=== PATIENT | female | born 1950 | race Caucasian/White ===

== ENCOUNTER 2016-11-03 13:04 | Inpatient (IN) | payer MEDICARE ==
--- NOTE | 2016-11-03 14:26 | ED ---
General Adult HPI - General Chief complaint: Recheck/Abnormal Lab/Rx Stated complaint: leg & feet swelling/hemorrhoids Time Seen by Provider: 11/03/16 13:54 Source: patient, RN notes reviewed Mode of arrival: wheelchair Limitations: no limitations - History of Present Illness Initial comments: Patient 66-year-old female who presents emergency room today with a chief complaint of bilateral leg swelling over the last 4 months. Patient does admit that she does not have a family doctor. States she's not better doctor approximately 20 years. She does admit that she noticed some swelling to the lower extremities her last 4 months. States seems to be getting worse. She does admit that it's painful with ambulation. She states that she's noticed some swelling to her abdomen as well. She denies any pain. She does admit some hemorrhoids. She states that she feels like she eats food seems to go straight through her. She states is not loose stools. Does admit to hemorrhoids that are tender. Denies any other complaints or associated symptoms. Patient denies any recent fever, chills, shortness of breath, chest pain, back pain, abdominal pain, nausea or vomiting, numbness or tingling, dysuria or hematuria, constipation or diarrhea, headaches or visual changes, or any other complaints. - Related Data Home Medications Medication Instructions Recorded Confirmed Aspirin EC [Ecotrin Low Dose] 81 mg PO DAILY 11/03/16 11/03/16 Allergies Allergy/AdvReac Type Severity Reaction Status Date / Time No Known Allergies Allergy Verified 11/03/16 14:43 Review of Systems ROS Statement: Those systems with pertinent positive or pertinent negative responses have been documented in the HPI. ROS Other: All systems not noted in ROS Statement are negative. Past Medical History Past Medical History: No Reported History Additional Past Medical History / Comment(s): pt states that she has not been to a doctor in 20+years History of Any Multi-Drug Resistant Organisms: None Reported Past Surgical History: Section Past Psychological History: No Psychological Hx Reported Smoking Status: Current every day smoker Past Alcohol Use History: Daily Past Drug Use History: None Reported General Exam - General Exam Comments Initial Comments: General: The patient is awake and alert, in no distress, and does not appear acutely ill. Eye: Pupils are equal, round and reactive to light, extra-ocular movements are intact. No nystagmus. There is normal conjunctiva bilaterally. No signs of icterus. Ears, nose, mouth and throat: There are moist mucous membranes and no oral lesions. Neck: The neck is supple, there is no tenderness or JVD. Cardiovascular: There is a regular rate and rhythm. No murmur, rub or gallop is appreciated. Respiratory: Lungs are clear to auscultation, respirations are non-labored, breath sounds are equal. No wheezes, stridor, rales, or rhonchi. Gastrointestinal: Abdomen soft on palpation. Normal bowel sounds. Nontender palpation. Musculoskeletal: Normal ROM, no tenderness. Strength 5/5. Sensation intact. Pulses equal bilaterally 2+. Patient does have 2+ pitting edema to the lower extremities. Neurological: A&O x 3. CN II-XII intact, There are no obvious motor or sensory deficits. Coordination appears grossly intact. Speech is normal. Skin: Skin is warm and dry and no rashes or lesions are noted. Psychiatric: Cooperative, appropriate mood & affect, normal judgment. Limitations: no limitations Course Vital Signs 11/03/16 13:28 Temperature 98.1 F Pulse Rate 115 H Respiratory 20 Rate Blood Pressure 125/55 O2 Sat by Pulse 100 Oximetry Medical Decision Making - Medical Decision Making Patient's labs been reviewed does show hemoglobin 8.1. Patient denies any signs of blood per rectum. Patient denies any history of anemia. Patient's labs reviewed mild elevation of AST ALT. Patient's does admit to ascites to the abdomen and edema to the lower extremities over the last few months. Denies following up with any family doctor. X-ray reviewed a nodule on the right midlung. Case was discussed with attending physician Dr. Sims. Patient did have CT of the chest abdomen pelvis with contrast which didn't reveal a nodule to the liver and a [id number] amount of ascites. Patient's BNP negative. There is no sign of CHF. Patient will be admitted to Dr. Petty with a consult from GI. She'll wear the plan states understanding. - Lab Data Result diagrams: 11/03/16 13:52 11/03/16 13:52 Lab Results 11/03/16 11/03/16 11/03/16 Range/Units 13:52 13:52 13:52 WBC 10.3 (3.8-10.6) k/uL RBC 2.82 L (3.80-5.40) m/uL Hgb 8.1 L (11.4-16.0) gm/dL Hct 26.8 L (34.0-46.0) % MCV 95.0 (80.0-100.0) fL MCH 28.8 (25.0-35.0) pg MCHC 30.3 L (31.0-37.0) g/dL RDW 16.0 H (11.5-15.5) % Plt Count 146 L (150-450) k/uL Neutrophils % (Manual) 80.0 % Lymphocytes % (Manual) 16.0 % Monocytes % (Manual) 3.0 % Eosinophils % (Manual) 1.0 % Neutrophils # (Manual) 8.2 H (1.3-7.7) k/uL Lymphocytes # (Manual) 1.6 (1.0-4.8) k/uL Monocytes # (Manual) 0.3 (0-1.0) k/uL Eosinophils # (Manual) 0.1 (0-0.7) k/uL Nucleated RBCs 0 (0-0) /100 WBC Polychromasia Present Hypochromasia Marked Poikilocytosis Marked Poikilocytosis (manual Present Target Cells Present PT (9.0-12.0) sec INR (<1.1) APTT (22.0-30.0) sec Sodium 134 L (137-145) mmol/L Potassium 3.5 (3.5-5.1) mmol/L Chloride 97 L (98-107) mmol/L Carbon Dioxide 27 (22-30) mmol/L Anion Gap 10 mmol/L BUN 11 (7-17) mg/dL Creatinine 0.39 L (0.52-1.04) mg/dL Est GFR (MDRD) Af Amer >60 (>60 ml/min/1.73 sqM) Est GFR (MDRD) Non-Af >60 (>60 ml/min/1.73 sqM) Glucose 97 (74-99) mg/dL Calcium 8.1 L (8.4-10.2) mg/dL Total Bilirubin 3.8 H (0.2-1.3) mg/dL AST 83 H (14-36) U/L ALT 69 H (9-52) U/L Alkaline Phosphatase 110 (38-126) U/L NT-Pro-B Natriuret Pep 313 pg/mL Total Protein 5.6 L (6.3-8.2) g/dL Albumin 2.8 L (3.5-5.0) g/dL 11/03/16 Range/Units 13:52 WBC (3.8-10.6) k/uL RBC (3.80-5.40) m/uL Hgb (11.4-16.0) gm/dL Hct (34.0-46.0) % MCV (80.0-100.0) fL MCH (25.0-35.0) pg MCHC (31.0-37.0) g/dL RDW (11.5-15.5) % Plt Count (150-450) k/uL Neutrophils % (Manual) % Lymphocytes % (Manual) % Monocytes % (Manual) % Eosinophils % (Manual) % Neutrophils # (Manual) (1.3-7.7) k/uL Lymphocytes # (Manual) (1.0-4.8) k/uL Monocytes # (Manual) (0-1.0) k/uL Eosinophils # (Manual) (0-0.7) k/uL Nucleated RBCs (0-0) /100 WBC Polychromasia Hypochromasia Poikilocytosis Poikilocytosis (manual Target Cells PT 17.3 H (9.0-12.0) sec INR 1.8 (<1.1) APTT 28.7 (22.0-30.0) sec Sodium (137-145) mmol/L Potassium (3.5-5.1) mmol/L Chloride (98-107) mmol/L Carbon Dioxide (22-30) mmol/L Anion Gap mmol/L BUN (7-17) mg/dL Creatinine (0.52-1.04) mg/dL Est GFR (MDRD) Af Amer (>60 ml/min/1.73 sqM) Est GFR (MDRD) Non-Af (>60 ml/min/1.73 sqM) Glucose (74-99) mg/dL Calcium (8.4-10.2) mg/dL Total Bilirubin (0.2-1.3) mg/dL AST (14-36) U/L ALT (9-52) U/L Alkaline Phosphatase (38-126) U/L NT-Pro-B Natriuret Pep pg/mL Total Protein (6.3-8.2) g/dL Albumin (3.5-5.0) g/dL Disposition Clinical Impression: Liver cirrhosis, Ascites, Leg edema Disposition: ADMITTED IP TO THIS HOSP Condition: Stable Time of Disposition: 17:16
--- NOTE | 2016-11-03 14:28 | XR ---
EXAMINATION TYPE: XR chest 2V DATE OF EXAM: 11/03/2016 2:18 PM COMPARISON: None HISTORY: 66-year-old female with leg edema TECHNIQUE: PA and lateral views FINDINGS: The cardiomediastinal silhouette, aorta, and pulmonary vasculature are within normal limits. There is mild hyperinflation with increased retrosternal clear space. Some nodularity in the right hilum like ly summation shadow and vasculature. No consolidation or pleural effusion. IMPRESSION: 1. Suspect underlying emphysema. No acute cardiopulmonary process. 2. Some nodular right hilar density likely summation shadow and vessels. Recommend short interval fol low-up in 6-8 weeks to reassess.
[2016-11-03 14:32] LABS: INR 1.8 (<1.1); Partial Thromboplastin Time 28.7 sec (22.0-30.0); Prothrombin Time 17.3 sec (9.0-12.0)
[2016-11-03 14:36] LABS: ALT 69 U/L (9-52); AST 83 U/L (14-36); Alkaline Phosphatase 110 U/L (38-126); Anion Gap 10 mmol/L; Blood Urea Nitrogen 11 mg/dL (7-17); Calcium 8.1 mg/dL (8.4-10.2); Carbon Dioxide 27 mmol/L (22-30); Chloride 97 mmol/L (98-107); Glucose 97 mg/dL (74-99); Non-African American GFR(MDRD) >60 (>60 ml/min/1.73 sqM); Potassium 3.5 mmol/L (3.5-5.1); Sodium 134 mmol/L (137-145); Total Bilirubin 3.8 mg/dL (0.2-1.3); Total Protein 5.6 g/dL (6.3-8.2)
[2016-11-03 15:07] LABS: CHCM 30.3; HCT 26.8 % (34.0-46.0); HDW 4.68; HGB 8.1 gm/dL (11.4-16.0); Hypochromasia Marked; MCH 28.8 pg (25.0-35.0); MCHC 30.3 g/dL (31.0-37.0); Mean Platelet Volume 7.3; Poikilocytosis Marked; RBC 2.82 m/uL (3.80-5.40); WBC 10.3 k/uL (3.8-10.6); WBC (Perox) 10.63
[2016-11-03] MEDS ORDERED: RX INFO: IV CONTRAST WAS GIVEN 1 EACH MISC MISCELLANE PRN (15:14)
[2016-11-03 15:59] LABS: Add Differential Manual Differential
[2016-11-03 16:03] LABS: Nucleated Red Blood Cells 0 /100 WBC (0-0); Total Cells Counted 100
[2016-11-03 16:04] LABS: Polychromasia Present; Target Cells Present
--- NOTE | 2016-11-03 16:08 | CT ---
EXAMINATION TYPE: CT ChestAbdPelvis w con DATE OF EXAM: 11/03/2016 3:53 PM COMPARISON: NONE HISTORY: Patient having bloating of abdomen since the end of summer CT DLP: 626.5 mGycm Automated exposure control for dose reduction was used. CONTRAST: CT scan of the chest, abdomen and pelvis is performed with Oral Contrast and with IV Contrast, patien t injected with 100 mL of Omnipaque 300. FINDINGS: LUNGS: There is background of mild emphysematous change. No suspicious parenchymal nodule or mass is present bilaterally. No pleural effusion or pneumothorax is seen bilaterally. Minimal linear scarring or atelectasis in both lung bases is present. MEDIASTINUM: There are no greater than 1 cm hilar or mediastinal lymph nodes. No cardiomegaly or pe ricardial effusion is seen. Main pulmonary artery measures 3.0 cm in diameter on axial image 31. Adj acent ascending aorta measures 3.3 cm in diameter. OTHER: Heterogeneously dense fibroglandular tissue is present in both breasts. Some dystrophic calcif ications are present bilaterally. LIVER/GB: Liver is heterogeneous hypodense in appearance and somewhat small in size. There are some rounded low dense lesion is felt to reflect simple cysts. There is more suspicious Central hypodense lesion on axial image 60 measuring 4.5 x 4.2 cm in which solid lesion is felt present.. PANCREAS: No significant abnormality is seen. SPLEEN: No significant abnormality is seen. ADRENALS: No significant abnormality is seen. KIDNEYS: No significant abnormality is seen. BOWEL: The evaluation of bowel is suboptimal due to lack of enteric contrast. There is small to mode rate-sized hiatal hernia. There is 1.5 cm diverticulum near junction of second and third portion of d uodenum. There is mild wall thickening throughout central small bowel loops. No suspicious small or l arge bowel dilatation is present. The amount of fecal material is somewhat prominent in the rectum. REPRODUCTIVE ORGANS: Uterus is anteverted in shape and within normal limits in size. Suspect nabothia n cysts in the cervix. Ovaries are present bilaterally and not suspiciously enlarged. LYMPH NODES: No greater than 1 cm abdominal or pelvic lymph nodes are appreciated. OSSEOUS STRUCTURES: Osseous structures are demineralized. There is mild to moderate compression type deformity superior L3 endplate favored chronic as there is sclerosis at this level. S-shaped scoliosi s in the thoracic spine is noted. Other: There are small to moderate amount of abdominal and severe amount of pelvic ascites. A 9 mm hyperdense round lesion anterior to spleen on axial image 66 could reflect marked anterior spl enule. Other etiologies not excluded. IMPRESSION: Fairly moderate to severe diffuse abdominal and pelvic ascites. Abnormal appearance to li ana which is small in size is suggestion of at least one solid lesion but possible additional solid l esions. Consider cirrhosis and neoplasm.
[2016-11-03] MEDS ORDERED: HYDROmorphone 1 MG/ML 1 ML SYRINGE IV PRN (17:16)
[2016-11-03] MEDS ORDERED: NALOXONE 0.4 MG/ML 1 ML VIAL IV PRN (17:16)
[2016-11-03] MEDS ORDERED: ACETAMINOPHEN TAB 325 MG TAB PO PRN (17:16)
[2016-11-03] MEDS ORDERED: ONDANSETRON 4 MG/2 ML VIAL IVP PRN (17:16)
[2016-11-03] MEDS ORDERED: SODIUM CHLORIDE 0.9% 1,000 ML IV ONE (17:16)
--- NOTE | 2016-11-04 07:12 | HP ---
DATE OF ADMISSION: CHIEF COMPLAINT: Leg swelling and abdominal swelling. HISTORY OF PRESENT ILLNESS: Ms. Clinton is a 66-year-old female without significant past medical history came to the hospital with complaints of bilateral leg swelling and increased abdominal girth worsening for the past 4 months. Patient apparently has not seen a family care primary physician for the past 20 years. Initially she noted bilateral leg swelling which is worsening along with increased abdominal girth and unable to fit her clothes. She does have hemorrhoids and occasional bleeding. Otherwise, denied any active bleeding at this time. Denied any fever, chills. No recent illnesses. Denied any loss of weight. Her appetite seems to be same as per the patient. Otherwise, no chest pain or short of breath. Patient had a CT of the abdomen and pelvis done, which showed the liver is heterogenous, hypodense in appearance and somewhat small in size. They are somewhat rounded low dense lesion, is felt to reflect simple cysts. There is more suspicious central hypodense lesion on the axial image 60 measuring 4.5 x 4.2 cm in which solid lesion is felt present, consider cirrhosis and neoplasm. Patient admitted to hospital for evaluation by GI at this time. REVIEW OF SYSTEMS: CONSTITUTIONAL: No fever. No chills, ( ). Denied any generalized weakness or malaise. RESPIRATORY: No cough or sputum production. No short of breath. CARDIOVASCULAR: No chest pain or short of breath. Patient does have leg swelling. No orthopnea, no PND. ABDOMEN: No nausea, vomiting. Patient does have abdominal increased girth and no abdominal pain. No diarrhea. No constipation. GENITOURINARY: No dysuria, hematuria. ENDOCRINE: Negative. PSYCHIATRIC: Negative. SKIN: Negative. All other 14-point review of systems negative except as above. PAST MEDICAL HISTORY: None. PAST SURGICAL HISTORY: several years ago. SOCIAL HISTORY: Patient is currently an everyday smoker, smokes 2 packs per day. Patient does drink 1 beer on and off, occasional alcohol use. Denied any drugs or IVDU. FAMILY HISTORY: Denied any hypertension or diabetes or cancer in the family. ALLERGIES: No known drug allergies. Home medication include aspirin 81 mg daily. PHYSICAL EXAMINATION: A 66-year-old female lying on the bed comfortably. Awake, alert, oriented x3, appears to be in no apparent distress. VITALS: Blood pressure is 125/55, pulse 105, respirations 20, temperature afebrile, pulse ox 100% on room air. HEENT: Atraumatic, normocephalic. Neck is supple. No JVD. CVS: S1, S2 heard. No murmurs, no gallop. LUNGS: Bilateral air entry is present. Decreased breath sounds bilateral basally. Nonlabored breathing. No crackles. ABDOMEN: Soft, distended with ascites. Fluid ( ) present. No guarding or rigidity. Bowel sounds are present. SUPERVISOR CEREAL: Awake, alert, oriented x3. No focal neurologic deficits. Cranial nerves grossly intact. EXTREMITIES: No edema. Pulses palpable bilaterally. No clubbing or cyanosis. PSYCHIATRIC: Cooperative. LABORATORY DATA: WBC 10.3, hemoglobin 8.1, MCV is 95.0, platelets are 146. INR level 1.8. Sodium 134, potassium 3.5, chloride 97, bicarb is 27. BUN 11, creatinine 0.39. Calcium 8.1. Bilirubin is 3.8. AST is 83, ALT is 69, alk phos 100. NT-proBNP is 313. Albumin 2.8. Chest x-ray showed suspect underlying emphysema. No acute cardiopulmonary process; small nodular right hilar density likely summation shadow and vessels. Recommend short interval followup, 6 to 8 weeks to reassess. IMPRESSION: 1. Ascites with liver cirrhosis, etiology unknown at this time. Suspected solitary liver lesion with possible underlying neoplasm. 2. Coagulopathy likely secondary to liver disease. 3. Normocytic anemia. 4. Thrombocytopenia secondary liver etiology. 5. Hyponatremia. 6. Hyperbilirubinemia. 7. Slightly elevated liver enzymes. 8. Hypoalbuminemia with albumin level of 2.8 and moderate to severe protein calorie malnutrition. 9. ( ) changes in the lungs. 10. Nodular right hilar density. Followup in 6 to 8 weeks to reassess. 11. Active nicotine addiction. DISCUSSION AND PLAN: A 66-year-old female admitted to the hospital with liver cirrhosis and ascites and bilateral lower extremity swelling. We will check hepatitis panel as well as alpha-fetoprotein. Will get ultrasound-guided paracentesis and will send fluid for cell count differential and cytopathology. GI has been consulted for further evaluation. Further recommendations based on the clinical course. Prognosis is guarded.
[2016-11-04 08:14] LABS: Anisocytosis Slight; Basophils % (A) 0 %; CH 28.4; CHCM 29.4; Eosinophils # (A) 0.1 k/uL (0-0.7); Eosinophils % (A) 2 %; HCT 22.9 % (34.0-46.0); HDW 4.57; Hypochromasia Marked; Luc # (Auto) 0.33; Luc % (Auto) 4; Lymphocytes # (A) 0.7 k/uL (1.0-4.8); Lymphocytes % (A) 7 %; MCH 29.1 pg (25.0-35.0); MCHC 30.3 g/dL (31.0-37.0); Mean Platelet Volume 7.7; Monocytes # (A) 0.4 k/uL (0-1.0); Monocytes % (A) 5 %; Neutrophils # (A) 7.8 k/uL (1.3-7.7); Neutrophils % (A) 83 %; Poikilocytosis Moderate; RBC 2.39 m/uL (3.80-5.40); RDW 16.2 % (11.5-15.5); WBC 9.4 k/uL (3.8-10.6); WBC (Perox) 9.32
[2016-11-04 08:16] LABS: HGB 6.9 gm/dL (11.4-16.0)
[2016-11-04 08:19] LABS: Appearance,Urine Clear (Clear); Bacteria,Urine Rare /hpf; Bilirubin,Urine 1+ (Negative); Glucose,Urine (UA) Negative (Negative); Ketones,Urine Trace (Negative); Leukocyte Esterase,Urine Negative (Negative); Mucus,Urine Rare /hpf; Nitrite,Urine Negative (Negative); Particle Count 8643; Protein,Urine 1+ (Negative); RBC,Urine 2 /hpf (0-5); Squamous Epithelial Cell,Urine 3 /hpf (0-4); UA Billing (MACRO vs. MICRO) MICRO; Urobilinogen,Urine >12.0 mg/dL (<2.0); WBC,Urine 1 /hpf (0-5)
[2016-11-04 08:29] LABS: ALT 60 U/L (9-52); AST 63 U/L (14-36); Alkaline Phosphatase 85 U/L (38-126); Anion Gap 8 mmol/L; Blood Urea Nitrogen 10 mg/dL (7-17); Calcium 7.5 mg/dL (8.4-10.2); Carbon Dioxide 26 mmol/L (22-30); Chloride 99 mmol/L (98-107); Glucose 85 mg/dL (74-99); Non-African American GFR(MDRD) >60 (>60 ml/min/1.73 sqM); Potassium 3.2 mmol/L (3.5-5.1); Sodium 133 mmol/L (137-145); Total Bilirubin 3.5 mg/dL (0.2-1.3); Total Protein 4.5 g/dL (6.3-8.2)
[2016-11-04 08:31] LABS: Specific Gravity,Urine >1.050 (1.001-1.035)
[2016-11-04 08:42] LABS: Manual Review Performed; Toxic Granulation Present
[2016-11-04 08:43] LABS: Polychromasia Present
[2016-11-04 08:48] LABS: Hepatitis B Surface Ag Index 0.06
[2016-11-04 08:54] LABS: Hepatitis B Core IgM Index 0.04
[2016-11-04] MEDS ORDERED: PHYTONADIONE 10 MG in SODIUM CHLORIDE 0.9% 50 ML IVPB STA (09:00)
[2016-11-04 09:05] LABS: Hepatitis C Virus IgG Index 0.03
[2016-11-04 09:10] LABS: Hepatitis C Virus IgG Ab Negative (Negative)
[2016-11-04] MEDS: POTASSIUM CHLORIDE ER 20 MEQ TAB.ER PO SCH ×3 (09:39→12:40)
[2016-11-04] MEDS: HYDROcodone/APAP 5-325MG 1 EACH TAB PO PRN (11:32)
--- NOTE | 2016-11-04 11:40 | US ---
EXAMINATION TYPE: US abdomen limited DATE OF EXAM: 11/04/2016 11:31 AM COMPARISON: CT in pacs from yesterday CLINICAL HISTORY: Ascites check. Bloating, recent abnormal CT Small to moderate amount of abdominal and pelvic ascites is seen most pronounced in the bilateral low er quadrants which correlates with recent CT. IMPRESSION: As above
[2016-11-04 16:38] LABS: Basophils % (A) 0 %; CH 28.7; CHCM 29.6; Eosinophils # (A) 0.2 k/uL (0-0.7); Eosinophils % (A) 2 %; HCT 26.3 % (34.0-46.0); HGB 8.1 gm/dL (11.4-16.0); Hypochromasia Marked; Luc # (Auto) 0.22; Luc % (Auto) 3; Lymphocytes # (A) 1.3 k/uL (1.0-4.8); Lymphocytes % (A) 15 %; MCH 29.7 pg (25.0-35.0); MCHC 30.7 g/dL (31.0-37.0); MCV 96.6 fL (80.0-100.0); Mean Platelet Volume 7.4; Monocytes # (A) 0.5 k/uL (0-1.0); Monocytes % (A) 6 %; Neutrophils # (A) 6.1 k/uL (1.3-7.7); Neutrophils % (A) 74 %; Poikilocytosis Moderate; RBC 2.72 m/uL (3.80-5.40); RDW 15.7 % (11.5-15.5); WBC 8.3 k/uL (3.8-10.6)
[2016-11-04 17:42] LABS: ALT 53 U/L (9-52); AST 65 U/L (14-36); Alkaline Phosphatase 89 U/L (38-126); Anion Gap 9 mmol/L; Blood Urea Nitrogen 10 mg/dL (7-17); Calcium 7.5 mg/dL (8.4-10.2); Carbon Dioxide 24 mmol/L (22-30); Chloride 99 mmol/L (98-107); Glucose 134 mg/dL (74-99); Iron 22 ug/dL (37-170); Non-African American GFR(MDRD) >60 (>60 ml/min/1.73 sqM); Potassium 3.3 mmol/L (3.5-5.1); Sodium 132 mmol/L (137-145); Total Bilirubin 3.4 mg/dL (0.2-1.3); Total Protein 4.2 g/dL (6.3-8.2)
[2016-11-04 17:52] LABS: % Iron Saturation 9.1 % (20-50); Total Iron Binding Capacity 242 ug/dL (265-497)
[2016-11-04] MEDS ORDERED: POTASSIUM CHLORIDE ER 20 MEQ TAB.ER PO STA (18:43)
--- NOTE | 2016-11-04 19:20 | CONS ---
DATE OF CONSULTATION: 11/04/2016 REASON FOR CONSULTATION: Abdominal pain and abdominal distention. HISTORY OF PRESENT ILLNESS: The patient is a 66-year-old pleasant white female who was admitted to the hospital because of lower extremity swelling and abdominal distention for the last 4 months' duration. She started having some abdominal discomfort about 6 months ago but never had seen a physician in the past. She has history of moderate amount of alcohol use for the last 15 years' duration. She came into the emergency room and subsequently had a CT of the abdomen and pelvis done which showed hypodense, heterogeneous-appearing liver suspicious for cirrhosis and moderate amount of ascites. Also there was mention of a 4 x 4 cm solid lesion in the liver, suspicious for neoplasm. The patient denies any recent weight loss. She denies any nausea, vomiting, rectal bleeding or melena. Her past medical history is significant for moderate alcohol abuse. PAST SURGICAL HISTORY: . SOCIAL HISTORY: Daily smoker and alcohol use, as mentioned above. FAMILY HISTORY: Mother has hypertension. ALLERGIES: NONE. REVIEW OF SYSTEMS: CARDIOPULMONARY: No chest pain or shortness of breath. GENITOURINARY: No dysuria or hematuria. MUSCULOSKELETAL: Unremarkable. SKIN: Unremarkable. ENDOCRINE: Unremarkable. PSYCHIATRIC: Unremarkable. NEUROLOGY: Unremarkable. ENT/VISION: Unremarkable. CONSTITUTIONAL: No recent weight loss. No fever, chills, night sweats. On physical examination she appears comfortable, in no apparent distress. Vital signs are stable. Blood pressure is 106/56, pulse rate 99, temperature 98.3. HEENT EXAMINATION: Unremarkable. Conjunctivae pink. Sclerae anicteric. Oral cavity has no lesions. NECK: No JVD or lymph node enlargement. Chest was clear to auscultation. HEART: Regular rate and rhythm. ABDOMEN: Soft. It was distended. Liver and spleen are not palpable. There was some free fluid noted in the abdomen. EXTREMITIES: Two plus pedal edema. SKIN: No rashes. NEURO: Alert and oriented x3. No focal deficits. LABS DONE AT THE TIME OF ADMISSION TO THE HOSPITAL: Hemoglobin 6.9, WBC 9.4, platelets 122. INR is 1.8. AST 63, ALT 60. T-bili 3.5, alkaline phosphatase 85. Hepatitis serologies for A, B and C are negative. IMPRESSION: 1. New-onset ascites in this lady with a history of moderate drinking of several years' duration. CT scan of the abdomen did show evidence of moderate amount of ascites and small-appearing liver suspicious for liver cirrhosis. 2. Severe anemia, but clinically no evidence of active ongoing bleeding. 3. Mild coagulopathy secondary to underlying alcoholic liver disease. 4. A 4 cm lesion in the liver; rule out neoplasm. RECOMMENDATIONS: 1. Agree with large-volume paracentesis for diagnostic and therapeutic purposes. Will send the fluid for analysis, including cytology. 2. In regards to the liver lesion, I will obtain alpha-fetoprotein to see if we are dealing with any hepatocellular carcinoma. Based on the tumor markers, will decide further if she needs to have a liver biopsy. 3. Once her large-volume paracentesis is done, we can start her on diuretics with Lasix 40 mg daily and Aldactone 100 mg daily. 4. In regards to the anemia, she can be transfused with 1 unit of blood. 5. Will follow the patient closely during her hospital stay. Thank you for this consultation.
[2016-11-05 07:33] LABS: INR 1.9 (<1.1); Prothrombin Time 18.4 sec (9.0-12.0)
[2016-11-05] MEDS: HYDROcodone/APAP 5-325MG 1 EACH TAB PO PRN (07:34)
[2016-11-05 07:58] LABS: Anion Gap 6 mmol/L; Blood Urea Nitrogen 9 mg/dL (7-17); Calcium 7.7 mg/dL (8.4-10.2); Carbon Dioxide 25 mmol/L (22-30); Chloride 103 mmol/L (98-107); Glucose 99 mg/dL (74-99); Non-African American GFR(MDRD) >60 (>60 ml/min/1.73 sqM); Potassium 3.9 mmol/L (3.5-5.1); Sodium 134 mmol/L (137-145)
[2016-11-05 08:19] LABS: CH 28.7; CHCM 29.5; HCT 27.1 % (34.0-46.0); HDW 4.69; HGB 8.3 gm/dL (11.4-16.0); Hypochromasia Marked; MCH 29.5 pg (25.0-35.0); MCHC 30.4 g/dL (31.0-37.0); MCV 96.9 fL (80.0-100.0); Mean Platelet Volume 7.3; Poikilocytosis Marked; RDW 15.6 % (11.5-15.5); WBC (Perox) 7.33
[2016-11-05 10:21] LABS: Iron 30 ug/dL (37-170)
[2016-11-05 10:31] LABS: % Iron Saturation 12.4 % (20-50); Total Iron Binding Capacity 241 ug/dL (265-497)
[2016-11-05 10:52] LABS: Add Differential Manual Differential
[2016-11-05 11:00] LABS: Nucleated Red Blood Cells 0 /100 WBC (0-0); Target Cells Present; Total Cells Counted 100
[2016-11-05 11:02] LABS: Crenated RBC Present; Polychromasia Present
--- NOTE | 2016-11-05 11:02 | PN ---
DATE OF SERVICE: 11/04/2016 INTERVAL HISTORY: Ms. Clinton is a 66-year-old female with no significant past medical history admitted to the hospital with ascites and lower extremity swelling and worsening for the past 4 months. The patient admits to history of moderate drinking for several years. Alpha-fetoprotein is not elevated. The patient was also found to have significantly anemic at 6.8 today and 1 unit of PRBC was given. Otherwise, patient INR is elevated due to liver etiology and has been given vitamin K today. Planning for paracentesis once INR comes below 1.5. Otherwise, patient denied any complaints of chest pain or short of breath. No nausea or vomiting, abdominal pain. No fever. No chills. No acute overnight issues. REVIEW OF SYSTEMS: CONSTITUTIONAL: No fever. No chills. No weakness, malaise. RESPIRATORY: No cough. No sputum production. No complaints of short of breath. CARDIOVASCULAR: No chest pain or short of breath. Patient does have leg swelling. ABDOMEN: No nausea or vomiting. Increased abdominal girth. GENITOURINARY: Negative. ENDOCRINE: Negative. PSYCHIATRIC: Negative. SKIN: Negative. All other fourteen-point review of systems negative except as above. CURRENT MEDICATIONS: Reviewed. PHYSICAL EXAMINATION: A 66-year-old female lying in the bed. Awake, alert, oriented, x3, appears no apparent distress. VITALS: Blood pressure is 113/66, pulse is 90, respirations 16, temperature afebrile, pulse ox 96% on room air. HEENT: Atraumatic, normocephalic. Neck is supple. No JVD. CVS: S1, S2 heard. No murmurs, no gallop, no rub. LUNGS: Bilateral air entry is present. Decreased breath sounds bilateral basally. ABDOMEN: Soft, distended with ascites, nontender. Bowel sounds are present. CLOTHING SALES ASSISTANT: Awake, alert, oriented, x3. No focal neurologic deficits. Cranial nerves grossly intact. Bilateral lower extremity edema. Pulses palpable bilaterally. No clubbing or cyanosis. PSYCHIATRIC: Cooperative. LABORATORY DATA: WBC 9.4, hemoglobin 6.9, platelets 122, sodium 133, potassium 3.2, chloride 99, bicarb is 26. BUN 10, creatinine 0.4. Alpha-fetoprotein 4.1, albumin 2.0. Hepatitis panel is negative. IMPRESSION: 1. Ascites with liver cirrhosis. Possible alcoholic etiology. 2. ( ) liver lesion, unlikely hepatocellular carcinoma. Alpha-fetoprotein is ( ) 4.1. 3. Coagulopathy secondary to liver disease. 4. Normocytic anemia 6.9 will transfuse 1 unit of PRBC. 5. Thrombocytopenia. 6. Hyponatremia. 7. Hypokalemia. 8. Hyperbilirubinemia. 9. Slightly elevated liver enzymes. 10. Hypoalbuminemia with albumin level of 2.0. 11. Moderate to severe protein calorie malnutrition. 12. Emphysematous changes in the lungs. 13. Nodular right hilar density, follow-up in 6 to 8 weeks to reassess. 14. Active nicotine addiction. DISCUSSION AND PLAN: 66 -year-old male was admitted to hospital with new onset ascites. The patient admits to have moderate alcohol use, long-term. Hepatitis panel is negative. Alpha-fetoprotein is not elevated. The patient is scheduled for paracentesis once INR comes down. The patient underwent one unit of PRBC transfusion today. Will continue with current management and further recommendations based on clinical course. Gastroenterology is following this patient.
--- NOTE | 2016-11-05 13:37 | US ---
EXAMINATION TYPE: US paracentesis abd w/image DATE OF EXAM: 11/05/2016 1:30 PM CLINICAL HISTORY: Ascites The procedure was discussed with the patient. The risks, complications, benefits, and alternatives we re discussed and any questions were answered. Informed consent was obtained. The patient was placed s upine on the ultrasound table and prepped and draped in the usual sterile fashion. All elements of maximal barrier technique were utilized. Under ultrasound guidance, access into the right lower quadrant was obtained, via the paracentesis catheter system and direct ultrasound guidanc e. Approximately 6 liters of straw-colored fluid was removed. The patient was stable throughout the proc edure and remained stable upon discharge from Department of Radiology. IMPRESSION: Successful therapeutic paracentesis under ultrasound guidance.
--- NOTE | 2016-11-05 14:36 | PN ---
DATE OF SERVICE: 11/05/2016 Patient is a 66-year-old pleasant lady admitted to the hospital with new onset ascites, abdominal pain for the last few months duration. CAT scan of the abdomen showed large amount of ascites. She underwent large volume paracentesis today and approximately 5.9 L of fluid was aspirated. The fluid was sent for analysis and the results are still pending at the time of this dictation. The patient is feeling much better today. She reports no further episodes of abdominal pain. No nausea or vomiting. She says she is very hungry. On physical examination, she appears comfortable in no apparent distress. Vital signs are stable. Blood pressure is 105/59, pulse rate 89, temperature 97.7. HEENT examination unremarkable, conjunctivae pink, sclerae anicteric. Oral cavity, no lesions. NECK: No JVD or lymph node enlargement. Chest was clear to auscultation. HEART: Regular rate and rhythm. ABDOMEN: Soft, slightly distended. Bowel sounds are positive. EXTREMITIES: No pedal edema. SKIN: No rashes. NEURO: Alert and oriented x3. No focal deficits. Labs done from today, hemoglobin 8.3, WBC 7, platelets of 120. INR is 1.9. Ferritin is 37. Iron saturation is 12.4%. AST, ALT at 65and 53 respectively. Alk phos 89. Bili is 3.4. Alpha-fetoprotein was 4.1. Hepatitis serologies for A, B, and C were negative. IMPRESSION: 1. New onset ascites probably related to underlying liver disease, most likely alcohol related. Hepatitis serologies were negative. Further workup for chronic liver disease is still pending. 2. Cirrhosis of the liver. 3. A 4 cm mass in the liver, but alpha-fetoprotein is within normal limits. Rule out possibility of hepatocellular carcinoma. RECOMMENDATIONS: 1. Obtain MRI of the liver to evaluate the mass noted on the CAT scan. 2. Start her on Lasix 40 mg daily and Aldactone 100 mg daily. 3. Low fat diet. Will follow the patient closely during her hospital stay.
[2016-11-05] MEDS: FUROSEMIDE 40 MG TAB PO SCH (14:44)
[2016-11-05 15:51] LABS: RBC, Body Fluid 121 /uL
[2016-11-05] MEDS ORDERED: LORazepam 2 MG/ML SYRINGE IV STA (18:07)
--- NOTE | 2016-11-05 20:56 | MR ---
EXAMINATION TYPE: MR liver wo/w con DATE OF EXAM: 11/05/2016 8:21 PM COMPARISON: CT scan 11/03/2016. HISTORY: Follow up per CT Scan Pt had difficulty holding breath...pt also Sedated liver mass. CONTRAST: Standard multiplanar, multisequence MRI departmental protocol utilizing 15 mL intravenous MultiHance gadolinium contrast. FINDINGS: Exam is technically limited since many of the sequences have motion artifact. There are num erous rounded fluid signal lesions in the liver that have high signal on T2 images consistent with mu ltiple cysts. There is a conglomeration of multiple rounded densities at the nitesh hepatis that have relatively high signal on T2 and low signal on T1. This is most likely additional complex cysts. Thes e do not enhance with the contrast. The bile ducts are not dilated. The area of conglomerate cysts me asures 5 cm. Multiple other cysts measure 2 to 3 cm. There is some effacement of the inferior vena ca va as a result of the cysts. There is a large amount of ascites fluid. There is no sign of a pancreatic mass. Spleen appears geoffrey l. I see no retroperitoneal adenopathy. Gallbladder is contracted and appears normal. IMPRESSION: Multiple hepatic cysts. Massive ascites. There is a 5 cm mass at the nitesh hepatis and caudate lobe o f the liver that I think is related to a conglomeration of complex cysts. There is no enhancement wit h the contrast and these have relatively low signal on T1 and higher signal on T2. I recommend focuse d liver ultrasound exam to confirm the presence of cysts in this location.
[2016-11-06 07:38] LABS: Anion Gap 9 mmol/L; Blood Urea Nitrogen 6 mg/dL (7-17); Calcium 7.5 mg/dL (8.4-10.2); Carbon Dioxide 28 mmol/L (22-30); Chloride 99 mmol/L (98-107); Glucose 90 mg/dL (74-99); Non-African American GFR(MDRD) >60 (>60 ml/min/1.73 sqM); Sodium 136 mmol/L (137-145)
[2016-11-06 07:54] LABS: Potassium 2.7 mmol/L (3.5-5.1)
[2016-11-06 08:09] LABS: Basophils % (A) 0 %; CH 28.6; CHCM 29.7; Eosinophils # (A) 0.1 k/uL (0-0.7); Eosinophils % (A) 2 %; HCT 25.9 % (34.0-46.0); HDW 4.71; HGB 7.9 gm/dL (11.4-16.0); Hypochromasia Marked; Luc # (Auto) 0.08; Luc % (Auto) 2; Lymphocytes # (A) 1.3 k/uL (1.0-4.8); Lymphocytes % (A) 25 %; MCH 29.2 pg (25.0-35.0); MCHC 30.5 g/dL (31.0-37.0); MCV 95.9 fL (80.0-100.0); Mean Platelet Volume 8.2; Monocytes # (A) 0.3 k/uL (0-1.0); Monocytes % (A) 6 %; Neutrophils # (A) 3.4 k/uL (1.3-7.7); Neutrophils % (A) 65 %; Poikilocytosis Marked; RDW 15.9 % (11.5-15.5); WBC 5.2 k/uL (3.8-10.6); WBC (Perox) 5.39
[2016-11-06] MEDS ORDERED: Potassium Replacement Protocol 1 EACH MISC MISCELLANE PRN ×2 (08:21→17:33)
[2016-11-06] MEDS: SPIRONOLACTONE 25 MG TAB PO SCH (09:02)
[2016-11-06] MEDS: FUROSEMIDE 40 MG TAB PO SCH (09:02)
[2016-11-06] MEDS: POTASSIUM CHLORIDE ER 20 MEQ TAB.ER PO SCH ×6 (09:02→22:16)
[2016-11-06 10:46] LABS: Manual Review Performed; Target Cells Present
--- NOTE | 2016-11-06 13:16 | PN ---
DATE OF SERVICE: 11/05/2016 INTERVAL HISTORY: Ms. Clinton is a 66-year-old female with no significant past medical history who was admitted to the hospital with large ascites and lower extremity swelling and worsening for the past 4 months. The patient was found to have liver cirrhosis and multiple hepatic liver cirrhosis ( ) possible ( ) mass like lesion in the liver, suspect hepatocellular carcinoma, alpha-fetoprotein is not elevated and further workup for hepatocellular carcinoma and hepatic etiology work-up is pending at this time. Hepatic cirrhosis etiology is pending at this time. Otherwise, the patient INR went up to 2.0 today. The patient will be given FFP and paracentesis. Patient also had MRI of the liver today with ( ) protocol which showed multiple cysts. Otherwise, patient denied any complaints of chest pain or short of breath, nausea or vomiting. No acute overnight issues. REVIEW OF SYSTEMS: CONSTITUTIONAL: No fever, no chills. RESPIRATORY: No cough or sputum production. CARDIOVASCULAR: No chest pain or shortness of breath. ABDOMEN: No nausea, vomiting, abdominal pain. GENITOURINARY: Negative. ENDOCRINE: Negative. PSYCHIATRY: Negative. SKIN: Negative. All other fourteen-point review of systems negative except as above. Current medications include: 1. Spironolactone. 2. Narcan. 3. Dilaudid. 4. Lasix. 5. Carson. 6. Tylenol. PHYSICAL EXAMINATION: A 66-year-old female, lying in the bed. Awake, alert, oriented x3, appears to be in no apparent distress. VITALS: Blood pressure is 111/57, pulse is 90, respirations 16, temperature afebrile, pulse ox 98% on room air. HEENT: Atraumatic, normocephalic. Neck is supple. No JVD. CVS: S1, S2 heard. No murmurs, no gallop. LUNGS: Bilateral air entry is present. No wheezing. No crackles. ABDOMEN: Soft, distended, ascites. Nontender. Bowel sounds are present. BANKRUPTCY MANAGER: Awake, alert, oriented, x3. No focal neurologic deficits. Cranial nerves grossly intact. EXTREMITIES: No edema. Pulses palpable bilaterally. No clubbing or cyanosis. PSYCHIATRIC: Cooperative. LABORATORY DATA: WBC 7.0, hemoglobin 8.3, platelets 120, INR 1.9, sodium 134, potassium 3.9, chloride 103, bicarb is 25. BUN 9, creatinine 0.06, calcium 7.7. Liver enzymes slightly elevated. Ferritin level is 37. Percent iron saturation is 9.1%. IMPRESSION: 1. Ascites with liver cirrhosis possible alcoholic etiology. 2. Multiple hepatic cysts with 4 cm mass like lesion. MRI ( ) protocol was done. Workup for hepatocellular carcinoma was done, alpha fetoprotein is 4.1. Hepatitis panel is negative. Further work-up is pending now. 3. Coagulopathy secondary to liver disease. 4. Normocytic anemia, status post 1 unit of PRBC. 5. Thrombocytopenia. 6. Hyponatremia. 7. Hypokalemia. 8. Hyperbilirubinemia. 9. Slightly elevated liver enzymes. 10. Moderate to severe protein calorie malnutrition. 11. Emphysematous changes in the lung. 12. Active nicotine addiction. 13. Nodular right hilar density follow up in 6 to 8 weeks to reassess. DISCUSSION AND PLAN: 66 -year-old male admitted to hospital with new onset ascites and the patient is status post paracentesis for ( ) fluid removal. Otherwise, MRI of the liver was done with ( ) protocol showed multiple cystic lesions in the liver. Otherwise, patient was started on Lasix and Spironolactone today. We will await cytopathology report. Further recommendations based on clinical course. Gastroenterology is following this patient.
[2016-11-06 13:59] LABS: Body Fluid Comment Few Mesothelial
--- NOTE | 2016-11-06 17:05 | US ---
EXAMINATION TYPE: US liver DATE OF EXAM: 11/06/2016 4:45 PM COMPARISON: No prior liver u/s CLINICAL HISTORY: US- Abnormal MRI. EXAM MEASUREMENTS: Liver Length: 15.0 cm Gallbladder Wall: 0.2 cm CBD: 0.6 cm Right Kidney: 11.2 x 4.0 x 7.3 cm ANATOMY: TECHNOLOGIST IMPRESSION: Pancreas: appears wnl Liver: Small inhomogeneous liver with multiple cysts and solid lesions. Largest cyst at left lobe = 2.8 x 2.9 x 2.4 cm. Largest solid mass is in the area of the nitesh-hepatis. Size = 3.1 x 5.5 x 3. 9 cm. Gallbladder: wnl Evidence for sonographic Garland's sign: No CBD: upper limits in size Right Kidney: wnl Incidental finding: Moderate free fluid in abdomen IMPRESSION: There are a few cysts demonstrated in the liver and the largest measures 2.4 cm in the an terior right lobe. At the nitesh hepatis and caudate lobe region there is a 4 cm solid predominantly isoechoic mass. Ther e is no evidence of a cystic component in this region that is suggested by the recent MR scan. Theref ore the findings are suggestive of a solid tumor at the caudate lobe and nitesh hepatis. Follow-up is recommended. There is moderate ascites. The common bile duct measures 6 mm and there is no dilation of the intrahe patic bile ducts. Normal right kidney. No hydronephrosis. Normal Values: Liver Length: < 16cm wnl, 17-18cm upper limits, >18cm enlarged Renal Length = 9 - 12cm GB Wall: < 0.3cm CBD: < 0.6cm or < 1.0cm post cholecystectomy
[2016-11-06 17:09] LABS: ALT 60 U/L (9-52); AST 69 U/L (14-36); Alkaline Phosphatase 113 U/L (38-126); Anion Gap 10 mmol/L; Blood Urea Nitrogen 6 mg/dL (7-17); Carbon Dioxide 29 mmol/L (22-30); Chloride 97 mmol/L (98-107); Glucose 101 mg/dL (74-99); Non-African American GFR(MDRD) >60 (>60 ml/min/1.73 sqM); Sodium 136 mmol/L (137-145); Total Bilirubin 2.7 mg/dL (0.2-1.3); Total Protein 5.3 g/dL (6.3-8.2)
--- NOTE | 2016-11-06 17:51 | PN ---
The patient is a 66-year-old pleasant lady who was admitted to the hospital with new onset ascites and cirrhosis of the liver. Has history of alcohol abuse for several years. She underwent large volume paracentesis yesterday and approximately 5.9 liters of fluid was removed. Fluid cytology showed 33 WBC, rare RBCs. Fluid for total protein and albumin was requested but results are not available in the computer. The patient is feeling much better after the paracentesis. She denies any symptoms. She was started on Lasix and Aldactone yesterday and she complains of excessive micturition. On physical examination, she appears comfortable, in no apparent distress. Vital signs are stable. Blood pressure is 111/57, pulse rate 98, temperature 97.2. HEENT: Unremarkable. Conjunctivae pink. Sclerae anicteric. Oral cavity, no lesions. NECK: No JVD no JVD or lymph node enlargement. Chest was clear to auscultation. HEART: Regular rate and rhythm. ABDOMEN: Soft. Bowel sounds are positive. No free fluid noted in the abdomen. EXTREMITIES: No pedal edema. SKIN: No rashes. NEURO: Alert and oriented x3. Labs from today, WBC 5.2, hemoglobin 7.9, platelets are 130. Basic metabolic panel is still pending at the time of this dictation. Cytology is still pending. IMPRESSION: 1. New onset ascites secondary to underlying liver disease/cirrhosis of the liver, fluid analysis still pending. She is status post large volume paracentesis yesterday and 5.9 liters of fluid was removed. 2. 4 cm mass in the liver for which she underwent MRI of the liver yesterday that showed multiple hepatic cysts, massive ascites. There was a 5 cm mass in the nitesh hepatis and the caudate lobe of the liver that most likely represents conglomeration of complex cysts. The radiologist recommended dedicated ultrasound of the liver to evaluate this further. Alpha-fetoprotein was reported as normal. 3. Mild elevation of serum transaminases and mild elevation of bilirubin and mild coagulopathy all related to underlying chronic alcoholic liver disease. RECOMMENDATIONS: 1. We will obtain ultrasound of the liver as recommended by the radiologist with special attention to the nitesh hepatis to evaluate if we are dealing with liver mass versus conglomeration of liver cysts. 2. Continue with Lasix 40 mg daily and Aldactone 100 mg daily. 3. Low-salt diet. 4. Await cytology results and will follow the patient closely during her hospital stay.
[2016-11-07] MEDS: POTASSIUM CHLORIDE ER 20 MEQ TAB.ER PO SCH ×3 (02:59→05:30)
[2016-11-07] MEDS: FUROSEMIDE 40 MG TAB PO SCH (09:29)
[2016-11-07] MEDS: SPIRONOLACTONE 25 MG TAB PO SCH (09:29)
[2016-11-07] MEDS ORDERED: POTASSIUM CHLORIDE ER 20 MEQ TAB.ER PO SCH (10:00)
--- NOTE | 2016-11-07 16:22 | PN ---
DATE OF SERVICE: November 07, 2016 Patient is a 66-year-old white female admitted to the hospital with new onset ascites and alcoholic cirrhosis of the liver. She had initially a CT of the abdomen that showed a 4-cm lesion near the nitesh hepatis and subsequently an MRI of the liver showed similar lesion, but had more cystic component. Yesterday she had ultrasound of the liver done, which clearly states that the lesion is more solid in consistency. In the meantime, she also had large volume paracentesis done. She is feeling better. She is on diuretics, overall feeling better. On physical examination, appears comfortable, in no apparent distress. Vitals as are stable. Blood pressure is 95/59, pulse is 71 and afebrile. HEENT: Unremarkable. Conjunctivae pink. Sclerae anicteric. Oral cavity, no lesions. NECK: No JVD or lymph node enlargement. Chest was clear to auscultation. HEART: Regular rate and rhythm. Abdomen is soft. Bowel sounds are positive. No organomegaly. Moderate ascites noted. EXTREMITIES: No pedal edema. IMPRESSION: 1. Ascites, related to portal hypertension and liver cirrhosis. Cytology is still pending. 2. 4-cm lesion in the liver near the nitesh hepatis. Rule out hepatocellular carcinoma. Alpha-fetoprotein was normal. 3. Alcoholic cirrhosis of the liver. RECOMMENDATIONS: 1. Continue with Lasix and Aldactone at the current dose. 2. Low-salt diet. 3. Will schedule the patient for ultrasound-guided liver biopsy on Tuesday. The patient is agreeable with this plan.
[2016-11-08] MEDS: FUROSEMIDE 40 MG TAB PO SCH (07:40)
[2016-11-08] MEDS: SPIRONOLACTONE 25 MG TAB PO SCH (07:40)
[2016-11-08] MEDS: traMADol 50 MG TAB PO PRN ×2 (07:41→20:36)
[2016-11-08 08:21] LABS: Anion Gap 7 mmol/L; Blood Urea Nitrogen 8 mg/dL (7-17); Calcium 7.6 mg/dL (8.4-10.2); Carbon Dioxide 27 mmol/L (22-30); Chloride 99 mmol/L (98-107); Glucose 89 mg/dL (74-99); Non-African American GFR(MDRD) >60 (>60 ml/min/1.73 sqM); Potassium 3.5 mmol/L (3.5-5.1); Sodium 133 mmol/L (137-145)
[2016-11-08 08:40] LABS: Anisocytosis Slight; Basophils % (A) 0 %; CH 28.5; CHCM 29.6; Eosinophils # (A) 0.1 k/uL (0-0.7); Eosinophils % (A) 1 %; HCT 27.7 % (34.0-46.0); HDW 4.38; HGB 8.4 gm/dL (11.4-16.0); Hypochromasia Marked; Luc # (Auto) 0.19; Luc % (Auto) 3; Lymphocytes # (A) 1.5 k/uL (1.0-4.8); Lymphocytes % (A) 25 %; MCHC 30.2 g/dL (31.0-37.0); MCV 95.8 fL (80.0-100.0); Mean Platelet Volume 7.3; Monocytes # (A) 0.5 k/uL (0-1.0); Monocytes % (A) 8 %; Neutrophils # (A) 3.6 k/uL (1.3-7.7); Neutrophils % (A) 63 %; Poikilocytosis Moderate; RBC 2.89 m/uL (3.80-5.40); RDW 16.1 % (11.5-15.5); WBC 5.8 k/uL (3.8-10.6); WBC (Perox) 5.89
[2016-11-08] MEDS: POTASSIUM CHLORIDE ER 20 MEQ TAB.ER PO SCH ×3 (10:38→20:37)
--- NOTE | 2016-11-08 15:29 | PN ---
DATE OF SERVICE: 11/06/2016 Ms. Clinton is a 58-year-old female with no past medical history, admitted to the hospital with large ascites and lower extremity swelling and worsening for the past four months. The patient was found to have liver cirrhosis and multiple herpetic cystic lesions and possible 4 cm mass at the kari hepatic as per the MRI report. Alpha-fetoprotein is negative and patient underwent paracentesis with 6 liters fluid removed and ( ) pathology is awaiting at this time. Otherwise, patient had repeat ultrasound which confirmed the 4 cm mass at the Kari hepatic area. Otherwise, the patient was found to have ( ) hypokalemia today and is currently being continued on Lasix and spironolactone and GI is following the patient. REVIEW OF SYSTEMS: CONSTITUTIONAL: No fever. No chills. RESPIRATORY: No cough or sputum production. CARDIOVASCULAR: No chest pain or short of breath. ABDOMEN: No nausea, vomiting, abdominal pain. GENITOURINARY: Negative. ENDOCRINE: Negative. Psychiatry: Negative. SKIN: Negative. All other fourteen-point review of system negative except as above. CURRENT MEDICATIONS: Reviewed. PHYSICAL EXAMINATION: A 66-year-old female, lying in bed comfortably, awake, alert, oriented, x3 appears to be in no apparent distress. VITALS: Blood pressure is 98/47, pulse is 96, respirations 18, temperature afebrile, pulse ox 94% on room air. HEENT: Atraumatic, normocephalic. Neck is supple. No JVD. CVS: S1, S2 heard. No murmurs, no gallop. LUNGS: Bilateral air entry, diminished breath sounds basally. Nonlabored breathing. ABDOMEN: Soft, distended. No tense. No palpable organomegaly. Bowel sounds are present. CREAMERY WORKER: Awake, alert, oriented, x3. No focal neurologic deficits. Cranial nerves grossly intact. EXTREMITIES: No edema. Pulse palpable bilaterally. No clubbing or cyanosis. PSYCHIATRIC: Cooperative. Nonsuicidal. SKIN: No rash or skin lesions. LABORATORY DATA: WBC 5.2, hemoglobin 7.9, platelets 130, sodium 136, potassium 2.7, chloride 99, bicarb is 28, BUN 6, creatinine 0.4, magnesium 1.7. ( ) findings ( ) were no signs of infection. Fluid cytology is pending at this time. IMPRESSION: 1. Ascites secondary to liver cirrhosis. 2. Multiple hepatic cystic lesions on the MRI with possible conglomeration of cysts appearing as a 4 cm mass at the kari hepatic area. ( ) ultrasound was ordered. 3. Coagulopathy secondary to liver disease. 4. Normocytic anemia. 5. Thrombocytopenia. 6. Hyponatremia. 7. Hypokalemia. 8. Hypomagnesemia. 9. Hyperbilirubinemia. 10. Slight elevated liver enzymes. 11. Moderate to severe protein calorie malnutrition. 12. Emphysematous changes in the lungs. 13. Active nicotine addiction. 14. Nodular right hilar density. Follow up in 6 to 8 weeks to reassess. DISCUSSION AND PLAN: A 66 -year-old female admitted to the hospital with new onset ascites and found to have 4 cm ( ) mass in the liver ( ) alpha fetoprotein is normal and is not elevated. ( ) ultrasound was ordered to further evaluate the mass. Gastroenterology is following the patient. Will continue with Lasix and Spironolactone and further recommendations based on clinical course. Will replace potassium.
--- NOTE | 2016-11-08 15:59 | PN ---
DATE OF SERVICE: 11/07/2016 INTERVAL HISTORY: Ms. Clinton is a 66 -year-old female admitted to the hospital with new onset ascites and was found to have 4 cm mass in the ( ) Kari hepatus as per ( ) ultrasound and CT guided liver biopsy was ordered, possibly on Tuesday. Otherwise, potassium level improved today. The patient denied any complaints of worsening chest or short of breath. Patient is agreeable for the procedure. No fever. No chills. No acute overnight issues. Blood pressure is low but stable. REVIEW OF SYSTEMS: CONSTITUTIONAL: No fever. No chills. No weakness, malaise. RESPIRATORY: No cough or sputum production. CARDIOVASCULAR: No chest pain or short of breath. ABDOMEN: No nausea, vomiting or abdominal pain. GENITOURINARY: Negative. ENDOCRINE: Negative. PSYCHIATRY: Negative. SKIN: Negative. All other 14 point review of systems negative except as above. CURRENT MEDICATIONS: Reviewed. PHYSICAL EXAMINATION: A 66-year-old female, lying in bed comfortably, awake, alert, oriented, x3. Appears in no apparent distress. VITALS: Blood pressure is 91/48, pulse is 91, respirations 16, temperature afebrile, pulse ox 96% on room air. HEENT: Atraumatic, normocephalic. Neck is supple. No JVD. CVS: S1, S2 heard. No murmurs, no gallop, no rub. LUNGS: Bilateral air entry present. Decreased breath sounds bilaterally basally. ABDOMEN: Soft, distended. Bowel sounds present. CENTRAL NERVOUS SYSTEM: Awake, alert and oriented times three. No focal neurologic deficits. Cranial nerves grossly intact. EXTREMITIES: No edema. Pulses are palpable. No clubbing or cyanosis. PSYCHIATRIC: Cooperative. LABORATORY DATA: Reviewed. Potassium 3.6 today. ( ) cytology is pending. ASSESSMENT: 1. New onset ascites secondary to liver cirrhosis possible alcoholic etiology. 2. 4 cm mass in the liver as per the ( ) ultrasound. 3. CT guided biopsy was ordered, possibly on Tuesday. Alpha fetoprotein is not elevated. Hepatitis panel is negative. LIZBETH is negative. We will follow. Cytopathology is pending. 4. Status post paracentesis with 6 L of fluid removal. 5. Coagulopathy secondary to liver disease. 6. Normocytic anemia, status post one unit of PRBC. 7. Thrombocytopenia. 8. Hyponatremia. 9. Hypokalemia. 10. Hyperbilirubinemia. 11. Slightly elevated liver enzymes. 12. Moderate to severe protein calorie malnutrition. 13. Emphysematous changes in the lung. 14. Active nicotine addiction. 15. Nodular right hilar density. 16. Follow-up in six to eight weeks to reassess. Discussion and plan: A 66-year-old female admitted to the hospital with new onset ascites. We will continue the current management including Lasix and spironolactone. Continue the pain management and CT guided biopsy over the liver was ordered possibly on Tuesday. Continue current management and follow up on cytology report. Further recommendations based on clinical course. We will continue to replace potassium and magnesium.
--- NOTE | 2016-11-08 19:07 | PN ---
DATE OF SERVICE: 11/08/2016 The patient is a 66-year-old pleasant white lady admitted in the hospital with new onset ascites. She underwent large volume paracentesis and approximately 6 L removed 2 days ago. Ultrasound of the liver as well as CAT scan and MRI did show a 4 cm lesion near the nitesh hepatis for which she is scheduled for liver biopsy tomorrow. In the meantime, she is doing better. She is on Lasix 40 mg daily and Aldactone 100 mg daily and diuresing well. On physical examination, appears comfortable in no apparent distress. Vital signs stable. Blood pressure is 97/51, pulse rate 93, afebrile. HEENT: Examination unremarkable. Conjunctivae pink. Sclerae anicteric. Oral cavity, no lesions. NECK: No JVD or lymph node enlargement. Chest was clear to auscultation. HEART: Regular rate and rhythm. ABDOMEN: Soft. Bowel sounds are positive. No organomegaly, ascites noted. EXTREMITIES: Trace pedal edema. SKIN: No rashes. NEURO: Alert and oriented x3. No focal deficits. LABS: BUN 8, creatinine 0.5. Basic metabolic panel is within normal limits. WBC 5.8, hemoglobin 8.4, platelets 117. IMPRESSION: 1. Ascites secondary to alcoholic cirrhosis of the liver on Lasix 40 mg daily and Aldactone 100 mg daily doing well. 2. 4 cm lesion in the nitesh hepatis seen on ultrasound, MRI and CT of the abdomen. She is scheduled for a percutaneous liver biopsy tomorrow. 3. Cirrhosis of the liver. RECOMMENDATIONS: 1. We will schedule her for ultrasound guided liver biopsy to tomorrow. 2. Continue with Lasix and Aldactone. 3. Low salt diet. 4. We will follow her closely.
[2016-11-09] MEDS: POTASSIUM CHLORIDE ER 20 MEQ TAB.ER PO SCH ×2 (07:44→21:12)
[2016-11-09] MEDS: SPIRONOLACTONE 25 MG TAB PO SCH (07:44)
[2016-11-09] MEDS: FUROSEMIDE 40 MG TAB PO SCH (07:45)
[2016-11-09 08:44] LABS: INR 1.6 (<1.1); Prothrombin Time 15.9 sec (9.0-12.0)
[2016-11-09] MEDS ORDERED: PHYTONADIONE ORAL 5 MG/5 ML ORAL.SYRG PO STA (10:32)
--- NOTE | 2016-11-09 12:16 | P.PN ---
Subjective Principal diagnosis: Liver mass 66-year-old female admitted with new onset of ascites status post large volume paracentesis with cytology pending. Ultrasound, CAT scan, MRI reported 4 cmr lesion at the nitesh hepatis scheduled for liver biopsy tomorrow secondary to elevated INR today. Received 5 mg of vitamin K. Currently resting comfortable. Afebrile. Denies abdominal pain. Objective - Vital Signs Vital signs: Vital Signs Temp 98.4 F 11/09/16 07:00 Pulse 92 11/09/16 07:00 Resp 16 11/09/16 07:00 BP 92/53 11/09/16 07:00 Pulse Ox 94 L 11/09/16 07:00 Intake & Output 11/08/16 11/09/16 11/09/16 18:59 06:59 18:59 Intake Total 590 Balance 590 Weight 66.6 kg Intake: Oral 590 Other: Voiding Method Toilet Toilet Toilet # Voids 3 1 1 - Exam General appearance: The patient is alert, oriented, in no acute distress. Thin cachectic appearance. HET: Head is normocephalic and atraumatic. Pupils are equal and reactive. Oropharynx is clear without lesions. Neck: Supple without lymphadenopathy. Trachea midline. Heart: S1 S2. Regular rate and rhythm. Lungs: No crackles or wheezes are heard. Abdomen: Soft, mildly bloated with mild ascites nontender with bowel sounds. No peritoneal signs. No palpable organomegaly or masses. Extremities: +1 bilateral pedal edema. Normal skin color and turgor. Radial and pedal pulses are 2/4 bilaterally. Neurological: No focal deficits. Strength and sensation are grossly intact. - Labs CBC & Chem 7: 11/08/16 07:12 11/08/16 07:12 Labs: Abnormal Lab Results - Last 24 Hours (Table) 11/09/16 Range/Units 07:59 PT 15.9 H (9.0-12.0) sec Assessment and Plan Plan: Impression: 1. Liver mass nitesh hepatis 4 cm; malignancy cannot be excluded, alpha- fetoprotein level within normal limits. 2. New onset ascites secondary to alcohol cirrhosis of the liver status post large volume paracentesis 11/05/2016 cytology pending. 3. Alcohol cirrhosis of the liver. Plan: Repeat PT/INR in the a.m. Continue diuretics. Possible liver biopsy tomorrow. We'll continue to follow.
--- NOTE | 2016-11-09 13:30 | PN ---
DATE OF SERVICE: 11/08/2016 INTERVAL HISTORY: Ms. Clinton is a 66-year-old female admitted to the hospital with new onset ascites, found to have a 4 cm liver mass. The patient underwent MRI of the liver as well as dedicated ultrasound of the liver. Otherwise, the patient is being planned for liver biopsy tomorrow. Alpha fetoprotein and LIZBETH are negative. Otherwise, the patient denied any complaints of abdominal pain. No nausea or vomiting. No short of breath. No acute overnight issues. REVIEW OF SYSTEMS: CONSTITUTIONAL: No fever or chills. RESPIRATORY: No cough or sputum production. CARDIOVASCULAR: No chest pain or short of breath. ABDOMEN: No nausea, vomiting or abdominal pain. GENITOURINARY: Negative. ENDOCRINE: Negative. PSYCHIATRY: Negative. SKIN: Negative. All other 14-point review of systems negative except the above. Abdomen is distended. CURRENT MEDICATIONS: Reviewed. PHYSICAL EXAMINATION: A 66-year-old female, lying on the bed comfortably, awake, alert, oriented x3, appears to be in no apparent distress. VITALS: Blood pressure is 111/62, pulse is 90, respiratory rate 16, temperature afebrile, pulse ox 96% on room air. HEENT: Atraumatic, normocephalic. Neck is supple. No JVD. CVS: S1, S2 heard. No murmurs, no gallop, no rub. LUNGS: Bilateral air entry is present. No wheezing. No crackles. ABDOMEN: Soft, distended. Bowel sounds are present. No palpable. COOPERATIVE EDUCATION COORDINATOR: Awake, alert, oriented x3. No focal neurologic deficits. Cranial nerves grossly intact. EXTREMITIES: No edema. Pulses palpable bilaterally. No clubbing or cyanosis. PSYCHIATRIC: Cooperative. LABORATORY DATA: Sodium 133, potassium 3.5, chloride 99, bicarb is 27. BUN 8, creatinine 0.5. Calcium 7.6. IMPRESSION: 1. New onset ascites secondary to liver cirrhosis, possible alcoholic etiology. 2. A 4 cm liver mass as per dedicated ultrasound of the liver. CT guided biopsy orders for tomorrow. 3. Status post paracentesis with 6 L of fluid removal, cytopathology is pending. 4. Coagulopathy secondary to liver disease. 5. Normocytic anemia, status post 1 unit of PRBC. 6. Thrombocytopenia. 7. Hyponatremia. 8. Hypokalemia. 9. Hyperbilirubinemia. 10. Slightly elevated liver enzymes. 11. Moderate to severe protein calorie malnutrition. 12. Emphysematous changes in the lung. 13. Active nicotine addition. 14. Nodular right hilar density. Follow up in six weeks to reassess. DISCUSSION AND PLAN: A 66-year-old female admitted to the hospital with new onset ascites. Patient underwent CT of the abdomen and pelvis, ultrasound of the abdomen as well as MRI of the abdomen with liver protocol. Alpha fetoprotein is not elevated and LIZBETH is negative. Hepatitis panel is negative. The patient undergoing a liver biopsy of the 4 cm mass. Will check PT, INR tomorrow. Gastroenterology is following this patient. Further recommendations based on the clinical course. Will continue to replace potassium as scheduled. Continue with the Lasix and spironolactone.
[2016-11-10 07:46] LABS: INR 1.6 (<1.1); Prothrombin Time 15.6 sec (9.0-12.0)
[2016-11-10 07:53] VITALS: RESP 16
[2016-11-10] MEDS: POTASSIUM CHLORIDE ER 20 MEQ TAB.ER PO SCH (08:28)
[2016-11-10] MEDS: SPIRONOLACTONE 25 MG TAB PO SCH (08:28)
[2016-11-10] MEDS: FUROSEMIDE 40 MG TAB PO SCH (08:28)
--- NOTE | 2016-11-10 10:12 | P.PN ---
Subjective Principal diagnosis: Liver mass 66-year-old female admitted with new onset of ascites status post large volume paracentesis with cytology pending. Ultrasound, CAT scan, MRI reported 4 cm lesion at the nitesh hepatis scheduled for liver biopsy today. Received vitamin K yesterday. Currently resting comfortable. Afebrile. Denies abdominal pain. Objective - Vital Signs Vital signs: Vital Signs Temp 98 F 11/10/16 07:00 Pulse 88 11/10/16 07:00 Resp 16 11/10/16 07:00 BP 93/55 11/10/16 07:00 Pulse Ox 95 11/10/16 07:00 Intake & Output 11/09/16 11/10/16 11/10/16 18:59 06:59 18:59 Intake Total 100 Balance 100 Weight 66 kg Intake: Oral 100 Other: Voiding Method Toilet Toilet # Voids 3 2 - Exam General appearance: The patient is alert, oriented, in no acute distress. Thin cachectic appearance. HET: Head is normocephalic and atraumatic. Pupils are equal and reactive. Oropharynx is clear without lesions. Neck: Supple without lymphadenopathy. Trachea midline. Heart: S1 S2. Regular rate and rhythm. Lungs: No crackles or wheezes are heard. Abdomen: Soft, mildly bloated with mild ascites nontender with bowel sounds. No peritoneal signs. No palpable organomegaly or masses. Extremities: +1 bilateral pedal edema. Normal skin color and turgor. Radial and pedal pulses are 2/4 bilaterally. Neurological: No focal deficits. Strength and sensation are grossly intact. - Labs CBC & Chem 7: 11/08/16 07:12 11/08/16 07:12 Labs: Abnormal Lab Results - Last 24 Hours (Table) 11/10/16 Range/Units 07:19 PT 15.6 H (9.0-12.0) sec Assessment and Plan Plan: Impression: 1. Liver mass nitesh hepatis 4 cm; malignancy cannot be excluded, alpha- fetoprotein level within normal limits. 2. New onset ascites secondary to alcohol cirrhosis of the liver status post large volume paracentesis 11/05/2016 cytology pending. 3. Alcohol cirrhosis of the liver. Plan: Continue diuretics. Possible liver biopsy today. We'll continue to follow.
--- NOTE | 2016-11-10 10:57 | PN ---
DATE OF SERVICE: 11/09/2016 INTERVAL HISTORY: Ms. Clinton is a [id number] female who was admitted to the hospital without significant past medical history, was admitted to the hospital with new onset ascites and found to have a 4 cm liver mass. The patient underwent MRI with liver protocol as well as dedicated ultrasound of the liver mass. Currently AFP is not elevated. LIZBETH is negative. Patient is being scheduled for liver biopsy today, but it was not done due to elevated INR level to 1.5. The patient was given vitamin K today to lower the INR below 1.5 so that she can get the biopsy done tomorrow. Otherwise, the patient denied any complaints of chest pain or short of breath. No fever, no chills. No acute overnight issues. REVIEW OF SYSTEMS: CONSTITUTIONAL: No fever. No chills. RESPIRATORY: No cough or sputum production. CARDIOVASCULAR: No chest pain or shortness of breath. ABDOMEN: No nausea, vomiting, abdominal pain. GENITOURINARY: Negative. ENDOCRINE: Negative. PSYCHIATRIC: Negative. All other 14-point review of systems negative except the above. CURRENT MEDICATIONS: Reviewed. PHYSICAL EXAMINATION: A 66-year-old female lying on the bed comfortably, awake, alert, oriented x3, appears to be in no apparent distress. VITALS: Blood pressure is 99/46, pulse is 94, respirations 18, temperature afebrile, pulse ox 95% on room air. HEENT: Atraumatic, normocephalic. Neck is supple. No JVD. CVS: S1, S2 heard. No murmurs, no gallop. LUNGS: Bilateral air entry is present. No wheezing. No crackles. Nonlabored breathing. ABDOMEN: Soft, nontender. It is slightly distended. Bowel sounds are present. NEUROLOGIC: Alert and oriented x3. No focal neurologic deficit. Cranial nerves grossly intact. EXTREMITIES: No edema. Pulses palpable bilaterally. No clubbing or cyanosis. PSYCHIATRIC: Cooperative. LABORATORY DATA: Reviewed. INR is 1.6. IMPRESSION: 1. New onset ascites secondary to liver cirrhosis, possible alcoholic etiology. 2. A 4 cm liver mass as per dedicated ultrasound of the liver. CT-guided biopsy is rescheduled for tomorrow. 3. Status post paracentesis with 6 L fluid removal. Cytopathology is pending. 4. Coagulopathy secondary to liver disease. 5. Thrombocytopenia. 6. Normocytic anemia. 7. Hyponatremia. 8. Hypokalemia. 9. Hyperbilirubinemia. 10. Slightly elevated liver enzymes. 11. Moderate to severe protein calorie malnutrition. 12. Emphysematous changes in the lung. 13. Active nicotine addiction. 14. Nodular right hilar density. Follow up in 6 weeks to reassess. DISCUSSION AND PLAN: A 66-year-old female admitted to hospital with new onset ascites. The patient is scheduled for liver biopsy tomorrow. Will check INR level. Continue the current management including Lasix and spironolactone. Follow up closely. Further recommendations based on clinical course.
[2016-11-10] MEDS: traMADol 50 MG TAB PO PRN (12:12)
[2016-11-10 15:42] VITALS: BP 100/57; PULSE 86; TEMP 97.9
[2016-11-10 15:43] VITALS: BMI 22.8
--- NOTE | 2016-11-10 17:10 | DS ---
DATE OF ADMISSION: 11/03/2016 DATE OF DISCHARGE: HISTORY OF PRESENT ILLNESS: This is a 66-year-old lady that has never seen a physician in over 30 years prior to being admitted to the hospital. Comes in the hospital with increasing abdominal girth and bilateral lower extremity swelling. Patient underwent a CT scan of the abdomen and pelvis, which showed heterogeneous hypodense lesions initially with a suspicious Mass measuring about 5 cm, patient was also noted to have ascites and thereafter underwent paracentesis with 6 liters straw-colored fluid that was removed. A MRI of the liver was ordered that was recommended by the GI physician, which noted a 5 cm mass in the nitesh hepatis and the caudate lobe of the liver. A cytology was obtained on the day of discharge from the peritoneal fluid just showed inflammatory cells and no malignant cells were appreciated. Radiology has recommended repeat focal ultrasound in order to obtain a CT-guided or ultrasound-guided biopsy of the lesion in the caudate lobe/nitesh hepatis. However, the interventional radiologist was not comfortable approaching it via abdominal approach and recommended a transjugular approach done at a tertiary care center. On the day of discharge: PHYSICAL EXAM: LUNGS: Good air entry. Clear to auscultation. ABDOMEN: Slightly distended. No organomegaly appreciated. HEART: Regular rate and rhythm. No murmurs appreciated. S1, S2 heard. LOWER EXTREMITIES: 1+ edema noted. Not very significant. NEUROLOGIC: No focal motor or sensory deficits appreciated. DISCHARGE DIAGNOSES: 1. Liver cirrhosis, unknown etiology. 2. A large liver mass in the nitesh hepatis/caudate lobe. 3. Coagulopathy secondary to liver disease. 4. Thrombocytopenia secondary to above. 5. Hyponatremia. 6. Hypokalemia. 7. Hyperbilirubinemia. 8. Elevated liver enzymes. Elevated liver enzymes and elevated bilirubin all likely a consequence of patient liver cirrhosis underlying etiology needs to be obtained after a biopsy is done. Alcoholic overuse is also attributed as patient did used to have a significant amount of consumption however, biopsy is needed hence, transfer to a tertiary care center for a transjugular based liver biopsy will be done. This was discussed with admitting hospitalist at [facility] and the patient is accepted for transfer.
== END 2016-11-10 18:35 | disposition short-term general hospital (02) | DRG 432 ==
LOC: EC 13:04 → 5ONC 17:17
PROVIDERS: ADMIT Internal Medicine; ATTEND Internal Medicine
PROC: 30233N1 Transfusion of Nonautologous Red Blood Cells into Peripheral Vein, Percutaneous Approach (ICD-10-PCS; principal; 2016-11-04)
PROC: 0W9G3ZZ Drainage of Peritoneal Cavity, Percutaneous Approach (ICD-10-PCS; 2016-11-05)
DX: K74.60 Unspecified cirrhosis of liver (principal); E43 Unspecified severe protein-calorie malnutrition; D68.4 Acquired coagulation factor deficiency; K76.6 Portal hypertension; D69.59 Other secondary thrombocytopenia; E87.1 Hypo-osmolality and hyponatremia; R16.0 Hepatomegaly, not elsewhere classified; E83.42 Hypomagnesemia; D64.9 Anemia, unspecified; E87.6 Hypokalemia; F17.210 Nicotine dependence, cigarettes, uncomplicated; K64.9 Unspecified hemorrhoids; Z82.49 Family history of ischemic heart disease and other diseases of the circulatory system
CPT/HCPCS: 36415; 49083; 71020; 71260; 74177; 74183; 76705; 80048; 80053; 80074; 81001; 82042; 82105; 82728; 83540; 83550; 83735; 83880; 84132; 84157; 85025; 85610; 85730; 86038; 86850; 86900; 86901; 86920; 88108; 88305; 88341; 88342; 89050; 99285

== ENCOUNTER 2017-05-11 10:52 | Emergency (ER) | payer MEDICARE ==
[2017-05-11] MEDS ORDERED: KETOROLAC 60 MG/2 ML VIAL IM STA (11:30)
[2017-05-11] MEDS ORDERED: methylPREDNISolone SOD SUCCI 125 MG/2 ML VIAL IM STA (11:30)
[2017-05-11] MEDS ORDERED: ORPHENADRINE 30 MG/ML 2 ML VIAL IM STA (11:30)
--- NOTE | 2017-05-11 11:30 | ED ---
General Adult HPI - General Chief complaint: Neck Pain/Injury Stated complaint: back and shoulder pain Time Seen by Provider: 05/11/17 11:15 Source: patient, RN notes reviewed Mode of arrival: ambulatory Limitations: no limitations - History of Present Illness Initial comments: 66-year-old female presents emergency Department chief complaint of right-sided neck pain that radiates down the right arm it causes some achiness in her right arm. Patient states sometimes she'll get it on the left arm. Patient admits to chronic low back pain but states her last month this pain has flared up. Patient states the center of her neck hurts and then she'll get this radiating type pain. Patient denies any falls traumas or injuries prior to this starting. Patient denies any fever chills with this. Patient states that she doesn't feel weak in the arm and just feels achy and sore. Patient states she was concerned due to her symptoms and the fact that they did not seem to be improving so she thought that she should be evaluated. - Related Data Home Medications Medication Instructions Recorded Confirmed Carteolol Ophth Soln [Ocupress 1% 1 drops LEFT EYE BID 05/11/17 05/11/17 Ophth Soln] Flurbiprofen 0.03% Ophth Soln 1 drops LEFT EYE BID 05/11/17 05/11/17 [Ocufen] prednisoLONE ACETATE 1% OPHTH 1 drops LEFT EYE BID 05/11/17 05/11/17 [Pred Forte 1%] Previous Rx's Medication Instructions Recorded Orphenadrine [Norflex] 100 mg PO Q12H #10 tablet.er 05/11/17 predniSONE 50 mg PO DAILY #5 tab 05/11/17 Allergies Allergy/AdvReac Type Severity Reaction Status Date / Time No Known Allergies Allergy Verified 05/11/17 11:19 Review of Systems ROS Statement: Those systems with pertinent positive or pertinent negative responses have been documented in the HPI. ROS Other: All systems not noted in ROS Statement are negative. Past Medical History Past Medical History: No Reported History Additional Past Medical History / Comment(s): pt states that she has not been to a doctor in 37+years History of Any Multi-Drug Resistant Organisms: None Reported Past Surgical History: Section Past Anesthesia/Blood Transfusion Reactions: No Reported Reaction Past Psychological History: No Psychological Hx Reported Smoking Status: Current some day smoker Past Alcohol Use History: Daily Past Drug Use History: None Reported - Past Family History Son(s) Family Medical History: No Reported History Daughter(s) Family Medical History: No Reported History General Exam Limitations: no limitations General appearance: alert, in no apparent distress Head exam: Present: atraumatic, normocephalic, normal inspection Eye exam: Present: normal appearance, PERRL, EOMI. Absent: scleral icterus, conjunctival injection, periorbital swelling ENT exam: Present: normal exam, mucous membranes moist Neck exam: Present: normal inspection, tenderness (Minimal diffusely along the midline), full ROM. Absent: meningismus, lymphadenopathy, thyromegaly Respiratory exam: Present: normal lung sounds bilaterally. Absent: respiratory distress, wheezes, rales, rhonchi, stridor Cardiovascular Exam: Present: regular rate, normal rhythm, normal heart sounds. Absent: systolic murmur, diastolic murmur, rubs, gallop, clicks Extremities exam: Present: normal inspection, full ROM, normal capillary refill. Absent: tenderness, pedal edema, joint swelling, calf tenderness Back exam: Present: normal inspection, full ROM. Absent: tenderness Neurological exam: Present: alert, oriented X3 Psychiatric exam: Present: normal affect, normal mood Skin exam: Present: warm, dry, intact, normal color. Absent: rash Course Vital Signs 05/11/17 05/11/17 05/11/17 11:07 11:37 13:09 Temperature 97.8 F 97.4 F L 98.5 F Pulse Rate 98 91 82 Respiratory 20 18 18 Rate Blood Pressure 167/77 151/71 164/77 O2 Sat by Pulse 99 96 97 Oximetry Medical Decision Making - Medical Decision Making 66-year-old female presents with what appears to be cervical radiculopathy. We' ll put the patient on short course of steroids. We did discuss return for hours and follow-up in all questions. Patient stated that she understood and she is given plan. She will be discharged. Disposition Clinical Impression: Cervical radiculopathy, Degenerative disc disease Disposition: HOME SELF-CARE Condition: Stable Instructions: Cervical Radiculopathy (ED) Additional Instructions: Please use medication as discussed. Please follow up with family doctor if symptoms have not improved over the next two days. Please return to the emergency room if your symptoms increase or worsen or for any other concerns. Prescriptions: Orphenadrine [Norflex] 100 mg PO Q12H #10 tablet.er predniSONE 50 mg PO DAILY #5 tab Referrals: None,Stated [Primary Care Provider] - 1-2 days Time of Disposition: 13:19
[2017-05-11 11:40] VITALS: RESP 18
--- NOTE | 2017-05-11 12:02 | XR ---
EXAMINATION TYPE: XR cervical spine comp DATE OF EXAM: 05/11/2017 COMPARISON: NONE HISTORY: Pain TECHNIQUE: 5 view cervical spine FINDINGS: There is exaggeration of the upper cervical spine lordosis. There is a kyphosis at the lowe r cervical spine. Grade 1 spondylolisthesis is present C3 5 anterior and C6 and minimal C6 anterior a nd C7. Anterior vertebral body spurring is present C4-C7. Disc space narrowing at the posterior C3-4 space C4-5 space and C6-7 disc level is present. Posterior spinal lamellar line appears intact. Some facet degenerative changes present. There is severe left foraminal stenosis C3-4 and more modera te foraminal narrowing C4-5 C5-6. There is narrowing of the right C3-4 C4-5 foramen. Odontoid is limi viv with overlying incisors. On the lateral projection there appears to be some mottling of the posterior spinous process of C3. M etastatic disease should be considered. Consider additional workup. Correlate with the patient's hist ory. IMPRESSION: 1. Exaggeration of the kyphosis and lordosis through the cervical spine discussed above. 2. Multilevel degenerative disc change, greatest at C6-7. 3. Minimal grade 1 spondylolisthesis of C3-4 anteriorly on C5 and C5 anterior and C6. 4. Irregular density within the spinous process of C3 on the lateral projection. Metastatic lesion is not excluded and additional workup is recommended.
--- NOTE | 2017-05-11 13:07 | CT ---
EXAMINATION TYPE: CT cervical spine wo con DATE OF EXAM: 05/11/2017 COMPARISON: NONE HISTORY: Neck pain CT DLP: [address] of the cervical spine was performed with bone and soft tissue window settings submitted . Coronal and sagittal reconstruction is obtained. There is accentuation of the normal cervical lordosis. Moderate degenerative narrowing is identified at C3-4. Posterior spondylosis. 2 mm retrolisthesis of C3 on C4 appears chronic in nature and related to severe degenerative change of the cervical apophyseal joints. Is anterior listhesis of C5 on C6 o f 2.5 mm also related to a degenerative change of the cervical apophyseal joints. Moderate degenerati ve narrowing is noted at this level. Posterior disc bulging is noted at C5-6 and C6-7 without evidenc e for herniation or central stenosis. There is no evidence for fracture. IMPRESSION: No evidence for fracture or subluxation of the cervical spine. Generative changes as note d.
[2017-05-11 13:12] VITALS: BP 164/77; PULSE 82; TEMP 98.5
[2017-05-11] MEDS ORDERED: HYDROcodone/APAP 5-325MG 1 EACH TAB PO STA (13:21)
== END 2017-05-11 13:28 | disposition home or self-care (01) ==
LOC: EC 10:52
DX: M50.123 Cervical disc disorder at C6-C7 level with radiculopathy (principal); M47.892 Other spondylosis, cervical region; F17.200 Nicotine dependence, unspecified, uncomplicated; Z79.899 Other long term (current) drug therapy
CPT/HCPCS: 99284; 96372 ×3; 72050; 72125; J2360; J2930; J1885

== ENCOUNTER → 2017-08-01 | Outpatient (CLI) | payer MEDICARE ==
[2017-08-01 12:08] LABS: Anisocytosis Moderate; Basophils % (A) 0 %; CH 25.4; CHCM 29.9; Eosinophils # (A) 0.1 k/uL (0-0.7); Eosinophils % (A) 2 %; HCT 39.8 % (34.0-46.0); HDW 2.87; HGB 11.9 gm/dL (11.4-16.0); Hypochromasia Marked; Luc % (Auto) 2; Lymphocytes # (A) 1.2 k/uL (1.0-4.8); Lymphocytes % (A) 27 %; MCH 25.5 pg (25.0-35.0); MCHC 29.8 g/dL (31.0-37.0); MCV 85.5 fL (80.0-100.0); Mean Platelet Volume 7.7; Microcytosis Slight; Monocytes # (A) 0.6 k/uL (0-1.0); Monocytes % (A) 12 %; Neutrophils # (A) 2.6 k/uL (1.3-7.7); Neutrophils % (A) 57 %; RBC 4.66 m/uL (3.80-5.40); RDW 20.4 % (11.5-15.5); WBC 4.6 k/uL (3.8-10.6); WBC (Perox) 4.85
== END | disposition home or self-care (01) ==
LOC: LABWHC1 11:32
PROVIDERS: ATTEND Physical Medicine & Rehabilitation
DX: M47.22 Other spondylosis with radiculopathy, cervical region (principal); M50.121 Cervical disc disorder at C4-C5 level with radiculopathy
CPT/HCPCS: 36415; 85025

== ENCOUNTER 2017-08-14 16:56 | Emergency (ER) | payer MEDICARE ==
[2017-08-14 17:06] VITALS: BP 147/67; PULSE 97; RESP 18; TEMP 97
[2017-08-14] MEDS ORDERED: MORPHINE SULFATE 10 MG/ML SYRINGE IM STA (17:36)
--- NOTE | 2017-08-14 17:42 | ED ---
General Adult HPI - General Chief complaint: Neck Pain/Injury Stated complaint: Neck/Back Pain Time Seen by Provider: 08/14/17 17:09 Source: patient Mode of arrival: ambulatory Limitations: no limitations - History of Present Illness Initial comments: This is a 67-year-old female with history of cervical radiculopathy who presents to emergency room with chief complaint of increasing neck pain. Patient states that on Tuesday she saw her family doctor, Dr. Banda and she received an injection of cortisone. Patient states since that time her pain has increased. Patient states that it did help with the numbness and tingling that she was experiencing in her bilateral upper extremities. Patient states that the pain is constant and sharp and radiates into her left shoulder. The pain does not increase or decrease with movement of the neck. Denies fever , chills, chest pain, shortness of breath, abdominal pain, nausea or vomiting, constipation or diarrhea, dysuria or hematuria, numbness or tingling, headache or vision changes. - Related Data Home Medications Medication Instructions Recorded Confirmed Carteolol Ophth Soln [Ocupress 1% 1 drops LEFT EYE BID 05/11/17 05/11/17 Ophth Soln] Flurbiprofen 0.03% Ophth Soln 1 drops LEFT EYE BID 05/11/17 05/11/17 [Ocufen] prednisoLONE ACETATE 1% OPHTH 1 drops LEFT EYE BID 05/11/17 05/11/17 [Pred Forte 1%] Previous Rx's Medication Instructions Recorded Orphenadrine [Norflex] 100 mg PO Q12H #10 tablet.er 05/11/17 predniSONE 50 mg PO DAILY #5 tab 05/11/17 Allergies Allergy/AdvReac Type Severity Reaction Status Date / Time No Known Allergies Allergy Verified 08/14/17 17:06 Review of Systems ROS Statement: Those systems with pertinent positive or pertinent negative responses have been documented in the HPI. ROS Other: All systems not noted in ROS Statement are negative. 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 History of Any Multi-Drug Resistant Organisms: None Reported Past Surgical History: Section Additional Past Surgical History / Comment(s): cataract surgery Past Anesthesia/Blood Transfusion Reactions: No Reported Reaction Past Psychological History: No Psychological Hx Reported Smoking Status: Current every day smoker Past Alcohol Use History: None Reported Past Drug Use History: None Reported - Past Family History Son(s) Family Medical History: No Reported History Daughter(s) Family Medical History: No Reported History General Exam - General Exam Comments Initial Comments: General: Awake and alert, well-developed; in no apparent distress. HEENT: Head atraumatic, normocephalic. Pupils are equal, round and reactive to light. Extraocular movements intact. Multiple teeth are missing. Neck: Supple. Normal ROM. Cardiovascular: Regular rate and rhythm. No murmurs, rubs or gallops. Chest symmetrical. Respiratory: Lungs clear to auscultation bilaterally. No wheezes, rales or rhonchi. Normal respiratory effort with no use of accessory muscles. Musculoskeletal: Neck has normal range of motion. Sensation is intact. Mild tenderness with palpation along cervical vertebrate. Skin: [place], warm and dry without rashes or lesions. Neurological: Alert and oriented x3. CN II-XII grossly intact. Speech is fluent and answers are appropriate. No focal neuro deficits. Psychiatric: Normal mood and affect. No overt signs of depression or anxiety noted. Limitations: no limitations Course Vital Signs 08/14/17 17:03 Temperature 97 F L Pulse Rate 97 Respiratory 18 Rate Blood Pressure 147/67 O2 Sat by Pulse 96 Oximetry Medical Decision Making - Medical Decision Making This case was discussed with attending physician, Dr. Leigh. Patient will be discharged home after receiving an IM injection of morphine for pain. She is advised to follow-up with her family doctor, Dr. Banda whom she received the steroid injection from. Patient is in agreement with the plan. All questions were answered. Disposition Clinical Impression: Cervical radiculopathy Disposition: HOME SELF-CARE Condition: Good Instructions: Cervical Radiculopathy (ED) Additional Instructions: Please follow up with Dr. Banda within 1-2 days. Return to emergency department if symptoms should worsen or any concerns arise. Referrals: Quinn Mancuso MD [Primary Care Provider] - 1-2 days Time of Disposition: 17:42
== END 2017-08-14 17:56 | disposition home or self-care (01) ==
LOC: EC 16:56
DX: M54.12 Radiculopathy, cervical region (principal); F17.200 Nicotine dependence, unspecified, uncomplicated; Z79.899 Other long term (current) drug therapy
CPT/HCPCS: 99283 ×2; 96372 ×2; J2270

== ENCOUNTER 2018-05-13 17:07 | Emergency (ER) | payer MEDICARE ==
--- NOTE | 2018-05-13 17:56 | ED ---
Fall HPI - General Chief Complaint: Fall Stated Complaint: Fall Time Seen by Provider: 05/13/18 17:46 Source: patient, RN notes reviewed Mode of arrival: ambulatory Limitations: no limitations - History of Present Illness Initial Comments: This is a 67-year-old female presents to the emergency department with chief complaint of low back pain. Patient states that a couple of days ago she was coming inside and slipped on a wet patch of floor. She states her feet kicked out in front of her and she landed on her back. She states that she was able to get up off the ground. Denies hitting her head. Denies head or neck pain. States that since that time she has had pain with sitting, sleeping and changing positions. She states that she has been taking Ultram. Denies saddle paresthesias or loss of bladder or bowel function. Denies numbness or tingling or radiation of pain down the legs. States that pain is off to both sides of her lower spine. Denies any other injuries or trauma. Denies fevers or chills , chest pain or shortness of breath, abdominal pain, nausea or vomiting. - Related Data Home Medications Medication Instructions Recorded Confirmed Carteolol Ophth Soln [Ocupress 1% 1 drops LEFT EYE BID 05/11/17 05/13/18 Ophth Soln] Flurbiprofen 0.03% Ophth Soln 1 drops LEFT EYE BID 05/11/17 05/13/18 [Ocufen] prednisoLONE ACETATE 1% OPHTH 1 drops LEFT EYE BID 05/11/17 05/13/18 [Pred Forte 1%] Previous Rx's Medication Instructions Recorded Orphenadrine [Norflex] 100 mg PO Q12H #10 tablet.er 05/11/17 predniSONE 50 mg PO DAILY #5 tab 05/11/17 Ibuprofen 600 mg PO Q6HR #15 tablet 05/13/18 Allergies Allergy/AdvReac Type Severity Reaction Status Date / Time No Known Allergies Allergy Verified 05/13/18 17:45 Review of Systems ROS Statement: Those systems with pertinent positive or pertinent negative responses have been documented in the HPI. ROS Other: All systems not noted in ROS Statement are negative. 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 History of Any Multi-Drug Resistant Organisms: None Reported Past Surgical History: Section Additional Past Surgical History / Comment(s): cataract surgery Past Anesthesia/Blood Transfusion Reactions: No Reported Reaction Past Psychological History: No Psychological Hx Reported Smoking Status: Current every day smoker Past Alcohol Use History: None Reported Past Drug Use History: None Reported - Past Family History Son(s) Family Medical History: No Reported History Daughter(s) Family Medical History: No Reported History General Exam - General Exam Comments Initial Comments: General: Awake and alert, well-developed; in no apparent distress. HEENT: Head atraumatic, normocephalic. Pupils are equal, round and reactive to light. Extraocular movements intact. Oropharynx moist without erythema or exudate. Neck: Supple. Normal ROM. Cardiovascular: Regular rate and rhythm. No murmurs, rubs or gallops. Chest symmetrical. Pedal pulses are 2+ equal and palpable bilaterally. Respiratory: Lungs clear to auscultation bilaterally. No wheezes, rales or rhonchi. Normal respiratory effort with no use of accessory muscles. Musculoskeletal: Normal ROM, no tenderness bilateral upper and lower extremities. Ambulating normally. Skin: [place], warm and dry without rashes or lesions. Neurological: Alert and oriented x3. CN II-XII grossly intact. Speech is fluent and answers are appropriate. No focal neuro deficits. Psychiatric: Normal mood and affect. No overt signs of depression or anxiety noted. Limitations: no limitations Back exam: Present: normal inspection, full ROM, tenderness (bilateral SI joints ). Absent: vertebral tenderness (no cervical, thoracic or lumbar bony point tenderness ) Course Vital Signs 05/13/18 05/13/18 17:42 19:20 Temperature 97.9 F Pulse Rate 105 H 92 Respiratory 18 20 Rate Blood Pressure 149/84 147/78 O2 Sat by Pulse 95 95 Oximetry Medical Decision Making - Medical Decision Making This is a 67-year-old female presents to the emergency department with chief complaint of low back injury. Patient states that she slipped and fell couple of days ago and landed on her butt. She complains of pain to the bilateral sides of her low back. Patient states that she is having difficulty sitting, sleeping or changing positions. She has been taking Ultram at home and using a heating pad. Denies saddle paresthesias or loss of bladder or bowel function. Physical examination, no vertebral bony point tenderness. There is tenderness to the bilateral SI joints. X-rays of the lumbar spine and pelvis were obtained and revealed no acute abnormalities. Recommended ibuprofen for the next 2-3 days. Vital signs are stable and patient is in no acute distress. She will be discharged home at this time. All questions answered. - Radiology Data Radiology results: report reviewed Lumbar spine x-ray impression: No acute fracture or dislocation is seen in the lumbar spine. Chronic compression deformity of the L3 vertebral body seen on the prior CT 2016. Pelvis x-ray impression: There is no acute fracture or dislocation in the pelvis. Disposition Clinical Impression: Low back pain Disposition: HOME SELF-CARE Condition: Good Instructions: Low Back Strain (ED), Acute Low Back Pain (ED) Additional Instructions: Please take medications as prescribed. Please follow up with primary care provider within 1-2 days. Return to emergency department if symptoms should worsen or any concerns arise. Prescriptions: Ibuprofen 600 mg PO Q6HR #15 tablet Is patient prescribed a controlled substance at d/c from ED?: No Referrals: Quinn Mancuso MD [Primary Care Provider] - 1-2 days Time of Disposition: 19:32
--- NOTE | 2018-05-13 19:17 | XR ---
EXAMINATION TYPE: XR pelvis AP view DATE OF EXAM: 05/13/2018 CLINICAL HISTORY: Low back pain and pelvic pain after a fall TECHNIQUE: A single AP view of the pelvis is obtained. COMPARISON: None. FINDINGS: There is no acute fracture/dislocation evident in the pelvis. The hip and sacroiliac join ts appear symmetric and unremarkable. The overlying soft tissue appears unremarkable. The femurs are suboptimally evaluated bilaterally due to patient body habitus. Moderate degenerative changes of the femoral acetabular joints and sacroiliac joints as well as the lumbosacral spine are present. IMPRESSION: There is no acute fracture or dislocation in the pelvis.
--- NOTE | 2018-05-13 19:20 | XR ---
EXAMINATION TYPE: XR lumbar spine 2 or 3V DATE OF EXAM: 05/13/2018 CLINICAL HISTORY: Back pain after fall TECHNIQUE: Frontal and lateral images of the lumbar spine are obtained. COMPARISON: CT chest, abdomen, and pelvis dated 10/26/2016 FINDINGS: There is process of L2 on the left is partially obscured by atherosclerosis of the abdomin al aorta and overlying bowel gas. There are degenerative changes of the lumbosacral junction and exte nsive atherosclerosis of the common iliac arteries. There are 5 lumbar type vertebral bodies identifi ed. The lumbar spine shows satisfactory alignment without evidence of acute fracture or dislocation. There is a chronic compression deformity of the L3 vertebral body seen on the CT abdomen pelvis of 2 016. No new vertebral body height loss is seen. The overlying soft tissue appears unremarkable. IMPRESSION: No acute fracture or dislocation is seen in the lumbar spine. Chronic compression deform ity of the L3 vertebral body seen on the prior CT of 2015.
[2018-05-13 19:25] VITALS: BP 147/78; PULSE 92
[2018-05-13 19:51] VITALS: RESP 18; TEMP 98.9
== END 2018-05-13 19:51 | disposition home or self-care (01) ==
LOC: EC 17:07
DX: M54.5 Low back pain (principal); F17.200 Nicotine dependence, unspecified, uncomplicated; Z79.52 Long term (current) use of systemic steroids; Z79.899 Other long term (current) drug therapy; W01.0XXA Fall on same level from slipping, tripping and stumbling without subsequent striking against object, initial encounter; Y92.009 Unspecified place in unspecified non-institutional (private) residence as the place of occurrence of the external cause
CPT/HCPCS: 72100; 72170; 99283

== ENCOUNTER → 2018-10-25 | Outpatient (CLI) | payer MEDICARE ==
[2018-10-25 11:51] LABS: HCT 49.6 % (34.0-46.0); HGB 15.9 gm/dL (11.4-16.0); MCH 31.2 pg (25.0-35.0); MCHC 32.1 g/dL (31.0-37.0); MCV 97.5 fL (80.0-100.0); Mean Platelet Volume 7.6; Platelet Count 179 k/uL (150-450); RBC 5.08 m/uL (3.80-5.40); RDW 13.8 % (11.5-15.5); WBC 6.8 k/uL (3.8-10.6)
== END | disposition home or self-care (01) ==
LOC: LABWHC1 10:56
PROVIDERS: ATTEND Physical Medicine & Rehabilitation
DX: M50.121 Cervical disc disorder at C4-C5 level with radiculopathy (principal); M47.22 Other spondylosis with radiculopathy, cervical region; K74.60 Unspecified cirrhosis of liver; F17.200 Nicotine dependence, unspecified, uncomplicated
CPT/HCPCS: 36415; 85027

== ENCOUNTER 2019-06-23 18:43 | Inpatient (IN) | payer MEDICARE ==
[2019-06-23] MEDS ORDERED: MORPHINE SULFATE 4 MG/ML SYRINGE IVP STA (18:57)
[2019-06-23] MEDS ORDERED: ONDANSETRON 4 MG/2 ML VIAL IVP STA (19:01)
[2019-06-23 19:49] LABS: Basophils % (A) 0 %; Eosinophils % (A) 0 %; HCT 42.7 % (34.0-46.0); HGB 14.4 gm/dL (11.4-16.0); Lymphocytes # (A) 0.4 k/uL (1.0-4.8); Lymphocytes % (A) 6 %; MCH 33.4 pg (25.0-35.0); MCHC 33.8 g/dL (31.0-37.0); MCV 98.8 fL (80.0-100.0); Mean Platelet Volume 6.9; Monocytes # (A) 0.6 k/uL (0-1.0); Monocytes % (A) 8 %; Neutrophils # (A) 6.4 k/uL (1.3-7.7); Neutrophils % (A) 86 %; Platelet Count 141 k/uL (150-450); RBC 4.32 m/uL (3.80-5.40); RDW 13.5 % (11.5-15.5); WBC 7.5 k/uL (3.8-10.6)
--- NOTE | 2019-06-23 19:49 | XR ---
EXAMINATION TYPE: XR femur LT DATE OF EXAM: 06/23/2019 COMPARISON: NONE HISTORY: Pain TECHNIQUE: 5 views FINDINGS: There is comminuted fracture of the base of the femoral neck. There is coxa vera deformity. There is no dislocation. Knee joint is intact. IMPRESSION: Acute left femoral neck fracture with deformity and angulation.
--- NOTE | 2019-06-23 19:50 | XR ---
EXAMINATION TYPE: XR Hip LT and AP Pelvis DATE OF EXAM: 06/23/2019 COMPARISON: 05/13/2018 HISTORY: Pain TECHNIQUE: A single AP view of the pelvis is obtained. Two views of the left hip are obtained. FINDINGS: There is fracture of the base of the femoral neck with comminution. There is coxa vera defo rmity and 2 centimeter displacement and angulation. The pelvic ring is intact. Sacroiliac joints appear intact. There are phleboliths in the pelvis. IMPRESSION: Angulated comminuted displaced fracture of the left femoral neck.
--- NOTE | 2019-06-23 19:51 | XR ---
EXAMINATION TYPE: XR chest 1V DATE OF EXAM: 06/23/2019 COMPARISON: 11/03/2016 HISTORY: Pain TECHNIQUE: Single frontal view of the chest is obtained. FINDINGS: There is no heart failure nor confluent pneumonic infiltrate. Thoracic aorta is atheromato us. Costophrenic angles are clear. Bony thorax is intact. IMPRESSION: No active cardiopulmonary disease. No change.
[2019-06-23 19:56] LABS: ALT 25 U/L (9-52); AST 41 U/L (14-36); African American GFR (CKD) >90 (>60 ml/min/1.73 sqM); Albumin 4.3 g/dL (3.5-5.0); Alkaline Phosphatase 52 U/L (38-126); Anion Gap 14 mmol/L; Blood Urea Nitrogen 4 mg/dL (7-17); Calcium 9.2 mg/dL (8.4-10.2); Carbon Dioxide 26 mmol/L (22-30); Chloride 85 mmol/L (98-107); Glucose 132 mg/dL (74-99); Non-African American GFR(CKD) >90 (>60 ml/min/1.73 sqM); Sodium 125 mmol/L (137-145); Total Protein 6.7 g/dL (6.3-8.2)
[2019-06-23] MEDS ORDERED: SODIUM CHLORIDE 0.9% 500 ML 500 ML IV ONE (20:18)
[2019-06-23] MEDS ORDERED: POTASSIUM CHLORIDE 10 MEQ in WATER FOR INJECTION 1 100ML.BAG IVPB STA (20:18)
[2019-06-23] MEDS ORDERED: POTASSIUM CHLORIDE ER 10 MEQ TAB.ER.PRT PO STA (20:18)
[2019-06-23] MEDS ORDERED: ONDANSETRON 4 MG/2 ML VIAL IVP PRN (20:20)
[2019-06-23] MEDS ORDERED: NALOXONE 0.4 MG/ML 1 ML VIAL IV PRN (20:20)
--- NOTE | 2019-06-23 20:25 | ED ---
Fall HPI - General Chief Complaint: Fall Stated Complaint: LEFT HIP INJURY Time Seen by Provider: 06/23/19 18:51 Source: patient Mode of arrival: wheelchair - History of Present Illness Initial Comments: 68-year-old female presenting today for chief complaint of left hip pain. Pato liam states she was at her home when she lost her balance falling onto her left hip. Patient states she did not hit her head she denies any neck injury. Patient states she only has pain in the hip and nothing low back. Patient states she is unable to get up and walk secondary to the pain. Patient doesn't numbness tingling or loss sensation of the extremity. Patient denies any trauma to the abdomen or the chest. Denies cheat pain, SOB. Denies any pain with deep inspiration. Patient's carried her to the emergency department. Remaining ROS (-). Patient is in pain upon arrival however no signs of acute distress. - Related Data Home Medications Medication Instructions Recorded Confirmed Losartan/Hydrochlorothiazide 1 tab PO DAILY 06/23/19 06/23/19 [Losartan-Hctz 50-12.5 mg Tab] Allergies Allergy/AdvReac Type Severity Reaction Status Date / Time No Known Allergies Allergy Verified 06/23/19 20:23 Review of Systems ROS Statement: Those systems with pertinent positive or pertinent negative responses have been documented in the HPI. ROS Other: All systems not noted in ROS Statement are negative. 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 History of Any Multi-Drug Resistant Organisms: None Reported Past Surgical History: Section Additional Past Surgical History / Comment(s): cataract surgery Past Anesthesia/Blood Transfusion Reactions: No Reported Reaction Past Psychological History: No Psychological Hx Reported Smoking Status: Current every day smoker Past Alcohol Use History: None Reported Past Drug Use History: None Reported - Past Family History Son(s) Family Medical History: No Reported History Daughter(s) Family Medical History: No Reported History General Exam - General Exam Comments Initial Comments: General: The patient is awake and alert, in no distress, and does not appear acutely ill. Eye: +3 mm pupils are equal, round and reactive to light, extra-ocular movements are intact. No nystagmus. There is normal conjunctiva bilaterally. No signs of icterus. Ears, nose, mouth and throat: There are moist mucous membranes and no oral lesions. No raccoon or Navarro sign. No scalp hematomas abrasions or lacerations noted. No midline or paravertebral tenderness along the cervical thoracic or lumbar spine. Neck: The neck is supple, there is no tenderness or JVD. Cardiovascular: There is a regular rate and rhythm. No murmur, rub or gallop is appreciated. Respiratory: Lungs are clear to auscultation, respirations are non-labored, breath sounds are equal. No wheezes, stridor, rales, or rhonchi. Gastrointestinal: Soft, non-distended, non-tender abdomen without masses or organomegaly noted. There is no rebound or guarding present. Musculoskeletal: Normal exam of back, no bruising. On gross examination of the hips bilaterally or shortening of the left. Slight rotation. Patient is unable to range. No tenderness localized to the knee to palpation or ankle. No tenderness noted of the right lower extremity. Strength 5/5 at the knee and ankle bilaterally. Sensation intact both proximal and distal to injury site. DP pulses equal bilaterally 2+. Neurological: A&O x 3. CN II-XII intact, There are no obvious motor or sensory deficits. Coordination appears grossly intact. Speech is normal. Skin: Skin is warm and dry and no rashes or lesions are noted. Psychiatric: Cooperative, appropriate mood & affect, normal judgment. Limitations: no limitations Course Vital Signs 06/23/19 06/23/19 06/23/19 18:51 19:42 20:46 Temperature 98.4 F 97.9 F Pulse Rate 91 85 85 Respiratory 18 18 18 Rate Blood Pressure 139/65 151/85 147/80 O2 Sat by Pulse 92 L 95 89 L Oximetry 06/23/19 21:03 Temperature Pulse Rate Respiratory Rate Blood Pressure O2 Sat by Pulse 97 Oximetry Medical Decision Making - Medical Decision Making 68-year-old female presented for left hip pain after fall. Denies head injury no anticoagulation use. No signs of head trauma on examination. No tenderness to patient midline or paravertebral of the cervical thoracic or lumbar spine. Patient has shortening of the left leg. Concern for fracture. Imaging studies revealed a coxa vera deformity with non-dislocated left hip fracture. There is significant displacement. Patient is neurovascularly intact. On-call orthopedic surgeon was contacted I spoke with his physician water quality assistant Obed bernstein reviewed imaging studies and recommended, medicine consult, admission. He states that surgery most likely no be tomorrow, NPO held. Patient Given IV pain medications in the ER. Jose Antonio was noted on basic laboratory studies to have low potassium, chloride and sodium. Patient is given IV fluids and IV and PO potassium. I discussed admission with patient and she is agreeable. Patient was transferred to the floor in stable condition. Patient has no other com plaints. I discussed the case with my attending provider Dr Edwards who reviewed imaging studies and laboratory studies he is agreeable with plan. No acute EKG findings. - Lab Data Result diagrams: 06/23/19 19:15 06/23/19 19:15 Lab Results 06/23/19 06/23/19 06/23/19 Range/Units 19:15 19:15 19:15 WBC 7.5 (3.8-10.6) k/uL RBC 4.32 (3.80-5.40) m/uL Hgb 14.4 (11.4-16.0) gm/dL Hct 42.7 (34.0-46.0) % MCV 98.8 (80.0-100.0) fL MCH 33.4 (25.0-35.0) pg MCHC 33.8 (31.0-37.0) g/dL RDW 13.5 (11.5-15.5) % Plt Count 141 L (150-450) k/uL Neutrophils % 86 % Lymphocytes % 6 % Monocytes % 8 % Eosinophils % 0 % Basophils % 0 % Neutrophils # 6.4 (1.3-7.7) k/uL Lymphocytes # 0.4 L (1.0-4.8) k/uL Monocytes # 0.6 (0-1.0) k/uL Eosinophils # 0.0 (0-0.7) k/uL Basophils # 0.0 (0-0.2) k/uL PT 11.1 (9.0-12.0) sec INR 1.0 (<1.2) APTT 27.3 (22.0-30.0) sec Sodium 125 L (137-145) mmol/L Potassium 3.0 L (3.5-5.1) mmol/L Chloride 85 L (98-107) mmol/L Carbon Dioxide 26 (22-30) mmol/L Anion Gap 14 mmol/L BUN 4 L (7-17) mg/dL Creatinine 0.38 L (0.52-1.04) mg/dL Est GFR (CKD-EPI)AfAm >90 (>60 ml/min/1.73 sqM) Est GFR (CKD-EPI)NonAf >90 (>60 ml/min/1.73 sqM) Glucose 132 H (74-99) mg/dL Calcium 9.2 (8.4-10.2) mg/dL Magnesium (1.6-2.3) mg/dL Total Bilirubin 1.0 (0.2-1.3) mg/dL AST 41 H (14-36) U/L ALT 25 (9-52) U/L Alkaline Phosphatase 52 (38-126) U/L Total Protein 6.7 (6.3-8.2) g/dL Albumin 4.3 (3.5-5.0) g/dL 06/23/19 Range/Units 19:15 WBC (3.8-10.6) k/uL RBC (3.80-5.40) m/uL Hgb (11.4-16.0) gm/dL Hct (34.0-46.0) % MCV (80.0-100.0) fL MCH (25.0-35.0) pg MCHC (31.0-37.0) g/dL RDW (11.5-15.5) % Plt Count (150-450) k/uL Neutrophils % % Lymphocytes % % Monocytes % % Eosinophils % % Basophils % % Neutrophils # (1.3-7.7) k/uL Lymphocytes # (1.0-4.8) k/uL Monocytes # (0-1.0) k/uL Eosinophils # (0-0.7) k/uL Basophils # (0-0.2) k/uL PT (9.0-12.0) sec INR (<1.2) APTT (22.0-30.0) sec Sodium (137-145) mmol/L Potassium (3.5-5.1) mmol/L Chloride (98-107) mmol/L Carbon Dioxide (22-30) mmol/L Anion Gap mmol/L BUN (7-17) mg/dL Creatinine (0.52-1.04) mg/dL Est GFR (CKD-EPI)AfAm (>60 ml/min/1.73 sqM) Est GFR (CKD-EPI)NonAf (>60 ml/min/1.73 sqM) Glucose (74-99) mg/dL Calcium (8.4-10.2) mg/dL Magnesium 1.8 (1.6-2.3) mg/dL Total Bilirubin (0.2-1.3) mg/dL AST (14-36) U/L ALT (9-52) U/L Alkaline Phosphatase (38-126) U/L Total Protein (6.3-8.2) g/dL Albumin (3.5-5.0) g/dL Disposition Clinical Impression: Hyponatremia, Hypokalemia, Hypochloremia, Coxa vara (acquired), Fracture of hip, left, closed, Fall, Dehydration Disposition: ADMITTED IP TO THIS [facility] Condition: Stable Is patient prescribed a controlled substance at d/c from ED?: No Time of Disposition: 20:25 Decision to Admit Reason: Admit from EC Decision Date: 06/23/19 Decision Time: 20:25
[2019-06-23 20:42] LABS: Partial Thromboplastin Time 27.3 sec (22.0-30.0); Prothrombin Time 11.1 sec (9.0-12.0)
[2019-06-23] MEDS: SODIUM CHLORIDE 0.9% 1,000 ML IV SCH (20:43)
--- NOTE | 2019-06-23 20:47 | CT ---
EXAMINATION TYPE: CT hip LT wo con DATE OF EXAM: 06/23/2019 COMPARISON: None HISTORY: left hip fx following fall CT DLP: 402.3 mGycm Automated exposure control for dose reduction was used. FINDINGS: There is a comminuted intertrochanteric fracture of the left femur that also involves the base of the femoral neck. There is coxa vera deformity. There is impaction. The visualized acetabulum and left h emipelvis appear intact. There is 90 degrees angulation of the femoral neck. IMPRESSION: THERE IS COMMINUTED FRACTURE OF THE INTERTROCHANTERIC LEFT FEMUR AND FEMORAL NECK WITH ANGULATION. NO DISLOCATION.
[2019-06-23 22:13] VITALS: BMI 22.6
[2019-06-23] MEDS: MORPHINE SULFATE 4 MG/ML SYRINGE IV PRN (23:45)
[2019-06-23 23:50] LABS: Basophils % (A) 0 %; Eosinophils % (A) 0 %; HCT 39.5 % (34.0-46.0); HGB 13.6 gm/dL (11.4-16.0); Lymphocytes # (A) 0.4 k/uL (1.0-4.8); Lymphocytes % (A) 6 %; MCH 33.3 pg (25.0-35.0); MCHC 34.4 g/dL (31.0-37.0); MCV 96.7 fL (80.0-100.0); Mean Platelet Volume 7.7; Monocytes # (A) 0.5 k/uL (0-1.0); Monocytes % (A) 8 %; Neutrophils # (A) 5.3 k/uL (1.3-7.7); Neutrophils % (A) 85 %; Platelet Count 131 k/uL (150-450); RBC 4.09 m/uL (3.80-5.40); RDW 14.7 % (11.5-15.5); WBC 6.2 k/uL (3.8-10.6)
[2019-06-24 01:42] LABS: African American GFR (CKD) >90 (>60 ml/min/1.73 sqM); Anion Gap 6 mmol/L; Blood Urea Nitrogen 3 mg/dL (7-17); Calcium 8.6 mg/dL (8.4-10.2); Carbon Dioxide 29 mmol/L (22-30); Chloride 89 mmol/L (98-107); Glucose 117 mg/dL (74-99); Non-African American GFR(CKD) >90 (>60 ml/min/1.73 sqM); Potassium 3.2 mmol/L (3.5-5.1); Sodium 124 mmol/L (137-145)
[2019-06-24] MEDS: MORPHINE SULFATE 4 MG/ML SYRINGE IV PRN ×4 (04:42→17:16)
[2019-06-24] MEDS: LOSARTAN 50 MG TAB PO SCH (08:20)
[2019-06-24] MEDS: SODIUM CHLORIDE 0.9% 1,000 ML IV SCH ×2 (08:21→20:50)
--- NOTE | 2019-06-24 09:07 | P.HPOR ---
History of Present Illness H&P Date: 06/24/19 Chief Complaint: Left hip pain The patient's a 68-year-old female who presents after falling at home yesterday. She ambulates without assistive devices. She notes severe left hip pain and has been unable to weight-bear since. She normally ambulates without assistive devices. Review of Systems Musculoskeletal: Reports as per HPI (Severe left hip pain) 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 History of Any Multi-Drug Resistant Organisms: None Reported Past Surgical History: Section Additional Past Surgical History / Comment(s): cataract surgery Past Anesthesia/Blood Transfusion Reactions: No Reported Reaction Past Psychological History: No Psychological Hx Reported Smoking Status: Current every day smoker Past Alcohol Use History: None Reported Past Drug Use History: None Reported - Past Family History Son(s) Family Medical History: No Reported History Daughter(s) Family Medical History: No Reported History Medications and Allergies Home Medications Medication Instructions Recorded Confirmed Type Losartan/Hydrochlorothiazide 1 tab PO DAILY 06/23/19 06/23/19 History [Losartan-Hctz 50-12.5 mg Tab] Allergies Allergy/AdvReac Type Severity Reaction Status Date / Time No Known Allergies Allergy Verified 06/23/19 20:23 Physical Examination - Fracture left hip Location of fracture: Left hip Appearance: normal (Pain with log roll left hip, moderate shortening and external rotation left lower extremity) Compartments: soft Distal extremity neurovascularly intact: Yes Distal joint involvement: No (Nontender left knee, ankle and foot) Other injury: ligament injury: no, vascular injury: no, nerve injury: no Results - Labs Labs: Abnormal Lab Results - Last 24 Hours (Table) 06/23/19 06/23/19 06/23/19 Range/Units 19:15 19:15 23:20 Plt Count 141 L 131 L (150-450) k/uL Lymphocytes # 0.4 L 0.4 L (1.0-4.8) k/uL Sodium 125 L (137-145) mmol/L Potassium 3.0 L (3.5-5.1) mmol/L Chloride 85 L (98-107) mmol/L BUN 4 L (7-17) mg/dL Creatinine 0.38 L (0.52-1.04) mg/dL Glucose 132 H (74-99) mg/dL AST 41 H (14-36) U/L 06/24/19 Range/Units 00:57 Plt Count (150-450) k/uL Lymphocytes # (1.0-4.8) k/uL Sodium 124 L (137-145) mmol/L Potassium 3.2 L (3.5-5.1) mmol/L Chloride 89 L (98-107) mmol/L BUN 3 L (7-17) mg/dL Creatinine 0.36 L (0.52-1.04) mg/dL Glucose 117 H (74-99) mg/dL AST (14-36) U/L H & H 06/23/19 06/23/19 Range/Units 19:15 23:20 Hgb 14.4 13.6 (11.4-16.0) gm/dL Hct 42.7 39.5 (34.0-46.0) % Coagulation 06/23/19 Range/Units 19:15 INR 1.0 (<1.2) Result Diagrams: 06/23/19 23:20 06/24/19 00:57 - Diagnostic results Hip x-ray: image reviewed (Comminuted, displaced left intertrochanteric femur fracture) Hip CT: image reviewed Assessment and Plan Assessment: Displaced left intertrochanteric femur fracture Possible COPD with long history of heavy smoking Electrolyte disorder Plan: I talked with the patient makes regarding her condition and treatment options. We will plan to proceed with surgical intervention to include trochanteric intramedullary nailing of her comminuted left intertrochanteric femur fracture once medically stable. Time with Patient: Greater than 30
[2019-06-24] MEDS: HEPARIN SODIUM,PORCINE 5,000 UNIT/ML 1 ML VIAL SQ SCH ×2 (09:28→20:49)
[2019-06-24 10:07] LABS: ALT 28 U/L (9-52); AST 28 U/L (14-36); African American GFR (CKD) >90 (>60 ml/min/1.73 sqM); Albumin 3.4 g/dL (3.5-5.0); Alkaline Phosphatase 48 U/L (38-126); Anion Gap 7 mmol/L; Blood Urea Nitrogen 3 mg/dL (7-17); Calcium 8.8 mg/dL (8.4-10.2); Carbon Dioxide 32 mmol/L (22-30); Chloride 92 mmol/L (98-107); Glucose 96 mg/dL (74-99); Non-African American GFR(CKD) >90 (>60 ml/min/1.73 sqM); Potassium 3.7 mmol/L (3.5-5.1); Sodium 131 mmol/L (137-145); Total Protein 5.6 g/dL (6.3-8.2)
--- NOTE | 2019-06-24 10:30 | P.NPCON ---
History of Present Illness - Reason for Consult hyponatremia - History of Present Illness Reason for consultation: Hyponatremia History of present illness: Patient is a 68-year-old female seen in consultation for hyponatremia. Patient presented to the hospital after she sustained a fall and fell on her left hip. Patient states she lost her balance. She is noted to have an acute left femoral neck fracture and is scheduled to undergo surgery today. No vomiting or diarrhea. She does take hydrochlorothiazide at home as part of her blood pressure medication. She does admit to drinking 2-3 bottles of water daily along with 4 bottles of diet Pepsi. Patient states oral intake has been fair. She denies any history of malignancy. She also has history of alcohol cirrhosis of the liver. Currently she appears compensated. No edema in her lower extremities. No history of diabetes. No abdominal pain. Good urine output. No hematuria or dysuria. Vital signs are stable. General: The patient appeared well nourished and normally developed. HEENT: Head exam is unremarkable. Neck is without jugular venous distension. LUNGS: Lungs are clear to auscultation and percussion. Breath sounds decreased. HEART: Rate and Rhythm are regular. First and second heart sounds normal. No murmurs, rubs or gallops. ABDOMEN: Abdominal exam reveals normal bowel sounds. Non-tender and non- distended. No evidence of peritonitis. EXTREMITITES: No clubbing, cyanosis, or edema. 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 History of Any Multi-Drug Resistant Organisms: None Reported Past Surgical History: Section Additional Past Surgical History / Comment(s): cataract surgery Past Anesthesia/Blood Transfusion Reactions: No Reported Reaction Past Psychological History: No Psychological Hx Reported Smoking Status: Current every day smoker Past Alcohol Use History: None Reported Past Drug Use History: None Reported - Past Family History Son(s) Family Medical History: No Reported History Daughter(s) Family Medical History: No Reported History Medications and Allergies Home Medications Medication Instructions Recorded Confirmed Type Losartan/Hydrochlorothiazide 1 tab PO DAILY 06/23/19 06/23/19 History [Losartan-Hctz 50-12.5 mg Tab] Allergies Allergy/AdvReac Type Severity Reaction Status Date / Time No Known Allergies Allergy Verified 06/23/19 20:23 Physical Exam Vitals: Vital Signs Temp Pulse Pulse Resp BP BP Pulse Ox 06/24/19 07:00 97.8 F 82 16 113/71 98 06/24/19 03:28 16 06/24/19 02:31 98.0 F 85 18 119/76 98 06/24/19 00:00 16 06/23/19 21:03 97 06/23/19 20:46 85 18 147/80 89 L 06/23/19 19:42 97.9 F 85 18 151/85 95 06/23/19 18:51 98.4 F 91 18 139/65 92 L Intake and Output 06/23/19 06/24/19 06/24/19 22:59 06:59 14:59 Intake Total 450 Output Total 275 Balance -275 450 Intake: Intake, IV Titration 450 Amount Sodium Chloride 0.9% 1, 450 000 ml @ 75 mls/hr IV . [id number] [facility] Rx#:[id number] Output: Urine 275 Other: Voiding Method Indwelling Catheter Indwelling Catheter Weight 63.503 kg Results - Lab Results Most recent lab results Calcium 8.8 mg/dL (8.4-10.2) 06/24/19 09:30 Magnesium 1.8 mg/dL (1.6-2.3) 06/23/19 19:15 06/23/19 23:20 06/24/19 09:30 Assessment and Plan Plan: Assessment: 1. Hypovolemic hyponatremia improving with IV hydration. Sodium level up to 134 today. Patient was also on hydrochlorothiazide at home which will worsen the hyponatremia especially in the setting of volume depletion. 2. Acute left femoral neck fracture scheduled for surgery today. 3. Benign hypertension. Controlled. 4. History of alcohol-induced liver cirrhosis. Plan: Maintain normal saline at 75 mL an hour. Avoid thiazide diuretics in the future. Check serum and urine osmolality and urine sodium. Check TSH and uric acid level. Cleared for hip surgery from nephrology standpoint. Repeat electrolytes in the morning. Thank you for the consultation. I will continue to follow the patient with you during her hospital stay.
[2019-06-24] MEDS ORDERED: PHENYLEPHRINE-0.9% NACL SYG 1 MG/10 ML SYRINGE ONE (11:03)
[2019-06-24] MEDS ORDERED: KETAMINE 10 MG/ML 20 ML VIAL ONE (11:03)
[2019-06-24] MEDS ORDERED: fentaNYL (PF) 50 MCG/ML 2 ML AMP ONE (11:03)
[2019-06-24] MEDS ORDERED: MIDAZOLAM 2 MG/2 ML VIAL ONE (11:03)
[2019-06-24] MEDS ORDERED: LACTATED RINGERS 1,000 ML IV ONE (11:08)
[2019-06-24] MEDS ORDERED: SODIUM CHLORIDE 0.9% 50 ML with ceFAZolin 2,000 MG IV ONE ×2 (11:08)
[2019-06-24] MEDS ORDERED: ceFAZolin 1,000 MG in SODIUM CHLORIDE 0.9% 1,000 ML IRRIGATION ONE (11:46)
--- NOTE | 2019-06-24 12:24 | P.CONS ---
History of Present Illness - Reason for Consult Consult date: 06/24/19 Medical opinion regarding preop evaluation - Chief Complaint Left hip fracture - History of Present Illness This is 68 years old female who presented from home after sustaining fall and was found to have left hip fracture. Patient was seen by orthopedic surgery who recommended fixation and required preop evaluation. Patient stated that she has been living at home with her 4 years independent in most of her ADLs using cane at home and walker outside of her house and said that she's been steady on her feet up until yesterday where she tripped and fell and landed on her left side. Patient was in excruciating pain and able to move around and was brought to the hospital for that reason. Patient denied dizziness lightheadedness prior to fall denied any loss of consciousness before during or after. Patient denied any head trauma. Patient was at home with her next to her when she sustained a fall. Patient ambulates with cane at home can go down to the basement and back upstairs without interruption denied any chest pain shortness breath with exertion and said that she's been in her regular state of health taking all her medication on daily basis patient was hospit alized in the past for ascites and liver cirrhosis and said that since that time she's been healthy at home with no issues. Patient is poor historian stated that she smokes one to 2 packs per day denying alcohol or drug abuse. Patient had multiple concerns and questions about her condition and the surgery itself but would like the surgery to be done as soon as possible as she cannot stand the hospital for a long time and would like to be walking again. Review of Systems 14 systems reviewed and negative except as above 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 History of Any Multi-Drug Resistant Organisms: None Reported Past Surgical History: Section Additional Past Surgical History / Comment(s): cataract surgery Past Anesthesia/Blood Transfusion Reactions: No Reported Reaction Past Psychological History: No Psychological Hx Reported Smoking Status: Current every day smoker Past Alcohol Use History: None Reported Past Drug Use History: None Reported - Past Family History Son(s) Family Medical History: No Reported History Daughter(s) Family Medical History: No Reported History Medications and Allergies Home Medications Medication Instructions Recorded Confirmed Type Losartan/Hydrochlorothiazide 1 tab PO DAILY 06/23/19 06/23/19 History [Losartan-Hctz 50-12.5 mg Tab] Allergies Allergy/AdvReac Type Severity Reaction Status Date / Time No Known Allergies Allergy Verified 06/23/19 20:23 Physical Exam Vitals: Vital Signs Temp Pulse Pulse Resp BP BP Pulse Ox 06/24/19 07:00 97.8 F 82 16 113/71 98 06/24/19 03:28 16 06/24/19 02:31 98.0 F 85 18 119/76 98 06/24/19 00:00 16 06/23/19 21:03 97 06/23/19 20:46 85 18 147/80 89 L 06/23/19 19:42 97.9 F 85 18 151/85 95 06/23/19 18:51 98.4 F 91 18 139/65 92 L Intake and Output 06/23/19 06/24/19 06/24/19 22:59 06:59 14:59 Intake Total 450 551 Output Total 275 150 Balance -275 450 401 Intake: IV 551 Intake, IV Titration 450 Amount Sodium Chloride 0.9% 1, 450 000 ml @ 75 mls/hr IV . [id number] [facility] Rx#:[id number] Output: Urine 275 50 Estimated Blood Loss 100 Other: Voiding Method Indwelling Catheter Indwelling Catheter Weight 63.503 kg Gen.: in stated age, no acute distress Heart: Normal S1-S2 Lungs: Clear to auscultation bilaterally Abdomen: Soft, no tenderness, positive bowel sounds in all 4 quadrant no guarding or rebound Skin: No new rash Psych: Alert and oriented 3 Neuro: No focal deficit Left lower extremity externally rotated positive pulses bilaterally Results CBC & Chem 7: 06/23/19 23:20 06/24/19 09:30 Labs: Abnormal Lab Results - Last 24 Hours (Table) 06/23/19 06/23/19 06/23/19 Range/Units 19:15 19:15 23:20 Plt Count 141 L 131 L (150-450) k/uL Lymphocytes # 0.4 L 0.4 L (1.0-4.8) k/uL Sodium 125 L (137-145) mmol/L Potassium 3.0 L (3.5-5.1) mmol/L Chloride 85 L (98-107) mmol/L Carbon Dioxide (22-30) mmol/L BUN 4 L (7-17) mg/dL Creatinine 0.38 L (0.52-1.04) mg/dL Glucose 132 H (74-99) mg/dL Osmolality (280-301) mosm/kg AST 41 H (14-36) U/L Total Protein (6.3-8.2) g/dL Albumin (3.5-5.0) g/dL 06/24/19 06/24/19 06/24/19 Range/Units 00:57 09:30 09:30 Plt Count (150-450) k/uL Lymphocytes # (1.0-4.8) k/uL Sodium 124 L 131 L (137-145) mmol/L Potassium 3.2 L (3.5-5.1) mmol/L Chloride 89 L 92 L (98-107) mmol/L Carbon Dioxide 32 H (22-30) mmol/L BUN 3 L 3 L (7-17) mg/dL Creatinine 0.36 L 0.41 L (0.52-1.04) mg/dL Glucose 117 H (74-99) mg/dL Osmolality 265 L (280-301) mosm/kg AST (14-36) U/L Total Protein 5.6 L (6.3-8.2) g/dL Albumin 3.4 L (3.5-5.0) g/dL Assessment and Plan Assessment: 1. Left hip fracture status post mechanical fall. 2. Acute hyponatremia. 3. Acute hypokalemia. 4. Chronic thrombocytopenia likely related to history of liver cirrhosis of unclear etiology. 5. Hypertension. 6. COPD. I had ordered repeated lab data showed improvement with gentle hydration, discussed with nephrology current hyponatremia management which felt to be a chronic in nature complicated with taking hydrochlorothiazide at home that I held since yesterday, patient with greater than 6 METs whose at intermediate risk and going to intermediate risk surgery. Patient once the surgery to be done as soon as possible and I ordered stat 2-D echo which showed normal ejection fraction without significant valvular disease and patient is currently stable to go to the above procedure per orthopedic surgery recommendation. We'll optimize her lung function have patient's on aggressive pulmonary hygiene and encouraged encourage incentive spirometer use. We'll resume her blood pressure medication with holding parameters and discontinue hydrochlorothiazide even at the time of the discharge to avoid further hyponatremia. Will consultation regarding smoking cessation and follow-up with the recommendation during this hospital stay. DVT prophylaxis to be determined by primary surgery team
[2019-06-24] MEDS ORDERED: HYDROcodone/APAP 5-325MG 1 EACH TAB PO PRN (12:32)
[2019-06-24] MEDS ORDERED: MAGNESIUM HYDROXIDE 2,400 MG/10 ML CUP PO PRN (12:32)
--- NOTE | 2019-06-24 12:39 | P.OP ---
Date of Procedure: 06/24/19 Preoperative Diagnosis: Displaced left intertrochanteric femur fracture Postoperative Diagnosis: Same Procedure(s) Performed: Trochanteric intramedullary nailing left intertrochanteric femur fracture Implants: Astrid 11 mm short gamma nail, 105 millimeter compression screw Anesthesia: spinal Surgeon: Dino Pedraza Truck Driver #1: Mukul Dorsey Estimated Blood Loss (ml): 50 Pathology: none sent Condition: stable Disposition: PACU Indications for Procedure: The patient's 68-year-old female presents after falling at home yesterday injuring her left hip. She was noted to have a closed, displaced and comminuted left intertrochanteric femur fracture. She underwent preoperative medical and cardiac evaluation/clearance. A discussion of the risks and benefits of operative intervention was made with patient. She opted to proceed. Operative risks to include infection, neurovascular injury, development of blood clots, possible development of nonunion/malunion and need for subsequent procedures was discussed. Informed consent was obtained. Operative Findings: As below Description of Procedure: The patient was brought to the operating room, and after induction of spinal anesthesia was positioned supine on the [place] table. The fracture was reduced with longitudinal traction and internal rotation of the left leg. This is verified on the AP and lateral views with fluoroscopy. Left lower extremity was prepped and draped in normal fashion. An 8 cm incision was then made proximal to the greater trochanter. The skin and subcu tissues were divided sharply. El ectrocautery was used for hemostasis. The gluteus ratna fascia was split in line with the skin incision. The muscle fibers were bluntly dissected. Blunt dissection was made down to level the greater trochanter. A starting hole was made in the tip of the greater trochanter along the junction of the anterior one third and posterior two thirds. This was verified with fluoroscopy. A ball-tipped guidewire was then inserted. The canal was reamed to 12.5 mm to the isthmus. The proximal reamer was inserted to the level of the lesser trochanter. An 11 mm short 130 Gamma nail was then gently inserted over the guidewire. Guidewire was then removed. This was inserted the appropriate depth. A threaded guidepin was placed in the centercentral portion of the femoral head and neck to within 5 mm of the articular surface on the AP and lateral views. The triple reamer was used to a depth of 100 mm. A 105 mm compression screw was then inserted. This was verified with fluoroscopy on the AP and lateral views. The proximal locking screw was placed. The distal locking screw was placed utilizing the appropriate guide. Final fluoroscopic view showed adequate reduction of this complex fracture pattern and placement of the implant. The wounds were irrigated normal saline. The fascia was closed with running 0 Vicryl suture. The subcutaneous tissues were reapproximated interrupted 2-0 Vicryl sutures. The skin was reapproximated with paula. A sterile dressing was applied. The patient was then awoken from sedation and transferred to recovery room in fair condition. Blood loss was estimated at 50 mL. No complications were incurred. Sponge and needle counts were correct at the end of the case.
[2019-06-24] MEDS ORDERED: PHENYLEPHRINE 10 MG/ML VIAL IV ONE ×2 (12:48→13:25)
[2019-06-24] MEDS ORDERED: ePHEDrine 50 MG/ML 1 ML AMP IM ONE (13:05)
[2019-06-24] MEDS ORDERED: FLUMAZENIL 0.1 MG/ML 5 ML VIAL IVP ONE (13:22)
--- NOTE | 2019-06-24 13:34 | XR ---
FLUOROSCOPY 1 minute and 22 seconds of fluoroscopy time were utilized during IM nailing of the left hip. 4 images document the procedure.
--- NOTE | 2019-06-24 14:55 | ECHOF ---
Referral Reason:surgical clearance MEASUREMENTS -------- HEIGHT: 167.6 cm WEIGHT: 63.5 kg BP: IVSd: 1.0 cm (0.6 - 1.1) LVIDd: 3.6 cm (3.9 - 5.3) LVPWd: 1.0 cm (0.6 - 1.1) IVSs: 1.3 cm LVIDs: 2.1 cm LVPWs: 1.5 cm Ao Diam: 3.4 cm (2.0 - 3.7) LA Diam: 2.4 cm (2.7 - 3.8) AV Cusp: 1.6 cm (1.5 - 2.6) EPSS: 2.7 cm MV E Jerome: 0.84 m/s MV DecT: 199 ms MV A Jerome: 0.91 m/s MV E/A Ratio: 0.92 RAP: 5.00 mmHg RVSP: 11.24 mmHg MV EF SLOPE: 46.29 mm/s (70 - 150) MV EXCURSION: 17.01 mm (> 18.000) FINDINGS -------- Sinus rhythm. This was a technically good study. The left ventricular size is normal. Left ventricular wall thickness is normal. Overall left vent ricular systolic function is normal with, an EF between 55 - 60 %. The right ventricle is normal in size. The left atrial size is normal. The right atrial size is normal. Interatrial and interventricular septum intact. The aortic valve is trileaflet and appears structurally normal. The mitral valve is normal. There is trace mitral regurgitation. The tricuspid valve appears structurally normal. Trace tricuspid regurgitation present. Right rodney tricular systolic pressure is normal at < 35 mmHg. There is no pulmonic regurgitation present. The aortic root size is normal. IVC Not well visulized. There is no pericardial effusion. CONCLUSIONS -------- 1. Sinus rhythm. 2. This was a technically good study. 3. The left ventricular size is normal. 4. Left ventricular wall thickness is normal. 5. Overall left ventricular systolic function is normal with, an EF between 55 - 60 %. 6. The right ventricle is normal in size. 7. The left atrial size is normal. 8. The right atrial size is normal. 9. Interatrial and interventricular septum intact. 10. The aortic valve is trileaflet and appears structurally normal. 11. The mitral valve is normal. 12. There is trace mitral regurgitation. 13. The tricuspid valve appears structurally normal. 14. Trace tricuspid regurgitation present. 15. Right ventricular systolic pressure is normal at < 35 mmHg. 16. There is no pulmonic regurgitation present. 17. The aortic root size is normal. 18. IVC Not well visulized. 19. There is no pericardial effusion. WATER FITNESS INSTRUCTOR: Sol Su RDCS
[2019-06-24] MEDS: traMADol 50 MG TAB PO SCH ×3 (15:16→20:49)
[2019-06-24] MEDS: SENNOSIDES-DOCUSATE SODIUM 1 EACH TAB PO SCH (20:49)
[2019-06-25] MEDS: MORPHINE SULFATE 4 MG/ML SYRINGE IV PRN ×2 (01:19→05:52)
[2019-06-25] MEDS: traMADol 50 MG TAB PO SCH ×4 (08:22→22:06)
[2019-06-25] MEDS: LOSARTAN 50 MG TAB PO SCH (08:22)
[2019-06-25] MEDS: SODIUM CHLORIDE 0.9% 1,000 ML IV SCH ×2 (08:24→14:54)
[2019-06-25] MEDS: HEPARIN SODIUM,PORCINE 5,000 UNIT/ML 1 ML VIAL SQ SCH ×2 (08:26→22:06)
[2019-06-25 08:38] LABS: African American GFR (CKD) >90 (>60 ml/min/1.73 sqM); Anion Gap 6 mmol/L; Blood Urea Nitrogen 4 mg/dL (7-17); Calcium 8.3 mg/dL (8.4-10.2); Carbon Dioxide 31 mmol/L (22-30); Chloride 95 mmol/L (98-107); Glucose 91 mg/dL (74-99); Magnesium 1.8 mg/dL (1.6-2.3); Non-African American GFR(CKD) >90 (>60 ml/min/1.73 sqM); Potassium 3.3 mmol/L (3.5-5.1); Sodium 132 mmol/L (137-145); Uric Acid 1.2 mg/dL (3.7-7.4)
[2019-06-25 08:56] LABS: Basophils % (A) 0 %; Eosinophils # (A) 0.1 k/uL (0-0.7); Eosinophils % (A) 1 %; HCT 31.5 % (34.0-46.0); HGB 10.8 gm/dL (11.4-16.0); Lymphocytes % (A) 22 %; MCH 33.7 pg (25.0-35.0); MCHC 34.4 g/dL (31.0-37.0); Mean Platelet Volume 8.1; Monocytes # (A) 0.6 k/uL (0-1.0); Monocytes % (A) 13 %; Neutrophils # (A) 2.9 k/uL (1.3-7.7); Neutrophils % (A) 63 %; Platelet Count 115 k/uL (150-450); RBC 3.21 m/uL (3.80-5.40); RDW 14.3 % (11.5-15.5); WBC 4.6 k/uL (3.8-10.6)
[2019-06-25] MEDS ORDERED: POTASSIUM CHLORIDE ER 20 MEQ TAB.ER PO STA (10:23)
--- NOTE | 2019-06-25 10:23 | P.PN ---
Subjective Patient is seen in follow-up for hyponatremia. Sodium level is up to 132 today. Currently resting in bed. No vomiting or diarrhea. Oral intake is fair. Complains of pain at the surgical site. Vital signs are stable. General: The patient appeared well nourished and normally developed. HEENT: Head exam is unremarkable. Neck is without jugular venous distension. LUNGS: Lungs are clear to auscultation and percussion. Breath sounds decreased. HEART: Rate and Rhythm are regular. First and second heart sounds normal. No murmurs, rubs or gallops. ABDOMEN: Abdominal exam reveals normal bowel sounds. Non-tender and non- distended. No evidence of peritonitis. EXTREMITITES: No clubbing, cyanosis, or edema. Objective - Vital Signs Vital signs: Vital Signs Temp 98.0 F 06/25/19 06:46 Pulse 83 06/25/19 06:46 Resp 16 06/25/19 06:46 BP 113/71 06/25/19 06:46 Pulse Ox 93 L 06/25/19 06:46 Intake & Output 06/24/19 06/25/19 06/25/19 18:59 06:59 18:59 Intake Total 1351 750 660 Output Total 450 Balance 901 750 660 Intake: IV 1101 Intake, IV Titration 750 Amount Sodium Chloride 0.9% 1, 750 000 ml @ 75 mls/hr IV . [id number] [facility] Rx#:[id number] Oral 660 Blood Product 250 Output: Urine 350 Estimated Blood Loss 100 Other: Voiding Method Indwelling Catheter Indwelling Catheter Indwelling Catheter - Labs CBC & Chem 7: 06/25/19 07:08 06/25/19 07:08 Labs: Abnormal Lab Results - Last 24 Hours (Table) 06/24/19 06/25/19 06/25/19 Range/Units 09:30 07:08 07:08 RBC 3.21 L (3.80-5.40) m/uL Hgb 10.8 L (11.4-16.0) gm/dL Hct 31.5 L (34.0-46.0) % Plt Count 115 L (150-450) k/uL Sodium 132 L (137-145) mmol/L Potassium 3.3 L (3.5-5.1) mmol/L Chloride 95 L (98-107) mmol/L Carbon Dioxide 31 H (22-30) mmol/L BUN 4 L (7-17) mg/dL Creatinine 0.41 L (0.52-1.04) mg/dL Osmolality 265 L (280-301) mosm/kg Uric Acid 1.2 L (3.7-7.4) mg/dL Calcium 8.3 L (8.4-10.2) mg/dL Assessment and Plan Plan: Assessment: 1. Hypovolemic hyponatremia improving with IV hydration. Sodium level up to 132 today. Patient was also on hydrochlorothiazide at home which will worsen the hyponatremia especially in the setting of volume depletion. TSH normal. Uric acid is low which is sitting in SIADH which is likely pain induced at this time. Urine sodium 49 and urine osmolality for 10. 2. Acute left femoral neck fracture status post trochanteric intramedullary nailing on June 24. 3. Benign hypertension. Controlled. 4. History of alcohol-induced liver cirrhosis. 5. Hypokalemia from poor oral intake. Magnesium normal. Plan: Maintain normal saline at 75 mL an hour. Avoid thiazide diuretics in the future. Replace potassium. 40 mEq today. Repeat electrolytes in the morning.
--- NOTE | 2019-06-25 11:05 | P.CRDCN ---
History of Present Illness History of present illness: This is a pleasant 68-year-old female past medical history significant for hypertension, dyslipidemia and chronic nicotine dependence. 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 We've been asked to see her in consultation for preoperative evaluation. She states she was standing up in her bedroom folding clothes when she turned around to put them away her foot got tangled in her bed skirt and she fell to the ground. She denies loss of consciousness. She denies symptoms of chest discomfort, shortness of breath, dizziness or palpitations. She is seen and examined resting comfortably in bed in no acute distress. She underwent successful IM nailing of the left hip yesterday with Dr. Pedraza. EKG on admission reveals sinus mechanism with no acute ST or T-wave abnormalities heart rate of 82. Echocardiogram obtained reveals preserved LV systolic function with ejection fraction 55-60%. Currently daily cardiac medications include valsartan/HCTZ 50/12.5 mg daily. Laboratory data reviewed, WBC 4.6, hemoglobin 10.8, platelets 115, sodium 132, potassium 3.3, creatinine 0.41, magnesium 1.8, TSH 2.35. At the time of my exam: CONSTITUTIONAL: Denies fever. Denies chills. EYES: Denies blurred vision. Denies vision changes. Denies eye pain. EARS, NOSE, MOUTH & THROAT: Denies headache. Denies sore throat. Denies ear pain. CARDIOVASCULAR: Denies chest pain. Denies shortness of breath. Denies orthopnea. Denies PND. Denies palpitations. RESPIRATORY: Denies cough. GASTROINTESTINAL: Denies abdominal pain. Denies diarrhea. Denies constipation. Denies nausea. Denies vomiting. MUSCULOSKELETAL: Denies myalgias. INTEGUMENTARY: Denies pruitis. Denies rash. NEUROLOGIC: Denies numbness. Denies tingling. Denies weakness. PSYCHIATRIC: Denies anxiety. Denies depression. ENDOCRINE: Denies fatigue. Denies weight change. Denies polydipsia. Denies polyurina. GENITOURINARY: Denies burning, hematuria or urgency with micturation. HEMATOLOGIC: Denies history of anemia. Denies bleeding. Blood pressure 113/71 heart rate 83 afebrile maintaining oxygen saturation on nasal cannula GENERAL: This is a 68-year-old female in no apparent distress at the time of my examination. HEENT: Head is atraumatic, normocephalic. Pupils are equal, round. Sclerae anicteric. Conjunctivae are clear. Mucous membranes of the mouth are moist. Neck is supple. There is no jugular venous distention. No carotid bruit is heard. LUNGS: Clear to auscultation no wheezes, rales or rhonchi. No chest wall tenderness is noted on palpation or with deep breathing. HEART: Regular rate and rhythm without murmurs, rubs or gallops. S1 and S2 heard. ABDOMEN: Soft, nontender. Bowel sounds are heard. No organomegaly noted. EXTREMITIES: No evidence of peripheral edema and no calf tenderness noted. VASCULAR: Radial and dorsalis pedis pulses palpated, no evidence of clubbing. NEUROLOGIC: Patient is awake, alert and oriented x3. ASSESSMENT Left intertrochanteric femur fracture, postoperative day #1 IM nailing Mechanical fall, no LOC Hyponatremia Hypokalemia Thrombocytopenia Hypertension Chronic nicotine dependence PLAN Clinically stable from a cardiac perspective. No symptoms of angina or overt heart failure. Surgery was performed yesterday with no immediate complications noted. Check lipid profile and start statins appropriately. Stable from a cardiac perspective. Smoking cessation recommended. Thank you kindly for this consultation. Nurse Practitioner note has been reviewed, I agree with a documented findings and plan of care. Patient was seen and examined. 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 History of Any Multi-Drug Resistant Organisms: None Reported Past Surgical History: Section Additional Past Surgical History / Comment(s): cataract surgery Past Anesthesia/Blood Transfusion Reactions: No Reported Reaction Past Psychological History: No Psychological Hx Reported Smoking Status: Current every day smoker Past Alcohol Use History: None Reported Past Drug Use History: None Reported - Past Family History Son(s) Family Medical History: No Reported History Daughter(s) Family Medical History: No Reported History Medications and Allergies Home Medications Medication Instructions Recorded Confirmed Type Losartan/Hydrochlorothiazide 1 tab PO DAILY 06/23/19 06/23/19 History [Losartan-Hctz 50-12.5 mg Tab] Allergies Allergy/AdvReac Type Severity Reaction Status Date / Time No Known Allergies Allergy Verified 06/23/19 20:23 Physical Exam Vitals: Vital Signs Temp Pulse Resp BP Pulse Ox 06/25/19 06:46 98.0 F 83 16 113/71 93 L 06/25/19 03:15 17 06/25/19 02:00 98.2 F 86 16 107/69 91 L 06/25/19 00:00 16 06/24/19 19:31 98.3 F 94 16 104/66 91 L 06/24/19 19:07 16 06/24/19 16:30 92 120/68 06/24/19 16:15 93 124/66 06/24/19 16:00 94 120/68 06/24/19 15:45 86 144/76 06/24/19 15:30 90 132/79 06/24/19 15:15 99 131/78 06/24/19 15:00 89 129/68 06/24/19 14:46 16 06/24/19 14:45 80 120/68 06/24/19 14:30 94 111/69 06/24/19 13:59 81 16 97/56 95 06/24/19 13:44 90 16 91/52 96 06/24/19 13:38 92/52 06/24/19 13:36 93 16 87/53 94 L 06/24/19 13:28 90 102/57 06/24/19 13:22 112/59 06/24/19 13:17 94 16 69/46 96 06/24/19 13:08 92/52 06/24/19 13:04 72 60/38 06/24/19 12:59 77 14 68/43 97 06/24/19 12:50 68 14 80/51 06/24/19 12:45 64 55/38 06/24/19 12:33 98.2 F 60 16 94/54 97 Intake and Output 06/24/19 06/25/19 06/25/19 22:59 06:59 14:59 Intake Total 75 675 660 Balance 75 675 660 Intake: Intake, IV Titration 75 675 Amount Sodium Chloride 0.9% 1, 75 675 000 ml @ 75 mls/hr IV . [id number] [facility] Rx#:[id number] Oral 660 Other: Voiding Method Indwelling Catheter Indwelling Catheter Results 06/25/19 07:08 06/25/19 07:08 CBC 06/25/19 Range/Units 07:08 WBC 4.6 (3.8-10.6) k/uL RBC 3.21 L (3.80-5.40) m/uL Hgb 10.8 L (11.4-16.0) gm/dL Hct 31.5 L (34.0-46.0) % Plt Count 115 L (150-450) k/uL Comprehensive Metabolic Panel 06/25/19 Range/Units 07:08 Sodium 132 L (137-145) mmol/L Potassium 3.3 L (3.5-5.1) mmol/L Chloride 95 L (98-107) mmol/L Carbon Dioxide 31 H (22-30) mmol/L BUN 4 L (7-17) mg/dL Creatinine 0.41 L (0.52-1.04) mg/dL Glucose 91 (74-99) mg/dL Calcium 8.3 L (8.4-10.2) mg/dL Current Medications Generic Name Dose Route Start Last Admin Trade Name Freq PRN Reason Stop Dose Admin Hydrocodone Bitart/Acetaminophen 1 each 06/24/19 12:32 Hewitt 5-325 PO Q6HR PRN Pain Scale 1 to 5 Hydrocodone Bitart/Acetaminophen 2 each 06/24/19 12:35 [place] 5-325 PO Q6HR PRN Pain 6-10 Heparin Sodium (Porcine) 5,000 unit 06/24/19 09:15 06/25/19 08:26 Heparin SQ 5,000 unit Q12HR PRASHANT Administration Sodium Chloride 1,000 mls @ 75 mls/hr 06/23/19 20:30 06/25/19 08:24 Saline 0.9% IV Not Given .[id number] PRASHANT Losartan Potassium 50 mg 06/24/19 09:00 06/25/19 08:22 Cozaar PO 50 mg DAILY PRASHANT Administration Magnesium Hydroxide 2,400 mg 06/24/19 12:32 Milk Of Magnesia PO DAILY PRN Constipation Morphine Sulfate 4 mg 06/24/19 07:50 06/25/19 05:52 Morphine Sulfate (Inj) IV 4 mg Q2HR PRN Administration Severe Pain Naloxone HCl 0.2 mg 06/23/19 20:20 Narcan IV Q2M PRN Opioid Reversal Ondansetron HCl 4 mg 06/23/19 20:20 Zofran IVP Q8HR PRN Nausea And Vomiting Senna/Docusate Sodium 2 each 06/24/19 21:00 06/24/19 20:49 Senokot-S PO 2 each HS PRASHANT Administration Tramadol HCl 50 mg 06/24/19 13:00 06/25/19 08:22 Ultram PO 50 mg QID PRASHANT Administration Intake and Output 06/24/19 06/25/19 06/25/19 22:59 06:59 14:59 Intake Total 75 675 660 Balance 75 675 660 Intake: Intake, IV Titration 75 675 Amount Sodium Chloride 0.9% 1, 75 675 000 ml @ 75 mls/hr IV . [id number] [facility] Rx#:[id number] Oral 660 Other: Voiding Method Indwelling Catheter Indwelling Catheter 06/25/19 07:08 06/25/19 07:08
[2019-06-25] MEDS: HYDROcodone/APAP 5-325MG 1 EACH TAB PO PRN (11:21)
[2019-06-25 11:39] LABS: Cholesterol 88 mg/dL (<200); HDL Cholesterol 35 mg/dL (40-60); LDL Cholesterol,Calculated 41 mg/dL (0-99); Triglycerides 58 mg/dL (<150)
--- NOTE | 2019-06-25 17:53 | P.PN ---
Subjective Progress Note Date: 06/25/19 Principal diagnosis: Status post IM nail left intertrochanteric femur fracture Patient evaluated today at bedside, she is family present. She is resting comfortably. She states the pain is improving. She was able to get to the chair, there was some difficulty.m Urinary cath remains intact, she denies any chest pain or shortness of breath Objective - Vital Signs Vital signs: Vital Signs Temp 98.0 F 06/25/19 14:33 Pulse 78 06/25/19 14:33 Resp 18 06/25/19 14:33 BP 91/55 06/25/19 14:33 Pulse Ox 94 L 06/25/19 14:33 Intake & Output 06/24/19 06/25/19 06/25/19 18:59 06:59 18:59 Intake Total 1351 750 780 Output Total 450 550 Balance 901 750 230 Intake: IV 1101 Intake, IV Titration 750 Amount Sodium Chloride 0.9% 1, 750 000 ml @ 75 mls/hr IV . [id number] [facility] Rx#:[id number] Oral 780 Blood Product 250 Output: Urine 350 550 Uretheral (Bird) 550 Estimated Blood Loss 100 Other: Voiding Method Indwelling Catheter Indwelling Catheter Indwelling Catheter - Exam Left lower extremity: Incision is clean, dry, and intact. The paula are in good condition. There is minimal soft tissue swelling and ecchymosis surrounding the medial and lateral aspects of the incision. Calf is soft, no tenderness with palpation. Plantar flexion, dorsiflexion, EHL, FHL are intact. Sensory exam to light touch throughout the extremity is intact, dorsal pedis pulses 2+. - Labs CBC & Chem 7: 06/25/19 07:08 06/25/19 07:08 Labs: Abnormal Lab Results - Last 24 Hours (Table) 06/25/19 06/25/19 06/25/19 Range/Units 07:08 07:08 07:08 RBC 3.21 L (3.80-5.40) m/uL Hgb 10.8 L (11.4-16.0) gm/dL Hct 31.5 L (34.0-46.0) % Plt Count 115 L (150-450) k/uL Sodium 132 L (137-145) mmol/L Potassium 3.3 L (3.5-5.1) mmol/L Chloride 95 L (98-107) mmol/L Carbon Dioxide 31 H (22-30) mmol/L BUN 4 L (7-17) mg/dL Creatinine 0.41 L (0.52-1.04) mg/dL Uric Acid 1.2 L (3.7-7.4) mg/dL Calcium 8.3 L (8.4-10.2) mg/dL HDL Cholesterol 35 L (40-60) mg/dL Assessment and Plan Plan: Assessment: Postoperative day 1 status post IM nail left intertrochanteric femur fracture Plan: Pain control, continue current medication GI and DVT prophylaxis, continue current medication 50% weightbearing with walker Continue daily therapy Daily dressing changes/ice the hip region Medical recommendations Discharge planning: Plan for discharge to rehab the next day or 2 Time with Patient: Less than 30
[2019-06-25] MEDS: SENNOSIDES-DOCUSATE SODIUM 1 EACH TAB PO SCH (22:07)
[2019-06-26] MEDS: HYDROcodone/APAP 5-325MG 1 EACH TAB PO PRN ×2 (00:18→11:04)
[2019-06-26 07:47] LABS: African American GFR (CKD) >90 (>60 ml/min/1.73 sqM); Anion Gap 7 mmol/L; Blood Urea Nitrogen 4 mg/dL (7-17); Calcium 8.3 mg/dL (8.4-10.2); Carbon Dioxide 26 mmol/L (22-30); Chloride 96 mmol/L (98-107); Glucose 92 mg/dL (74-99); Magnesium 1.8 mg/dL (1.6-2.3); Non-African American GFR(CKD) >90 (>60 ml/min/1.73 sqM); Potassium 3.6 mmol/L (3.5-5.1); Sodium 129 mmol/L (137-145)
[2019-06-26] MEDS: FAMOTIDINE 20 MG TAB PO SCH (08:37)
[2019-06-26] MEDS: LOSARTAN 50 MG TAB PO SCH (08:37)
[2019-06-26] MEDS: traMADol 50 MG TAB PO SCH ×4 (08:37→22:44)
[2019-06-26] MEDS: HEPARIN SODIUM,PORCINE 5,000 UNIT/ML 1 ML VIAL SQ SCH ×2 (08:37→22:47)
[2019-06-26] MEDS ORDERED: POTASSIUM CHLORIDE ER 20 MEQ TAB.ER PO STA (12:26)
--- NOTE | 2019-06-26 12:26 | P.PN ---
Subjective Patient is seen in follow-up for hyponatremia. Sodium level is down to 129 today. No vomiting or diarrhea. Oral intake is fair. Complains of pain at the surgical site. Vital signs are stable. General: The patient appeared well nourished and normally developed. HEENT: Head exam is unremarkable. Neck is without jugular venous distension. LUNGS: Lungs are clear to auscultation and percussion. Breath sounds decreased. HEART: Rate and Rhythm are regular. First and second heart sounds normal. No murmurs, rubs or gallops. ABDOMEN: Abdominal exam reveals normal bowel sounds. Non-tender and non- distended. No evidence of peritonitis. EXTREMITITES: No clubbing, cyanosis, or edema. Objective - Vital Signs Vital signs: Vital Signs Temp 98.4 F 06/26/19 07:00 Pulse 84 06/26/19 07:00 Resp 16 06/26/19 07:00 BP 122/75 06/26/19 07:00 Pulse Ox 92 L 06/26/19 07:00 Intake & Output 06/25/19 06/26/19 06/26/19 18:59 06:59 18:59 Intake Total 780 Output Total 550 300 Balance 230 -300 Intake: Oral 780 Output: Urine 550 300 Uretheral (Bird) 550 Other: Voiding Method Indwelling Catheter Indwelling Catheter - Labs CBC & Chem 7: 06/25/19 07:08 06/26/19 06:49 Labs: Abnormal Lab Results - Last 24 Hours (Table) 06/26/19 Range/Units 06:49 Sodium 129 L (137-145) mmol/L Chloride 96 L (98-107) mmol/L BUN 4 L (7-17) mg/dL Creatinine 0.41 L (0.52-1.04) mg/dL Calcium 8.3 L (8.4-10.2) mg/dL Assessment and Plan Plan: Assessment: 1. Hypovolemic hyponatremia initially improved with IV hydration. Sodium level down to 129 today. Patient was also on hydrochlorothiazide at home which will worsen the hyponatremia especially in the setting of volume depletion. TSH normal. Uric acid is low which is sitting in SIADH which is likely pain induced at this time. Urine sodium 49 and urine osmolality 410. 2. Acute left femoral neck fracture status post trochanteric intramedullary nailing on June 24. 3. Benign hypertension. Controlled. 4. History of alcohol-induced liver cirrhosis. 5. Hypokalemia from poor oral intake. Magnesium normal. Status post replacement. Better. Plan: Hep-Lock IV fluids. Encouraged oral intake, particularly solute. Add ensure 3 times daily. Avoid thiazide diuretics in the future. Replace potassium. 40 mEq today. Repeat electrolytes in the morning.
[2019-06-26] MEDS: LACTULOSE 20 GM/30 ML CUP PO SCH ×2 (12:47→22:16)
--- NOTE | 2019-06-26 12:51 | P.PN ---
Subjective Progress Note Date: 06/26/19 Principal diagnosis: Status post IM nail left intertrochanteric femur fracture Patient evaluated today at bedside, she is family present. She is resting comfortably. She denies any chest pain or shortness of breath Objective - Vital Signs Vital signs: Vital Signs Temp 98.4 F 06/26/19 07:00 Pulse 84 06/26/19 07:00 Resp 16 06/26/19 07:00 BP 122/75 06/26/19 07:00 Pulse Ox 92 L 06/26/19 07:00 Intake & Output 06/25/19 06/26/19 06/26/19 18:59 06:59 18:59 Intake Total 780 Output Total 550 300 Balance 230 -300 Intake: Oral 780 Output: Urine 550 300 Uretheral (Bird) 550 Other: Voiding Method Indwelling Catheter Indwelling Catheter - Exam Left lower extremity: Incision is clean, dry, and intact. The paula are in good condition. There is minimal soft tissue swelling and ecchymosis surrounding the medial and lateral aspects of the incision. Calf is soft, no tenderness with palpation. Plantar flexion, dorsiflexion, EHL, FHL are intact. Sensory exam to light touch throughout the extremity is intact, dorsal pedis pulses 2+. - Labs CBC & Chem 7: 06/25/19 07:08 06/26/19 06:49 Labs: Abnormal Lab Results - Last 24 Hours (Table) 06/26/19 Range/Units 06:49 Sodium 129 L (137-145) mmol/L Chloride 96 L (98-107) mmol/L BUN 4 L (7-17) mg/dL Creatinine 0.41 L (0.52-1.04) mg/dL Calcium 8.3 L (8.4-10.2) mg/dL Assessment and Plan Plan: Assessment: Postoperative day #2 status post IM nail left intertrochanteric femur fracture Plan: Pain control, continue current medication GI and DVT prophylaxis, continue current medication 50% weightbearing with walker Continue daily therapy Daily dressing changes/ice the hip region Medical recommendations Discharge planning: Plan for discharge to rehab when stable Time with Patient: Less than 30
--- NOTE | 2019-06-26 14:59 | P.PN ---
Subjective Progress Note Date: 06/25/19 This is 68 years old female who presented from home after sustaining fall and was found to have left hip fracture. Patient was seen by orthopedic surgery who recommended fixation and required preop evaluation. Patient stated that she has been living at home with her 4 years independent in most of her ADLs using cane at home and walker outside of her house and said that she's been steady on her feet up until yesterday where she tripped and fell and landed on her left side. Patient was in excruciating pain and able to move around and was brought to the hospital for that reason. Patient denied dizziness lightheadedness prior to fall denied any loss of consciousness before during or after. Patient denied any head trauma. Patient was at home with her next to her when she sustained a fall. Patient ambulates with cane at home can go down to the basement and back upstairs without interruption denied any chest pain shortness breath with exertion and said that she's been in her regular state of health taking all her medication on daily basis patient was hospitalized in the past for ascites and liver cirrhosis and said that since that time she's been healthy at home with no issues. Patient is poor historian stated that she smokes one to 2 packs per day denying alcohol or drug abuse. Patient had multiple concerns and questions about her condition and the surgery itself but would like the surgery to be done as soon as possible as she cannot stand the hospital for a long time and would like to be walking again. 06/25: Patient has been afebrile, heart rate 83, blood pressure 130/71, pulse ox 93% on room air. Hemoglobin 10.8. Potassium 3.3 and will be replaced. Sodium 132, chloride 95, CO2 31, BUN 4 and creatinine 0.41. Patient remains with Bird catheter in place. Dr. Cuello has recommending continuing normal saline IV fluids at 75 mL/h. , Patient has been seen today by cardiology with no complications postoperatively. She denies any pain in her hip. She does complain of pain going down her leg into her thigh. Patient is planning to go to [facility] for subacute rehab which will most likely be tomorrow. Objective - Vital Signs Vital signs: Vital Signs Temp 98.0 F 06/25/19 06:46 Pulse 83 08/19/19 06:46 Resp 16 06/25/19 06:46 BP 113/71 06/25/19 06:46 Pulse Ox 93 L 06/25/19 06:46 Intake & Output 06/24/19 06/25/19 06/25/19 18:59 06:59 18:59 Intake Total 1351 750 660 Output Total 450 Balance 901 750 660 Intake: IV 1101 Intake, IV Titration 750 Amount Sodium Chloride 0.9% 1, 750 000 ml @ 75 mls/hr IV . [id number] [facility] Rx#:[id number] Oral 660 Blood Product 250 Output: Urine 350 Estimated Blood Loss 100 Other: Voiding Method Indwelling Catheter Indwelling Catheter Indwelling Catheter - Exam Review Of Systems: Constitutional: No fever, no chills, no night sweats. No weight change. No weakness, fatigue or lethargy. No daytime sleepiness. EENT: No headache. No blurred vision or double vision, no loss of vision. No loss of Hearing, no ringing in the ears, no dizziness. No nasal drainage or congestion. No epistaxis. No sore throat. Lungs: No shortness of breath, cough, no sputum production. No wheezing. Cardiovascular: No chest pain, no lower extremity edema. No palpitations. No paroxysmal nocturnal dyspnea. No orthopnea. No lightheadedness or dizziness. No syncopal episodes. Abdominal: No abdominal pain. No nausea, vomiting. No diarrhea. No constipation. No bloody or tarry stools.. No loss of appetite. Genitourinary: No dysuria, increased frequency, urgency. No urinary retention. Musculoskeletal: No myalgias. No muscle weakness, no gait dysfunction, no frequent falls. No back pain. No neck pain. Reports left leg pain Integumentary: No wounds, no lesions. No rash or pruritus. No unusual bruising. No change in hair or nails. Neurologic: No aphasia. No facial droop. No change in mentation. No head injury. No headache. No paralysis. No paresthesia. Psychiatric: No depression. No anxiety. No mood swings. Endocrine: No abnormal blood sugars. No weight change. No excessive sweating or thirst. No cold intolerance. Gen: This is a 68-year-old female. She is resting but appears to be comfortable and in no acute distress. HEENT: Head is atraumatic, normocephalic. Pupils equal, round. Sclerae is anicteric. NECK: Supple. No JVD. No lymphadenopathy. No thyromegaly. LUNGS: Clear to auscultation. No wheezes or rhonchi. No intercostal retractions. HEART: Regular rate and rhythm. No murmur. ABDOMEN: Soft. Bowel sounds are present. No masses. No tenderness. EXTREMITIES: No pedal edema. No calf tenderness. Small dressing in place left hip. No breakthrough bleeding or drainage. NEUROLOGICAL: Patient is awake, alert and oriented x3. Cranial nerves 2 through 12 are grossly intact. - Labs CBC & Chem 7: 06/25/19 07:08 06/26/19 06:49 Labs: Abnormal Lab Results - Last 24 Hours (Table) 06/25/19 06/25/19 Range/Units 07:08 07:08 RBC 3.21 L (3.80-5.40) m/uL Hgb 10.8 L (11.4-16.0) gm/dL Hct 31.5 L (34.0-46.0) % Plt Count 115 L (150-450) k/uL Sodium 132 L (137-145) mmol/L Potassium 3.3 L (3.5-5.1) mmol/L Chloride 95 L (98-107) mmol/L Carbon Dioxide 31 H (22-30) mmol/L BUN 4 L (7-17) mg/dL Creatinine 0.41 L (0.52-1.04) mg/dL Uric Acid 1.2 L (3.7-7.4) mg/dL Calcium 8.3 L (8.4-10.2) mg/dL Assessment and Plan Plan: 1. Acute displaced left intertrochanteric femur fracture status post IM nailing on June [address] Pedraza. The patient is currently on morphine and [place] for pain control. PT and OT per orthopedics. Patient is on heparin subcu for DVT prophylaxis. 2. Acute hypovolemic hyponatremia, improving. Consult with Dr. Cuello appr eciated. Continue IV fluids at 75 mL/h, ovoid thiazide diuretics in the future. 3. Acute hypokalemia. Replace potassium. 4. Chronic thrombocytopenia likely related to his history of liver cirrhosis of unclear etiology. 5. Hypertension. Continue losartan 50 mg daily. Hydrochlorothiazide dis continued. Patient to avoid in future 6. COPD, stable. 7. Tobacco use and dependence. 8. DVT prophylaxis. Heparin subcu. 9. GI prophylaxis. Pepcid Discharge plan: Either home with [facility] care or subacute rehab Impression and plan of care have been directed as dictated by the signing physician. Piper Aguilera nurse practitioner acting as scribe for signing physician.
--- NOTE | 2019-06-26 15:06 | P.PN ---
Subjective Progress Note Date: 06/26/19 This is 68 years old female who presented from home after sustaining fall and was found to have left hip fracture. Patient was seen by orthopedic surgery who recommended fixation and required preop evaluation. Patient stated that she has been living at home with her 4 years independent in most of her ADLs using cane at home and walker outside of her house and said that she's been steady on her feet up until yesterday where she tripped and fell and landed on her left side. Patient was in excruciating pain and able to move around and was brought to the hospital for that reason. Patient denied dizziness lightheadedness prior to fall denied any loss of consciousness before during or after. Patient denied any head trauma. Patient was at home with her next to her when she sustained a fall. Patient ambulates with cane at home can go down to the basement and back upstairs without interruption denied any chest pain shortness breath with exertion and said that she's been in her regular state of health taking all her medication on daily basis patient was hospitalized in the past for ascites and liver cirrhosis and said that since that time she's been healthy at home with no issues. Patient is poor historian stated that she smokes one to 2 packs per day denying alcohol or drug abuse. Patient had multiple concerns and questions about her condition and the surgery itself but would like the surgery to be done as soon as possible as she cannot stand the hospital for a long time and would like to be walking again. 06/25: Patient has been afebrile, heart rate 83, blood pressure 130/71, pulse ox 93% on room air. Hemoglobin 10.8. Potassium 3.3 and will be replaced. Sodium 132, chloride 95, CO2 31, BUN 4 and creatinine 0.41. Patient remains with Bird catheter in place. Dr. Cuello has recommending continuing normal saline IV fluids at 75 mL/h. , Patient has been seen today by cardiology with no complications postoperatively. She denies any pain in her hip. She does complain of pain going down her leg into her thigh. Patient is planning to go to [facility] for subacute rehab which will most likely be tomorrow. 06/26: Patient is complaining of significant pain to the left hip that is worse from yesterday. She states she is not voiding very much either today. She has not had a bowel movement and lactulose will be added scheduled twice daily. Repeat lab work today reveals a sodium 129, potassium 3.6, chloride 96, CO2 26, BUN 4 creatinine 0.41. Calcium 8.3. Dr. Cuello has discontinued IV fluids, added ensure. Repeat lab work ordered for tomorrow. Objective - Vital Signs Vital signs: Vital Signs Temp 98.4 F 06/26/19 07:00 Pulse 84 06/26/19 07:00 Resp 16 06/26/19 07:00 BP 122/75 06/26/19 07:00 Pulse Ox 92 L 06/26/19 07:00 Intake & Output 06/25/19 06/26/19 06/26/19 18:59 06:59 18:59 Intake Total 780 Output Total 550 300 Balance 230 -300 Intake: Oral 780 Output: Urine 550 300 Uretheral (Bird) 550 Other: Voiding Method Indwelling Catheter Indwelling Catheter - Exam Review Of Systems: Constitutional: No fever, no chills, no night sweats. No weight change. No weakness, fatigue or lethargy. No daytime sleepiness. EENT: No headache. No blurred vision or double vision, no loss of vision. No loss of Hearing, no ringing in the ears, no dizziness. No nasal drainage or congestion. No epistaxis. No sore throat. Lungs: No shortness of breath, cough, no sputum production. No wheezing. Cardiovascular: No chest pain, no lower extremity edema. No palpitations. No paroxysmal nocturnal dyspnea. No orthopnea. No lightheadedness or dizziness. No syncopal episodes. Abdominal: No abdominal pain. No nausea, vomiting. No diarrhea. Reports c onstipation. No bloody or tarry stools.. No loss of appetite. Genitourinary: No dysuria, increased frequency, urgency. No urinary retention. Musculoskeletal: No myalgias. No muscle weakness, no gait dysfunction, no frequent falls. No back pain. No neck pain. Reports left leg pain Integumentary: No wounds, no lesions. No rash or pruritus. No unusual bruising. No change in hair or nails. Neurologic: No aphasia. No facial droop. No change in mentation. No head injury. No headache. No paralysis. No paresthesia. Psychiatric: No depression. No anxiety. No mood swings. Endocrine: No abnormal blood sugars. No weight change. No excessive sweating or thirst. No cold intolerance. Gen: This is a 68-year-old female. She is resting but appears to be uncomfortable. She is complaining of left hip pain. HEENT: Head is atraumatic, normocephalic. Pupils equal, round. Sclerae is anicteric. NECK: Supple. No JVD. No lymphadenopathy. No thyromegaly. LUNGS: Clear to auscultation. No wheezes or rhonchi. No intercostal retractions. HEART: Regular rate and rhythm. No murmur. ABDOMEN: Soft. Bowel sounds are present. No masses. No tenderness. EXTREMITIES: No pedal edema. No calf tenderness. Small dressing in place left hip. No breakthrough bleeding or drainage. NEUROLOGICAL: Patient is awake, alert and oriented x3. Cranial nerves 2 through 12 are grossly intact. - Labs CBC & Chem 7: 06/25/19 07:08 06/26/19 06:49 Labs: Abnormal Lab Results - Last 24 Hours (Table) 06/25/19 06/26/19 Range/Units 07:08 06:49 Sodium 129 L (137-145) mmol/L Chloride 96 L (98-107) mmol/L BUN 4 L (7-17) mg/dL Creatinine 0.41 L (0.52-1.04) mg/dL Calcium 8.3 L (8.4-10.2) mg/dL HDL Cholesterol 35 L (40-60) mg/dL Assessment and Plan Plan: 1. Acute displaced left intertrochanteric femur fracture status post IM nailing on June [address] Pedraza. The patient is currently on morphine and [place] for pain control. PT and OT per orthopedics. Patient is on heparin subcu for DVT prophylaxis. 2. Acute hypovolemic hyponatremia, improving. Consult with Dr. Cuello appreciated. IV fluids discontinued. Avoid thiazide diuretics in the future. Repeat electrolytes in the morning. 3. Acute hypokalemia. Replace potassium. 4. Chronic thrombocytopenia likely related to his history of liver cirrhosis of unclear etiology. 5. Hypertension. Continue losartan 50 mg daily. Hydrochlorothiazide discontinued. Patient to avoid in future 6. COPD, stable. 7. Tobacco use and dependence. 8. DVT prophylaxis. Heparin subcu. 9. GI prophylaxis. Pepcid 10. Constipation. Lactulose 30 mg twice daily ordered. Discharge plan: Either home with [facility] care or subacute rehab Impression and plan of care have been directed as dictated by the signing physician. Piper Aguilera nurse practitioner acting as scribe for signing physician.
[2019-06-26 20:19] VITALS: RESP 16
[2019-06-26] MEDS: SENNOSIDES-DOCUSATE SODIUM 1 EACH TAB PO SCH (22:16)
--- NOTE | 2019-06-26 22:35 | XR ---
EXAM: XR Left Hip With Pelvis When Performed, 2 or 3 Views CLINICAL HISTORY: ITS.REASON XR Reason: fall TECHNIQUE: Two or three views of the left hip, with pelvis when performed. COMPARISON: 06/23/2019 FINDINGS: Bones/joints: Interval ORIF of the left proximal femur with an intramedullary natalia and gamma nail. Orthopedic hardware appears intact. Soft tissues: Unremarkable. Other findings: There is near-anatomic alignment. IMPRESSION: ORIF of the left proximal femur. Near-anatomic alignment.
--- NOTE | 2019-06-26 23:03 | XR ---
EXAM: XR Left Femur, 2 Views CLINICAL HISTORY: fall TECHNIQUE: Frontal and lateral views of the left femur. COMPARISON: 06/23/20191936 FINDINGS: Bones/joints: Interval ORIF of the left proximal femur with an intramedullary natalia and gamma nail. There is near-anatomic alignment. Orthopedic hardware appears intact. No acute fracture. Soft tissues: Skin paula in the lateral left hip. IMPRESSION: ORIF of the left proximal femur. Near-anatomic alignment.
--- NOTE | 2019-06-26 23:14 | XR ---
EXAM: XR Left Knee, 3 views CLINICAL HISTORY: ITS.REASON XR Reason: fall TECHNIQUE: Three views of the left knee. COMPARISON: No relevant prior studies available. FINDINGS: Bones/joints: No acute fracture or malalignment. Soft tissues: Anterior soft tissue edema overlying the distal femur. IMPRESSION: Anterior soft tissue edema overlying the distal femur. No acute osseous abnormality.
[2019-06-27 07:28] LABS: African American GFR (CKD) >90 (>60 ml/min/1.73 sqM); Anion Gap 7 mmol/L; Blood Urea Nitrogen 3 mg/dL (7-17); Calcium 8.3 mg/dL (8.4-10.2); Carbon Dioxide 27 mmol/L (22-30); Chloride 96 mmol/L (98-107); Glucose 91 mg/dL (74-99); Magnesium 1.7 mg/dL (1.6-2.3); Non-African American GFR(CKD) >90 (>60 ml/min/1.73 sqM); Potassium 3.7 mmol/L (3.5-5.1); Sodium 130 mmol/L (137-145)
[2019-06-27 08:16] VITALS: BP 163/77; PULSE 85; TEMP 98.1
[2019-06-27] MEDS: LACTULOSE 20 GM/30 ML CUP PO SCH (08:20)
[2019-06-27] MEDS: LOSARTAN 50 MG TAB PO SCH (08:26)
[2019-06-27] MEDS: traMADol 50 MG TAB PO SCH ×2 (08:26→12:59)
[2019-06-27] MEDS: FAMOTIDINE 20 MG TAB PO SCH (08:26)
[2019-06-27] MEDS: HEPARIN SODIUM,PORCINE 5,000 UNIT/ML 1 ML VIAL SQ SCH (08:26)
--- NOTE | 2019-06-27 12:52 | P.PN ---
Subjective Progress Note Date: 06/27/19 Principal diagnosis: Status post IM nail left intertrochanteric femur fracture Patient evaluated today at bedside, she is family present. I did receive a call from nursing last night regarding patient, she did have a fall out of her bed. X-rays were ordered the left lower extremity and pelvis. Images were negative for any acute fractures or dislocations. Recent hardware that was places in good position. Currently she does have some increase in pain involving the left lower extremity. She denies any chest pain or shortness of breath Objective - Vital Signs Vital signs: Vital Signs Temp 98.1 F 06/27/19 07:00 Pulse 85 06/27/19 07:00 Resp 16 06/27/19 07:00 BP 163/77 06/27/19 07:00 Pulse Ox 93 L 06/27/19 07:00 Intake & Output 06/26/19 06/27/19 06/27/19 18:59 06:59 18:59 Intake Total 702 180 Output Total 2 Balance 702 -2 180 Intake: Oral 702 180 Output: Urine 2 Other: Voiding Method Bedpan Bedpan Diaper Incontinent # Voids 2 # Bowel Movements 3 - Exam Left lower extremity: Incision is clean, dry, and intact. The paula are in good condition. There is minimal soft tissue swelling and ecchymosis surrounding the medial and lateral aspects of the incision. Calf is soft, no tenderness with palpation. Plantar flexion, dorsiflexion, EHL, FHL are intact. Sensory exam to light touch throughout the extremity is intact, dorsal pedis pulses 2+. - Labs CBC & Chem 7: 06/25/19 07:08 06/27/19 06:24 Labs: Abnormal Lab Results - Last 24 Hours (Table) 06/27/19 Range/Units 06:24 Sodium 130 L (137-145) mmol/L Chloride 96 L (98-107) mmol/L BUN 3 L (7-17) mg/dL Creatinine 0.34 L (0.52-1.04) mg/dL Calcium 8.3 L (8.4-10.2) mg/dL Assessment and Plan Plan: Assessment: Postoperative day #3 status post IM nail left intertrochanteric femur fracture Plan: Pain control, plan for discharge on oral medication GI and DVT prophylaxis, Xarelto 10 mg 50% weightbearing with walker Continue daily therapy Daily dressing changes/ice the hip region Medical recommendations Discharge planning: Plan for discharge to rehab today Time with Patient: Less than 30
--- NOTE | 2019-06-27 12:59 | P.DS ---
Providers Date of admission: 06/23/19 20:22 Expected date of discharge: 06/27/19 Attending physician: Dino Pedraza Consults: 06/23/19 20:20 Consult Physician Stat Consulting Provider: Aleksandr Dia Consult Reason/Comments: medicine consult for surgical clearance Do you want consulting provider notified?: Yes 06/24/19 08:35 Consult Physician Stat Consulting Provider: Francisco Ribera Consult Reason/Comments: ECHO to be completed for medical clearance Do you want consulting provider notified?: Yes 06/24/19 09:52 Consult Physician Routine Consulting Provider: Orville Cuello Consult Reason/Comments: known Do you want consulting provider notified?: Already Contacted Primary care physician: [facility] Course: Date of admission: 06/23/2019 Date of discharge: 06/27/2019 Admission diagnosis: Displaced and comminuted left intertrochanteric femur fracture Discharge diagnosis: Status post intramedullary nailing left intertrochanteric femur fracture Attending physician: Dr. Pedraza Surgical procedures: Intramedullary nailing left intertrochanteric femur fracture Brief history: Patient is a 68-year-old female who presented to [facility] on 06/23/2019 after sustaining a fall. It was determined she had a displaced and comminuted left intertrochanteric femur fracture. She was admitted under orthopedic care with plan for surgical intervention. Internal medicine was consult for clearance and medical management. She underwent surgery on 06/24/2019. Hospital course: Details of patient's surgery can be found in operative report. Patient tolerated the procedure well and was subsequently transported to orthopedic floor. Patient's orthopeidc and medical care was provided daily. Patient had daily laboratory tests performed for evaluation of overall blood counts. Patient had daily physical therapy to include strengthening range of motion as well as education with walker ambulation. Patient was treated with heparin for their postoperative DVT prophylaxis during their inpatient stay. Patient was noted to have a relatively uneventful postoperative course. Patient reported satisfactory pain control with oral pain medications by postoperative day 0. Patient showed satisfactory progress with physical therapy. Patient moved steadily through the program and had no difficulty meeting the goals by postoperative day 3. Given patient's otherwise satisfactory course and having met physical therapy goals, plan is to discharge patient rehab on postoperative day 3. Discharge condition/disposition: Patient will be discharged rehab in stable condition. Discharge medications: Instructions are given on resumption of patient's normal daily medications per primary care recommendation, in addition patient will be prescribed [place] 5 mg/325 mg, tramadol 50 mg, Xarelto 10 mg. Discharge instructions: 1. Wound care and infection precautions, keep incision dry and covered while showering, no lotions, creams, moisturizers. No soaking, tubs, pools, hottubs. Do not scrub over the incision. 2. 50% weightbearing on left lower extremity, utilize walker and aide at all times 3. Ice and elevate when necessary. Do not exceed 20 minutes per hour with ice pack. 4. Utilize compression sleeve until seen at first follow up appointment. 5. Visiting nursing care. 6. Home physical therapy 7. Pain meds and anticoagulants per prescription. 8. Pain medication has potential to cause constipation. Increase oral fluid and fiber intake. Contact primary care provider if you have not had a bowel movement within 48 hours after discharge 9. No anti-inflammatory medication until discussed at first post operative visit, this including Motrin, Aleve, Mobic, Diclofenac. 10. Follow up in office at 2 weeks postop with Obed Dorsey PA-C 11. Follow up with your primary care doctor 7-10 days after discharge. 12. Contact [facility] with any questions, . Procedures: Intramedullary nailing left intertrochanteric femur fracture Patient Condition at Discharge: Stable Plan - Discharge Summary Discharge Rx Participant: No New Discharge Prescriptions: New Losartan [Cozaar] 50 mg PO DAILY tab Famotidine [Pepcid] 20 mg PO DAILY #14 tablet Hydrocodone/Acetaminophen [[place] 5-325] 1 - 2 each PO Q6HR PRN #56 tab PRN Reason: Pain traMADol HCl [Ultram] 50 mg PO Q6H PRN #28 tab PRN Reason: Pain Rivaroxaban [Xarelto] 10 mg PO DAILY #25 tab Discontinued Losartan/Hydrochlorothiazide [Losartan-Hctz 50-12.5 mg Tab] 1 tab PO DAILY Discharge Medication List Losartan [Cozaar] 50 mg PO DAILY tab 06/26/19 [Rx] Famotidine [Pepcid] 20 mg PO DAILY #14 tablet 06/27/19 [Rx] Hydrocodone/Acetaminophen [[place] 5-325] 1 - 2 each PO Q6HR PRN #56 tab 06/27/19 [Rx] Rivaroxaban [Xarelto] 10 mg PO DAILY #25 tab 06/27/19 [Rx] traMADol HCl [Ultram] 50 mg PO Q6H PRN #28 tab 06/27/19 [Rx] Follow up Appointment(s)/Referral(s): [facility], [NON-STAFF] - As Needed Dino Pedraza MD [STAFF PHYSICIAN] - 07/11/19 10:40 am Quinn Mancuso MD [Primary Care Provider] - 1 Week (after discharge from [facility]) Activity/Diet/Wound Care/Special Instructions: Orthopedic Discharge Instructions: 1. Wound care and infection precautions, keep incision dry and covered while showering, no lotions, creams, moisturizers. No soaking, pools, hot tubs. Do not scrub over incision. 2. 50% weightbearing with walker and aid at all times 3. Ice and elevate when necessary. Do not exceed 20 minutes per hour with ice pack. 4. Utilize compression sleeve until seen at first follow up appointment. 5. Pain meds and anticoagulants per prescription. 6. Pain medication has potential to cause constipation. Increase oral fluid and fiber intake. Contact primary care provider if you have not had a bowel movement within 48 hours after discharge. 7. No anti-inflammatory medication until discussed at first post operative visit, this including Motrin, Aleve, Mobic, Diclofenac. 8. Follow up in office at 2 weeks postop with Obed Dorsey PA-C 9. Follow up with your primary care doctor 7-10 days after discharge. 10. Contact [facility] with any questions, . Discharge Disposition: TRANSFER TO SNF/ECF
--- NOTE | 2019-06-27 13:20 | P.PN ---
Subjective Patient is seen in follow-up for hyponatremia. Sodium level is slightly better at 130 today. No vomiting or diarrhea. Oral intake is fair. Continues to complain of pain at the surgical site. Vital signs are stable. General: The patient appeared well nourished and normally developed. HEENT: Head exam is unremarkable. Neck is without jugular venous distension. LUNGS: Lungs are clear to auscultation and percussion. Breath sounds decreased. HEART: Rate and Rhythm are regular. First and second heart sounds normal. No murmurs, rubs or gallops. ABDOMEN: Abdominal exam reveals normal bowel sounds. Non-tender and non- distended. No evidence of peritonitis. EXTREMITITES: No clubbing, cyanosis, or edema. Objective - Vital Signs Vital signs: Vital Signs Temp 98.1 F 06/27/19 07:00 Pulse 85 06/27/19 07:00 Resp 16 06/27/19 07:00 BP 163/77 06/27/19 07:00 Pulse Ox 93 L 06/27/19 07:00 Intake & Output 06/26/19 06/27/19 06/27/19 18:59 06:59 18:59 Intake Total 702 180 Output Total 2 Balance 702 -2 180 Intake: Oral 702 180 Output: Urine 2 Other: Voiding Method Bedpan Bedpan Diaper Incontinent # Voids 2 # Bowel Movements 3 - Labs CBC & Chem 7: 06/25/19 07:08 06/27/19 06:24 Labs: Abnormal Lab Results - Last 24 Hours (Table) 06/27/19 Range/Units 06:24 Sodium 130 L (137-145) mmol/L Chloride 96 L (98-107) mmol/L BUN 3 L (7-17) mg/dL Creatinine 0.34 L (0.52-1.04) mg/dL Calcium 8.3 L (8.4-10.2) mg/dL Assessment and Plan Plan: Assessment: 1. Hypovolemic hyponatremia initially improved with IV hydration. Sodium level slightly better at 130 today. Patient was also on hydrochlorothiazide at home which will worsen the hyponatremia especially in the setting of volume depletion. TSH normal. Uric acid is low which is sitting in SIADH which is likely pain induced at this time. Urine sodium 49 and urine osmolality 410. 2. Acute left femoral neck fracture status post trochanteric intramedullary nailing on June 24. 3. Benign hypertension. Partially due to pain. 4. History of alcohol-induced liver cirrhosis. 5. Hypokalemia from poor oral intake. Magnesium normal. Status post replacement. Better. Plan: Remains off IV fluids. Encouraged oral intake, particularly solute. Maintain ensure 3 times daily. 1200 mL fluid restriction. Avoid thiazide diuretics in the future. Repeat electrolytes in the morning.
--- NOTE | 2019-06-27 14:51 | P.PN ---
Subjective Progress Note Date: 06/27/19 This is 68 years old female who presented from home after sustaining fall and was found to have left hip fracture. Patient was seen by orthopedic surgery who recommended fixation and required preop evaluation. Patient stated that she has been living at home with her 4 years independent in most of her ADLs using cane at home and walker outside of her house and said that she's been steady on her feet up until yesterday where she tripped and fell and landed on her left side. Patient was in excruciating pain and able to move around and was brought to the hospital for that reason. Patient denied dizziness lightheadedness prior to fall denied any loss of consciousness before during or after. Patient denied any head trauma. Patient was at home with her next to her when she sustained a fall. Patient ambulates with cane at home can go down to the basement and back upstairs without interruption denied any chest pain shortness breath with exertion and said that she's been in her regular state of health taking all her medication on daily basis patient was hospitalized in the past for ascites and liver cirrhosis and said that since that time she's been healthy at home with no issues. Patient is poor historian stated that she smokes one to 2 packs per day denying alcohol or drug abuse. Patient had multiple concerns and questions about her condition and the surgery itself but would like the surgery to be done as soon as possible as she cannot stand the hospital for a long time and would like to be walking again. 06/25: Patient has been afebrile, heart rate 83, blood pressure 130/71, pulse ox 93% on room air. Hemoglobin 10.8. Potassium 3.3 and will be replaced. Sodium 132, chloride 95, CO2 31, BUN 4 and creatinine 0.41. Patient remains with Bird catheter in place. Dr. Cuello has recommending continuing normal saline IV fluids at 75 mL/h. , Patient has been seen today by cardiology with no complications postoperatively. She denies any pain in her hip. She does complain of pain going down her leg into her thigh. Patient is planning to go to [facility] for subacute rehab which will most likely be tomorrow. 06/26: Patient is complaining of significant pain to the left hip that is worse from yesterday. She states she is not voiding very much either today. She has not had a bowel movement since admission and lactulose will be added scheduled twice daily. Repeat lab work today reveals a sodium 129, potassium 3.6, chloride 96, CO2 26, BUN 4 creatinine 0.41. Calcium 8.3. Dr. Cuello has discontinued IV fluids, added ensure. Repeat lab work ordered for tomorrow. 06/27: Repeat lab work reveals sodium 1:30, potassium 3.7, chloride 96, CO2 27, BUN 3 and creatinine 0.34. Patient has been afebrile, heart rate 85, blood pressure 163/77, pulse ox 93% on room air. Patient had an unwitnessed fall last evening getting to the commode chair due to diarrhea from lactulose. She had x- rays of the left knee that showed anterior soft tissue edema overlying the distal femur. Left femur and pelvis x-rays revealed ORIF of the left proximal femur. Near anatomic alignment. Lactulose will be discontinued. Patient is cleared medically for discharge to subacute rehab. Objective - Vital Signs Vital signs: Vital Signs Temp 98.1 F 06/27/19 07:00 Pulse 85 06/27/19 07:00 Resp 16 06/27/19 07:00 BP 163/77 06/27/19 07:00 Pulse Ox 93 L 06/27/19 07:00 Intake & Output 06/26/19 06/27/19 06/27/19 18:59 06:59 18:59 Intake Total 702 180 Output Total 2 Balance 702 -2 180 Intake: Oral 702 180 Output: Urine 2 Other: Voiding Method Bedpan Bedpan Diaper Incontinent # Voids 2 # Bowel Movements 3 - Exam Review Of Systems: Constitutional: No fever, no chills, no night sweats. No weight change. No weakness, fatigue or lethargy. No daytime sleepiness. EENT: No headache. No blurred vision or double vision, no loss of vision. No loss of Hearing, no ringing in the ears, no dizziness. No nasal drainage or congestion. No epistaxis. No sore throat. Lungs: No shortness of breath, cough, no sputum production. No wheezing. Cardiovascular: No chest pain, no lower extremity edema. No palpitations. No paroxysmal nocturnal dyspnea. No orthopnea. No lightheadedness or dizziness. No syncopal episodes. Abdominal: No abdominal pain. No nausea, vomiting. No diarrhea. Reports constipation. No bloody or tarry stools.. No loss of appetite. Genitourinary: No dysuria, increased frequency, urgency. No urinary retention. Musculoskeletal: No myalgias. No muscle weakness, no gait dysfunction, reports falls. No back pain. No neck pain. Reports left leg pain Integumentary: No wounds, no lesions. No rash or pruritus. No unusual bruising. No change in hair or nails. Neurologic: No aphasia. No facial droop. No change in mentation. No head injury. No headache. No paralysis. No paresthesia. Psychiatric: No depression. No anxiety. No mood swings. Endocrine: No abnormal blood sugars. No weight change. No excessive sweating or thirst. No cold intolerance. Gen: This is a 68-year-old female. She is resting but appears to be uncomfortable. She is complaining of left hip pain. HEENT: Head is atraumatic, normocephalic. Pupils equal, round. Sclerae is anicteric. NECK: Supple. No JVD. No lymphadenopathy. No thyromegaly. LUNGS: Clear to auscultation. No wheezes or rhonchi. No intercostal retractions. HEART: Regular rate and rhythm. No murmur. ABDOMEN: Soft. Bowel sounds are present. No masses. No tenderness. EXTREMITIES: No pedal edema. No calf tenderness. Small dressing in place left hip. No breakthrough bleeding or drainage. Abrasion to forearm. NEUROLOGICAL: Patient is awake, alert and oriented x3. Cranial nerves 2 through 12 are grossly intact. - Labs CBC & Chem 7: 06/25/19 07:08 06/27/19 06:24 Labs: Abnormal Lab Results - Last 24 Hours (Table) 06/27/19 Range/Units 06:24 Sodium 130 L (137-145) mmol/L Chloride 96 L (98-107) mmol/L BUN 3 L (7-17) mg/dL Creatinine 0.34 L (0.52-1.04) mg/dL Calcium 8.3 L (8.4-10.2) mg/dL Assessment and Plan Plan: 1. Acute displaced left intertrochanteric femur fracture status post IM nailing on June [address] Pedraza. The patient is currently on morphine and Foster for pain control. PT and OT per orthopedics. Patient is on Xarelto for DVT prophylaxis at the [facility] 2. Acute hypovolemic hyponatremia, improving. Consult with Dr. Cuello appreciated. IV fluids discontinued. Avoid thiazide diuretics in the future. 3. Acute hypokalemia. Replace potassium. 4. Chronic thrombocytopenia likely related to his history of liver cirrhosis of unclear etiology. 5. Hypertension. Continue losartan 50 mg daily. Hydrochlorothiazide discontinued. Patient to avoid in future 6. COPD, stable. 7. Tobacco use and dependence. 8. DVT prophylaxis. Heparin subcu. 9. GI prophylaxis. Pepcid 10. Constipation, resolved. Lactulose discontinued. 11. Fall on the evening of June 26. No new findings on x-ray. [facility] Impression and plan of care have been directed as dictated by the signing physician. Piper Aguilera nurse practitioner acting as scribe for signing physician.
== END 2019-06-27 15:19 | DRG 481 ==
LOC: EC 18:43 → 4SSUR 20:22
PROVIDERS: ADMIT Orthopaedic Surgery; ATTEND Orthopaedic Surgery
PROC: 0QH736Z Insertion of Intramedullary Internal Fixation Device into Left Upper Femur, Percutaneous Approach (ICD-10-PCS; principal; 2019-06-24 10:18)
DX: S72.142A Displaced intertrochanteric fracture of left femur, initial encounter for closed fracture (principal); E87.1 Hypo-osmolality and hyponatremia; E78.5 Hyperlipidemia, unspecified; F17.200 Nicotine dependence, unspecified, uncomplicated; J44.9 Chronic obstructive pulmonary disease, unspecified; E86.1 Hypovolemia; E86.0 Dehydration; E87.6 Hypokalemia; E87.8 Other disorders of electrolyte and fluid balance, not elsewhere classified; I10 Essential (primary) hypertension; K70.30 Alcoholic cirrhosis of liver without ascites; M21.859 Other specified acquired deformities of unspecified thigh; W18.09XA Striking against other object with subsequent fall, initial encounter; D69.59 Other secondary thrombocytopenia; K59.00 Constipation, unspecified; Z98.49 Cataract extraction status, unspecified eye; Z79.899 Other long term (current) drug therapy; Y93.89 Activity, other specified; Y92.003 Bedroom of unspecified non-institutional (private) residence as the place of occurrence of the external cause
CPT/HCPCS: 36415; 71045; 73502; 80048; 80053; 80061; 83735; 83930; 83935; 84300; 84443; 84550; 85025; 85610; 85730; 93005; 93306; 96365; 96375; 99285

== ENCOUNTER 2019-08-06 12:21 | Emergency (ER) | payer MEDICARE ==
[2019-08-06 12:32] VITALS: RESP 18
[2019-08-06] MEDS ORDERED: HYDROcodone/APAP 7.5-325MG 1 EACH TAB PO ONE (13:04)
--- NOTE | 2019-08-06 13:56 | XR ---
EXAMINATION TYPE: AP view pelvis and 2 views left hip DATE OF EXAM: 08/06/2019 COMPARISON: NONE HISTORY: 69-year-old female left hip pain after fall FINDINGS: Antegrade intramedullary nail with screw fixation is demonstrated. There has been progressive endoste al and periosteal healing callus formation as compared to 06/26/2019. Healing appears incomplete. Sing le distal interlocking screw is noted. No obvious new displaced fractures identified. Follow-up can b e considered. Mild degenerative change right hip. IMPRESSION: Healing intertrochanteric fracture of the proximal left femur with intramedullary nail and hip screw fixation demonstrated. No obvious superimposed acute fracture is identified and no interval displacem ent as compared to 06/26/2019. Short interval follow-up can be considered.
[2019-08-06] MEDS ORDERED: ACET/COD 300 MG/30 MG STARTER PACK 6 TAB BTL PO STA (14:17)
--- NOTE | 2019-08-06 14:18 | ED ---
Lower Extremity Injury HPI - General Source: patient, RN notes reviewed Mode of arrival: wheelchair Limitations: physical limitation <Albert Ramirez - Last Filed: 08/06/19 14:15> <Pino Zhao - Last Filed: 08/06/19 17:51> - General Chief Complaint: Extremity Injury, Lower Stated Complaint: hip pain Time Seen by Provider: 08/06/19 13:01 - History of Present Illness Initial Comments: 69-year-old female presents emergency from chief complaint left hip, buttocks pain. Patient states that she fell on Tuesday in which she tripped and fell. Denies any head injury no loss conscious. Patient states she had surgery proximal month ago for left hip fracture. She states she had increase in pain and was concerned. Patient offers no other complaints denies any paresthesias. (Albert Ramirez) - Related Data Previous Rx's Medication Instructions Recorded Losartan [Cozaar] 50 mg PO DAILY tab 06/26/19 Famotidine [Pepcid] 20 mg PO DAILY #14 tablet 06/27/19 Hydrocodone/Acetaminophen [[place] 1 - 2 each PO Q6HR PRN #56 tab 06/27/19 5-325] Rivaroxaban [Xarelto] 10 mg PO DAILY #25 tab 06/27/19 traMADol HCl [Ultram] 50 mg PO Q6H PRN #28 tab 06/27/19 Allergies Allergy/AdvReac Type Severity Reaction Status Date / Time No Known Allergies Allergy Verified 08/06/19 12:32 Review of Systems ROS Other: All systems not noted in ROS Statement are negative. <Albert Ramirez - Last Filed: 08/06/19 14:15> ROS Other: All systems not noted in ROS Statement are negative. <Pino Zhao - Last Filed: 08/06/19 17:51> ROS Statement: Those systems with pertinent positive or pertinent negative responses have been documented in the HPI. 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 History of Any Multi-Drug Resistant Organisms: None Reported Past Surgical History: Section, Joint Replacement Additional Past Surgical History / Comment(s): cataract surgery Past Anesthesia/Blood Transfusion Reactions: No Reported Reaction Past Psychological History: No Psychological Hx Reported Smoking Status: Current every day smoker Past Alcohol Use History: None Reported Past Drug Use History: None Reported - Past Family History Son(s) Family Medical History: No Reported History Daughter(s) Family Medical History: No Reported History <Albert Ramirez - Last Filed: 08/06/19 14:15> General Exam Limitations: physical limitation General appearance: alert, in no apparent distress Head exam: Present: atraumatic, normocephalic, normal inspection Respiratory exam: Present: normal lung sounds bilaterally. Absent: respiratory distress, wheezes, rales, rhonchi, stridor Cardiovascular Exam: Present: regular rate, normal rhythm, normal heart sounds. Absent: systolic murmur, diastolic murmur, rubs, gallop, clicks Extremities exam: Present: other (Left hip there is mild tenderness, tenderness of the buttocks region, neurovascular intact no obvious deformity) Skin exam: Present: warm, dry, intact, normal color. Absent: rash <Albert Ramirez - Last Filed: 08/06/19 14:15> Course <Pino Zhao - Last Filed: 08/06/19 17:51> Vital Signs 08/06/19 08/06/19 12:29 14:34 Temperature 98.1 F 97.5 F L Pulse Rate 91 88 Respiratory 18 18 Rate Blood Pressure 141/83 145/70 O2 Sat by Pulse 96 97 Oximetry - Reevaluation(s) Reevaluation #1: 08/06/19 17:51 PA supervision: I proceeded evaluate this case and did review the imaging and reports. Do agree with the assessment and plan (Pino Zhao) Medical Decision Making <Albert Ramirez - Last Filed: 08/06/19 14:15> - Medical Decision Making 69-year-old female present for fall, left hip pain x-rays obtained shows evide nce of healing fracture, post surgical changes patient we discharged advised to follow-up with Dr. Eleno gomez for any worsening symptoms. (Albert Ramirez) Disposition Is patient prescribed a controlled substance at d/c from ED?: No Time of Disposition: 14:17 <Albert Ramirez - Last Filed: 08/06/19 14:15> <Pino Zhao - Last Filed: 08/06/19 17:51> Clinical Impression: Fall, Left hip pain Disposition: HOME SELF-CARE Condition: Stable Instructions (If sedation given, give patient instructions): Hip Pain (ED) Additional Instructions: Please return to the Emergency Department if symptoms worsen or any other concerns. Referrals: Quinn Mancuso MD [Primary Care Provider] - 1-2 days Dino Pedraza MD [STAFF PHYSICIAN] - 1-2 days
[2019-08-06 14:35] VITALS: BP 145/70; PULSE 88; TEMP 97.5
== END 2019-08-06 14:34 | disposition home or self-care (01) ==
LOC: EC 12:21
DX: M25.552 Pain in left hip (principal); M79.18 Myalgia, other site; M19.90 Unspecified osteoarthritis, unspecified site; Z96.60 Presence of unspecified orthopedic joint implant; Z98.890 Other specified postprocedural states; Z87.81 Personal history of (healed) traumatic fracture; W01.0XXA Fall on same level from slipping, tripping and stumbling without subsequent striking against object, initial encounter
CPT/HCPCS: 73502; 99283

== ENCOUNTER 2022-07-02 19:45 | Inpatient (IN) | payer MEDICARE ==
[2022-07-02] MEDS ORDERED: SODIUM CHLORIDE 0.9% 1,000 ML IV STA (20:45)
--- NOTE | 2022-07-02 21:03 | ED ---
Extremity Problem HPI - General Chief complaint: Extremity Problem,Nontraumatic Stated complaint: b/l foot swelling; hx of liver disease Time Seen by Provider: 07/02/22 20:36 Source: patient, family, RN notes reviewed Mode of arrival: ambulatory Limitations: no limitations - History of Present Illness Initial comments: Patient with a long-standing history of COPD, hypertension, and liver disease presents to the emergency department today complaining of bilateral swelling to both feet. Patient has also had fatigue and has had a diminished appetite with weight loss. No headache, no fever or chills, no changes in vision or hearing, no sore throat or difficulty with speech, no neck pain, no chest pain or shortness of breath, no abdominal pain, no nausea or vomiting, no changes in urination or bowel movements, no numbness or tingling, no extremity pain, no skin rashes or lesions. Past medical, surgical, social, and family history reviewed. - Related Data Home Medications Medication Instructions Recorded Confirmed No Known Home Medications 07/02/22 07/02/22 Allergies Allergy/AdvReac Type Severity Reaction Status Date / Time No Known Allergies Allergy Verified 07/02/22 22:45 Review of Systems ROS Statement: Those systems with pertinent positive or pertinent negative responses have been documented in the HPI. ROS Other: All systems not noted in ROS Statement are negative. 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, cirrhosis of the liver History of Any Multi-Drug Resistant Organisms: None Reported Past Surgical History: Section, Joint Replacement Additional Past Surgical History / Comment(s): cataract surgery Past Anesthesia/Blood Transfusion Reactions: No Reported Reaction Past Psychological History: No Psychological Hx Reported Smoking Status: Current every day smoker Past Alcohol Use History: Occasional Past Drug Use History: None Reported - Past Family History Son(s) Family Medical History: No Reported History Daughter(s) Family Medical History: No Reported History General Exam - General Exam Comments Initial Comments: This is an unkempt appearing 71-year-old female with poor personal hygiene. Patient has what appears to be dirt and mud on both feet. Patient has unkempt nails hygiene and personal hygiene. Patient has notable pitting edema to both feet and ankle area. There is no evidence of cellulitic change. Mild abdominal distention without tenderness. Patient has what appears to be some scleral icterus and jaundice. Vision noted to be tachycardic with a heart rate greater than 120. Appear to be ill or toxic otherwise. No significant distress as I enter the room. Limitations: no limitations General appearance: alert, in no apparent distress Head exam: Present: atraumatic, normocephalic, normal inspection Eye exam: Present: PERRL, EOMI, scleral icterus. Absent: normal appearance, conjunctival injection, periorbital swelling, periorbital tenderness ENT exam: Present: normal exam, mucous membranes moist. Absent: normal oropharynx, mucous membranes dry, normal external ear exam Neck exam: Present: normal inspection, full ROM. Absent: tenderness, meningismus, lymphadenopathy Respiratory exam: Present: normal lung sounds bilaterally. Absent: respiratory distress, wheezes, rales, rhonchi, stridor Cardiovascular Exam: Present: regular rate, normal rhythm, normal heart sounds. Absent: systolic murmur, diastolic murmur, rubs, gallop, clicks GI/Abdominal exam: Present: soft, distended, normal bowel sounds. Absent: tenderness, guarding, rebound, rigid Extremities exam: Present: full ROM, normal capillary refill, pedal edema, other (No evidence of cellulitis. Pulses are palpable. Does not appear to be consistent with neurovascular). Absent: normal inspection, tenderness, joint swelling, calf tenderness Back exam: Present: normal inspection Neurological exam: Present: alert, oriented X3, CN II-XII intact Psychiatric exam: Present: normal affect, normal mood Skin exam: Present: warm, dry, intact, normal color. Absent: rash Course Vital Signs 07/02/22 07/02/22 19:49 23:30 Temperature 97.4 F L Pulse Rate 120 H 106 H Respiratory 22 18 Rate Blood Pressure 109/65 112/71 O2 Sat by Pulse 98 94 L Oximetry - Reevaluation(s) Reevaluation #1: 07/02/22 23:06 Medical record is reviewed Patient unchanged Patient is informed of results and questions answered Patient in no distress Reevaluation #2: 07/02/22 23:37 Case discussed with Betty from [facility] hospitalist group. Patient admitted for hyponatremia and failure to thrive. Potassium rechecked. Patient started on a banana bag with thiamine, folic acid, multivitamin at 100 mL per hour. Medical Decision Making - Medical Decision Making Patient's CBC essentially unremarkable aside from the elevated MCV. Minimal elevations to the PT and INR. However, patient has a sodium of 121, potassium high at 5.5. We'll re-check this. Chloride 92, carbon dioxide 20, anion gap is normal. Patient does have a total bilirubin of 2.1. AST of 63. Troponin was negative. There were no ECG changes. We will be admitted for hyponatremia and generalized weakness. Note that the patient's albumin was low at 2.5. This corresponds to the calcium being low at 7.5. Case discussed in detail with the ED attending physician. Admitted to [facility]. The case was discussed in detail with ED attending physician. Presentation, findings, treatment plan discussed in detail. Supervising physician Dr. Church - Lab Data Result diagrams: 07/02/22 21:28 07/02/22 21:28 Lab Results 07/02/22 07/02/22 07/02/22 Range/Units 21:28 21:28 21:28 WBC 10.6 (3.8-10.6) k/uL RBC 4.66 (3.80-5.40) m/uL Hgb 15.4 (11.4-16.0) gm/dL Hct 47.1 H (34.0-46.0) % MCV 101.1 H (80.0-100.0) fL MCH 33.1 (25.0-35.0) pg MCHC 32.7 (31.0-37.0) g/dL RDW 12.7 (11.5-15.5) % Plt Count 103 L (150-450) k/uL MPV 8.5 Neutrophils % 75 % Lymphocytes % 13 % Monocytes % 10 % Eosinophils % 1 % Basophils % 1 % Neutrophils # 7.9 H (1.3-7.7) k/uL Lymphocytes # 1.4 (1.0-4.8) k/uL Monocytes # 1.1 H (0-1.0) k/uL Eosinophils # 0.1 (0-0.7) k/uL Basophils # 0.1 (0-0.2) k/uL Manual Slide Review Performed Polychromasia Present PT 13.3 H (9.0-12.0) sec INR 1.3 H (<1.2) APTT 23.9 (22.0-30.0) sec Sodium 121 L (137-145) mmol/L Potassium 5.5 H (3.5-5.1) mmol/L Chloride 92 L (98-107) mmol/L Carbon Dioxide 20 L (22-30) mmol/L Anion Gap 9 mmol/L BUN 10 (7-17) mg/dL Creatinine 0.50 L (0.52-1.04) mg/dL Est GFR (CKD-EPI)AfAm >90 (>60 ml/min/1.73 sqM) Est GFR (CKD-EPI)NonAf >90 (>60 ml/min/1.73 sqM) Glucose 94 (74-99) mg/dL Plasma Lactic Acid Quique (0.7-2.0) mmol/L Calcium 7.5 L (8.4-10.2) mg/dL Phosphorus 3.2 (2.5-4.5) mg/dL Magnesium 1.9 (1.6-2.3) mg/dL Total Bilirubin 2.1 H (0.2-1.3) mg/dL AST 63 H (14-36) U/L ALT 29 (4-34) U/L Alkaline Phosphatase 82 (38-126) U/L Ammonia (<30) umol/L Troponin I (0.000-0.034) ng/mL NT-Pro-B Natriuret Pep pg/mL Total Protein 5.4 L (6.3-8.2) g/dL Albumin 2.5 L (3.5-5.0) g/dL TSH 2.100 (0.465-4.680) mIU/L 07/02/22 07/02/22 07/02/22 Range/Units 21:28 21:28 21:28 WBC (3.8-10.6) k/uL RBC (3.80-5.40) m/uL Hgb (11.4-16.0) gm/dL Hct (34.0-46.0) % MCV (80.0-100.0) fL MCH (25.0-35.0) pg MCHC (31.0-37.0) g/dL RDW (11.5-15.5) % Plt Count (150-450) k/uL MPV Neutrophils % % Lymphocytes % % Monocytes % % Eosinophils % % Basophils % % Neutrophils # (1.3-7.7) k/uL Lymphocytes # (1.0-4.8) k/uL Monocytes # (0-1.0) k/uL Eosinophils # (0-0.7) k/uL Basophils # (0-0.2) k/uL Manual Slide Review Polychromasia PT (9.0-12.0) sec INR (<1.2) APTT (22.0-30.0) sec Sodium (137-145) mmol/L Potassium (3.5-5.1) mmol/L Chloride (98-107) mmol/L Carbon Dioxide (22-30) mmol/L Anion Gap mmol/L BUN (7-17) mg/dL Creatinine (0.52-1.04) mg/dL Est GFR (CKD-EPI)AfAm (>60 ml/min/1.73 sqM) Est GFR (CKD-EPI)NonAf (>60 ml/min/1.73 sqM) Glucose (74-99) mg/dL Plasma Lactic Acid Quique 1.9 (0.7-2.0) mmol/L Calcium (8.4-10.2) mg/dL Phosphorus (2.5-4.5) mg/dL Magnesium (1.6-2.3) mg/dL Total Bilirubin (0.2-1.3) mg/dL AST (14-36) U/L ALT (4-34) U/L Alkaline Phosphatase (38-126) U/L Ammonia 30 H (<30) umol/L Troponin I <0.012 (0.000-0.034) ng/mL NT-Pro-B Natriuret Pep 553 pg/mL Total Protein (6.3-8.2) g/dL Albumin (3.5-5.0) g/dL TSH (0.465-4.680) mIU/L - EKG Data EKG Comments: EKG done at 2127 ED attending physician reveals sinus tachycardia with no acute ST or T-wave changes. Normal intervals. Nonspecific T-wave abnormality likely related to the baseline artifact. Normal axis. Normal QRS morphology otherwise. Critical Care Time Critical Care Time: Yes (30) Total Critical Care Time: 30 Critical Care Time: Hyponatremia, multiple electrolyte abnormalities, multiple re-evaluations Disposition Clinical Impression: Hyponatremia, Generalized weakness, Edema due to hypoalbuminemia, Chronic liver disease, Failure to thrive Disposition: ADMITTED IP TO THIS [facility] Condition: Fair Referrals: Quinn Mancuso MD [Primary Care Provider] - 1-2 days Time of Disposition: 23:08 Decision to Admit Reason: Admit from EC Decision Time: 23:08
--- NOTE | 2022-07-02 21:12 | XR ---
EXAMINATION TYPE: XR chest 1V portable DATE OF EXAM: 07/02/2022 COMPARISON: 06/23/2019 HISTORY: Weakness TECHNIQUE: Single view FINDINGS: There is no heart failure nor confluent pneumonic infiltrate. Costophrenic angles are clear . Thoracic aorta is atheromatous. There is moderate thoracic dextroscoliosis. There is old left humer al neck healed fracture. IMPRESSION: No active cardiopulmonary disease. No change.
[2022-07-02 21:34] LABS: Basophils # (A) 0.1 k/uL (0-0.2); Basophils % (A) 1 %; Eosinophils # (A) 0.1 k/uL (0-0.7); Eosinophils % (A) 1 %; HCT 47.1 % (34.0-46.0); HGB 15.4 gm/dL (11.4-16.0); Lymphocytes # (A) 1.4 k/uL (1.0-4.8); Lymphocytes % (A) 13 %; MCH 33.1 pg (25.0-35.0); MCHC 32.7 g/dL (31.0-37.0); MCV 101.1 fL (80.0-100.0); Mean Platelet Volume 8.5; Monocytes # (A) 1.1 k/uL (0-1.0); Monocytes % (A) 10 %; Neutrophils # (A) 7.9 k/uL (1.3-7.7); Neutrophils % (A) 75 %; RBC 4.66 m/uL (3.80-5.40); RDW 12.7 % (11.5-15.5); WBC 10.6 k/uL (3.8-10.6)
[2022-07-02 21:43] LABS: INR 1.3 (<1.2); Partial Thromboplastin Time 23.9 sec (22.0-30.0); Prothrombin Time 13.3 sec (9.0-12.0)
[2022-07-02 21:47] LABS: ALT 29 U/L (4-34); AST 63 U/L (14-36); African American GFR (CKD) >90 (>60 ml/min/1.73 sqM); Albumin 2.5 g/dL (3.5-5.0); Alkaline Phosphatase 82 U/L (38-126); Anion Gap 9 mmol/L; Blood Urea Nitrogen 10 mg/dL (7-17); Calcium 7.5 mg/dL (8.4-10.2); Carbon Dioxide 20 mmol/L (22-30); Chloride 92 mmol/L (98-107); Glucose 94 mg/dL (74-99); Lactic Acid, Venous 1.9 mmol/L (0.7-2.0); Magnesium 1.9 mg/dL (1.6-2.3); Non-African American GFR(CKD) >90 (>60 ml/min/1.73 sqM); Phosphorus 3.2 mg/dL (2.5-4.5); Potassium 5.5 mmol/L (3.5-5.1); Sodium 121 mmol/L (137-145); Total Bilirubin 2.1 mg/dL (0.2-1.3); Total Protein 5.4 g/dL (6.3-8.2)
[2022-07-02 22:19] LABS: Platelet Count 103 k/uL (150-450)
[2022-07-02 22:30] LABS: Polychromasia Present
[2022-07-02] MEDS ORDERED: SODIUM CHLORIDE 0.9% 1,000 ML with MVI, ADULT NO.4 WITH VIT K 10 ML, THIAMINE 100 MG, F... IV ONE ×4 (23:04)
[2022-07-02] MEDS ORDERED: ONDANSETRON 4 MG/2 ML VIAL IVP PRN (23:32)
[2022-07-02] MEDS ORDERED: MORPHINE SULFATE 4 MG/ML SYRINGE IV PRN (23:32)
[2022-07-02] MEDS ORDERED: NALOXONE 0.4 MG/ML 1 ML VIAL IV PRN (23:32)
[2022-07-02] MEDS ORDERED: THIAMINE 100 MG/ML 2 ML VIAL IM STA (23:35)
[2022-07-02] MEDS ORDERED: LORazepam 2 MG/ML INJ IV PRN ×3 (23:35)
[2022-07-03 00:23] LABS: Alcohol <10 mg/dL; GGT 28 U/L (12-43)
[2022-07-03 00:25] LABS: Potassium 4.7 mmol/L (3.5-5.1)
[2022-07-03] MEDS: THIAMINE 100 MG TAB PO SCH ×3 (00:54→17:12)
[2022-07-03 05:18] LABS: Amorphous Sediment,Urine Rare /hpf; Appearance,Urine Cloudy (Clear); Bacteria,Urine Many /hpf; Bilirubin,Urine Negative (Negative); Blood,Urine Trace (Negative); Color,Urine Orange; Glucose,Urine (UA) Negative (Negative); Hyaline Casts,Urine 8 /lpf (0-2); Ketones,Urine 1+ (Negative); Leukocyte Esterase,Urine Moderate (Negative); Mucus,Urine Many /hpf; Nitrite,Urine Positive (Negative); Protein,Urine 1+ (Negative); RBC,Urine 2 /hpf (0-5); Specific Gravity,Urine 1.023 (1.001-1.035); Squamous Epithelial Cell,Urine 3 /hpf (0-4); WBC,Urine 14 /hpf (0-5)
[2022-07-03 05:24] LABS: Amphetamine Screen,Urine Not Detected (NotDetected); Barbiturate Screen,Urine Not Detected (NotDetected); Benzodiazepines Screen,Urine Not Detected (NotDetected); Cocaine Screen,Urine Not Detected (NotDetected); Methadone Screen, Urine Not Detected (NotDetected); Opiate Screen,Urine Not Detected (NotDetected); Oxycodone Screen, Urine Not Detected (NotDetected); Phencyclidine Screen,Urine Not Detected (NotDetected); Tricyclic Antidepressant,Urine Not Detected (NotDetected); Urn Cannabinoid Scrn Not Detected (NotDetected)
[2022-07-03] MEDS: HEPARIN SODIUM,PORCINE/PF 5,000 UNIT/0.5 ML SYRINGE SQ SCH ×2 (08:09→21:04)
[2022-07-03 09:45] LABS: ALT 26 U/L (4-34); African American GFR (CKD) >90 (>60 ml/min/1.73 sqM); Anion Gap 9 mmol/L; Blood Urea Nitrogen 9 mg/dL (7-17); Calcium 7.3 mg/dL (8.4-10.2); Carbon Dioxide 16 mmol/L (22-30); Chloride 98 mmol/L (98-107); Glucose 98 mg/dL (74-99); Non-African American GFR(CKD) >90 (>60 ml/min/1.73 sqM); Sodium 123 mmol/L (137-145)
[2022-07-03 10:13] LABS: Albumin 2.1 g/dL (3.5-5.0); Potassium 4.1 mmol/L (3.5-5.1); Total Protein 4.6 g/dL (6.3-8.2)
[2022-07-03 10:14] LABS: AST 47 U/L (14-36); Alkaline Phosphatase 49 U/L (38-126); Total Bilirubin 2.1 mg/dL (0.2-1.3)
[2022-07-03 10:15] LABS: Magnesium 1.9 mg/dL (1.6-2.3)
[2022-07-03] MEDS ORDERED: FUROSEMIDE 10 MG/ML 4 ML VIAL IV STA (11:44)
--- NOTE | 2022-07-03 12:23 | P.HPIM ---
History of Present Illness Patient is on 71-year-old female came in with complaints of bilateral lower extremity edema patient also has ascites and abdominal distention. Patient does have history of chronic alcoholism. Patient says has a last drink was about a week ago. Patient used to drink a lot cut down on alcohol as per the patient. Patient denied any fever chills. Patient is found to have hyponatremia with serum sodium of around 123 presently when she came in it was 121 patient received IV fluids overnight. Aberrantly patient complained about fatigue and the decreased appetite and weight loss which she denied to me. Patient's liver enzymes are not significant elevated but does have mild elevation of INR to 1.3. REVIEW OF SYSTEMS: CONSTITUTIONAL: No fever, no malaise, no fatigue. HEENT: No recent visual problems or hearing problems. Denied any sore throat. CARDIOVASCULAR: No chest pain, orthopnea, PND, no palpitations, no syncope. PULMONARY: No shortness of breath, no cough, no hemoptysis. GASTROINTESTINAL: No diarrhea, no nausea, no vomiting, no abdominal pain. NEUROLOGICAL: No headaches, no weakness, no numbness. HEMATOLOGICAL: Denies any bleeding or petechiae. GENITOURINARY: Denies any burning micturition, frequency, or urgency. MUSCULOSKELETAL/RHEUMATOLOGICAL: Denies any joint pain, swelling, or any muscle pain. ENDOCRINE: Denies any polyuria or polydipsia. The rest of the 14-point review of systems is negative. PHYSICAL EXAMINATION: GENERAL: The patient is alert and oriented x3, not in any acute distress. Well developed, well nourished. HEENT: Pupils are round and equally reacting to light. EOMI. No scleral icterus. No conjunctival pallor. Normocephalic, atraumatic. No pharyngeal erythema. No t hyromegaly. CARDIOVASCULAR: S1 and S2 present. No murmurs, rubs, or gallops. PULMONARY: Chest is clear to auscultation, no wheezing or crackles. ABDOMEN: Soft, distended with fluid thrill, ascites normoactive bowel sounds. No palpable organomegaly. MUSCULOSKELETAL: No joint swelling or deformity. EXTREMITIES: No cyanosis, clubbing, bilateral lower extremity edema extending up to ankles although extensive edema of both feet NEUROLOGICAL: Gross neurological examination did not reveal any focal deficits. SKIN: No rashes. Assessment and plan -Bilateral lower extremity edema and ascites: Patient probably has alcoholic cirrhosis patient will be started on IV Lasix and will repeat the basic metabolic profile again in the evening his serum sodium improves patient will be started on scheduled Lasix patient appears to have hypervolemic hyponatremia, abdominal ultrasound will be obtained -hypervolemic hyponatremia secondary to cirrhosis IV fluids were discontinued -Weight loss and appetite loss: Secondary to cirrhosis and chronic alcoholism -Chronic alcoholism: Counseling was provided patient will be monitored for any alcohol withdraws. 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, cirrhosis of the liver History of Any Multi-Drug Resistant Organisms: None Reported Past Surgical History: Section, Joint Replacement Additional Past Surgical History / Comment(s): cataract surgery Past Anesthesia/Blood Transfusion Reactions: No Reported Reaction Past Psychological History: No Psychological Hx Reported Smoking Status: Current every day smoker, Heavy tobacco smoker Past Alcohol Use History: Daily Additional Past Alcohol Use History / Comment(s): 1 pack a day Past Drug Use History: None Reported - Past Family History Son(s) Family Medical History: No Reported History Daughter(s) Family Medical History: No Reported History Medications and Allergies Home Medications Medication Instructions Recorded Confirmed Type No Known Home Medications 07/02/22 07/02/22 History Allergies Allergy/AdvReac Type Severity Reaction Status Date / Time No Known Allergies Allergy Verified 07/02/22 22:45 Physical Exam Vitals: Vital Signs Temp Pulse Pulse Resp BP BP Pulse Ox 07/03/22 11:03 104 H 16 127/77 95 07/03/22 08:05 97.8 F 105 H 16 143/85 98 07/03/22 04:33 97.2 F L 104 H 16 121/73 95 07/03/22 00:20 97.2 F L 105 H 16 107/70 99 07/02/22 23:30 106 H 18 112/71 94 L 07/02/22 19:49 97.4 F L 120 H 22 109/65 98 Intake and Output 07/02/22 07/03/22 07/03/22 22:59 06:59 14:59 Intake Total 118 Output Total 100 Balance -100 118 Intake: Oral 118 Output: Urine 100 Other: Voiding Method Toilet Diaper Weight 56.699 kg 56.699 kg Results CBC & Chem 7: 07/02/22 21:28 07/03/22 08:02 Labs: Abnormal Lab Results - Last 24 Hours (Table) 07/02/22 07/02/22 07/02/22 Range/Units 21:28 21:28 21:28 Hct 47.1 H (34.0-46.0) % MCV 101.1 H (80.0-100.0) fL Plt Count 103 L (150-450) k/uL Neutrophils # 7.9 H (1.3-7.7) k/uL Monocytes # 1.1 H (0-1.0) k/uL PT 13.3 H (9.0-12.0) sec INR 1.3 H (<1.2) Sodium 121 L (137-145) mmol/L Potassium 5.5 H (3.5-5.1) mmol/L Chloride 92 L (98-107) mmol/L Carbon Dioxide 20 L (22-30) mmol/L Creatinine 0.50 L (0.52-1.04) mg/dL Calcium 7.5 L (8.4-10.2) mg/dL Total Bilirubin 2.1 H (0.2-1.3) mg/dL AST 63 H (14-36) U/L Ammonia (<30) umol/L Total Protein 5.4 L (6.3-8.2) g/dL Albumin 2.5 L (3.5-5.0) g/dL Urine Appearance (Clear) Urine Protein (Negative) Urine Ketones (Negative) Urine Blood (Negative) Urine Nitrite (Negative) Ur Leukocyte Esterase (Negative) Urine WBC (0-5) /hpf Amorphous Sediment (None) /hpf Urine Bacteria (None) /hpf Hyaline Casts (0-2) /lpf Urine Mucus (None) /hpf 07/02/22 07/03/22 07/03/22 Range/Units 21:28 04:33 08:02 Hct (34.0-46.0) % MCV (80.0-100.0) fL Plt Count (150-450) k/uL Neutrophils # (1.3-7.7) k/uL Monocytes # (0-1.0) k/uL PT (9.0-12.0) sec INR (<1.2) Sodium 123 L (137-145) mmol/L Potassium (3.5-5.1) mmol/L Chloride (98-107) mmol/L Carbon Dioxide 16 L (22-30) mmol/L Creatinine 0.47 L (0.52-1.04) mg/dL Calcium 7.3 L (8.4-10.2) mg/dL Total Bilirubin 2.1 H (0.2-1.3) mg/dL AST 47 H (14-36) U/L Ammonia 30 H (<30) umol/L Total Protein 4.6 L (6.3-8.2) g/dL Albumin 2.1 L (3.5-5.0) g/dL Urine Appearance Cloudy H (Clear) Urine Protein 1+ H (Negative) Urine Ketones 1+ H (Negative) Urine Blood Trace H (Negative) Urine Nitrite Positive H (Negative) Ur Leukocyte Esterase Moderate H (Negative) Urine WBC 14 H (0-5) /hpf Amorphous Sediment Rare H (None) /hpf Urine Bacteria Many H (None) /hpf Hyaline Casts 8 H (0-2) /lpf Urine Mucus Many H (None) /hpf Microbiology - Last 24 Hours (Table) 07/03/22 04:33 Urine Culture - Preliminary Urine,Voided Thrombosis Risk Factor Assmnt - Choose All That Apply Any of the Below Risk Factors Present?: Yes Each Factor Represents 1 point: Abnormal pulmonary function (COPD), Medical pt on bed rest, Swollen legs (current) Each Risk Factor Represents 2 Points: Age 61-74 years Other congenital or acquired thrombophilia - If yes, enter type in comment: No Thrombosis Risk Factor Assessment Total Risk Factor Score: 5 Thrombosis Risk Factor Assessment Level: High Risk
[2022-07-03 13:47] LABS: Basophils % (A) 1 %; Eosinophils # (A) 0.1 k/uL (0-0.7); Eosinophils % (A) 1 %; HCT 50.7 % (34.0-46.0); HGB 16.6 gm/dL (11.4-16.0); Lymphocytes % (A) 12 %; MCH 33.6 pg (25.0-35.0); MCHC 32.7 g/dL (31.0-37.0); MCV 102.6 fL (80.0-100.0); Macrocytosis Slight; Mean Platelet Volume 8.8; Monocytes % (A) 12 %; Neutrophils # (A) 5.9 k/uL (1.3-7.7); Neutrophils % (A) 73 %; Platelet Count 100 k/uL (150-450); RBC 4.94 m/uL (3.80-5.40); RDW 12.7 % (11.5-15.5); WBC 8.1 k/uL (3.8-10.6)
[2022-07-03 13:53] VITALS: BMI 20.1
[2022-07-03] MEDS: SODIUM BICARBONATE TAB 650 MG TAB PO SCH ×2 (17:12→21:04)
[2022-07-03] MEDS ORDERED: TOLVAPTAN 15 MG 1/2 TABLET PO ONE (18:00)
[2022-07-03 18:54] LABS: Glucose,Whole Blood 214 mg/dL (70-110)
--- NOTE | 2022-07-03 19:51 | CT ---
EXAMINATION TYPE: CT brain wo con DATE OF EXAM: 07/03/2022 COMPARISON: None HISTORY: fall CT DLP: 1241.4 mGycm Automated exposure control for dose reduction was used. Images of the brain obtained with no contrast. There is cerebral cortical diffuse atrophy. There is no mass effect or midline shift. No sign of intr acranial hemorrhage. Calvarium is intact. Skull base is intact. IMPRESSION: Cerebral atrophy. No acute intracranial abnormality.
[2022-07-03 20:29] LABS: Uric Acid 3.4 mg/dL (3.7-7.4)
[2022-07-04] MEDS: THIAMINE 100 MG TAB PO SCH ×2 (06:17→16:37)
[2022-07-04] MEDS: SODIUM BICARBONATE TAB 650 MG TAB PO SCH (08:03)
[2022-07-04] MEDS: HEPARIN SODIUM,PORCINE/PF 5,000 UNIT/0.5 ML SYRINGE SQ SCH ×2 (08:03→20:15)
[2022-07-04 08:41] LABS: HCT 49.4 % (34.0-46.0); HGB 16.2 gm/dL (11.4-16.0); MCH 33.2 pg (25.0-35.0); MCHC 32.9 g/dL (31.0-37.0); MCV 101.2 fL (80.0-100.0); Mean Platelet Volume 8.7; RBC 4.88 m/uL (3.80-5.40); RDW 12.7 % (11.5-15.5); WBC 8.4 k/uL (3.8-10.6)
[2022-07-04 09:04] LABS: African American GFR (CKD) >90 (>60 ml/min/1.73 sqM); Anion Gap 7 mmol/L; Blood Urea Nitrogen 9 mg/dL (7-17); Calcium 7.6 mg/dL (8.4-10.2); Carbon Dioxide 25 mmol/L (22-30); Chloride 94 mmol/L (98-107); Glucose 103 mg/dL (74-99); Non-African American GFR(CKD) >90 (>60 ml/min/1.73 sqM); Potassium 3.2 mmol/L (3.5-5.1); Sodium 126 mmol/L (137-145)
[2022-07-04 09:24] LABS: Platelet Count 83 k/uL (150-450)
[2022-07-04] MEDS ORDERED: POTASSIUM CHLORIDE ER 20 MEQ TAB.ER PO STA (09:26)
--- NOTE | 2022-07-04 09:30 | P.NPCON ---
History of Present Illness - Reason for Consult hyponatremia - History of Present Illness Reason for consultation: Hyponatremia History of present illness: Patient is a 71-year-old female seen in renal consultation for hyponatremia. Patient's sodium level on admission on 07/02/2022 at 9:28 PM was 121. This morning it is 126. She did receive a dose of IV Lasix yesterday and also dose of Samsca last night. Patient presented to the hospital due to edema in the lower extremities. She also states her abdomen is distended and is larger than usual. Patient does have history of chronic alcohol use and states she last drank about a week ago. Patient is not a very reliable historian. She denies chest pain or shortness of breath and is currently on room air. She denies any history of malignancy. I don't see any home medications listed in the chart. She did receive banana bag on admission. Currently she is off IV fluids. She has been voiding. Urine output documented as 1400 mL for today. According to the nurse, she did fall last night. Brain CT showed no acute changes. Abdominal ultrasound has also been noted and is pending. Vital signs are stable. General: Awake. No acute distress. HEENT: Head exam is unremarkable. LUNGS: Breath sounds decreased. HEART: Rate and Rhythm are regular. ABDOMEN: Soft, distention noted. Nontender. EXTREMITITES: Trace edema. 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, cirrhosis of the liver History of Any Multi-Drug Resistant Organisms: None Reported Past Surgical History: Section, Joint Replacement Additional Past Surgical History / Comment(s): cataract surgery Past Anesthesia/Blood Transfusion Reactions: No Reported Reaction Past Psychological History: No Psychological Hx Reported Smoking Status: Current every day smoker, Heavy tobacco smoker Past Alcohol Use History: Daily Additional Past Alcohol Use History / Comment(s): 1 pack a day Past Drug Use History: None Reported - Past Family History Son(s) Family Medical History: No Reported History Daughter(s) Family Medical History: No Reported History Medications and Allergies Home Medications Medication Instructions Recorded Confirmed Type No Known Home Medications 07/02/22 07/02/22 History Allergies Allergy/AdvReac Type Severity Reaction Status Date / Time No Known Allergies Allergy Verified 07/02/22 22:45 Physical Exam Vitals: Vital Signs Temp Pulse Resp BP BP BP Pulse Ox 07/04/22 07:57 97.5 F L 106 H 20 96/64 93 L 07/04/22 03:14 97.6 F 106 H 16 100/66 96 07/04/22 00:00 97.6 F 102 H 16 89/60 98 07/03/22 21:10 97.4 F L 68 18 94/55 92/52 96/58 98 07/03/22 18:50 128 H 20 130/62 97 07/03/22 15:12 97.6 F 107 H 20 118/81 100 07/03/22 13:15 104 H 07/03/22 11:03 104 H 16 127/77 95 Intake and Output 07/03/22 07/04/22 07/04/22 22:59 06:59 14:59 Intake Total 236 120 118 Output Total 800 300 Balance -564 -180 118 Intake: Oral 236 120 118 Output: Urine 800 300 Other: Voiding Method Toilet Toilet Toilet Diaper Diaper Diaper External Catheter External Catheter External Catheter Results - Lab Results Most recent lab results Calcium 7.6 mg/dL (8.4-10.2) L 07/04/22 08:18 Phosphorus 3.2 mg/dL (2.5-4.5) 07/02/22 21:28 Magnesium 1.9 mg/dL (1.6-2.3) 07/03/22 08:02 07/04/22 08:18 07/04/22 08:18 Assessment and Plan Plan: Assessment: 1. Hyponatremia. Hypervolemic. Component of poor solute intake. Urine osmolality 258. TSH normal. Sodium level 126 today. She did receive a dose of IV Lasix and Samsca yesterday. 2. Hypokalemia from diuresis and poor intake. 3. Chronic alcohol use. Rule out liver cirrhosis. 4. Volume overload. Rule out ascites. 5. Non-gap metabolic acidosis from IV fluids. Improved. 6. Status post fall last night Plan: Add oral Lasix 20 mg twice daily. Decrease dose of oral bicarb to once today. Replace potassium. Follow-up abdominal ultrasound. Follow-up urine sodium level. Encouraged oral intake. Maintain fluid restriction. Repeat labs in the morning. Check a.m. cortisol level. Add midodrine. Hold for systolic blood pressure greater than 115. Thank you for the consultation. I'll continue to follow the patient with you during her hospital stay.
[2022-07-04] MEDS: PANTOPRAZOLE 40 MG TABLET PO SCH (09:39)
--- NOTE | 2022-07-04 10:30 | US ---
EXAMINATION TYPE: US abdomen limited DATE OF EXAM: 07/04/2022 COMPARISON: US, CT CLINICAL HISTORY: Ascites, cirrhosis. Ascites, cirrhosis TECHNIQUE: Multiple sonographic images of the right upper quadrant are obtained. FINDINGS: EXAM MEASUREMENTS: Liver Length: 17.4 cm Gallbladder Wall: 0.40 cm CBD: 0.61 cm Right Kidney: 10.4 x 6.6 3.8 cm [employer] NOTES: Exam is limited due to body habitus and overlying gas. Pancreas: Limited visibility of tail. Duct measures 2.1 mm. Liver: Measures upper limits. Appears very coarse with increased echogenicity. Multiple septated anechoic areas seen. Largest is in left lobe: 4.6 x 4.1 x 3.6 cm. Solid-appearing hypoechoic area seen in the right lobe near the nitesh hepatis: 3.6 x 3.0 x 3.9 cm. Largest septated anechoic area in the right lobe measures 2.9 x 2.7 x 2.8 cm. Gallbladder: Wall appears thickened. Evidence for sonographic Garland's sign: No CBD: Measures upper limits. Right Kidney: No hydronephrosis or masses seen Ascites visualized in all four quadrants of the abdomen. Greater amount of fluid appears to be on the right side. IMPRESSION: 1. Hepatic cirrhosis with ascites. 2. Gallbladder wall thickening likely secondary to #1 and third spacing of fluid. 3. Hepatic cyst as well as at least one solid 2.1 cm hypoechoic hepatic lesion. Further evaluation w ith MRI with IV contrast of the liver is recommended
[2022-07-04] MEDS: MIDODRINE 5 MG TAB PO SCH ×2 (12:10→16:37)
--- NOTE | 2022-07-04 14:25 | P.PN ---
Subjective Progress Note Date: 07/04/22 Patient is on 71-year-old female came in with complaints of bilateral lower extremity edema patient also has ascites and abdominal distention. Patient does have history of chronic alcoholism. Patient says has a last drink was about a week ago. Patient used to drink a lot cut down on alcohol as per the patient. Patient denied any fever chills. Patient is found to have hyponatremia with serum sodium of around 123 presently when she came in it was 121 patient received IV fluids overnight. Aberrantly patient complained about fatigue and the decreased appetite and weight loss which she denied to me. Patient's liver enzymes are not significant elevated but does have mild elevation of INR to 1.3. 07/04/2022 Patient continues with generalized weakness. She had unwitnessed fall yesterday at around 1700. Patient states she was trying to ambulate to the window and she had slipped and fell. brain CT completed which is negative for acute changes or hemorrhage. Blood pressure currently in the 90s/60s, she is slightly tachycardic in the low 100s. Urinalysis questionable for infection she denies any dysuria, continues to be monitored off antibiotics. Urine culture showing gram negative bacilli multiple organisms. PT/OT has been consulted. Nephrology following for low sodium, received a dose of samsca yesterday, sodium today is now 126. Abdominal ultrasound showing liver cirrhosis, ascites, gallbladder wall thickening, 2.1 cm liver lesion. Platelet count 83, potassium 3.2. TSH normal. Blood pressure 97/55. Review of Systems Constitutional: Denied any fatigue denied any fever. Cardio vascular: denied any chest pain, palpitations Gastrointestinal: denied any nausea, vomiting, diarrhea Pulmonary: Denied any shortness of breath cough Neurologic denied any new focal deficits All inpatient medications were reviewed and appropriate changes in these medications as dictated in the interval history and assessment and plan. PHYSICAL EXAMINATION: GENERAL: The patient is alert and oriented x3, not in any acute distress. Well developed, well nourished. Thin built. HEENT: Pupils are round and equally reacting to light. EOMI. No scleral icterus. No conjunctival pallor. Normocephalic, atraumatic. No pharyngeal erythema. No thyromegaly. CARDIOVASCULAR: S1 and S2 present. No murmurs, rubs, or gallops. PULMONARY: Chest is clear to auscultation, no wheezing or crackles. ABDOMEN: Soft, distended with fluid thrill, ascites, normoactive bowel sounds. No palpable organomegaly. MUSCULOSKELETAL: No joint swelling or deformity. EXTREMITIES: No cyanosis, clubbing, bilateral lower extremity edema extending up to ankles although extensive edema of both feet NEUROLOGICAL: Gross neurological examination did not reveal any focal deficits. SKIN: No rashes. Assessment and plan Assessment -Liver cirrhosis -Bilateral lower extremity edema and ascites secondary to above -hypervolemic hyponatremia secondary to cirrhosis, poor oral intake -Weight loss and appetite loss: Secondary to cirrhosis and chronic alcoholism -Hypokalemia secondary to diuresis -Thrombocytopenia secondary to chronic alcoholism -Chronic alcoholism: Counseling was provided -Nicotine abuse -Generalized weakness with fall DVT prophylaxis: Subcutaneous heparin GI prophylaxis: Protonix Full Code Plan PT/OT consultation pending PO lasix, midodrine added today Replace electrolytes Monitor for acute alcohol withdrawal Nicotine patch Repeat labs in AM The impression and plan of care has been dictated by Betty Sotomayor, Nurse Practitioner as directed. Dr. Carroll MD I have performed a history and physical examination and medical decision making of this patient, discussed the same with the dictator, and agree with the dictators assessment and plan as written, documented as a scribe. Based on total visit time, I have performed more than 50% of this visit. Objective - Vital Signs Vital signs: Vital Signs Temp 97.5 F L 07/04/22 07:57 Pulse 106 H 07/04/22 07:57 Resp 20 07/04/22 07:57 BP 96/64 07/04/22 07:57 Pulse Ox 93 L 07/04/22 07:57 FiO2 Intake & Output 07/03/22 07/04/22 07/04/22 18:59 06:59 18:59 Intake Total 472 120 118 Output Total 1100 300 Balance -628 -180 118 Weight 56.699 kg Intake: Oral 472 120 118 Output: Urine 1100 300 Other: Voiding Method Toilet Toilet Toilet Diaper Diaper Diaper External Catheter External Catheter - Labs CBC & Chem 7: 07/04/22 08:18 07/04/22 08:18 Labs: Abnormal Lab Results - Last 24 Hours (Table) 07/03/22 07/03/22 07/03/22 Range/Units 08:02 12:15 17:00 Hgb 16.6 H (11.4-16.0) gm/dL Hct 50.7 H (34.0-46.0) % MCV 102.6 H (80.0-100.0) fL Plt Count 100 L (150-450) k/uL Sodium 123 L 122 L (137-145) mmol/L Carbon Dioxide 16 L (22-30) mmol/L Creatinine 0.47 L (0.52-1.04) mg/dL POC Glucose (mg/dL) (70-110) mg/dL Osmolality (280-301) mosm/kg Uric Acid (3.7-7.4) mg/dL Calcium 7.3 L (8.4-10.2) mg/dL Total Bilirubin 2.1 H (0.2-1.3) mg/dL AST 47 H (14-36) U/L Total Protein 4.6 L (6.3-8.2) g/dL Albumin 2.1 L (3.5-5.0) g/dL 07/03/22 07/03/22 Range/Units 17:00 18:52 Hgb (11.4-16.0) gm/dL Hct (34.0-46.0) % MCV (80.0-100.0) fL Plt Count (150-450) k/uL Sodium (137-145) mmol/L Carbon Dioxide (22-30) mmol/L Creatinine (0.52-1.04) mg/dL POC Glucose (mg/dL) 214 H (70-110) mg/dL Osmolality 258 L (280-301) mosm/kg Uric Acid 3.4 L (3.7-7.4) mg/dL Calcium (8.4-10.2) mg/dL Total Bilirubin (0.2-1.3) mg/dL AST (14-36) U/L Total Protein (6.3-8.2) g/dL Albumin (3.5-5.0) g/dL Microbiology - Last 24 Hours (Table) 07/03/22 04:33 Urine Culture - Preliminary Urine,Voided Assessment and Plan Time with Patient: Less than 30
[2022-07-04] MEDS: NICOTINE 14MG/24HR PATCH TRANSDERM SCH (14:37)
[2022-07-04] MEDS: FUROSEMIDE 20 MG TAB PO SCH (16:37)
[2022-07-04] MEDS ORDERED: FUROSEMIDE 10 MG/ML 4 ML VIAL IV STA (18:31)
[2022-07-05] MEDS: THIAMINE 100 MG TAB PO SCH ×2 (07:00→16:48)
[2022-07-05] MEDS: PANTOPRAZOLE 40 MG TABLET PO SCH (07:00)
[2022-07-05] MEDS: MIDODRINE 5 MG TAB PO SCH ×3 (07:01→16:44)
[2022-07-05] MEDS: NICOTINE 14MG/24HR PATCH TRANSDERM SCH (08:11)
[2022-07-05] MEDS: FUROSEMIDE 20 MG TAB PO SCH ×2 (08:11→16:44)
[2022-07-05] MEDS: HEPARIN SODIUM,PORCINE/PF 5,000 UNIT/0.5 ML SYRINGE SQ SCH ×2 (08:12→21:43)
[2022-07-05 08:23] LABS: Basophils % (A) 0 %; Eosinophils % (A) 0 %; HCT 49.5 % (34.0-46.0); HGB 16.6 gm/dL (11.4-16.0); Lymphocytes # (A) 1.6 k/uL (1.0-4.8); Lymphocytes % (A) 13 %; MCH 34.4 pg (25.0-35.0); MCHC 33.5 g/dL (31.0-37.0); MCV 102.5 fL (80.0-100.0); Macrocytosis Slight; Mean Platelet Volume 9.4; Monocytes # (A) 0.9 k/uL (0-1.0); Monocytes % (A) 7 %; Neutrophils # (A) 9.2 k/uL (1.3-7.7); Neutrophils % (A) 77 %; RBC 4.83 m/uL (3.80-5.40); RDW 13.2 % (11.5-15.5); WBC 11.9 k/uL (3.8-10.6)
[2022-07-05 08:25] LABS: African American GFR (CKD) >90 (>60 ml/min/1.73 sqM); Anion Gap 7 mmol/L; Blood Urea Nitrogen 10 mg/dL (7-17); Calcium 7.5 mg/dL (8.4-10.2); Carbon Dioxide 27 mmol/L (22-30); Chloride 93 mmol/L (98-107); Glucose 113 mg/dL (74-99); Magnesium 1.7 mg/dL (1.6-2.3); Non-African American GFR(CKD) >90 (>60 ml/min/1.73 sqM); Potassium 3.2 mmol/L (3.5-5.1); Sodium 127 mmol/L (137-145)
[2022-07-05 08:27] LABS: Platelet Count 53 k/uL (150-450)
[2022-07-05] MEDS ORDERED: SODIUM BICARBONATE TAB 650 MG TAB PO SCH (09:00)
[2022-07-05] MEDS ORDERED: Magnesium Replacement Protocol 1 EACH MISC MISCELLANE PRN (09:18)
[2022-07-05] MEDS ORDERED: POTASSIUM CHLORIDE ER 20 MEQ TAB.ER PO STA ×2 (09:18)
--- NOTE | 2022-07-05 09:34 | P.PN ---
Subjective Patient is seen in follow-up for hyponatremia. Sodium level slightly improved. Potassium still low. Oral intake is just fair. Denies chest pain or shortness of breath. According to the nurse patient has an external catheter but the urine output is not measured accurately as her briefs are soaked. Vital signs are stable. Blood pressure in the lower side. General: Awake. No acute distress. HEENT: Head exam is unremarkable. On nasal cannula. LUNGS: Breath sounds decreased. HEART: Rate and Rhythm are regular. ABDOMEN: Soft, mild distention. EXTREMITITES: No edema. Objective - Vital Signs Vital signs: Vital Signs Temp 97.9 F 07/05/22 08:15 Pulse 113 H 07/05/22 08:15 Resp 18 07/05/22 08:15 BP 90/55 07/05/22 08:15 Pulse Ox 97 07/05/22 08:15 FiO2 Intake & Output 07/04/22 07/05/22 07/05/22 18:59 06:59 18:59 Intake Total 776 50 Output Total 165 500 Balance 611 -450 Intake: Oral 776 50 Output: Urine 165 500 Straight 20 Other: Voiding Method Toilet Diaper Diaper External Catheter External Catheter # Bowel Movements 1 1 - Labs CBC & Chem 7: 07/05/22 07:19 07/05/22 07:19 Labs: Abnormal Lab Results - Last 24 Hours (Table) 07/04/22 07/05/22 07/05/22 Range/Units 08:18 07:19 07:19 WBC 11.9 H (3.8-10.6) k/uL Hgb 16.6 H (11.4-16.0) gm/dL Hct 49.5 H (34.0-46.0) % MCV 102.5 H (80.0-100.0) fL Plt Count 83 L 53 L (150-450) k/uL Neutrophils # 9.2 H (1.3-7.7) k/uL Sodium 127 L (137-145) mmol/L Potassium 3.2 L (3.5-5.1) mmol/L Chloride 93 L (98-107) mmol/L Glucose 113 H (74-99) mg/dL Calcium 7.5 L (8.4-10.2) mg/dL Microbiology - Last 24 Hours (Table) 07/03/22 04:33 Urine Culture - Preliminary Urine,Voided Gram Neg Bacilli Gram Neg Bacilli#2 Assessment and Plan Plan: Assessment: 1. Hyponatremia. Hypervolemic. Component of poor solute intake. Urine osmolality 258. Urine sodium 85. TSH normal. Sodium level 127 today. She did receive a dose of IV Lasix and Samsca this admission. 2. Hypokalemia from diuresis and poor intake. Replaced. 3. Chronic alcohol use. Ultrasound suggestive of hepatic cirrhosis. 4. Volume overload. Ascites present. 5. Non-gap metabolic acidosis from IV fluids. Improved. 6. Hypomagnesemia from poor intake and diuretics. 7. UTI with urine culture positive for gram-negative bacilli on antibiotics. Plan: Maintain oral Lasix. Add spironolactone 25 mg once daily. Stop bicarb. Potassium and magnesium being replaced. IR consulted for paracentesis. Will give 25 g of albumin preprocedure and an additional 25 g if more than 5 L drained. Encouraged oral intake. Maintain fluid restriction. Repeat labs in the morning. Follow-up cortisol level. Increase dose of midodrine. Hold for systolic blood pressure greater than 115. Check hep panel. Consider GI eval for the cirrhosis.
[2022-07-05] MEDS ORDERED: ALBUMIN HUMAN 25% 50 ML in EMPTY BAG 1 BAG IVPB ONE (10:00)
[2022-07-05] MEDS ORDERED: IPRATROPIUM-ALBUTEROL 3 ML NEB INHALATION PRN (11:08)
[2022-07-05] MEDS: SPIRONOLACTONE 25 MG TAB PO SCH (12:05)
[2022-07-05] MEDS: MAGNESIUM SULFATE-D5W PMX 1 GM in DEXTROSE/WATER 1 100ML.BAG IVPB SCH ×2 (12:06→14:38)
--- NOTE | 2022-07-05 16:00 | P.PN ---
Subjective Progress Note Date: 07/05/22 Patient is on 71-year-old female came in with complaints of bilateral lower extremity edema patient also has ascites and abdominal distention. Patient does have history of chronic alcoholism. Patient says has a last drink was about a week ago. Patient used to drink a lot cut down on alcohol as per the patient. Patient denied any fever chills. Patient is found to have hyponatremia with serum sodium of around 123 presently when she came in it was 121 patient received IV fluids overnight. Aberrantly patient complained about fatigue and the decreased appetite and weight loss which she denied to me. Patient's liver enzymes are not significant elevated but does have mild elevation of INR to 1.3. 07/04/2022 Patient continues with generalized weakness. She had unwitnessed fall yesterday at around 1700. Patient states she was trying to ambulate to the window and she had slipped and fell. brain CT completed which is negative for acute changes or hemorrhage. Blood pressure currently in the 90s/60s, she is slightly tachycardic in the low 100s. Urinalysis questionable for infection she denies any dysuria, continues to be monitored off antibiotics. Urine culture showing gram negative bacilli multiple organisms. PT/OT has been consulted. Nephrology following for low sodium, received a dose of samsca yesterday, sodium today is now 126. Abdominal ultrasound showing liver cirrhosis, ascites, gallbladder wall thickening, 2.1 cm liver lesion. Platelet count 83, potassium 3.2. TSH normal. Blood pressure 97/55. 08/05/2022 Patient evaluated today resting in bed. Pending PT/OT evaluation. No acute events overnight. She does have a congested cough today, requiring nasal cannula at 2-3 Liters. White count today 11.9, hgb 16.6, sodium 127, potassium 3.2, BUN 10, creatinine 0.61, magnesium 1.7. Patient is receiving potassium and magnesium supplement. Urine culture showing E.Coli with 2 seperate colonies with no drug resistance, continues on IV ceftriaxone. Midodrine increased today to 10 TID and blood pressure is better at 112/71, afebrile, 97% oxygen. IR has been consulted for paracentesis for abdominal ascites. Review of Systems Constitutional: Denied any fatigue denied any fever. Cardio vascular: denied any chest pain, palpitations Gastrointestinal: denied any nausea, vomiting, diarrhea Pulmonary: Denied any shortness of breath, reports cough Neurologic denied any new focal deficits All inpatient medications were reviewed and appropriate changes in these medications as dictated in the interval history and assessment and plan. PHYSICAL EXAMINATION: GENERAL: The patient is alert and oriented x3, not in any acute distress. Well developed, well nourished. Thin built. HEENT: Pupils are round and equally reacting to light. EOMI. No scleral icterus. No conjunctival pallor. Normocephalic, atraumatic. No pharyngeal erythema. No thyromegaly. CARDIOVASCULAR: S1 and S2 present. No murmurs, rubs, or gallops. PULMONARY: Chest is clear to auscultation, no wheezing or crackles. ABDOMEN: Soft, distended with fluid thrill, ascites, normoactive bowel sounds. No palpable organomegaly. MUSCULOSKELETAL: No joint swelling or deformity. EXTREMITIES: No cyanosis, clubbing, bilateral lower extremity edema extending up to ankles although extensive edema of both feet NEUROLOGICAL: Gross neurological examination did not reveal any focal deficits. SKIN: No rashes. Assessment and plan Assessment -Liver cirrhosis -Bilateral lower extremity edema and ascites secondary to above -hypervolemic hyponatremia secondary to cirrhosis, poor oral intake -Weight loss and appetite loss: Secondary to cirrhosis and chronic alcoholism -Hypokalemia secondary to diuresis -Thrombocytopenia secondary to chronic alcoholism -Chronic alcoholism: Counseling was provided -Nicotine abuse -Generalized weakness with fall DVT prophylaxis: Subcutaneous heparin GI prophylaxis: Protonix Full Code Plan IR consulted for paracentesis PO lasix, midodrine Replace electrolytes Monitor for acute alcohol withdrawal Nicotine patch Repeat labs in AM PT/OT consultation The impression and plan of care has been dictated by Betty Sotomayor, Nurse Practitioner as directed. Dr. Carroll MD I have performed a history and physical examination and medical decision making of this patient, discussed the same with the dictator, and agree with the dictators assessment and plan as written, documented as a scribe. Based on total visit time, I have performed more than 50% of this visit. Objective - Vital Signs Vital signs: Vital Signs Temp 97.8 F 07/05/22 12:10 Pulse 73 07/05/22 12:10 Resp 18 07/05/22 14:00 BP 112/72 07/05/22 12:10 Pulse Ox 97 07/05/22 12:10 FiO2 Intake & Output 07/04/22 07/05/22 07/05/22 18:59 06:59 18:59 Intake Total 776 50 251 Output Total 165 500 100 Balance 611 -450 151 Weight 56.699 kg Intake: Oral 776 50 251 Output: Urine 165 500 100 Straight 20 Other: Voiding Method Toilet Diaper Diaper Diaper External Catheter External Catheter External Catheter # Bowel Movements 1 1 - Labs CBC & Chem 7: 07/05/22 07:19 07/05/22 07:19 Labs: Abnormal Lab Results - Last 24 Hours (Table) 07/05/22 07/05/22 Range/Units 07:19 07:19 WBC 11.9 H (3.8-10.6) k/uL Hgb 16.6 H (11.4-16.0) gm/dL Hct 49.5 H (34.0-46.0) % MCV 102.5 H (80.0-100.0) fL Plt Count 53 L (150-450) k/uL Neutrophils # 9.2 H (1.3-7.7) k/uL Sodium 127 L (137-145) mmol/L Potassium 3.2 L (3.5-5.1) mmol/L Chloride 93 L (98-107) mmol/L Glucose 113 H (74-99) mg/dL Calcium 7.5 L (8.4-10.2) mg/dL Microbiology - Last 24 Hours (Table) 07/03/22 04:33 Urine Culture - Final Urine,Voided Escherichia coli Escherichia coli#2 Assessment and Plan Time with Patient: Less than 30
[2022-07-05 17:32] LABS: Hepatitis A Antibody IgM Nonreactive (Nonreactive); Hepatitis B Core IgM Nonreactive (Nonreactive); Hepatitis B Surface Antigen Nonreactive (Nonreactive); Hepatitis C IgG Antibody Nonreactive (Nonreactive)
[2022-07-06] MEDS: MIDODRINE 5 MG TAB PO SCH ×3 (06:43→17:14)
[2022-07-06] MEDS: PANTOPRAZOLE 40 MG TABLET PO SCH (06:43)
[2022-07-06] MEDS: THIAMINE 100 MG TAB PO SCH ×2 (06:43→17:15)
[2022-07-06 08:07] LABS: ALT 27 U/L (4-34); AST 34 U/L (14-36); African American GFR (CKD) >90 (>60 ml/min/1.73 sqM); Albumin 1.9 g/dL (3.5-5.0); Anion Gap 8 mmol/L; Blood Urea Nitrogen 10 mg/dL (7-17); Calcium 7.2 mg/dL (8.4-10.2); Carbon Dioxide 22 mmol/L (22-30); Chloride 96 mmol/L (98-107); Glucose 103 mg/dL (74-99); Magnesium 2.1 mg/dL (1.6-2.3); Non-African American GFR(CKD) >90 (>60 ml/min/1.73 sqM); Potassium 3.7 mmol/L (3.5-5.1); Sodium 126 mmol/L (137-145); Total Bilirubin 0.7 mg/dL (0.2-1.3); Total Protein 4.2 g/dL (6.3-8.2)
[2022-07-06 08:08] LABS: Alkaline Phosphatase 60 U/L (38-126)
[2022-07-06] MEDS: FUROSEMIDE 20 MG TAB PO SCH ×2 (08:24→17:14)
[2022-07-06] MEDS: SPIRONOLACTONE 25 MG TAB PO SCH (08:24)
[2022-07-06] MEDS: POTASSIUM CHLORIDE ER 20 MEQ TAB.ER PO SCH (08:24)
[2022-07-06] MEDS: HEPARIN SODIUM,PORCINE/PF 5,000 UNIT/0.5 ML SYRINGE SQ SCH (08:25)
[2022-07-06] MEDS: NICOTINE 14MG/24HR PATCH TRANSDERM SCH (08:25)
[2022-07-06 08:29] LABS: Basophils % (A) 0 %; Eosinophils % (A) 0 %; HCT 48.9 % (34.0-46.0); HGB 16.2 gm/dL (11.4-16.0); Lymphocytes # (A) 0.3 k/uL (1.0-4.8); Lymphocytes % (A) 2 %; MCH 33.9 pg (25.0-35.0); MCHC 33.2 g/dL (31.0-37.0); Macrocytosis Slight; Mean Platelet Volume 8.8; Monocytes # (A) 0.5 k/uL (0-1.0); Monocytes % (A) 5 %; Neutrophils # (A) 10.4 k/uL (1.3-7.7); Neutrophils % (A) 92 %; RBC 4.79 m/uL (3.80-5.40); RDW 13.3 % (11.5-15.5); WBC 11.4 k/uL (3.8-10.6)
[2022-07-06 08:30] LABS: Platelet Count 44 k/uL (150-450)
--- NOTE | 2022-07-06 09:52 | P.PN ---
Subjective Patient is seen in follow-up for hyponatremia. Sodium level fairly stable. Oral intake is just fair. Denies chest pain or shortness of breath. According to the nurse patient has an external catheter but the urine output is not measured accurately as her briefs are soaked. Bladder scan did show 500 mL due to ascites however less than 50 mL obtained from straight catheterization. Paracentesis pending. Vital signs are stable. General: Awake. No acute distress. HEENT: Head exam is unremarkable. On nasal cannula. LUNGS: Breath sounds decreased. HEART: Rate and Rhythm are regular. ABDOMEN: Soft, mild distention. EXTREMITITES: No edema. Objective - Vital Signs Vital signs: Vital Signs Temp 97.5 F L 07/06/22 08:22 Pulse 103 H 07/06/22 08:22 Resp 15 07/06/22 08:22 BP 108/72 07/06/22 08:22 Pulse Ox 96 07/06/22 08:22 FiO2 Intake & Output 07/05/22 07/06/22 07/06/22 18:59 06:59 18:59 Intake Total 1430 Output Total 100 100 Balance 1330 -100 Weight 56.699 kg Intake: Oral 1430 Output: Urine 100 100 Other: Voiding Method Diaper Diaper External Catheter External Catheter # Voids 3 1 # Bowel Movements 1 1 - Labs CBC & Chem 7: 07/06/22 07:26 07/06/22 07:26 Labs: Abnormal Lab Results - Last 24 Hours (Table) 07/06/22 07/06/22 Range/Units 07:26 07:26 WBC 11.4 H (3.8-10.6) k/uL Hgb 16.2 H (11.4-16.0) gm/dL Hct 48.9 H (34.0-46.0) % MCV 102.0 H (80.0-100.0) fL Plt Count 44 L (150-450) k/uL Neutrophils # 10.4 H (1.3-7.7) k/uL Lymphocytes # 0.3 L (1.0-4.8) k/uL Sodium 126 L (137-145) mmol/L Chloride 96 L (98-107) mmol/L Glucose 103 H (74-99) mg/dL Calcium 7.2 L (8.4-10.2) mg/dL Total Protein 4.2 L (6.3-8.2) g/dL Albumin 1.9 L (3.5-5.0) g/dL Microbiology - Last 24 Hours (Table) 07/03/22 04:33 Urine Culture - Final Urine,Voided Escherichia coli Escherichia coli#2 Assessment and Plan Plan: Assessment: 1. Hyponatremia. Hypervolemic. Component of poor solute intake. Urine osmolality 258. Urine sodium 85. TSH normal. Cortisol level 37. Sodium level 126 today. She did receive a dose of IV Lasix and Samsca this admission. Currently maintained on oral Lasix and spironolactone. 2. Hypokalemia from diuresis and poor intake. Replaced. Improved. 3. Chronic alcohol use. Ultrasound suggestive of hepatic cirrhosis. 4. Volume overload. Ascites present. 5. Non-gap metabolic acidosis from IV fluids. Improved. 6. Hypomagnesemia from poor intake and diuretics. Replaced. Improved. 7. UTI with urine culture positive for E. coli on antibiotics. Plan: Maintain oral Lasix. Maintain spironolactone 25 mg once daily. Samsca 7.5 mg once today. IR consulted for paracentesis. Will give 25 g of albumin preprocedure and an additional 25 g if more than 5 L drained. Encouraged oral intake. Maintain fluid restriction. Repeat labs in the morning. Increase dose of midodrine. Hold for systolic blood pressure greater than 115. Hep panel negative. Consider GI eval for the cirrhosis.
[2022-07-06] MEDS: ALBUMIN HUMAN 25% 50 ML in EMPTY BAG 1 BAG IVPB SCH ×2 (11:08→12:21)
--- NOTE | 2022-07-06 12:59 | P.PN ---
Subjective Progress Note Date: 07/06/22 Patient is on 71-year-old female came in with complaints of bilateral lower extremity edema patient also has ascites and abdominal distention. Patient does have history of chronic alcoholism. Patient says has a last drink was about a week ago. Patient used to drink a lot cut down on alcohol as per the patient. Patient denied any fever chills. Patient is found to have hyponatremia with serum sodium of around 123 presently when she came in it was 121 patient received IV fluids overnight. Aberrantly patient complained about fatigue and the decreased appetite and weight loss which she denied to me. Patient's liver enzymes are not significant elevated but does have mild elevation of INR to 1.3. 07/04/2022 Patient continues with generalized weakness. She had unwitnessed fall yesterday at around 1700. Patient states she was trying to ambulate to the window and she had slipped and fell. brain CT completed which is negative for acute changes or hemorrhage. Blood pressure currently in the 90s/60s, she is slightly tachycardic in the low 100s. Urinalysis questionable for infection she denies any dysuria, continues to be monitored off antibiotics. Urine culture showing gram negative bacilli multiple organisms. PT/OT has been consulted. Nephrology following for low sodium, received a dose of samsca yesterday, sodium today is now 126. Abdominal ultrasound showing liver cirrhosis, ascites, gallbladder wall thickening, 2.1 cm liver lesion. Platelet count 83, potassium 3.2. TSH normal. Blood pressure 97/55. 08/05/2022 Patient evaluated today resting in bed. Pending PT/OT evaluation. No acute events overnight. She does have a congested cough today, requiring nasal cannula at 2-3 Liters. White count today 11.9, hgb 16.6, sodium 127, potassium 3.2, BUN 10, creatinine 0.61, magnesium 1.7. Patient is receiving potassium and magnesium supplement. Urine culture showing E.Coli with 2 seperate colonies with no drug resistance, continues on IV ceftriaxone. Midodrine increased today to 10 TID and blood pressure is better at 112/71, afebrile, 97% oxygen. IR has been consulted for paracentesis for abdominal ascites. 07/06/2022 IR evaluated patient and felt not enough fluid to undergo paracentesis. White count today 11.4, sodium 126, potassium 3.2. Albumin is low at 1.9 which patient will receive albumin today. PT/OT is recommending subacute rehab on discharge. Blood pressure 108/72, patient continues on aldactone and PO lasix. Continues on IV ceftriaxone for E.Coli UTI. Patient has a wet cough and lungs are more congested today will order chest xray. Review of Systems Constitutional: Denied any fatigue denied any fever. Cardio vascular: denied any chest pain, palpitations Gastrointestinal: denied any nausea, vomiting, diarrhea Pulmonary: Denied any shortness of breath, reports cough Neurologic denied any new focal deficits All inpatient medications were reviewed and appropriate changes in these medications as dictated in the interval history and assessment and plan. PHYSICAL EXAMINATION: GENERAL: The patient is alert and oriented x3, not in any acute distress. Well developed, well nourished. Thin built. HEENT: Pupils are round and equally reacting to light. EOMI. No scleral icterus. No conjunctival pallor. Normocephalic, atraumatic. No pharyngeal erythema. No thyromegaly. CARDIOVASCULAR: S1 and S2 present. No murmurs, rubs, or gallops. PULMONARY: Congested cough, coarse rhonchi scattered ABDOMEN: Soft, distended with fluid thrill, ascites, normoactive bowel sounds. No palpable organomegaly. MUSCULOSKELETAL: No joint swelling or deformity. EXTREMITIES: No cyanosis, clubbing, bilateral lower extremity edema extending up to ankles although extensive edema of both feet NEUROLOGICAL: Gross neurological examination did not reveal any focal deficits. SKIN: No rashes. Assessment and plan Assessment -Liver cirrhosis, hepatitis panel negative -Bilateral lower extremity edema and ascites secondary to above -hypervolemic hyponatremia secondary to cirrhosis, poor oral intake -Weight loss and appetite loss: Secondary to cirrhosis and chronic alcoholism -Hypokalemia secondary to diuresis, improved -Thrombocytopenia secondary to chronic alcoholism today is 44 -Chronic alcoholism: Counseling was provided -Nicotine abuse -Generalized weakness with fall DVT prophylaxis: Subcutaneous heparin held monitor platelet count GI prophylaxis: Protonix Full Code Plan IR consulted for paracentesis PO lasix, midodrine Replace electrolytes Monitor for acute alcohol withdrawal Nicotine patch Repeat labs in AM PT/OT consultation The impression and plan of care has been dictated by Betty Sotomayor, Nurse Practitioner as directed. Dr. Carroll MD I have performed a history and physical examination and medical decision making of this patient, discussed the same with the dictator, and agree with the dictators assessment and plan as written, documented as a scribe. Based on total visit time, I have performed more than 50% of this visit. Objective - Vital Signs Vital signs: Vital Signs Temp 97.5 F L 07/06/22 08:22 Pulse 103 H 07/06/22 08:22 Resp 15 07/06/22 08:22 BP 108/72 07/06/22 08:22 Pulse Ox 96 07/06/22 08:22 FiO2 Intake & Output 07/05/22 07/06/22 07/06/22 18:59 06:59 18:59 Intake Total 1430 Output Total 100 100 Balance 1330 -100 Weight 56.699 kg Intake: Oral 1430 Output: Urine 100 100 Other: Voiding Method Diaper Diaper External Catheter External Catheter # Voids 3 1 # Bowel Movements 1 1 - Labs CBC & Chem 7: 07/06/22 07:26 07/06/22 07:26 Labs: Abnormal Lab Results - Last 24 Hours (Table) 07/06/22 07/06/22 Range/Units 07:26 07:26 WBC 11.4 H (3.8-10.6) k/uL Hgb 16.2 H (11.4-16.0) gm/dL Hct 48.9 H (34.0-46.0) % MCV 102.0 H (80.0-100.0) fL Plt Count 44 L (150-450) k/uL Neutrophils # 10.4 H (1.3-7.7) k/uL Lymphocytes # 0.3 L (1.0-4.8) k/uL Sodium 126 L (137-145) mmol/L Chloride 96 L (98-107) mmol/L Glucose 103 H (74-99) mg/dL Calcium 7.2 L (8.4-10.2) mg/dL Total Protein 4.2 L (6.3-8.2) g/dL Albumin 1.9 L (3.5-5.0) g/dL Microbiology - Last 24 Hours (Table) 07/03/22 04:33 Urine Culture - Final Urine,Voided Escherichia coli Escherichia coli#2 Assessment and Plan Time with Patient: Less than 30
--- NOTE | 2022-07-06 13:55 | XR ---
EXAMINATION TYPE: XR chest 2V DATE OF EXAM: 07/06/2022 1:48 PM COMPARISON: Chest radiographs from 07/02/2022 TECHNIQUE: XR chest 2V Frontal and lateral views of the chest. CLINICAL INDICATION:Female, 71 years old with history of dyspnea; FINDINGS: Lungs/Pleura: There is flattening of the diaphragm with increased lucency of the lungs. No evidence o f pneumothorax, pleural effusion or focal consolidation. Pulmonary vascularity: Unremarkable. Heart/mediastinum: Cardiomediastinal silhouette is unremarkable. Musculoskeletal: No acute osseous pathology. The left humeral neck healed fracture. Dextrocurvature o f the thoracic spine. IMPRESSION: 1. No acute cardiopulmonary disease process. 2. COPD changes.
[2022-07-07] MEDS: THIAMINE 100 MG TAB PO SCH ×2 (06:48→18:28)
[2022-07-07] MEDS: PANTOPRAZOLE 40 MG TABLET PO SCH (06:48)
[2022-07-07] MEDS: MIDODRINE 5 MG TAB PO SCH ×3 (06:48→18:29)
[2022-07-07 08:08] LABS: ALT 22 U/L (4-34); AST 30 U/L (14-36); African American GFR (CKD) >90 (>60 ml/min/1.73 sqM); Alkaline Phosphatase 51 U/L (38-126); Anion Gap 6 mmol/L; Blood Urea Nitrogen 10 mg/dL (7-17); Calcium 7.2 mg/dL (8.4-10.2); Carbon Dioxide 28 mmol/L (22-30); Chloride 94 mmol/L (98-107); Glucose 94 mg/dL (74-99); Non-African American GFR(CKD) >90 (>60 ml/min/1.73 sqM); Potassium 3.2 mmol/L (3.5-5.1); Sodium 128 mmol/L (137-145); Total Bilirubin 0.8 mg/dL (0.2-1.3); Total Protein 4.2 g/dL (6.3-8.2)
[2022-07-07] MEDS: POTASSIUM CHLORIDE ER 20 MEQ TAB.ER PO SCH (08:27)
[2022-07-07] MEDS: FUROSEMIDE 20 MG TAB PO SCH (08:27)
[2022-07-07] MEDS: SPIRONOLACTONE 25 MG TAB PO SCH (08:27)
[2022-07-07] MEDS: NICOTINE 14MG/24HR PATCH TRANSDERM SCH (08:28)
[2022-07-07] MEDS ORDERED: POTASSIUM CHLORIDE ER 20 MEQ TAB.ER PO STA (09:03)
--- NOTE | 2022-07-07 09:12 | P.PN ---
Subjective Patient is seen in follow-up for hyponatremia. Sodium level a little better today. Oral intake is just fair. Denies chest pain or shortness of breath. Underwent straight catheterization with 300 mL obtained. Bird catheter placement ordered by primary team. Denies chest pain or shortness of breath. No vomiting. Does have loose stools. Vital signs are stable. General: Awake. No acute distress. HEENT: Head exam is unremarkable. On nasal cannula. LUNGS: Breath sounds decreased. HEART: Rate and Rhythm are regular. ABDOMEN: Soft, mild distention. EXTREMITITES: No edema. Objective - Vital Signs Vital signs: Vital Signs Temp 97.5 F L 07/07/22 04:00 Pulse 99 07/07/22 08:12 Resp 16 07/07/22 08:12 BP 106/70 07/07/22 08:12 Pulse Ox 96 07/07/22 08:12 FiO2 Intake & Output 07/06/22 07/07/22 07/07/22 18:59 06:59 18:59 Intake Total 0 Output Total 300 Balance 0 -300 Intake: Oral 0 Output: Urine 300 Straight 300 Other: Voiding Method Diaper Diaper External Catheter External Catheter # Voids 1 # Bowel Movements 1 1 - Labs CBC & Chem 7: 07/06/22 07:26 07/07/22 07:07 Labs: Abnormal Lab Results - Last 24 Hours (Table) 07/07/22 Range/Units 07:07 Sodium 128 L (137-145) mmol/L Potassium 3.2 L (3.5-5.1) mmol/L Chloride 94 L (98-107) mmol/L Creatinine 0.51 L (0.52-1.04) mg/dL Calcium 7.2 L (8.4-10.2) mg/dL Total Protein 4.2 L (6.3-8.2) g/dL Albumin 2.0 L (3.5-5.0) g/dL Assessment and Plan Plan: Assessment: 1. Hyponatremia. Hypervolemic. Component of poor solute intake. Urine osmolality 258. Urine sodium 85. TSH normal. Cortisol level 37. Sodium level 128 today. She did receive IV Lasix and Samsca this admission. Currently maintained on oral Lasix and spironolactone. 2. Hypokalemia from diuresis and poor intake. 3. Chronic alcohol use. Ultrasound suggestive of hepatic cirrhosis. 4. Volume overload. Ascites present. Improved. Per radiology, not enough fluid present for paracentesis. 5. Non-gap metabolic acidosis from IV fluids. Improved. 6. Hypomagnesemia from poor intake and diuretics. Replaced. Improved. 7. UTI with urine culture positive for E. coli on antibiotics. 8. Urinary retention. 300 mL of urine obtained from straight catheterization. Plan: Hold Lasix. Encouraged oral intake. Add protein shakes 2-3 times daily. Maintain fluid restriction. Repeat labs in the morning. Maintain midodrine. Hold for systolic blood pressure greater than 115. Hep panel negative. Consider GI eval for the cirrhosis. MRI ordered by primary team. Bird catheter being placed today. Replace potassium.
--- NOTE | 2022-07-07 12:11 | P.PN ---
Subjective Patient is on 71-year-old female came in with complaints of bilateral lower extremity edema patient also has ascites and abdominal distention. Patient does have history of chronic alcoholism. Patient says has a last drink was about a week ago. Patient used to drink a lot cut down on alcohol as per the patient. Patient denied any fever chills. Patient is found to have hyponatremia with serum sodium of around 123 presently when she came in it was 121 patient received IV fluids overnight. Aberrantly patient complained about fatigue and the decreased appetite and weight loss which she denied to me. Patient's liver enzymes are not significant elevated but does have mild elevation of INR to 1.3. 07/04/2022 Patient continues with generalized weakness. She had unwitnessed fall yesterday at around 1700. Patient states she was trying to ambulate to the window and she had slipped and fell. brain CT completed which is negative for acute changes or hemorrhage. Blood pressure currently in the 90s/60s, she is slightly tachycardic in the low 100s. Urinalysis questionable for infection she denies any dysuria, continues to be monitored off antibiotics. Urine culture showing gram negative bacilli multiple organisms. PT/OT has been consulted. Nephrology following for low sodium, received a dose of samsca yesterday, sodium today is now 126. Abdominal ultrasound showing liver cirrhosis, ascites, gallbladder wall thickening, 2.1 cm liver lesion. Platelet count 83, potassium 3.2. TSH normal. Blood pressure 97/55. 08/05/2022 Patient evaluated today resting in bed. Pending PT/OT evaluation. No acute events overnight. She does have a congested cough today, requiring nasal cannula at 2-3 Liters. White count today 11.9, hgb 16.6, sodium 127, potassium 3.2, BUN 10, creatinine 0.61, magnesium 1.7. Patient is receiving potassium and magnesium supplement. Urine culture showing E.Coli with 2 seperate colonies with no drug resistance, continues on IV ceftriaxone. Midodrine increased today to 10 TID and blood pressure is better at 112/71, afebrile, 97% oxygen. IR has been consulted for paracentesis for abdominal ascites. 07/06/2022 IR evaluated patient and felt not enough fluid to undergo paracentesis. White count today 11.4, sodium 126, potassium 3.2. Albumin is low at 1.9 which patient will receive albumin today. PT/OT is recommending subacute rehab on discharge. Blood pressure 108/72, patient continues on aldactone and PO lasix. Continues on IV ceftriaxone for E.Coli UTI. Patient has a wet cough and lungs are more congested today will order chest xray. Objective - Vital Signs Vital signs: Vital Signs Temp 97.5 F L 07/07/22 04:00 Pulse 99 07/07/22 08:12 Resp 16 07/07/22 08:12 BP 106/70 07/07/22 08:12 Pulse Ox 96 07/07/22 08:12 FiO2 Intake & Output 07/06/22 07/07/22 07/07/22 18:59 06:59 18:59 Intake Total 0 Output Total 300 Balance 0 -300 Intake: Oral 0 Output: Urine 300 Straight 300 Other: Voiding Method Diaper Diaper Diaper External Catheter External Catheter External Catheter # Voids 1 # Bowel Movements 1 1 - Exam GENERAL: The patient is alert and oriented x3, not in any acute distress. Well developed, well nourished. HEENT: Pupils are round and equally reacting to light. EOMI. No scleral icterus. No conjunctival pallor. Normocephalic, atraumatic. No pharyngeal erythema. No thyromegaly. CARDIOVASCULAR: S1 and S2 present. No murmurs, rubs, or gallops. PULMONARY: Chest is clear to auscultation, no wheezing or crackles. ABDOMEN: Soft, nontender, nondistended, normoactive bowel sounds. No palpable organomegaly. MUSCULOSKELETAL: No joint swelling or deformity. EXTREMITIES: No cyanosis, clubbing, or pedal edema. NEUROLOGICAL: Gross neurological examination did not reveal any focal deficits. SKIN: No rashes. no petechiae. - Labs CBC & Chem 7: 07/06/22 07:26 07/07/22 07:07 Labs: Abnormal Lab Results - Last 24 Hours (Table) 07/07/22 Range/Units 07:07 Sodium 128 L (137-145) mmol/L Potassium 3.2 L (3.5-5.1) mmol/L Chloride 94 L (98-107) mmol/L Creatinine 0.51 L (0.52-1.04) mg/dL Calcium 7.2 L (8.4-10.2) mg/dL Total Protein 4.2 L (6.3-8.2) g/dL Albumin 2.0 L (3.5-5.0) g/dL Assessment and Plan Assessment: -Liver cirrhosis, with ascites hepatitis panel negative. No need for paracentesis per IR team and downstream biomanufacturing technician. No GI coverage in this facility, follow-up with GI service as an outpatient -Bilateral lower extremity edema and ascites secondary to above. Improved. Continue with same treatment. Patient is off diueretic for now -Liver lesion about 2.1 cm, and MRI recommended by radiologist. -Acute urinary retention, status post Bird catheter. Flomax added -E coli UTI. Bacteria sensitive on ceftriaxone -Alcohol abuse at risk of alcohol withdrawal: Continue with CIWA protocol and thiamine -hypervolemic hyponatremia secondary to cirrhosis, poor oral intake -Weight loss and appetite loss: Secondary to cirrhosis and chronic alcoholism -Hypokalemia secondary to diuresis, improved -Thrombocytopenia secondary to chronic alcoholism -Chronic alcoholism: Counseling was provided -Nicotine dependence -Generalized weakness with fall DVT prophylaxis: Heparin GI prophylaxis: Protonix PT/OT: Pending Prognosis is guarded
[2022-07-07] MEDS ORDERED: LORazepam 1 MG/0.5 ML VIAL IV PRN ×2 (12:27→12:28)
--- NOTE | 2022-07-07 18:15 | MR ---
EXAMINATION TYPE: MR liver wo/w con DATE OF EXAM: 07/07/2022 COMPARISON: 11/05/2016 HISTORY: Ascites, cirrhosis. CONTRAST: Standard multiplanar, multisequence MRI departmental protocol images were obtained without contrast a nd with 6.5 mL intravenous Gadavist gadolinium contrast. There is moderate abdominal ascites. Liver is irregular and consistent with cirrhosis. There is hiata l hernia. The spleen is intact. There are multiple rounded fluid densities in the liver that measure up to 4 cm. There is a complex area of fluid in the right lobe of the liver near the nitesh hepatis. T his shows some nodular delayed peripheral enhancement. The lesion is slightly lobulated and measures 6 cm. There is no evidence of a pancreatic mass. There is no evidence of adrenal mass. The kidneys show satisfactory contrast opacification. No hydron ephrosis. There is normal enhancement of the portal venous system. There is no evidence of retroperitoneal adenopathy. There is normal enhancement of the pancreas. IMPRESSION: Multiple hepatic cysts. Atypical cyst near the nitesh hepatis. There is some mild delayed peripheral e nhancement and this could be partly hemangioma. Multiple liver lesions not significantly different th an on the MR scan from 6 years ago. Abdominal ascites slightly increased. Mildly irregular liver margin suggestive of cirrhosis. No dilat ed ducts. There is evidence for bilateral pleural effusions and right basilar infiltrate which are in creased compared to old MR scan.
[2022-07-07] MEDS ORDERED: HEPARIN SODIUM,PORCINE/PF 5,000 UNIT/0.5 ML SYRINGE SQ SCH (21:00)
[2022-07-07] MEDS: VANCOMYCIN 125 MG CAPSULE PO SCH (22:02)
[2022-07-07] MEDS ORDERED: SODIUM CHLORIDE 0.9% 1,000 ML IV ONE (23:21)
[2022-07-07] MEDS ORDERED: SODIUM CHLORIDE 0.9% 500 ML IV ONE (23:24)
[2022-07-07] MEDS ORDERED: SODIUM CHLORIDE 0.9% 1,000 ML IV SCH (23:30)
[2022-07-08 05:15] LABS: HCT 49.1 % (34.0-46.0); HGB 15.8 gm/dL (11.4-16.0); MCH 33.8 pg (25.0-35.0); MCHC 32.2 g/dL (31.0-37.0); MCV 105.1 fL (80.0-100.0); Macrocytosis Slight; Mean Platelet Volume 10.8; RBC 4.67 m/uL (3.80-5.40); RDW 13.2 % (11.5-15.5); WBC 14.5 k/uL (3.8-10.6)
[2022-07-08 05:20] LABS: Platelet Count 51 k/uL (150-450)
[2022-07-08 05:34] LABS: African American GFR (CKD) >90 (>60 ml/min/1.73 sqM); Anion Gap 9 mmol/L; Blood Urea Nitrogen 10 mg/dL (7-17); Calcium 7.6 mg/dL (8.4-10.2); Carbon Dioxide 23 mmol/L (22-30); Chloride 96 mmol/L (98-107); Glucose 99 mg/dL (74-99); Non-African American GFR(CKD) >90 (>60 ml/min/1.73 sqM); Sodium 128 mmol/L (137-145)
[2022-07-08 05:38] LABS: Potassium 4.4 mmol/L (3.5-5.1)
[2022-07-08 05:40] LABS: Band Neutrophils % 14 %; Lymphocytes # (M) 0.73 k/uL (1.0-4.8); Monocytes # (M) 1.31 k/uL (0-1.0); Neutrophils % (M) 72 %; Nucleated Red Blood Cells 0 /100 WBC (0-0); Total Cells Counted 100
[2022-07-08] MEDS: THIAMINE 100 MG TAB PO SCH ×2 (06:41→17:17)
[2022-07-08] MEDS: PANTOPRAZOLE 40 MG TABLET PO SCH (06:41)
[2022-07-08] MEDS: MIDODRINE 5 MG TAB PO SCH ×3 (06:41→17:17)
[2022-07-08] MEDS: POTASSIUM CHLORIDE ER 20 MEQ TAB.ER PO SCH (07:59)
[2022-07-08] MEDS: NICOTINE 14MG/24HR PATCH TRANSDERM SCH (07:59)
[2022-07-08] MEDS: TAMSULOSIN 0.4 MG CAP.ER.24H PO SCH (07:59)
[2022-07-08] MEDS: SPIRONOLACTONE 25 MG TAB PO SCH ×2 (08:00→19:58)
[2022-07-08] MEDS: VANCOMYCIN 125 MG CAPSULE PO SCH ×4 (08:01→19:58)
--- NOTE | 2022-07-08 09:47 | CDI ---
Documentation Clarification Form Date: 07/08/2022 09:27:26 AM From: Kandice Acevedo CCS, CCDS Admit Date: 07/02/2022 11:44:00 PM Patient Name: Tessy Clinton Visit Number: [id number] Discharge Date: ATTENTION: The Clinical Documentation Specialists (CDI) and [facility] Coding Staff appreciate your assistance in clarifying documentation. Please respond to the clarification below the line at the bottom and electronically sign. The CDI & [facility] Coding staff will review the response and follow-up if needed. Please note: Queries are made part of the Legal Health Record. If you have any questions, please contact the author of this message via ITS. Dr. Rohit Spicer. Sheet: The Registered Dietitian assessment on 07/03 indicates this patient meets criteria for being underweight. Per the 07/04 Attending Progress Note: Weight loss and appetite loss secondary to cirrhosis, poor oral intake. Based on this information and the findings below, is there an additional diagnosis that is clinically appropriate for this patient? 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 Clinical Indicators: Presented to the ED on 07/02 complaining of bilateral swelling in her feet, fatigue, diminished appetite and weight loss. On exam: poor personal hygiene with dirt and mud on both feet, unkempt nails, notable pitting edema to bilateral feet and ankles, mild abdominal distention, some scleral icterus & jaundice, tachycardic with heart rate > 20. Appears ill. Admit for Hyponatremia, Liver Disease and Failure to thrive. 07/02 VS: T 97.4, P 120, R 22, BP 109/65, PO 98 - 94 RA 07/02 LAB: Plt Ct 103, Neutrophils 7.9/ PT 13.3, INR 1.3; Na 121, Chloride 92, CO2 20, Creatinine 0.50, Calcium 7.5, Total Bili 2.1, AST 63, total Protein 5.4, Albumin 2.5. 07/03 Consult Assessment for poor oral intake: Current BMI: 20.1 Insufficient energy intake: yes Fluid accumulation: Abdominal Ascites and bilateral feet/ankle swelling. Height 5 ft 6 in. Calculated IBW: 59 kg, % IBW 96%. Consuming <25% of meals. Treatment 07/02 ED: Banana bag with Thiamine, Folic acid and Multivitamin 100 mL/hr. Supplements: Ensure Compact TID. Fall precautions, 1200 ml fluid restriction, regular diet. IV Na Chl 1,000 mls @ 130 mls/hr q7H, IV Morphine 4 mg q4H/prn, IV Zofran 4 mg q8H/prn, IV Ativan 1 mg q1-2/prn, IV Ativan 2 mg q10M/prn Is there an additional diagnosis that is clinically appropriate for this patient? [ ] Mild Protein-Calorie Malnutrition [ ] Moderate Protein-Calorie Malnutrition [ ] Other condition, please specify [ ] Unable to Determine (Template Last Revised: January 2021) Mild Protein-Calorie Malnutrition MTDD
--- NOTE | 2022-07-08 09:58 | P.PN ---
Subjective Patient is seen in follow-up for hyponatremia. Sodium level stable. Patient received IV fluids per primary team overnight. Oral intake is a little improved. She has been drinking the ensure. Denies chest pain or shortness of breath. Bird catheter placed for urinary retention. She is having diarrhea. Tested positive for C. diff. Vital signs are stable. General: Awake. No acute distress. HEENT: Head exam is unremarkable. On nasal cannula. LUNGS: Breath sounds decreased. HEART: Rate and Rhythm are regular. ABDOMEN: Soft, mild distention. EXTREMITITES: No edema. Objective - Vital Signs Vital signs: Vital Signs Temp 97.9 F 07/08/22 04:00 Pulse 100 07/08/22 08:09 Resp 19 07/08/22 04:00 BP 126/64 07/08/22 08:09 Pulse Ox 94 L 07/08/22 08:09 FiO2 Intake & Output 07/07/22 07/08/22 07/08/22 18:59 06:59 18:59 Intake Total 540 Output Total 200 300 Balance -200 240 Weight 56.699 kg Intake: Oral 540 Output: Urine 200 300 Straight 200 Other: Voiding Method Diaper Diaper Indwelling Catheter Indwelling Catheter # Bowel Movements 2 1 - Labs CBC & Chem 7: 07/08/22 04:41 07/08/22 04:41 Labs: Abnormal Lab Results - Last 24 Hours (Table) 07/07/22 07/07/22 07/08/22 Range/Units 10:33 Unknown 04:41 WBC (3.8-10.6) k/uL Hct (34.0-46.0) % MCV (80.0-100.0) fL Plt Count (150-450) k/uL Neutrophils # (Manual) (1.3-7.7) k/uL Lymphocytes # (Manual) (1.0-4.8) k/uL Monocytes # (Manual) (0-1.0) k/uL Sodium 128 L (137-145) mmol/L Chloride 96 L (98-107) mmol/L Creatinine 0.42 L (0.52-1.04) mg/dL Calcium 7.6 L (8.4-10.2) mg/dL Stool Occult Blood Positive H (Negative) C. difficile (EIA) Intrp Positive A (Negative) 09/01/22 Range/Units 04:41 WBC 14.5 H (3.8-10.6) k/uL Hct 49.1 H (34.0-46.0) % MCV 105.1 H (80.0-100.0) fL Plt Count 51 L (150-450) k/uL Neutrophils # (Manual) 12.40 H (1.3-7.7) k/uL Lymphocytes # (Manual) 0.73 L (1.0-4.8) k/uL Monocytes # (Manual) 1.31 H (0-1.0) k/uL Sodium (137-145) mmol/L Chloride (98-107) mmol/L Creatinine (0.52-1.04) mg/dL Calcium (8.4-10.2) mg/dL Stool Occult Blood (Negative) C. difficile (EIA) Intrp (Negative) Microbiology - Last 24 Hours (Table) 07/07/22 10:38 Stool Culture - Preliminary Stool Assessment and Plan Plan: Assessment: 1. Hyponatremia. Hypervolemic. Component of poor solute intake. Urine osmolality 258. Urine sodium 85. TSH normal. Cortisol level 37. Sodium level stable at 128 today. She did receive IV Lasix and Samsca this admission. Also received IV fluids last night with no improvement in sodium level. Replaced. Better. 2. Hypokalemia from diuresis and poor intake. 3. Chronic alcohol use. Ultrasound suggestive of hepatic cirrhosis. 4. Volume overload. Ascites present. Improved. Per radiology, not enough fluid present for paracentesis. Pleural effusions noted on MRI. 5. Non-gap metabolic acidosis from IV fluids. Stable. 6. Hypomagnesemia from poor intake and diuretics. Replaced. Improved. 7. UTI with urine culture positive for E. coli on antibiotics. 8. Urinary retention. 300 mL of urine obtained from straight catheterization. Currently has Bird catheter. On flomax. 9. C. diff colitis maintained on oral vancomycin. Plan: Hep-Lock IV fluids. Resume spironoactone. Samsca 7.5 mg once today. Encouraged oral intake. Maintain protein shakes 2-3 times daily. Maintain fluid restriction. Repeat labs in the morning. Maintain midodrine. Hold for systolic blood pressure greater than 115. Hep panel negative. Consider GI eval for the cirrhosis. MRI done.
[2022-07-08] MEDS ORDERED: TOLVAPTAN 15 MG 1/2 TABLET PO ONE (11:00)
--- NOTE | 2022-07-08 17:02 | P.PN ---
Subjective Patient is on 71-year-old female came in with complaints of bilateral lower extremity edema patient also has ascites and abdominal distention. Patient does have history of chronic alcoholism. Patient says has a last drink was about a week ago. Patient used to drink a lot cut down on alcohol as per the patient. Patient denied any fever chills. Patient is found to have hyponatremia with serum sodium of around 123 presently when she came in it was 121 patient received IV fluids overnight. Aberrantly patient complained about fatigue and the decreased appetite and weight loss which she denied to me. Patient's liver enzymes are not significant elevated but does have mild elevation of INR to 1.3. 07/04/2022 Patient continues with generalized weakness. She had unwitnessed fall yesterday at around 1700. Patient states she was trying to ambulate to the window and she had slipped and fell. brain CT completed which is negative for acute changes or hemorrhage. Blood pressure currently in the 90s/60s, she is slightly tachycardic in the low 100s. Urinalysis questionable for infection she denies any dysuria, continues to be monitored off antibiotics. Urine culture showing gram negative bacilli multiple organisms. PT/OT has been consulted. Nephrology following for low sodium, received a dose of samsca yesterday, sodium today is now 126. Abdominal ultrasound showing liver cirrhosis, ascites, gallbladder wall thickening, 2.1 cm liver lesion. Platelet count 83, potassium 3.2. TSH normal. Blood pressure 97/55. 08/05/2022 Patient evaluated today resting in bed. Pending PT/OT evaluation. No acute events overnight. She does have a congested cough today, requiring nasal cannula at 2-3 Liters. White count today 11.9, hgb 16.6, sodium 127, potassium 3.2, BUN 10, creatinine 0.61, magnesium 1.7. Patient is receiving potassium and magnesium supplement. Urine culture showing E.Coli with 2 seperate colonies with no drug resistance, continues on IV ceftriaxone. Midodrine increased today to 10 TID and blood pressure is better at 112/71, afebrile, 97% oxygen. IR has been consulted for paracentesis for abdominal ascites. 07/06/2022 IR evaluated patient and felt not enough fluid to undergo paracentesis. White count today 11.4, sodium 126, potassium 3.2. Albumin is low at 1.9 which patient will receive albumin today. PT/OT is recommending subacute rehab on discharge. Blood pressure 108/72, patient continues on aldactone and PO lasix. Continues on IV ceftriaxone for E.Coli UTI. Patient has a wet cough and lungs are more congested today will order chest xray. 07/08/2022 Patient still looks lethargic and tired however she is fully awake and oriented to time, place and person. She still on ceftriaxone for her E. coli UTI present on admission, she is also hyponatremic with sodium remains 128 today and she is status [facility] [place] . Patient started to have diarrhea yesterday and the night before, C. diff came back positive as well as home occult blood in his stool but her hemoglobin normal at 15. WBCs elevated at 14.5. Platelets stable at 51,000. Creatinine normal. Patient is slightly tachycardic but normal blood pressure. Oxygen saturation 93% on room air, patient is also on 2 L oxygen. Patient was given a bolus of 500 mL yesterday for several bouts of diarrhea about 4-5 per staff on some IV fluids to prevent hypotension. Patient blood pressure remains a stable. Creatinine is normal today. We will check chest x- ray to ensure if any pulmonary congestion. Discontinue IV fluids Abdomen soft with no significant tenderness Patient remains in guarded prognosis and need to be closely monitored. Patient will need to monitor her breathing status closely as well as vitals blood pressure. Patient also with liver cirrhosis, GI evaluation is recommended for her. However there is no GI coverage in this facility . I talked to the patient and she does not want to be transferred for this purpose and she wants to stay in this hospital for now Objective - Vital Signs Vital signs: Vital Signs Temp 97.9 F 07/08/22 04:00 Pulse 110 H 07/08/22 14:21 Resp 19 07/08/22 04:00 BP 116/56 07/08/22 13:01 Pulse Ox 93 L 07/08/22 13:01 FiO2 Intake & Output 07/07/22 07/08/22 07/08/22 18:59 06:59 18:59 Intake Total 540 960 Output Total 200 300 1 Balance -200 240 959 Weight 56.699 kg Intake: Oral 540 Other 960 Output: Urine 200 300 Straight 200 Stool 1 Other: Voiding Method Diaper Diaper Indwelling Catheter Indwelling Catheter Indwelling Catheter # Bowel Movements 2 1 - Exam -GENERAL: The patient is alert and oriented x3, not in any acute distress. Well developed, well nourished. Slightly lethargic HEENT: Pupils are round and equally reacting to light. EOMI. No scleral icterus. No conjunctival pallor. Normocephalic, atraumatic. No pharyngeal erythema. No thyromegaly. CARDIOVASCULAR: S1 and S2 present. No murmurs, rubs, or gallops. PULMONARY: Chest is clear to auscultation, no wheezing or crackles. ABDOMEN: Soft, nontender, nondistended, normoactive bowel sounds. No palpable organomegaly. MUSCULOSKELETAL: No joint swelling or deformity. EXTREMITIES: No cyanosis, clubbing, or pedal edema. NEUROLOGICAL: Gross neurological examination did not reveal any focal deficits. SKIN: No rashes. no petechiae. - Labs CBC & Chem 7: 07/08/22 04:41 07/08/22 04:41 Labs: Abnormal Lab Results - Last 24 Hours (Table) 07/07/22 07/08/22 07/08/22 Range/Units Unknown 04:41 04:41 WBC 14.5 H (3.8-10.6) k/uL Hct 49.1 H (34.0-46.0) % MCV 105.1 H (80.0-100.0) fL Plt Count 51 L (150-450) k/uL Neutrophils # (Manual) 12.40 H (1.3-7.7) k/uL Lymphocytes # (Manual) 0.73 L (1.0-4.8) k/uL Monocytes # (Manual) 1.31 H (0-1.0) k/uL Sodium 128 L (137-145) mmol/L Chloride 96 L (98-107) mmol/L Creatinine 0.42 L (0.52-1.04) mg/dL Calcium 7.6 L (8.4-10.2) mg/dL C. difficile (EIA) Intrp Positive A (Negative) Microbiology - Last 24 Hours (Table) 07/07/22 10:38 Stool Culture - Preliminary Stool Assessment and Plan Assessment: -C. diff colitis, continue with oral vancomycin. Infectious disease consult -Liver cirrhosis, with ascites hepatitis panel negative. 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 No GI coverage in this facility, fo llow-up with GI service as an outpatient -Hyponatremia, status post samsca x1. Discontinue time fluids. Monitor sodium. Emergency Management Specialist is on the case -Bilateral lower extremity edema and ascites secondary to above. Improved. Continue with same treatment. Patient is off diueretic for now -Liver lesion about 2.1 cm, and MRI recommended by radiologist. -Acute urinary retention, status post Bird catheter. Flomax added -E coli UTI. Bacteria sensitive on ceftriaxone -Alcohol abuse at risk of alcohol withdrawal: Continue with CIWA protocol and thiamine -hypervolemic hyponatremia secondary to cirrhosis, poor oral intake -Weight loss and appetite loss: Secondary to cirrhosis and chronic alcoholism -Hypokalemia secondary to diuresis, improved -Thrombocytopenia secondary to chronic alcoholism -Chronic alcoholism: Counseling was provided -Nicotine dependence -Generalized weakness with fall DVT prophylaxis: Heparin GI prophylaxis: Protonix PT/OT: Pending Prognosis is guarded
--- NOTE | 2022-07-08 17:34 | XR ---
EXAMINATION TYPE: XR chest 1V DATE OF EXAM: 07/08/2022 COMPARISON: 07/06/2022 HISTORY: Dyspnea TECHNIQUE: Single frontal view of the chest is obtained. FINDINGS: There is interval small right pleural effusion with accompanying pleural-based opacity in the mid lung. There is also mild right basilar opacity. There is overall decreased right lung volume with rightward mediastinal shift. No pneumothorax seen. The cardiac silhouette size is within normal limits. The osseous structures are intact. IMPRESSION: Interval right pleural effusion with accompanying opacity and decreased lung volume. Pos sible partial collapse of the right middle lobe.
--- NOTE | 2022-07-08 23:17 | P.CONS ---
History of Present Illness - Reason for Consult Consult date: 07/08/22 - History of Present Illness Patient is a 71-year-old female with a past medical he significant for COPD hypertension liver disease presenting to the hospital about a week ago on 07/02/2022 for evaluation of bilateral lower extremity swelling fatigue and decreased appetite along with weight loss patient denies having any fever or any chills and no fever have been recorded during this hospital stay patient did monreal ve a normal white count admission however the vital has been trending up for the last 3 days patient did have a positive UA however the patient did not have any urinary symptoms of burning or frequency patient was treated with a IV Rocephin for possible UTI and the patient urine is growing E. coli x2 patient apparently developed significant diarrhea for the patient did have stool for C. difficile yesterday which came back positive patient was started on oral vancomycin infectious disease was consulted because of C. difficile colitis and question of possible UTI patient main symptom remains to be feeling weak and fatigue and no energy, denies any chest pain or shortness of breath or cough no nausea no vomiting, patient also have a MRI of the liver which did shows multiple hepatic cyst however mention no significant different than an MR 6 years ago 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, cirrhosis of the liver History of Any Multi-Drug Resistant Organisms: None Reported Past Surgical History: Section, Joint Replacement Additional Past Surgical History / Comment(s): cataract surgery Past Anesthesia/Blood Transfusion Reactions: No Reported Reaction Past Psychological History: No Psychological Hx Reported Smoking Status: Current every day smoker, Heavy tobacco smoker Past Alcohol Use History: Daily Additional Past Alcohol Use History / Comment(s): 1 pack a day Past Drug Use History: None Reported - Past Family History Son(s) Family Medical History: No Reported History Daughter(s) Family Medical History: No Reported History Medications and Allergies Home Medications Medication Instructions Recorded Confirmed Type No Known Home Medications 07/02/22 07/02/22 History Allergies Allergy/AdvReac Type Severity Reaction Status Date / Time No Known Allergies Allergy Verified 07/02/22 22:45 Physical Exam Vitals: Vital Signs Temp Pulse Resp BP Pulse Ox 07/08/22 08:09 100 126/64 94 L 07/08/22 04:00 97.9 F 55 L 19 101/64 95 07/07/22 23:14 98.1 F 101 H 12 117/56 96 07/07/22 19:57 99.2 F 103 H 12 101/65 96 07/07/22 18:28 129/67 07/07/22 15:44 91 110/67 96 07/07/22 12:10 92 93/58 95 Intake and Output 07/07/22 07/08/22 07/08/22 22:59 06:59 14:59 Intake Total 540 Output Total 100 300 Balance -100 240 Intake: Oral 540 Output: Urine 100 300 Straight 100 Other: Voiding Method Diaper Diaper Indwelling Catheter Indwelling Catheter # Bowel Movements 3 1 Results CBC & Chem 7: 07/08/22 04:41 07/08/22 04:41 Labs: Abnormal Lab Results - Last 24 Hours (Table) 07/07/22 07/07/22 07/08/22 Range/Units 10:33 Unknown 04:41 WBC (3.8-10.6) k/uL Hct (34.0-46.0) % MCV (80.0-100.0) fL Plt Count (150-450) k/uL Neutrophils # (Manual) (1.3-7.7) k/uL Lymphocytes # (Manual) (1.0-4.8) k/uL Monocytes # (Manual) (0-1.0) k/uL Sodium 128 L (137-145) mmol/L Chloride 96 L (98-107) mmol/L Creatinine 0.42 L (0.52-1.04) mg/dL Calcium 7.6 L (8.4-10.2) mg/dL Stool Occult Blood Positive H (Negative) C. difficile (EIA) Intrp Positive A (Negative) 07/08/22 Range/Units 04:41 WBC 14.5 H (3.8-10.6) k/uL Hct 49.1 H (34.0-46.0) % MCV 105.1 H (80.0-100.0) fL Plt Count 51 L (150-450) k/uL Neutrophils # (Manual) 12.40 H (1.3-7.7) k/uL Lymphocytes # (Manual) 0.73 L (1.0-4.8) k/uL Monocytes # (Manual) 1.31 H (0-1.0) k/uL Sodium (137-145) mmol/L Chloride (98-107) mmol/L Creatinine (0.52-1.04) mg/dL Calcium (8.4-10.2) mg/dL Stool Occult Blood (Negative) C. difficile (EIA) Intrp (Negative) Microbiology - Last 24 Hours (Table) 07/07/22 10:38 Stool Culture - Preliminary Stool Assessment and Plan Plan: 1patient presented to hospital with generalized weakness no energy lower ex tremity swelling in this patient did have a positive UA however no significant urine symptoms possible asymptomatic bacteriuria now with evidence of active seizures we will discontinue her Rocephin. 2patient with diarrhea elevated white count and recent exposure to antibiotics clinic suspicious for C. difficile colitis. 3multiple hepatic cyst apparently has not changed over the last 6-year more likely representing benign and not an abscess. 4vancomycin 250 p.o. every 6 hours to continue and Rocephin has been discontinued We will follow on clinical condition and cultures to further adjust medication if needed Thank you for this consultation will follow this patient along with you Time with Patient: Greater than 30
[2022-07-09] MEDS: PANTOPRAZOLE 40 MG TABLET PO SCH (06:01)
[2022-07-09] MEDS: MIDODRINE 5 MG TAB PO SCH ×3 (06:01→16:29)
[2022-07-09] MEDS: THIAMINE 100 MG TAB PO SCH ×2 (06:01→16:29)
[2022-07-09 08:23] LABS: HCT 49.2 % (34.0-46.0); HGB 15.9 gm/dL (11.4-16.0); MCH 33.4 pg (25.0-35.0); MCHC 32.3 g/dL (31.0-37.0); MCV 103.4 fL (80.0-100.0); Macrocytosis Slight; Mean Platelet Volume 10.7; RBC 4.76 m/uL (3.80-5.40); RDW 12.7 % (11.5-15.5); WBC 8.3 k/uL (3.8-10.6)
[2022-07-09 08:39] LABS: Platelet Count 60 k/uL (150-450)
[2022-07-09 08:47] LABS: ALT 27 U/L (4-34); AST 42 U/L (14-36); African American GFR (CKD) >90 (>60 ml/min/1.73 sqM); Alkaline Phosphatase 57 U/L (38-126); Anion Gap 3 mmol/L; Bilirubin, Delta 0.2 mg/dL (0.0-0.2); Bilirubin,Unconjugated 0.6 mg/dL (0.0-1.1); Blood Urea Nitrogen 7 mg/dL (7-17); Calcium 7.6 mg/dL (8.4-10.2); Carbon Dioxide 27 mmol/L (22-30); Chloride 98 mmol/L (98-107); Glucose 101 mg/dL (74-99); Non-African American GFR(CKD) >90 (>60 ml/min/1.73 sqM); Sodium 128 mmol/L (137-145); Total Bilirubin 0.8 mg/dL (0.2-1.3); Total Protein 4.4 g/dL (6.3-8.2)
[2022-07-09 09:01] LABS: Potassium 4.8 mmol/L (3.5-5.1)
[2022-07-09] MEDS: SPIRONOLACTONE 25 MG TAB PO SCH ×3 (09:02→20:23)
[2022-07-09] MEDS: POTASSIUM CHLORIDE ER 20 MEQ TAB.ER PO SCH (09:02)
[2022-07-09] MEDS: NICOTINE 14MG/24HR PATCH TRANSDERM SCH (09:03)
[2022-07-09] MEDS: TAMSULOSIN 0.4 MG CAP.ER.24H PO SCH (09:03)
[2022-07-09] MEDS: VANCOMYCIN 125 MG CAPSULE PO SCH ×4 (09:03→20:18)
[2022-07-09 09:57] LABS: Lymphocytes # (M) 1.33 k/uL (1.0-4.8); Monocytes # (M) 0.83 k/uL (0-1.0); Neutrophils # (M) 6.14 k/uL (1.3-7.7); Neutrophils % (M) 74 %; Nucleated Red Blood Cells 0 /100 WBC (0-0); Total Cells Counted 100
[2022-07-09] MEDS ORDERED: FUROSEMIDE 10 MG/ML 4 ML VIAL IV STA (10:03)
--- NOTE | 2022-07-09 10:05 | P.PN ---
Subjective Patient is seen in follow-up for hyponatremia. Sodium level stable. Oral intake is just fair. No vomiting. Has loose stools. She has been drinking the ensure. Denies chest pain or shortness of breath. Has Bird catheter for urinary retention. Vital signs are stable. General: Awake. No acute distress. HEENT: Head exam is unremarkable. On nasal cannula. LUNGS: Breath sounds decreased. HEART: Rate and Rhythm are regular. ABDOMEN: Soft, mild distention. EXTREMITITES: No edema. Objective - Vital Signs Vital signs: Vital Signs Temp 98 F 07/08/22 19:50 Pulse 110 H 07/09/22 08:00 Resp 16 07/09/22 08:00 BP 110/60 07/09/22 05:15 Pulse Ox 95 07/09/22 05:15 FiO2 Intake & Output 07/08/22 07/09/22 07/09/22 18:59 06:59 18:59 Intake Total 2160 Output Total 271 500 Balance 1889 -500 Intake: Oral 1200 Other 960 Output: Urine 500 Stool 271 Other: Voiding Method Indwelling Catheter Indwelling Catheter Indwelling Catheter - Labs CBC & Chem 7: 07/09/22 07:17 07/09/22 07:17 Labs: Abnormal Lab Results - Last 24 Hours (Table) 07/09/22 07/09/22 Range/Units 07:17 07:17 Hct 49.2 H (34.0-46.0) % MCV 103.4 H (80.0-100.0) fL Plt Count 60 L (150-450) k/uL Sodium 128 L (137-145) mmol/L Creatinine 0.46 L (0.52-1.04) mg/dL Glucose 101 H (74-99) mg/dL Calcium 7.6 L (8.4-10.2) mg/dL AST 42 H (14-36) U/L Total Protein 4.4 L (6.3-8.2) g/dL Albumin 2.0 L (3.5-5.0) g/dL Assessment and Plan Plan: Assessment: 1. Hyponatremia. Hypervolemic. Component of poor solute intake. Urine osmolality 258. Urine sodium 85. TSH normal. Cortisol level 37. Sodium level stable at 128 today. She did receive IV Lasix and Samsca this admission. Also received IV fluids with no improvement in sodium level. Replaced. Better. 2. Hypokalemia from diuresis and poor intake. Replaced. Improved. 3. Chronic alcohol use. Ultrasound suggestive of hepatic cirrhosis. 4. Volume overload. Ascites present. Improved. Per radiology, not enough fluid present for paracentesis. Pleural effusions noted on MRI. 5. Non-gap metabolic acidosis from IV fluids. Stable. 6. Hypomagnesemia from poor intake and diuretics. Replaced. Improved. 7. UTI with urine culture positive for E. coli on antibiotics. 8. Urinary retention. 300 mL of urine obtained from straight catheterization. Currently has Bird catheter. On flomax. 9. C. diff colitis maintained on oral vancomycin. Plan: Maintain spironoactone. Status post Samsca yesterday. Lasix 40 mg IV once today. Maintain protein shakes 2-3 times daily. Maintain fluid restriction. Repeat labs in the morning. Maintain midodrine. Hold for systolic blood pressure greater than 115. Hep panel negative. Consider GI eval for the cirrhosis. MRI done.
--- NOTE | 2022-07-09 14:55 | P.PN ---
Subjective Progress Note Date: 07/09/22 Principal diagnosis: C. diff colitis Patient is a 71-year-old female with a past medical he significant for COPD hypertension liver disease presenting to the hospital about a week ago on 07/02/2022 for evaluation of bilateral lower extremity swelling fatigue and decreased appetite along with weight loss, patient did have a positive UA treated for UTI subsequently developing diarrhea and stool for C. diff is positive On today's evaluation that is 07/09/2022, the patient denies having any fever or any chills, the patient is breathing comfortably on nasal cannula oxygen denies any chest pain shortness of breath or cough patient diarrhea has slowed down and denies any urinary symptoms Objective - Vital Signs Vital signs: Vital Signs Temp 98 F 07/08/22 19:50 Pulse 109 H 07/09/22 11:35 Resp 16 07/09/22 11:35 BP 100/68 07/09/22 11:35 Pulse Ox 95 07/09/22 11:35 FiO2 Intake & Output 07/08/22 07/09/22 07/09/22 18:59 06:59 18:59 Intake Total 2160 480 Output Total 271 500 Balance 1889 -500 480 Intake: Oral 1200 480 Other 960 Output: Urine 500 Stool 271 Other: Voiding Method Indwelling Catheter Indwelling Catheter Indwelling Catheter - Exam GENERAL DESCRIPTION: An elderly female lying in bed in no distress RESPIRATORY SYSTEM: Unlabored breathing , decreased breath sounds at bases HEART: S1 S2 regular rate and rhythm , ABDOMEN: Soft , no tenderness EXTREMITIES: No edema feet - Labs CBC & Chem 7: 07/09/22 07:17 07/09/22 07:17 Labs: Abnormal Lab Results - Last 24 Hours (Table) 07/09/22 07/09/22 Range/Units 07:17 07:17 Hct 49.2 H (34.0-46.0) % MCV 103.4 H (80.0-100.0) fL Plt Count 60 L (150-450) k/uL Sodium 128 L (137-145) mmol/L Creatinine 0.46 L (0.52-1.04) mg/dL Glucose 101 H (74-99) mg/dL Calcium 7.6 L (8.4-10.2) mg/dL AST 42 H (14-36) U/L Total Protein 4.4 L (6.3-8.2) g/dL Albumin 2.0 L (3.5-5.0) g/dL Assessment and Plan (1) C. difficile colitis Current Visit: Yes Status: Acute Code(s): A04.72 - ENTEROCOLITIS D/T CLOSTRIDIUM DIFFICILE, NOT SPCF RECUR SNOMED Code(s): 691439331 Plan: 1patient presented to hospital with generalized weakness no energy lower extremity swelling in this patient did have a positive UA however no significant urine symptoms possible asymptomatic bacteriuria now with evidence of active C. diff colitis Rocephin was discontinued 2multiple hepatic cyst apparently has not changed over the last 6-year more likely representing benign and not an abscess. 3-patient with diarrhea elevated white count and recent exposure to antibiotics clinic suspicious for C. difficile colitis 4patient seemed to have a some clinical improvement and will continue with vancomycin 250 p.o. every 6 hours, avoid antimotility agents Time with Patient: Less than 30
[2022-07-09] MEDS: IPRATROPIUM-ALBUTEROL 3 ML NEB INHALATION SCH ×2 (15:46→19:36)
[2022-07-09] MEDS: guaiFENesin 600 MG TABLET.ER PO SCH ×2 (16:29→20:16)
--- NOTE | 2022-07-09 17:04 | P.PN ---
Subjective Progress Note Date: 07/09/22 Patient is on 71-year-old female came in with complaints of bilateral lower extremity edema patient also has ascites and abdominal distention. Patient does have history of chronic alcoholism. Patient says has a last drink was about a week ago. Patient used to drink a lot cut down on alcohol as per the patient. Patient denied any fever chills. Patient is found to have hyponatremia with serum sodium of around 123 presently when she came in it was 121 patient received IV fluids overnight. Aberrantly patient complained about fatigue and the decreased appetite and weight loss which she denied to me. Patient's liver enzymes are not significant elevated but does have mild elevation of INR to 1.3. 07/04/2022 Patient continues with generalized weakness. She had unwitnessed fall yesterday at around 1700. Patient states she was trying to ambulate to the window and she had slipped and fell. brain CT completed which is negative for acute changes or hemorrhage. Blood pressure currently in the 90s/60s, she is slightly tachycardic in the low 100s. Urinalysis questionable for infection she denies any dysuria, continues to be monitored off antibiotics. Urine culture showing gram negative bacilli multiple organisms. PT/OT has been consulted. Nephrology following for low sodium, received a dose of samsca yesterday, sodium today is now 126. Abdominal ultrasound showing liver cirrhosis, ascites, gallbladder wall thickening, 2.1 cm liver lesion. Platelet count 83, potassium 3.2. TSH normal. Blood pressure 97/55. 08/05/2022 Patient evaluated today resting in bed. Pending PT/OT evaluation. No acute events overnight. She does have a congested cough today, requiring nasal cannula at 2-3 Liters. White count today 11.9, hgb 16.6, sodium 127, potassium 3.2, BUN 10, creatinine 0.61, magnesium 1.7. Patient is receiving potassium and magnesium supplement. Urine culture showing E.Coli with 2 seperate colonies with no drug resistance, continues on IV ceftriaxone. Midodrine increased today to 10 TID and blood pressure is better at 112/71, afebrile, 97% oxygen. IR has been consulted for paracentesis for abdominal ascites. 07/06/2022 IR evaluated patient and felt not enough fluid to undergo paracentesis. White count today 11.4, sodium 126, potassium 3.2. Albumin is low at 1.9 which patient will receive albumin today. PT/OT is recommending subacute rehab on discharge. Blood pressure 108/72, patient continues on aldactone and PO lasix. Continues on IV ceftriaxone for E.Coli UTI. Patient has a wet cough and lungs are more congested today will order chest xray. 07/09/2022 Patient is resting in bed today with daughter at bedside. She is pending discharge to rehab. Was found to be positive for CDIF and continues on oral vancomycin. Infectious disease is following. Patient had chest xray completed yesterday around dinner time showing right pleural effusion with opacity and decreased lung volume, there is a possible partial collapse of right middle lobe. Patient is on 2L nasal cannula with oxygenation of 97%, she is afebrile. Heart rate is tachycardic at times in the low 100s. She does have incentive spirometer at bedside, needs assistance and encouragement to use. We will give bronchodilators and mucinex and encourage IS. Sodium today stable at 128. Review of Systems Constitutional: Denied any fatigue denied any fever. Cardio vascular: denied any chest pain, palpitations Gastrointestinal: denied any nausea, vomiting, diarrhea Pulmonary: Denied any shortness of breath, reports cough Neurologic denied any new focal deficits All inpatient medications were reviewed and appropriate changes in these medications as dictated in the interval history and assessment and plan. PHYSICAL EXAMINATION: GENERAL: The patient is alert and oriented x3, not in any acute distress. Well developed, well nourished. Thin built. HEENT: Pupils are round and equally reacting to light. EOMI. No scleral icterus. No conjunctival pallor. Normocephalic, atraumatic. No pharyngeal erythema. No thyromegaly. CARDIOVASCULAR: S1 and S2 present. No murmurs, rubs, or gallops. PULMONARY: Lungs are diminished, almost inaudible right mid lobe ABDOMEN: Soft, distended with fluid thrill, ascites, normoactive bowel sounds. No palpable organomegaly. MUSCULOSKELETAL: No joint swelling or deformity. EXTREMITIES: No cyanosis, clubbing, bilateral lower extremity edema extending up to ankles although extensive edema of both feet NEUROLOGICAL: Gross neurological examination did not reveal any focal deficits. SKIN: No rashes. Assessment and plan Assessment -C. Dif colitis -Liver cirrhosis, hepatitis panel negative, stable liver lesions most likely benign, stable from 6 years ago -Bilateral lower extremity edema and ascites secondary to above -hypervolemic hyponatremia secondary to cirrhosis, poor oral intake -E. Coli UTI completed course of antibiotic therapy -Urinary retention with indwelling catheter in place -Weight loss and appetite loss: Secondary to cirrhosis and chronic alcoholism -Hypokalemia secondary to diuresis, improved -Thrombocytopenia secondary to chronic alcoholism today is 60 -Chronic alcoholism: Counseling was provided -Nicotine abuse -Generalized weakness with fall DVT prophylaxis: Subcutaneous heparin held monitor platelet count GI prophylaxis: Protonix Full Code Plan Patient received lasix x1 today Continue midodrine per nephrology Continue fluid restriction Replace electrolytes Monitor for acute alcohol withdrawal Nicotine patch Repeat labs in AM GI follow up outpatient Subacute rehab when stable The impression and plan of care has been dictated by Betty Sotomayor, Nurse Practitioner as directed. Dr. Carroll MD I have performed a history and physical examination and medical decision making of this patient, discussed the same with the dictator, and agree with the dictators assessment and plan as written, documented as a scribe. Based on total visit time, I have performed more than 50% of this visit. Objective - Vital Signs Vital signs: Vital Signs Temp 98 F 07/08/22 19:50 Pulse 109 H 07/09/22 11:35 Resp 16 07/09/22 11:35 BP 100/68 07/09/22 11:35 Pulse Ox 95 07/09/22 11:35 FiO2 Intake & Output 07/08/22 07/09/22 07/09/22 18:59 06:59 18:59 Intake Total 2160 480 Output Total 271 500 Balance 1889 -500 480 Intake: Oral 1200 480 Other 960 Output: Urine 500 Stool 271 Other: Voiding Method Indwelling Catheter Indwelling Catheter Indwelling Catheter - Labs CBC & Chem 7: 07/09/22 07:17 07/09/22 07:17 Labs: Abnormal Lab Results - Last 24 Hours (Table) 07/09/22 07/09/22 Range/Units 07:17 07:17 Hct 49.2 H (34.0-46.0) % MCV 103.4 H (80.0-100.0) fL Plt Count 60 L (150-450) k/uL Sodium 128 L (137-145) mmol/L Creatinine 0.46 L (0.52-1.04) mg/dL Glucose 101 H (74-99) mg/dL Calcium 7.6 L (8.4-10.2) mg/dL AST 42 H (14-36) U/L Total Protein 4.4 L (6.3-8.2) g/dL Albumin 2.0 L (3.5-5.0) g/dL Assessment and Plan Time with Patient: Less than 30
[2022-07-10] MEDS: PANTOPRAZOLE 40 MG TABLET PO SCH (06:32)
[2022-07-10] MEDS: THIAMINE 100 MG TAB PO SCH ×2 (06:32→17:40)
[2022-07-10] MEDS: MIDODRINE 5 MG TAB PO SCH ×3 (06:32→17:40)
[2022-07-10] MEDS: IPRATROPIUM-ALBUTEROL 3 ML NEB INHALATION SCH ×4 (08:14→21:00)
[2022-07-10] MEDS: VANCOMYCIN 125 MG CAPSULE PO SCH ×4 (09:38→20:12)
[2022-07-10] MEDS: TAMSULOSIN 0.4 MG CAP.ER.24H PO SCH (09:38)
[2022-07-10] MEDS: SPIRONOLACTONE 25 MG TAB PO SCH ×2 (09:38→20:12)
[2022-07-10] MEDS: guaiFENesin 600 MG TABLET.ER PO SCH ×2 (09:38→20:12)
[2022-07-10] MEDS: POTASSIUM CHLORIDE ER 20 MEQ TAB.ER PO SCH (09:38)
[2022-07-10] MEDS: NICOTINE 14MG/24HR PATCH TRANSDERM SCH (09:39)
[2022-07-10 10:11] LABS: African American GFR (CKD) >90 (>60 ml/min/1.73 sqM); Anion Gap 3 mmol/L; Blood Urea Nitrogen 7 mg/dL (7-17); Calcium 7.3 mg/dL (8.4-10.2); Carbon Dioxide 28 mmol/L (22-30); Chloride 96 mmol/L (98-107); Glucose 114 mg/dL (74-99); Magnesium 1.9 mg/dL (1.6-2.3); Non-African American GFR(CKD) >90 (>60 ml/min/1.73 sqM); Potassium 4.4 mmol/L (3.5-5.1); Sodium 127 mmol/L (137-145)
[2022-07-10] MEDS ORDERED: SODIUM CHLORIDE TAB 1 GM TAB PO STA (11:21)
--- NOTE | 2022-07-10 11:21 | P.PN ---
Subjective Patient is seen for follow-up for hyponatremia. Patient had been hypovolemic initially and is status post Lasix. Earlier this admission she had also received IV fluids with no improvement in serum sodium level No reports of diarrhea Oral intake is fair Serum sodium at 127 today from 128 yesterday Indwelling Bird catheter present for urine retention Objective - Vital Signs Vital signs: Vital Signs Temp 97.6 F 07/10/22 04:00 Pulse 100 07/10/22 08:24 Resp 14 07/10/22 04:00 BP 96/64 07/10/22 04:00 Pulse Ox 92 L 07/10/22 04:00 FiO2 Intake & Output 07/09/22 07/10/22 07/10/22 18:59 06:59 18:59 Intake Total 480 Output Total 545 Balance 480 -545 Intake: Oral 480 Output: Urine 275 Stool 270 Other: Voiding Method Indwelling Catheter Indwelling Catheter # Bowel Movements 0 - Exam Awake, comfortable, not in any acute distress Examination of the heart S1 and S2 Examination lungs bilateral breath sounds are heard Abdomen is soft nontender Examination of the lower extremities shows no significant edema [employer]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 Hyponatremia associated with decrease solute intake. Patient has received Samsca previously when she was hypervolemic. Blood pressure is currently low 2. Hypokalemia from recent diuresis 3. UTI with urine culture positive for E. coli maintained on antibiotics 4. Urine retention with Bird catheter currently 5. C. diff colitis maintained on oral vancomycin 6. Chronic alcohol use with hepatic cirrhosis with evidence of portal hyper tension and ascites. Plan: Sodium chloride 1 g by mouth 1 today Continue to encourage increased oral intake particularly protein
--- NOTE | 2022-07-10 15:51 | P.PN ---
Subjective Progress Note Date: 07/10/22 Patient is on 71-year-old female came in with complaints of bilateral lower extremity edema patient also has ascites and abdominal distention. Patient does have history of chronic alcoholism. Patient says has a last drink was about a week ago. Patient used to drink a lot cut down on alcohol as per the patient. Patient denied any fever chills. Patient is found to have hyponatremia with serum sodium of around 123 presently when she came in it was 121 patient received IV fluids overnight. Aberrantly patient complained about fatigue and the decreased appetite and weight loss which she denied to me. Patient's liver enzymes are not significant elevated but does have mild elevation of INR to 1.3. 07/04/2022 Patient continues with generalized weakness. She had unwitnessed fall yesterday at around 1700. Patient states she was trying to ambulate to the window and she had slipped and fell. brain CT completed which is negative for acute changes or hemorrhage. Blood pressure currently in the 90s/60s, she is slightly tachycardic in the low 100s. Urinalysis questionable for infection she denies any dysuria, continues to be monitored off antibiotics. Urine culture showing gram negative bacilli multiple organisms. PT/OT has been consulted. Nephrology following for low sodium, received a dose of samsca yesterday, sodium today is now 126. Abdominal ultrasound showing liver cirrhosis, ascites, gallbladder wall thickening, 2.1 cm liver lesion. Platelet count 83, potassium 3.2. TSH normal. Blood pressure 97/55. 08/05/2022 Patient evaluated today resting in bed. Pending PT/OT evaluation. No acute events overnight. She does have a congested cough today, requiring nasal cannula at 2-3 Liters. White count today 11.9, hgb 16.6, sodium 127, potassium 3.2, BUN 10, creatinine 0.61, magnesium 1.7. Patient is receiving potassium and magnesium supplement. Urine culture showing E.Coli with 2 seperate colonies with no drug resistance, continues on IV ceftriaxone. Midodrine increased today to 10 TID and blood pressure is better at 112/71, afebrile, 97% oxygen. IR has been consulted for paracentesis for abdominal ascites. 07/06/2022 IR evaluated patient and felt not enough fluid to undergo paracentesis. White count today 11.4, sodium 126, potassium 3.2. Albumin is low at 1.9 which patient will receive albumin today. PT/OT is recommending subacute rehab on discharge. Blood pressure 108/72, patient continues on aldactone and PO lasix. Continues on IV ceftriaxone for E.Coli UTI. Patient has a wet cough and lungs are more congested today will order chest xray. 07/09/2022 Patient is resting in bed today with daughter at bedside. She is pending discharge to rehab. Was found to be positive for CDIF and continues on oral vancomycin. Infectious disease is following. Patient had chest xray completed yesterday around dinner time showing right pleural effusion with opacity and decreased lung volume, there is a possible partial collapse of right middle lobe. Patient is on 2L nasal cannula with oxygenation of 97%, she is afebrile. Heart rate is tachycardic at times in the low 100s. She does have incentive spirometer at bedside, needs assistance and encouragement to use. We will give bronchodilators and mucinex and encourage IS. Sodium today stable at 128. 07/10/2022 Patient today has sodium level of 127, she received a dose of oral sodium bicarbonate. Repeat BMP tomorrow. She does report breathing better today. Started on mucinex and bronchodilators. Will repeat Chest xray today she continues on nasal cannula at now 3L with sats 91 to 94%. Potassium stable, magnesium stable. Afebrile, heart rate 96, blood pressure on the lower side today 89/58. She is seeing infectious disease on PO vancomycin for C.Dif colitis reports 1 BM overnight. Review of Systems Constitutional: Denied any fatigue denied any fever. Cardio vascular: denied any chest pain, palpitations Gastrointestinal: denied any nausea, vomiting. Reports diarrhea x1 overnight. Pulmonary: Denied any shortness of breath, reports cough Neurologic denied any new focal deficits All inpatient medications were reviewed and appropriate changes in these medications as dictated in the interval history and assessment and plan. PHYSICAL EXAMINATION: GENERAL: The patient is alert and oriented x3, not in any acute distress. Well developed, well nourished. Thin built. HEENT: Pupils are round and equally reacting to light. EOMI. No scleral icterus. No conjunctival pallor. Normocephalic, atraumatic. No pharyngeal erythema. No thyromegaly. CARDIOVASCULAR: S1 and S2 present. No murmurs, rubs, or gallops. PULMONARY: Improved aeration, she does have some scattered rhonchi throughout. ABDOMEN: Soft, distended with fluid thrill, ascites, normoactive bowel sounds. No palpable organomegaly. MUSCULOSKELETAL: No joint swelling or deformity. EXTREMITIES: No cyanosis, clubbing, Peripheral edema has improved. Heels are boggy however they are blanchable. NEUROLOGICAL: Gross neurological examination did not reveal any focal deficits. SKIN: No rashes. Assessment and plan Assessment -C. Dif colitis -Liver cirrhosis, hepatitis panel negative, stable liver lesions most likely benign, stable from 6 years ago -Bilateral lower extremity edema which has improved and ascites secondary to above, -hypervolemic hyponatremia secondary to cirrhosis, poor oral intake -E. Coli UTI completed course of antibiotic therapy -Urinary retention with indwelling catheter in place -Weight loss and appetite loss: Secondary to cirrhosis and chronic alcoholism -Hypokalemia secondary to diuresis and poor oral intake, improved -Thrombocytopenia secondary to chronic alcoholism today is 60 -Chronic alcoholism: Counseling was provided -Nicotine abuse -Generalized weakness with fall DVT prophylaxis: Subcutaneous heparin held monitor platelet count GI prophylaxis: Protonix Full Code Plan Patient received a dose of oral sodium bicarbonate Continue midodrine per nephrology Continue fluid restriction 1200 cc Monitor for acute alcohol withdrawal Nicotine patch Repeat labs in AM GI follow up outpatient Subacute rehab when stable The impression and plan of care has been dictated by Betty Sotomayor, Nurse Practitioner as directed. Dr. Carroll MD I have performed a history and physical examination and medical decision making of this patient, discussed the same with the dictator, and agree with the dictators assessment and plan as written, documented as a scribe. Based on total visit time, I have performed more than 50% of this visit. Objective - Vital Signs Vital signs: Vital Signs Temp 97.6 F 07/10/22 04:00 Pulse 96 07/10/22 11:52 Resp 16 07/10/22 11:20 BP 89/58 07/10/22 11:20 Pulse Ox 94 L 07/10/22 11:20 FiO2 Intake & Output 07/09/22 07/10/22 07/10/22 18:59 06:59 18:59 Intake Total 480 Output Total 545 Balance 480 -545 Intake: Oral 480 Output: Urine 275 Stool 270 Other: Voiding Method Indwelling Catheter Indwelling Catheter Indwelling Catheter # Bowel Movements 0 - Labs CBC & Chem 7: 07/09/22 07:17 07/10/22 09:30 Labs: Abnormal Lab Results - Last 24 Hours (Table) 07/10/22 Range/Units 09:30 Sodium 127 L (137-145) mmol/L Chloride 96 L (98-107) mmol/L Creatinine 0.44 L (0.52-1.04) mg/dL Glucose 114 H (74-99) mg/dL Calcium 7.3 L (8.4-10.2) mg/dL Microbiology - Last 24 Hours (Table) 07/07/22 10:38 Stool Culture - Final Stool Assessment and Plan Time with Patient: Less than 30
--- NOTE | 2022-07-10 16:22 | XR ---
EXAMINATION TYPE: XR chest 1V portable DATE OF EXAM: 07/10/2022 COMPARISON: 07/08/2022 HISTORY: Hypoxia TECHNIQUE: Single frontal view of the chest is obtained. FINDINGS: There is a persistent opacity obscuring the right hemidiaphragm consistent with pleural ef fusion and possibly right lower lobe atelectasis or infiltrate. There is a retrocardiac opacity as we ll consistent with atelectasis or infiltrate. There is no pneumothorax. Heart is not enlarged and pulmonary vasculature is not congested. IMPRESSION: Acute cardiopulmonary disease as described above with no significant interval change. Th ere are bibasilar opacities and a moderate right pleural effusion.
[2022-07-11 06:44] LABS: African American GFR (CKD) >90 (>60 ml/min/1.73 sqM); Anion Gap 2 mmol/L; Blood Urea Nitrogen 7 mg/dL (7-17); Calcium 7.3 mg/dL (8.4-10.2); Carbon Dioxide 30 mmol/L (22-30); Chloride 94 mmol/L (98-107); Glucose 85 mg/dL (74-99); Non-African American GFR(CKD) >90 (>60 ml/min/1.73 sqM); Potassium 4.1 mmol/L (3.5-5.1); Sodium 126 mmol/L (137-145)
[2022-07-11] MEDS: PANTOPRAZOLE 40 MG TABLET PO SCH (06:57)
[2022-07-11] MEDS: MIDODRINE 5 MG TAB PO SCH ×3 (06:58→17:24)
[2022-07-11] MEDS: THIAMINE 100 MG TAB PO SCH ×2 (06:58→17:24)
[2022-07-11 07:28] LABS: HCT 43.6 % (34.0-46.0); HGB 14.2 gm/dL (11.4-16.0); MCH 33.8 pg (25.0-35.0); MCHC 32.6 g/dL (31.0-37.0); MCV 103.6 fL (80.0-100.0); Macrocytosis Slight; Mean Platelet Volume 9.1; RBC 4.21 m/uL (3.80-5.40); RDW 13.3 % (11.5-15.5); WBC 8.2 k/uL (3.8-10.6)
[2022-07-11 07:58] LABS: Platelet Count 85 k/uL (150-450)
[2022-07-11] MEDS: IPRATROPIUM-ALBUTEROL 3 ML NEB INHALATION SCH ×4 (08:03→20:09)
[2022-07-11] MEDS: NICOTINE 14MG/24HR PATCH TRANSDERM SCH (09:16)
[2022-07-11] MEDS: TAMSULOSIN 0.4 MG CAP.ER.24H PO SCH (09:17)
[2022-07-11] MEDS: guaiFENesin 600 MG TABLET.ER PO SCH ×2 (09:17→20:01)
[2022-07-11] MEDS: POTASSIUM CHLORIDE ER 20 MEQ TAB.ER PO SCH (09:17)
[2022-07-11] MEDS: VANCOMYCIN 125 MG CAPSULE PO SCH ×4 (09:17→20:01)
[2022-07-11] MEDS: SPIRONOLACTONE 25 MG TAB PO SCH ×2 (09:17→20:01)
[2022-07-11] MEDS ORDERED: TOLVAPTAN 15 MG 1/2 TABLET PO ONE (09:31)
[2022-07-11 09:51] LABS: Lymphocytes # (M) 1.39 k/uL (1.0-4.8); Monocytes # (M) 1.15 k/uL (0-1.0); Neutrophils # (M) 5.66 k/uL (1.3-7.7); Neutrophils % (M) 69 %; Nucleated Red Blood Cells 0 /100 WBC (0-0); Total Cells Counted 100
--- NOTE | 2022-07-11 10:58 | P.PN ---
Subjective Patient is seen for follow-up for hyponatremia. Patient had been hypovolemic initially and is status post Lasix. Earlier this admission she had also received IV fluids with no improvement in serum sodium level No reports of diarrhea Oral intake is fair Serum sodium at 126 today. Status post sodium chloride tab 1 g yesterday No significant complaints today Objective - Vital Signs Vital signs: Vital Signs Temp 97.1 F L 07/11/22 03:19 Pulse 104 H 07/11/22 08:16 Resp 16 07/11/22 03:19 BP 94/61 07/11/22 03:19 Pulse Ox 93 L 07/11/22 08:03 FiO2 21 07/11/22 08:03 Intake & Output 07/10/22 07/11/22 07/11/22 18:59 06:59 18:59 Intake Total 118 Output Total 225 470 Balance -107 -470 Intake: Oral 118 Output: Urine 225 200 Stool 270 Other: Voiding Method Indwelling Catheter Indwelling Catheter # Bowel Movements 1 - Exam Awake, comfortable, not in any acute distress Examination of the heart S1 and S2 Examination lungs bilateral breath sounds are heard Abdomen is soft nontender Examination of the lower extremities shows no significant edema 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 Hyponatremia associated with decrease solute intake. Patient has received Samsca previously when she was hypervolemic. Blood pressure is currently low. Status post sodium chloride tab 1 g yesterday with no improvement in serum sodium. 2. Hypokalemia from recent diuresis 3. UTI with urine culture positive for E. coli maintained on antibiotics 4. Urine retention with Bird catheter currently 5. C. diff colitis maintained on oral vancomycin 6. Chronic alcohol use with hepatic cirrhosis with evidence of portal hypertension and ascites. Plan: Samsca 15 mg 1 today Repeat sodium this afternoon Continue to encourage increased oral intake particularly protein
--- NOTE | 2022-07-11 13:20 | P.PN ---
Subjective Progress Note Date: 07/11/22 Patient is on 71-year-old female came in with complaints of bilateral lower extremity edema patient also has ascites and abdominal distention. Patient does have history of chronic alcoholism. Patient says has a last drink was about a week ago. Patient used to drink a lot cut down on alcohol as per the patient. Patient denied any fever chills. Patient is found to have hyponatremia with serum sodium of around 123 presently when she came in it was 121 patient received IV fluids overnight. Aberrantly patient complained about fatigue and the decreased appetite and weight loss which she denied to me. Patient's liver enzymes are not significant elevated but does have mild elevation of INR to 1.3. 07/04/2022 Patient continues with generalized weakness. She had unwitnessed fall yesterday at around 1700. Patient states she was trying to ambulate to the window and she had slipped and fell. brain CT completed which is negative for acute changes or hemorrhage. Blood pressure currently in the 90s/60s, she is slightly tachycardic in the low 100s. Urinalysis questionable for infection she denies any dysuria, continues to be monitored off antibiotics. Urine culture showing gram negative bacilli multiple organisms. PT/OT has been consulted. Nephrology following for low sodium, received a dose of samsca yesterday, sodium today is now 126. Abdominal ultrasound showing liver cirrhosis, ascites, gallbladder wall thickening, 2.1 cm liver lesion. Platelet count 83, potassium 3.2. TSH normal. Blood pressure 97/55. 08/05/2022 Patient evaluated today resting in bed. Pending PT/OT evaluation. No acute events overnight. She does have a congested cough today, requiring nasal cannula at 2-3 Liters. White count today 11.9, hgb 16.6, sodium 127, potassium 3.2, BUN 10, creatinine 0.61, magnesium 1.7. Patient is receiving potassium and magnesium supplement. Urine culture showing E.Coli with 2 seperate colonies with no drug resistance, continues on IV ceftriaxone. Midodrine increased today to 10 TID and blood pressure is better at 112/71, afebrile, 97% oxygen. IR has been consulted for paracentesis for abdominal ascites. 07/06/2022 IR evaluated patient and felt not enough fluid to undergo paracentesis. White count today 11.4, sodium 126, potassium 3.2. Albumin is low at 1.9 which patient will receive albumin today. PT/OT is recommending subacute rehab on discharge. Blood pressure 108/72, patient continues on aldactone and PO lasix. Continues on IV ceftriaxone for E.Coli UTI. Patient has a wet cough and lungs are more congested today will order chest xray. 07/09/2022 Patient is resting in bed today with daughter at bedside. She is pending discharge to rehab. Was found to be positive for CDIF and continues on oral vancomycin. Infectious disease is following. Patient had chest xray completed yesterday around dinner time showing right pleural effusion with opacity and decreased lung volume, there is a possible partial collapse of right middle lobe. Patient is on 2L nasal cannula with oxygenation of 97%, she is afebrile. Heart rate is tachycardic at times in the low 100s. She does have incentive spirometer at bedside, needs assistance and encouragement to use. We will give bronchodilators and mucinex and encourage IS. Sodium today stable at 128. 07/10/2022 Patient today has sodium level of 127, she received a dose of oral sodium bicarbonate. Repeat BMP tomorrow. She does report breathing better today. Started on mucinex and bronchodilators. Will repeat Chest xray today she continues on nasal cannula at now 3L with sats 91 to 94%. Potassium stable, magnesium stable. Afebrile, heart rate 96, blood pressure on the lower side today 89/58. She is seeing infectious disease on PO vancomycin for C.Dif colitis reports 1 BM overnight. 07/11/2022 Sodium level today is 126, she received oral sodium bicarbonate yesterday. Nephrology is following sodium level. Samsca x 1 given today. Patient does have poor oral intake. White count 8.2, potassium 4.1, chloride 94, BUN 7, creatinine 0.45, calcium 7.3. She is also on 1200 cc fluid restriction. She is also on aldactone for abdominal ascites. Remains on PO vancomycin for C.Dif colitis patient states she had 1 BM this morning and it was more formed. Plan is for ECF on discharge. Blood pressure continues 90/60s and she is on midodrine 10 mg TID. Review of Systems Constitutional: Denied any fatigue denied any fever. Cardio vascular: denied any chest pain, palpitations Gastrointestinal: denied any nausea, vomiting. Pulmonary: Denied any shortness of breath, reports cough Neurologic denied any new focal deficits All inpatient medications were reviewed and appropriate changes in these medications as dictated in the interval history and assessment and plan. PHYSICAL EXAMINATION: GENERAL: The patient is alert and oriented x3, not in any acute distress. Well developed, well nourished. Thin built. HEENT: Pupils are round and equally reacting to light. EOMI. No scleral icterus. No conjunctival pallor. Normocephalic, atraumatic. No pharyngeal erythema. No thyromegaly. CARDIOVASCULAR: S1 and S2 present. No murmurs, rubs, or gallops. PULMONARY: Improved aeration, she does have some scattered rhonchi throughout. ABDOMEN: Soft, distended with fluid thrill, ascites, normoactive bowel sounds. No palpable organomegaly. MUSCULOSKELETAL: No joint swelling or deformity. EXTREMITIES: No cyanosis, clubbing, Peripheral edema has improved. Heels are boggy however they are blanchable. NEUROLOGICAL: Gross neurological examination did not reveal any focal deficits. SKIN: No rashes. Assessment and plan Assessment -C. Dif colitis, improving bowls are becoming formed -Liver cirrhosis, hepatitis panel negative, stable liver lesions most likely benign, stable from 6 years ago -Bilateral lower extremity edema which has improved and ascites secondary to above, -hypervolemic hyponatremia secondary to cirrhosis, poor oral intake -E. Coli UTI completed course of antibiotic therapy -Urinary retention with indwelling catheter in place -Weight loss and appetite loss: Secondary to cirrhosis and chronic alcoholism -Hypokalemia secondary to diuresis and poor oral intake, improved -Thrombocytopenia secondary to chronic alcoholism today is 85 -Chronic alcoholism: Counseling was provided -Nicotine abuse -Generalized weakness with fall DVT prophylaxis: Subcutaneous heparin held monitor platelet count GI prophylaxis: Protonix Full Code Plan Samsca x 1 today Continue midodrine per nephrology Continue fluid restriction 1200 cc Monitor for acute alcohol withdrawal Nicotine patch Repeat labs in AM GI follow up outpatient Subacute rehab when stable The impression and plan of care has been dictated by Betty Sotomayor, Nurse Practitioner as directed. Dr. Carroll MD I have performed a history and physical examination and medical decision making of this patient, discussed the same with the dictator, and agree with the dictators assessment and plan as written, documented as a scribe. Based on total visit time, I have performed more than 50% of this visit. Objective - Vital Signs Vital signs: Vital Signs Temp 97.1 F L 07/11/22 03:19 Pulse 104 H 07/11/22 08:16 Resp 16 07/11/22 03:19 BP 94/61 07/11/22 03:19 Pulse Ox 93 L 07/11/22 08:03 FiO2 21 07/11/22 08:03 Intake & Output 07/10/22 07/11/22 07/11/22 18:59 06:59 18:59 Intake Total 118 Output Total 225 470 Balance -107 -470 Intake: Oral 118 Output: Urine 225 200 Stool 270 Other: Voiding Method Indwelling Catheter Indwelling Catheter # Bowel Movements 1 - Labs CBC & Chem 7: 07/11/22 05:54 07/11/22 05:54 Labs: Abnormal Lab Results - Last 24 Hours (Table) 07/10/22 07/11/22 07/11/22 Range/Units 09:30 05:54 05:54 MCV 103.6 H (80.0-100.0) fL Sodium 127 L 126 L (137-145) mmol/L Chloride 96 L 94 L (98-107) mmol/L Creatinine 0.44 L 0.45 L (0.52-1.04) mg/dL Glucose 114 H (74-99) mg/dL Calcium 7.3 L 7.3 L (8.4-10.2) mg/dL Microbiology - Last 24 Hours (Table) 07/07/22 10:38 Stool Culture - Preliminary Stool Assessment and Plan Time with Patient: Less than 30
--- NOTE | 2022-07-11 17:17 | P.PN ---
Subjective Progress Note Date: 07/10/22 Principal diagnosis: C. diff colitis Patient is a 71-year-old female with a past medical he significant for COPD hypertension liver disease presenting to the hospital about a week ago on 07/02/2022 for evaluation of bilateral lower extremity swelling fatigue and decreased appetite along with weight loss, patient did have a positive UA treated for UTI subsequently developing diarrhea and stool for C. diff is positive On today's evaluation that is 07/10/2022, the patient remains to be afebrile, the patient is breathing comfortably on nasal cannula oxygen, the patient denies any chest pain shortness of breath or cough patient diarrhea has slowed down and denies any urinary symptoms Objective - Vital Signs Vital signs: Vital Signs Temp 97.6 F 07/10/22 04:00 Pulse 96 07/10/22 11:52 Resp 16 07/10/22 11:20 BP 89/58 07/10/22 11:20 Pulse Ox 94 L 07/10/22 11:20 FiO2 Intake & Output 07/09/22 07/10/22 07/10/22 18:59 06:59 18:59 Intake Total 480 Output Total 545 Balance 480 -545 Intake: Oral 480 Output: Urine 275 Stool 270 Other: Voiding Method Indwelling Catheter Indwelling Catheter Indwelling Catheter # Bowel Movements 0 - Exam GENERAL DESCRIPTION: An elderly female lying in bed in no distress RESPIRATORY SYSTEM: Unlabored breathing , decreased breath sounds at bases HEART: S1 S2 regular rate and rhythm , ABDOMEN: Soft , no tenderness EXTREMITIES: No edema feet - Labs CBC & Chem 7: 07/11/22 05:54 07/11/22 15:27 Labs: Abnormal Lab Results - Last 24 Hours (Table) 07/10/22 Range/Units 09:30 Sodium 127 L (137-145) mmol/L Chloride 96 L (98-107) mmol/L Creatinine 0.44 L (0.52-1.04) mg/dL Glucose 114 H (74-99) mg/dL Calcium 7.3 L (8.4-10.2) mg/dL Microbiology - Last 24 Hours (Table) 07/07/22 10:38 Stool Culture - Final Stool Assessment and Plan (1) C. difficile colitis Current Visit: Yes Status: Acute Code(s): A04.72 - ENTEROCOLITIS D/T CLOSTRIDIUM DIFFICILE, NOT SPCF RECUR SNOMED Code(s): 296480281 Plan: 1patient presented to hospital with generalized weakness no energy lower extremity swelling in this patient did have a positive UA however no significant urine symptoms possible asymptomatic bacteriuria now with evidence of active C. diff colitis Rocephin was discontinued 2multiple hepatic cyst apparently has not changed over the last 6-year more likely representing benign and not an abscess. 3-patient with diarrhea elevated white count and recent exposure to antibiotics likely secondary to C. difficile colitis 4patient did have some clinical improvement and will continue with vancomycin 250 p.o. every 6 hours, and monitor clinical course closely Time with Patient: Less than 30
--- NOTE | 2022-07-11 17:18 | P.PN ---
Subjective Progress Note Date: 07/11/22 Principal diagnosis: C. diff colitis Patient is a 71-year-old female with a past medical he significant for COPD hypertension liver disease presenting to the hospital about a week ago on 07/02/2022 for evaluation of bilateral lower extremity swelling fatigue and decreased appetite along with weight loss, patient did have a positive UA treated for UTI subsequently developing diarrhea and stool for C. diff is positive On today's evaluation that is 07/11/2022, the patient denies any fever or any chills, the patient is breathing comfortably on nasal cannula oxygen, the patient denies any chest pain shortness of breath or cough patient denies having any abdominal pain however still having diarrhea per the nurse aide about 3 episodes today Objective - Vital Signs Vital signs: Vital Signs Temp 96.6 F L 07/11/22 08:10 Pulse 100 07/11/22 12:02 Resp 16 07/11/22 14:20 BP 99/63 07/11/22 12:00 Pulse Ox 99 07/11/22 12:00 FiO2 21 07/11/22 08:03 Intake & Output 07/10/22 07/11/22 07/11/22 18:59 06:59 18:59 Intake Total 118 237 Output Total 225 470 150 Balance -107 -470 87 Intake: Oral 118 237 Output: Urine 225 200 150 Stool 270 Other: Voiding Method Indwelling Catheter Indwelling Catheter Indwelling Catheter # Bowel Movements 1 - Exam GENERAL DESCRIPTION: An elderly female lying in bed in no distress RESPIRATORY SYSTEM: Unlabored breathing , decreased breath sounds at bases HEART: S1 S2 regular rate and rhythm , ABDOMEN: Soft , no tenderness EXTREMITIES: No edema feet - Labs CBC & Chem 7: 07/11/22 05:54 07/11/22 15:27 Labs: Abnormal Lab Results - Last 24 Hours (Table) 07/11/22 07/11/22 07/11/22 Range/Units 05:54 05:54 15:27 MCV 103.6 H (80.0-100.0) fL Plt Count 85 L (150-450) k/uL Monocytes # (Manual) 1.15 H (0-1.0) k/uL Sodium 126 L 128 L (137-145) mmol/L Chloride 94 L (98-107) mmol/L Creatinine 0.45 L (0.52-1.04) mg/dL Calcium 7.3 L (8.4-10.2) mg/dL Microbiology - Last 24 Hours (Table) 07/07/22 10:38 Stool Culture - Preliminary Stool Assessment and Plan (1) C. difficile colitis Current Visit: Yes Status: Acute Code(s): A04.72 - ENTEROCOLITIS D/T CLOSTRIDIUM DIFFICILE, NOT SPCF RECUR SNOMED Code(s): 337465118 Plan: 1patient presented to hospital with generalized weakness no energy lower extremity swelling in this patient did have a positive UA however no significant urine symptoms possible asymptomatic bacteriuria now with evidence of active C. diff colitis Rocephin was discontinued 2multiple hepatic cyst apparently has not changed over the last 6-year more likely representing benign and not an abscess. 3-patient with diarrhea elevated white count and recent exposure to antibiotics likely secondary to C. difficile colitis 4patient seemed to have significant diarrhea we will add Questran for symptomatic relief and continue with oral vancomycin Time with Patient: Less than 30
[2022-07-11] MEDS: CHOLESTYRAMINE (WITH SUGAR) 4 GM PACKET PO SCH (20:01)
[2022-07-11 20:43] LABS: Glucose,Whole Blood 112 mg/dL (70-110)
[2022-07-12 06:10] LABS: Glucose,Whole Blood 89 mg/dL (70-110)
[2022-07-12] MEDS: THIAMINE 100 MG TAB PO SCH ×2 (06:26→17:32)
[2022-07-12] MEDS: MIDODRINE 5 MG TAB PO SCH ×3 (06:26→17:31)
[2022-07-12] MEDS: PANTOPRAZOLE 40 MG TABLET PO SCH (06:26)
[2022-07-12] MEDS: IPRATROPIUM-ALBUTEROL 3 ML NEB INHALATION SCH ×4 (07:34→20:26)
[2022-07-12 08:26] LABS: African American GFR (CKD) >90 (>60 ml/min/1.73 sqM); Anion Gap 2 mmol/L; Blood Urea Nitrogen 5 mg/dL (7-17); Calcium 7.5 mg/dL (8.4-10.2); Carbon Dioxide 28 mmol/L (22-30); Chloride 99 mmol/L (98-107); Glucose 86 mg/dL (74-99); Magnesium 1.9 mg/dL (1.6-2.3); Non-African American GFR(CKD) >90 (>60 ml/min/1.73 sqM); Potassium 4.1 mmol/L (3.5-5.1); Sodium 129 mmol/L (137-145)
[2022-07-12] MEDS: TAMSULOSIN 0.4 MG CAP.ER.24H PO SCH (09:48)
[2022-07-12] MEDS: NICOTINE 14MG/24HR PATCH TRANSDERM SCH (09:48)
[2022-07-12] MEDS: POTASSIUM CHLORIDE ER 20 MEQ TAB.ER PO SCH (09:48)
[2022-07-12] MEDS: guaiFENesin 600 MG TABLET.ER PO SCH ×2 (09:48→20:07)
[2022-07-12] MEDS: VANCOMYCIN 125 MG CAPSULE PO SCH ×4 (09:48→20:07)
[2022-07-12] MEDS: CHOLESTYRAMINE (WITH SUGAR) 4 GM PACKET PO SCH ×2 (09:48→17:32)
[2022-07-12] MEDS: SPIRONOLACTONE 25 MG TAB PO SCH ×2 (09:49→20:07)
--- NOTE | 2022-07-12 10:08 | P.PN ---
Subjective Patient is seen for follow-up for hyponatremia. Patient had been hypovolemic initially and is status post Lasix. Earlier this admission she had also received IV fluids with no improvement in serum sodium level No reports of diarrhea Oral intake is fair Serum sodium was 126 yesterday and patient received a dose of Samsca. Sodium has improved to 129 today. Patient continues to have good oral intake Objective - Vital Signs Vital signs: Vital Signs Temp 98.8 F 07/11/22 20:00 Pulse 108 H 07/12/22 04:00 Resp 16 07/12/22 04:00 BP 99/71 07/12/22 04:00 Pulse Ox 95 07/12/22 04:00 FiO2 21 07/11/22 08:03 Intake & Output 07/11/22 07/12/22 07/12/22 18:59 06:59 18:59 Intake Total 237 237 Output Total 1150 1875 Balance -922 -6361 Intake: Oral 237 237 Output: Urine 1150 1875 Other: Voiding Method Indwelling Catheter Indwelling Catheter # Bowel Movements 3 - Exam Awake, comfortable, not in any acute distress Abdomen is soft nontender Examination of the lower extremities shows no significant edema [employer] exam grossly intact - Labs CBC & Chem 7: 07/11/22 05:54 07/12/22 06:50 Labs: Abnormal Lab Results - Last 24 Hours (Table) 07/11/22 07/11/22 07/12/22 Range/Units 15:27 20:41 06:50 Sodium 128 L 129 L (137-145) mmol/L BUN 5 L (7-17) mg/dL Creatinine 0.39 L (0.52-1.04) mg/dL POC Glucose (mg/dL) 112 H (70-110) mg/dL Calcium 7.5 L (8.4-10.2) mg/dL Assessment and Plan Assessment: 1. Hyponatremia associated with decrease solute intake. Improving with Samsca 2. Hypokalemia from recent diuresis 3. UTI with urine culture positive for E. coli maintained on antibiotics 4. Urine retention with Bird catheter currently 5. C. diff colitis maintained on oral vancomycin 6. Chronic alcohol use with hepatic cirrhosis with evidence of portal hypertension and ascites. Plan: Repeat Samsca 15 mg 1 today Repeat sodium in a.m. Continue to encourage increased oral intake particularly protein
[2022-07-12] MEDS ORDERED: TOLVAPTAN 15 MG 1/2 TABLET PO ONE (10:30)
[2022-07-12 11:47] LABS: Glucose,Whole Blood 108 mg/dL (70-110)
[2022-07-12 16:43] LABS: Glucose,Whole Blood 138 mg/dL (70-110)
--- NOTE | 2022-07-12 17:33 | P.PN ---
Subjective Progress Note Date: 07/12/22 Patient is on 71-year-old female came in with complaints of bilateral lower extremity edema patient also has ascites and abdominal distention. Patient does have history of chronic alcoholism. Patient says has a last drink was about a week ago. Patient used to drink a lot cut down on alcohol as per the patient. Patient denied any fever chills. Patient is found to have hyponatremia with serum sodium of around 123 presently when she came in it was 121 patient received IV fluids overnight. Aberrantly patient complained about fatigue and the decreased appetite and weight loss which she denied to me. Patient's liver enzymes are not significant elevated but does have mild elevation of INR to 1.3. 07/04/2022 Patient continues with generalized weakness. She had unwitnessed fall yesterday at around 1700. Patient states she was trying to ambulate to the window and she had slipped and fell. brain CT completed which is negative for acute changes or hemorrhage. Blood pressure currently in the 90s/60s, she is slightly tachycardic in the low 100s. Urinalysis questionable for infection she denies any dysuria, continues to be monitored off antibiotics. Urine culture showing gram negative bacilli multiple organisms. PT/OT has been consulted. Nephrology following for low sodium, received a dose of samsca yesterday, sodium today is now 126. Abdominal ultrasound showing liver cirrhosis, ascites, gallbladder wall thickening, 2.1 cm liver lesion. Platelet count 83, potassium 3.2. TSH normal. Blood pressure 97/55. 08/05/2022 Patient evaluated today resting in bed. Pending PT/OT evaluation. No acute events overnight. She does have a congested cough today, requiring nasal cannula at 2-3 Liters. White count today 11.9, hgb 16.6, sodium 127, potassium 3.2, BUN 10, creatinine 0.61, magnesium 1.7. Patient is receiving potassium and magnesium supplement. Urine culture showing E.Coli with 2 seperate colonies with no drug resistance, continues on IV ceftriaxone. Midodrine increased today to 10 TID and blood pressure is better at 112/71, afebrile, 97% oxygen. IR has been consulted for paracentesis for abdominal ascites. 07/06/2022 IR evaluated patient and felt not enough fluid to undergo paracentesis. White count today 11.4, sodium 126, potassium 3.2. Albumin is low at 1.9 which patient will receive albumin today. PT/OT is recommending subacute rehab on discharge. Blood pressure 108/72, patient continues on aldactone and PO lasix. Continues on IV ceftriaxone for E.Coli UTI. Patient has a wet cough and lungs are more congested today will order chest xray. 07/09/2022 Patient is resting in bed today with daughter at bedside. She is pending discharge to rehab. Was found to be positive for CDIF and continues on oral vancomycin. Infectious disease is following. Patient had chest xray completed yesterday around dinner time showing right pleural effusion with opacity and decreased lung volume, there is a possible partial collapse of right middle lobe. Patient is on 2L nasal cannula with oxygenation of 97%, she is afebrile. Heart rate is tachycardic at times in the low 100s. She does have incentive spirometer at bedside, needs assistance and encouragement to use. We will give bronchodilators and mucinex and encourage IS. Sodium today stable at 128. 07/10/2022 Patient today has sodium level of 127, she received a dose of oral sodium bicarbonate. Repeat BMP tomorrow. She does report breathing better today. Started on mucinex and bronchodilators. Will repeat Chest xray today she continues on nasal cannula at now 3L with sats 91 to 94%. Potassium stable, magnesium stable. Afebrile, heart rate 96, blood pressure on the lower side today 89/58. She is seeing infectious disease on PO vancomycin for C.Dif colitis reports 1 BM overnight. 07/11/2022 Sodium level today is 126, she received oral sodium bicarbonate yesterday. Nephrology is following sodium level. Samsca x 1 given today. Patient does have poor oral intake. White count 8.2, potassium 4.1, chloride 94, BUN 7, creatinine 0.45, calcium 7.3. She is also on 1200 cc fluid restriction. She is also on aldactone for abdominal ascites. Remains on PO vancomycin for C.Dif colitis patient states she had 1 BM this morning and it was more formed. Plan is for ECF on discharge. Blood pressure continues 90/60s and she is on midodrine 10 mg TID. 07/12/2022 Patient evaluated today sitting up in chair with daughter at the bedside. She is more alert and she is feeling well. She denies shortness of breath, states she has had an increase in appetite. She would like to keep the catheter one more day and DC tomorrow. She received a dose of samsca yesterday and sodium level today is 129. She received a 15 mg dose of samsca today, repeat sodium level tomorrow. Nephrology is following. She continues on 1200 fluid restriction. Pending ECF placement. Review of Systems Constitutional: Denied any fatigue denied any fever. Cardio vascular: denied any chest pain, palpitations Gastrointestinal: denied any nausea, vomiting. Pulmonary: Denied any shortness of breath, no cough Neurologic denied any new focal deficits All inpatient medications were reviewed and appropriate changes in these medications as dictated in the interval history and assessment and plan. PHYSICAL EXAMINATION: GENERAL: The patient is alert and oriented x3, not in any acute distress. Well developed, well nourished. Thin built. HEENT: Pupils are round and equally reacting to light. EOMI. No scleral icterus. No conjunctival pallor. Normocephalic, atraumatic. No pharyngeal erythema. No thyromegaly. CARDIOVASCULAR: S1 and S2 present. No murmurs, rubs, or gallops. PULMONARY: Lungs are clear, diminished right base ABDOMEN: Soft, distended with fluid thrill, ascites, normoactive bowel sounds. No palpable organomegaly. MUSCULOSKELETAL: No joint swelling or deformity. EXTREMITIES: No cyanosis, clubbing, Peripheral edema has improved. Heels are boggy however they are blanchable. NEUROLOGICAL: Gross neurological examination did not reveal any focal deficits. SKIN: No rashes. Assessment and plan Assessment -C. Dif colitis, improving bowls are becoming formed -Liver cirrhosis, hepatitis panel negative, stable liver lesions most likely benign, stable from 6 years ago -Bilateral lower extremity edema which has improved and ascites secondary to above, -hypervolemic hyponatremia secondary to cirrhosis, poor oral intake -E. Coli UTI completed course of antibiotic therapy -Urinary retention with indwelling catheter in place -Weight loss and appetite loss: Secondary to cirrhosis and chronic alcoholism -Hypokalemia secondary to diuresis and poor oral intake, improved -Thrombocytopenia secondary to chronic alcoholism -Chronic alcoholism: Counseling was provided -Nicotine abuse -Generalized weakness with fall DVT prophylaxis: Subcutaneous heparin held monitor platelet count GI prophylaxis: Protonix Full Code Plan Samsca x 1 today Continue midodrine per nephrology Continue fluid restriction 1200 cc Monitor for acute alcohol withdrawal Nicotine patch Repeat labs in AM GI follow up outpatient Pending ECF placement, patient clinically is improving and possible DC to rehab in next 24 to 48 hours. The impression and plan of care has been dictated by Betty Sotomayor, Nurse Practitioner as directed. Dr. Carroll MD I have performed a history and physical examination and medical decision making of this patient, discussed the same with the dictator, and agree with the dictators assessment and plan as written, documented as a scribe. Based on total visit time, I have performed more than 50% of this visit. Objective - Vital Signs Vital signs: Vital Signs Temp 96.4 F L 07/12/22 12:05 Pulse 95 07/12/22 16:30 Resp 16 07/12/22 16:00 BP 87/57 07/12/22 16:00 Pulse Ox 92 L 07/12/22 16:20 FiO2 21 07/11/22 08:03 Intake & Output 07/11/22 07/12/22 07/12/22 18:59 06:59 18:59 Intake Total 237 237 360 Output Total 1150 1875 Balance -913 -1638 360 Intake: Oral 237 237 360 Output: Urine 1150 1875 Other: Voiding Method Indwelling Catheter Indwelling Catheter Indwelling Catheter # Bowel Movements 3 1 - Labs CBC & Chem 7: 07/11/22 05:54 07/12/22 06:50 Labs: Abnormal Lab Results - Last 24 Hours (Table) 07/11/22 07/12/22 07/12/22 Range/Units 20:41 06:50 16:41 Sodium 129 L (137-145) mmol/L BUN 5 L (7-17) mg/dL Creatinine 0.39 L (0.52-1.04) mg/dL POC Glucose (mg/dL) 112 H 138 H (70-110) mg/dL Calcium 7.5 L (8.4-10.2) mg/dL Assessment and Plan Time with Patient: Less than 30
[2022-07-13] MEDS: PANTOPRAZOLE 40 MG TABLET PO SCH (06:16)
[2022-07-13] MEDS: THIAMINE 100 MG TAB PO SCH ×2 (06:16→20:23)
[2022-07-13] MEDS: MIDODRINE 5 MG TAB PO SCH ×3 (06:16→20:23)
[2022-07-13] MEDS: guaiFENesin 600 MG TABLET.ER PO SCH ×2 (07:32→20:23)
[2022-07-13] MEDS: NICOTINE 14MG/24HR PATCH TRANSDERM SCH (07:32)
[2022-07-13] MEDS: TAMSULOSIN 0.4 MG CAP.ER.24H PO SCH (07:32)
[2022-07-13] MEDS: SPIRONOLACTONE 25 MG TAB PO SCH ×2 (07:32→20:23)
[2022-07-13] MEDS: POTASSIUM CHLORIDE ER 20 MEQ TAB.ER PO SCH (07:32)
[2022-07-13] MEDS: VANCOMYCIN 125 MG CAPSULE PO SCH ×4 (07:32→23:09)
--- NOTE | 2022-07-13 08:13 | P.PN ---
Subjective Progress Note Date: 07/12/22 Principal diagnosis: C. diff colitis Patient is a 71-year-old female with a past medical he significant for COPD hypertension liver disease presenting to the hospital about a week ago on 07/02/2022 for evaluation of bilateral lower extremity swelling fatigue and decreased appetite along with weight loss, patient did have a positive UA treated for UTI subsequently developing diarrhea and stool for C. diff is positive On today's evaluation that is 07/12/2022, the patient continues to be febrile, the patient is breathing comfortably on nasal cannula oxygen, the patient denies any chest pain shortness of breath or cough patient denies having abdominal pain and mentioned that the diarrhea has slowed down Objective - Vital Signs Vital signs: Vital Signs Temp 97.8 F 07/12/22 20:00 Pulse 92 07/12/22 20:40 Resp 16 07/12/22 20:00 BP 97/61 07/12/22 20:00 Pulse Ox 93 L 07/12/22 20:00 FiO2 21 07/11/22 08:03 Intake & Output 07/12/22 07/12/22 07/13/22 06:59 18:59 06:59 Intake Total 237 480 Output Total 1875 1050 Balance -7810 -570 Intake: Oral 237 480 Output: Urine 1875 1050 Other: Voiding Method Indwelling Catheter Indwelling Catheter Indwelling Catheter # Voids 1 # Bowel Movements 3 1 - Exam GENERAL DESCRIPTION: An elderly female lying in bed in no distress RESPIRATORY SYSTEM: Unlabored breathing , decreased breath sounds at bases HEART: S1 S2 regular rate and rhythm , ABDOMEN: Soft , no tenderness EXTREMITIES: No edema feet - Labs CBC & Chem 7: 07/11/22 05:54 07/12/22 18:14 Labs: Abnormal Lab Results - Last 24 Hours (Table) 07/12/22 07/12/22 07/12/22 Range/Units 06:50 16:41 18:14 Sodium 129 L 130 L (137-145) mmol/L BUN 5 L (7-17) mg/dL Creatinine 0.39 L (0.52-1.04) mg/dL POC Glucose (mg/dL) 138 H (70-110) mg/dL Calcium 7.5 L (8.4-10.2) mg/dL Assessment and Plan (1) C. difficile colitis Current Visit: Yes Status: Acute Code(s): A04.72 - ENTEROCOLITIS D/T CLOSTRIDIUM DIFFICILE, NOT SPCF RECUR SNOMED Code(s): 667237594 Plan: 1patient presented to hospital with generalized weakness no energy lower extremity swelling in this patient did have a positive UA however no significant urine symptoms possible asymptomatic bacteriuria now with evidence of active C. diff colitis Rocephin was discontinued 2multiple hepatic cyst apparently has not changed over the last 6-year more l ikely representing benign and not an abscess. 3-patient with diarrhea elevated white count and recent exposure to antibiotics likely secondary to C. difficile colitis 4patient seemed to have shown some clinical improvement and will continue with Questran for symptomatic relief and continue with oral vancomycin Time with Patient: Less than 30
[2022-07-13] MEDS: IPRATROPIUM-ALBUTEROL 3 ML NEB INHALATION SCH ×4 (08:21→19:24)
[2022-07-13] MEDS: CHOLESTYRAMINE (WITH SUGAR) 4 GM PACKET PO SCH ×2 (10:32→20:23)
--- NOTE | 2022-07-14 00:13 | P.PN ---
Subjective Progress Note Date: 07/13/22 Patient is on 71-year-old female came in with complaints of bilateral lower extremity edema patient also has ascites and abdominal distention. Patient does have history of chronic alcoholism. Patient says has a last drink was about a week ago. Patient used to drink a lot cut down on alcohol as per the patient. Patient denied any fever chills. Patient is found to have hyponatremia with serum sodium of around 123 presently when she came in it was 121 patient received IV fluids overnight. Aberrantly patient complained about fatigue and the decreased appetite and weight loss which she denied to me. Patient's liver enzymes are not significant elevated but does have mild elevation of INR to 1.3. 07/04/2022 Patient continues with generalized weakness. She had unwitnessed fall yesterday at around 1700. Patient states she was trying to ambulate to the window and she had slipped and fell. brain CT completed which is negative for acute changes or hemorrhage. Blood pressure currently in the 90s/60s, she is slightly tachycardic in the low 100s. Urinalysis questionable for infection she denies any dysuria, continues to be monitored off antibiotics. Urine culture showing gram negative bacilli multiple organisms. PT/OT has been consulted. Nephrology following for low sodium, received a dose of samsca yesterday, sodium today is now 126. Abdominal ultrasound showing liver cirrhosis, ascites, gallbladder wall thickening, 2.1 cm liver lesion. Platelet count 83, potassium 3.2. TSH normal. Blood pressure 97/55. 07/05/2022 Patient evaluated today resting in bed. Pending PT/OT evaluation. No acute events overnight. She does have a congested cough today, requiring nasal cannula at 2-3 Liters. White count today 11.9, hgb 16.6, sodium 127, potassium 3.2, BUN 10, creatinine 0.61, magnesium 1.7. Patient is receiving potassium and magnesium supplement. Urine culture showing E.Coli with 2 seperate colonies with no drug resistance, continues on IV ceftriaxone. Midodrine increased today to 10 TID and blood pressure is better at 112/71, afebrile, 97% oxygen. IR has been consulted for paracentesis for abdominal ascites. 07/06/2022 IR evaluated patient and felt not enough fluid to undergo paracentesis. White count today 11.4, sodium 126, potassium 3.2. Albumin is low at 1.9 which patient will receive albumin today. PT/OT is recommending subacute rehab on discharge. Blood pressure 108/72, patient continues on aldactone and PO lasix. Continues on IV ceftriaxone for E.Coli UTI. Patient has a wet cough and lungs are more congested today will order chest xray. 07/09/2022 Patient is resting in bed today with daughter at bedside. She is pending discharge to rehab. Was found to be positive for CDIF and continues on oral vancomycin. Infectious disease is following. Patient had chest xray completed yesterday around dinner time showing right pleural effusion with opacity and decreased lung volume, there is a possible partial collapse of right middle lobe. Patient is on 2L nasal cannula with oxygenation of 97%, she is afebrile. Heart rate is tachycardic at times in the low 100s. She does have incentive spirometer at bedside, needs assistance and encouragement to use. We will give bronchodilators and mucinex and encourage IS. Sodium today stable at 128. 07/10/2022 Patient today has sodium level of 127, she received a dose of oral sodium bicarbonate. Repeat BMP tomorrow. She does report breathing better today. Started on mucinex and bronchodilators. Will repeat Chest xray today she continues on nasal cannula at now 3L with sats 91 to 94%. Potassium stable, magnesium stable. Afebrile, heart rate 96, blood pressure on the lower side today 89/58. She is seeing infectious disease on PO vancomycin for C.Dif colitis reports 1 BM overnight. 07/11/2022 Sodium level today is 126, she received oral sodium bicarbonate yesterday. Nephrology is following sodium level. Samsca x 1 given today. Patient does have poor oral intake. White count 8.2, potassium 4.1, chloride 94, BUN 7, creatinine 0.45, calcium 7.3. She is also on 1200 cc fluid restriction. She is also on aldactone for abdominal ascites. Remains on PO vancomycin for C.Dif colitis patient states she had 1 BM this morning and it was more formed. Plan is for ECF on discharge. Blood pressure continues 90/60s and she is on midodrine 10 mg TID. 07/12/2022 Patient evaluated today sitting up in chair with daughter at the bedside. She is more alert and she is feeling well. She denies shortness of breath, states she has had an increase in appetite. She would like to keep the catheter one more day and DC tomorrow. She received a dose of samsca yesterday and sodium level today is 129. She received a 15 mg dose of samsca today, repeat sodium level tomorrow. Nephrology is following. She continues on 1200 fluid restriction. Pending ECF placement. 07/13/2022 Patient is seen and evaluated in follow-up this morning after receiving a dose of Samsca with nephrology following and sodium slightly improved at 130 today. Patient continues with fluid restriction. Patient is also continued on vancomycin along with Questran with anxiety following for C. diff colitis. Patient continues with weakness and working on ECF and requiring insurance authorization. Possible discharge in 24 hours as computers were down and unable to access the chart for med reconciling. Will need nephrology follow up outpatient. Encouraged oral intake especially protein and patient reports her appetite has improved. Continues with indwelling anthony catheter and will remove in the am and assess for further retention. Review of Systems Constitutional: Denied any fatigue denied any fever. Cardio vascular: denied any chest pain, palpitations Gastrointestinal: denied any nausea, vomiting. reports less frequent stool although continues to be loose Pulmonary: Denied any shortness of breath, no cough Neurologic denied any new focal deficits All inpatient medications were reviewed and appropriate changes in these medications as dictated in the interval history and assessment and plan. PHYSICAL EXAMINATION: GENERAL: The patient is alert and oriented x3, not in any acute distress. elderly. Thin built. HEENT: Pupils are round and equally reacting to light. EOMI. No scleral icterus. No conjunctival pallor. Normocephalic, atraumatic. No pharyngeal erythema. No thyromegaly. CARDIOVASCULAR: S1 and S2 present. No murmurs, rubs, or gallops. PULMONARY: Lungs are clear, diminished right base ABDOMEN: Soft, distended with fluid thrill, ascites, normoactive bowel sounds. No palpable organomegaly. MUSCULOSKELETAL: No joint swelling or deformity. EXTREMITIES: No cyanosis, clubbing, Peripheral edema has improved. Heels are boggy however they are blanchable. NEUROLOGICAL: Gross neurological examination did not reveal any focal deficits. diffuse weakness SKIN: No rashes. Assessment: -C. Dif colitis, improving bowel movements are becoming formed -Liver cirrhosis, hepatitis panel negative, stable liver lesions most likely benign, stable from 6 years ago -Bilateral lower extremity edema which has improved and ascites secondary to above, -hypervolemic hyponatremia secondary to cirrhosis, poor oral intake -E. Coli UTI completed course of antibiotic therapy -Urinary retention with indwelling catheter in place -Weight loss and appetite loss: Secondary to cirrhosis and chronic alcoholism -Hypokalemia secondary to diuresis and poor oral intake, improved -Thrombocytopenia secondary to chronic alcoholism -Chronic alcoholism: Counseling was provided -Nicotine abuse -Generalized weakness with fall -DVT prophylaxis: Subcutaneous heparin held monitor platelet count -GI prophylaxis: Protonix -Full Code Plan: Samsca given with nephrology following and sodium up to 130 Continue midodrine per nephrology Continue fluid restriction 1200 cc Monitor for acute alcohol withdrawal Nicotine patch Repeat labs in AM GI follow up outpatient Will assess anthony removal and recommend bladder scanning to monitor for retent ion, may require indwelling anthony with outpatient urology follow up Pending ECF at [facility], patient clinically is improving and possible DC to rehab in next 24 hours The impression and plan of care has been dictated by Berta Brown, Nurse Practitioner as directed. MD Jeannie I have performed a history and examination and MDM of this patient, discussed the same with the dictator, and agree with the dictator's assessment and plan as written ,documented as a scribe. Based on total visit time, I have performed more than 50% of the visit. Objective - Vital Signs Vital signs: Vital Signs Temp 97.9 F 07/13/22 07:29 Pulse 105 H 07/13/22 11:00 Resp 20 07/13/22 11:00 BP 97/65 07/13/22 11:00 Pulse Ox 93 L 07/13/22 11:00 FiO2 21 07/11/22 08:03 Intake & Output 07/12/22 07/13/22 07/13/22 18:59 06:59 18:59 Intake Total 480 970 180 Output Total 1050 900 Balance -570 70 180 Intake: Oral 480 970 180 Output: Urine 1050 900 Other: Voiding Method Indwelling Catheter Indwelling Catheter Indwelling Catheter # Voids 1 # Bowel Movements 1 1 - Labs CBC & Chem 7: 07/11/22 05:54 07/12/22 18:14 Labs: Abnormal Lab Results - Last 24 Hours (Table) 07/12/22 07/12/22 Range/Units 16:41 18:14 Sodium 130 L (137-145) mmol/L POC Glucose (mg/dL) 138 H (70-110) mg/dL
[2022-07-14] MEDS: PANTOPRAZOLE 40 MG TABLET PO SCH (06:07)
[2022-07-14] MEDS: MIDODRINE 5 MG TAB PO SCH ×2 (06:07→11:55)
[2022-07-14] MEDS: THIAMINE 100 MG TAB PO SCH (06:07)
[2022-07-14] MEDS: IPRATROPIUM-ALBUTEROL 3 ML NEB INHALATION SCH ×2 (07:48→11:24)
[2022-07-14] MEDS: NICOTINE 14MG/24HR PATCH TRANSDERM SCH (08:06)
[2022-07-14] MEDS: guaiFENesin 600 MG TABLET.ER PO SCH (08:06)
[2022-07-14] MEDS: TAMSULOSIN 0.4 MG CAP.ER.24H PO SCH (08:06)
[2022-07-14] MEDS: SPIRONOLACTONE 25 MG TAB PO SCH (08:06)
[2022-07-14] MEDS: CHOLESTYRAMINE (WITH SUGAR) 4 GM PACKET PO SCH (08:06)
[2022-07-14] MEDS: POTASSIUM CHLORIDE ER 20 MEQ TAB.ER PO SCH (08:06)
[2022-07-14] MEDS: VANCOMYCIN 125 MG CAPSULE PO SCH ×2 (08:06→11:55)
[2022-07-14 08:24] VITALS: TEMP 98
[2022-07-14 12:02] VITALS: BP 100/61; PULSE 110; RESP 18
--- NOTE | 2022-07-14 14:45 | P.PN ---
Subjective Patient is seen for follow-up for hyponatremia. Patient had been hypovolemic initially and is status post Lasix. Earlier this admission she had also received IV fluids with no improvement in serum sodium level No reports of diarrhea Oral intake is fair Sodium has improved with tolvaptan. No complaints today Tolerating oral intake. Objective - Vital Signs Vital signs: Vital Signs Temp 98 F 07/14/22 08:05 Pulse 110 H 07/14/22 12:00 Resp 18 07/14/22 12:00 BP 100/61 07/14/22 12:00 Pulse Ox 95 07/14/22 12:00 FiO2 21 07/11/22 08:03 Intake & Output 07/13/22 07/14/22 07/14/22 18:59 06:59 18:59 Intake Total 720 240 Output Total 275 Balance 720 -275 240 Weight 56.699 kg Intake: Oral 720 240 Output: Urine 275 Other: Voiding Method Indwelling Catheter Indwelling Catheter Indwelling Catheter # Bowel Movements 1 1 - Exam Awake, comfortable, not in any acute distress Abdomen is soft nontender Examination of the lower extremities shows no significant edema [employer]IST exam grossly intact - Labs CBC & Chem 7: 07/11/22 05:54 07/14/22 12:11 Labs: Abnormal Lab Results - Last 24 Hours (Table) 07/14/22 Range/Units 12:11 Sodium 129 L (137-145) mmol/L Assessment and Plan Assessment: 1. Hyponatremia associated with decrease solute intake. Improving with Samsca 2. Hypokalemia from recent diuresis 3. UTI with urine culture positive for E. coli maintained on antibiotics 4. Urine retention with Bird catheter currently 5. C. diff colitis maintained on oral vancomycin 6. Chronic alcohol use with hepatic cirrhosis with evidence of portal hypertension and ascites. Plan: Repeat Samsca today Repeat labs as op Maintain increased protein intake.
--- NOTE | 2022-07-14 14:59 | P.DS ---
Providers Date of admission: 07/02/22 23:44 Expected date of discharge: 07/14/22 Attending physician: Rizwana Hodges Consults: 07/03/22 11:43 Consult Physician Routine Consulting Provider: Orville Cuello Consult Reason/Comments: Hyponatremia Do you want consulting provider notified?: Yes 07/07/22 23:18 Consult Physician Routine Consulting Provider: Amaya Sims Consult Reason/Comments: c diff colitis and UTI Do you want consulting provider notified?: Yes, Notify in am Primary care physician: Quinn Mancuso [facility] Course: Final diagnosis -C. Dif colitis, improving bowel movements are becoming formed -Liver cirrhosis, hepatitis panel negative, stable liver lesions most likely benign, stable from 6 years ago -Bilateral lower extremity edema which has improved and ascites secondary to above, -hypervolemic hyponatremia secondary to cirrhosis, poor oral intake -E. Coli UTI completed course of antibiotic therapy -Urinary retention with indwelling catheter in place -Weight loss and appetite loss: Secondary to cirrhosis and chronic alcoholism -Hypokalemia secondary to diuresis and poor oral intake, improved -Thrombocytopenia secondary to chronic alcoholism -Chronic alcoholism: Counseling was provided -Nicotine abuse -Generalized weakness with fall -DVT prophylaxis: Subcutaneous heparin -GI prophylaxis: Protonix -Full Code Discharge disposition Patient is being discharged in a stable condition with guarded prognosis to [facility] for continued PT/OT therapy. Patient will follow-up with Dr. Quinn Mancuso in the outpatient setting upon discharge. Patient is to continue with oral Vanco 4 times daily for the next 1 week and then may discontinue. Patient will need nephrology follow-up outpatient in the next 1-2 weeks. Recommend repeat labs to monitor sodium level is patient received a dose of Samsca on discharge. Total time taken is greater than 35 minutes. Hospital course This is a 71-year-old female who was recently admitted with bilateral lower extremity swelling with abdominal ascites and distention and was being closely monitored. Patient was also monitored for any alcohol withdrawal and has history of chronic alcoholism. Patient was found to be hyponatremic with a sodium of 123 and has been followed by nephrology and was given a dose of Samsca 15 mg today and recommend repeat BMP in the next 2-3 days. Patient will need nephrology follow-up outpatient in 1-2 weeks. Patient with weakness and fall during hospitalization and was evaluated by physical therapy recommending subacute rehab and patient is agreeable. Patient was also treated with IV antibiotics for UTI and also C. diff with anxiety following closely. Patient is continued on oral Vanco and will continue 4 times daily for the next one week to complete the course. Patient did receive paracentesis for abdominal ascites and recommend GI follow-up in the outpatient setting. Patient continues with poor oral intake although has improved since admission patient reports the feeling well and asking when she can go. Authorization has been obtained from insurance and cleared for discharge and will be discharged today. Recommend subcutaneous heparin twice a day with close monitoring of platelets. Currently no reports of chest pain, shortness of breath, or palpitations. Patient is afebrile. No reports of nausea or vomiting and patient is tolerating diet. Patient will be going to [facility] today. Guarded prognosis. Physical exam: Gen: This is a 71-year-old female awake, alert and oriented 3, thin built, elderly ill-appearing female HEENT: Head is atraumatic, normocephalic. Pupils equal, round. Sclerae is anicteric. NECK: Supple. No JVD. No lymphadenopathy. No thyromegaly. LUNGS: Diminished breath sounds bilaterally with no wheezes and some scattered rhonchi. No intercostal retractions. HEART: Regular rate and rhythm. No murmur. ABDOMEN: Soft. Bowel sounds are present. No masses. No tenderness. EXTREMITIES: No pedal edema. No calf tenderness. NEUROLOGICAL: Patient is awake, alert and oriented x3. Cranial nerves 2 through 12 are grossly intact. Diffuse weakness Please refer to medication reconciliation sheet for a list of medications. The impression and plan of care has been dictated by Berta Brown, Nurse Practitioner as directed. Dr. Jovanny MD I have performed a history and examination and MDM of this patient, discussed the same with the dictator, and agree with the dictator's assessment and plan as written ,documented as a scribe. Based on total visit time, I have performed more than 50% of the visit. Patient Condition at Discharge: Fair Plan - Discharge Summary Discharge Rx Participant: No New Discharge Prescriptions: New Ipratropium-Albuterol Nebulize [Duoneb 0.5 mg-3 mg/3 ml Soln] 3 ml INHALATION RT-QID each Ipratropium-Albuterol Nebulize [Duoneb 0.5 mg-3 mg/3 ml Soln] 3 ml INHALATION RT-QID PRN each PRN Reason: Shortness Of Breath Or Wheezing Potassium Chloride ER [K-Dur 20] 20 meq PO DAILY tab guaiFENesin [Mucinex] 600 mg PO Q12HR tab Midodrine [ProAmatine] 10 mg PO AC-TID tab Pantoprazole [Protonix] 40 mg PO AC-BRKFST tab Cholestyramine (with Sugar) [Questran Packet] 4 gm PO BID@1000,1800 packet Vancomycin 250 mg PO QID 7 Days #28 cap Thiamine [Vitamin B-1] 100 mg PO BID-W/MEALS tab Spironolactone [Aldactone] 25 mg PO BID tab Tamsulosin [Flomax] 0.4 mg PO PC-BRKFST cap Nicotine 14Mg/24Hr Patch [Habitrol] 1 patch TRANSDERM DAILY patch Discharge Medication List Cholestyramine (with Sugar) [Questran Packet] 4 gm PO BID@1000,1800 packet 07/14/22 [Rx] Ipratropium-Albuterol Nebulize [Duoneb 0.5 mg-3 mg/3 ml Soln] 3 ml INHALATION RT-QID each 07/14/22 [Rx] Ipratropium-Albuterol Nebulize [Duoneb 0.5 mg-3 mg/3 ml Soln] 3 ml INHALATION RT-QID PRN each 07/14/22 [Rx] Midodrine [ProAmatine] 10 mg PO AC-TID tab 07/14/22 [Rx] Nicotine 14Mg/24Hr Patch [Habitrol] 1 patch TRANSDERM DAILY patch 07/14/22 [Rx] Pantoprazole [Protonix] 40 mg PO AC-BRKFST tab 07/14/22 [Rx] Potassium Chloride ER [K-Dur 20] 20 meq PO DAILY tab 07/14/22 [Rx] Spironolactone [Aldactone] 25 mg PO BID tab 07/14/22 [Rx] Tamsulosin [Flomax] 0.4 mg PO PC-BRKFST cap 07/14/22 [Rx] Thiamine [Vitamin B-1] 100 mg PO BID-W/MEALS tab 07/14/22 [Rx] Vancomycin 250 mg PO QID 7 Days #28 cap 07/14/22 [Rx] guaiFENesin [Mucinex] 600 mg PO Q12HR tab 07/14/22 [Rx] Follow up Appointment(s)/Referral(s): Isa Meneses MD [STAFF PHYSICIAN] - 3 Weeks (Asw/[employer], for liver cirrhosis and liver mass ) Quinn Mancuso MD [Primary Care Provider] - 1-2 days Ally Barrios MD [STAFF PHYSICIAN] - 1 Week Ambulatory/Diagnostic Orders: Basic Metabolic Panel [LAB.AMB] Time Frame: 3 Days, Location: None Selected Activity/Diet/Wound Care/Special Instructions: Patient is going to [facility] Activity as tolerated Encouraged oral intake especially protein Follow-up with primary care provider on discharge Follow-up with nephrology outpatient Patient will continue with indwelling Bird catheter and follow-up outpatient with urology as patient was having retention Recommend repeat labs of BMP and magnesium in the next 2-3 days and monitor sodium Recommend continue fluid restrictions of 1200 mL daily Patient is to continue with oral vancomycin 4 times daily for the next 1 week and then may discontinue Continue ensure compact supplements 3 times a day with meals Discharge Disposition: TRANSFER TO SNF/ECF
[2022-07-14] MEDS ORDERED: TOLVAPTAN 15 MG 1/2 TABLET PO ONE (16:00)
--- NOTE | 2022-07-15 05:59 | PN ---
PROGRESS NOTE SUBJECTIVE: The patient is seen for followup for hyponatremia. She has received Samsca and her sodium has improved significantly. The patient was up to 130 yesterday. No significant complaints today. The patient is tolerating oral intake. PHYSICAL EXAMINATION: VITAL SIGNS: Blood pressure 100/58, heart rate 90 per minute. The patient is afebrile. EXTREMITIES: Lower extremities shows no significant edema. ABDOMEN: Soft, nontender. CRUISE COORDINATOR: Grossly intact. LABORATORY DATA: Show sodium 130 yesterday on 07/12/2022. ASSESSMENT: 1. Hyponatremia associated with some degree of syndrome of inappropriate antidiuretic hormone secretion and poor solute intake, currently improved with Samsca. 2. Hypokalemia from recent diuresis. 3. Urinary tract infection with urine culture positive for Escherichia coli. 4. Urine retention with Bird catheter. PLAN: Check labs in a.m. Continue to encourage increased oral intake. MMODL / IJN: [id number] /
== END 2022-07-14 16:35 | DRG 433 ==
LOC: EC 19:45 → 3SCARD 23:44
PROVIDERS: ADMIT Internal Medicine; ATTEND Internal Medicine
DX: K70.31 Alcoholic cirrhosis of liver with ascites (principal); A04.72 Enterocolitis due to Clostridium difficile, not specified as recurrent; E44.1 Mild protein-calorie malnutrition; E87.1 Hypo-osmolality and hyponatremia; N39.0 Urinary tract infection, site not specified; E87.2 Acidosis; J90 Pleural effusion, not elsewhere classified; K76.6 Portal hypertension; E88.09 Other disorders of plasma-protein metabolism, not elsewhere classified; E78.5 Hyperlipidemia, unspecified; I10 Essential (primary) hypertension; J44.9 Chronic obstructive pulmonary disease, unspecified; M19.90 Unspecified osteoarthritis, unspecified site; Z96.60 Presence of unspecified orthopedic joint implant; F17.210 Nicotine dependence, cigarettes, uncomplicated; M50.20 Other cervical disc displacement, unspecified cervical region; E87.70 Fluid overload, unspecified; F10.20 Alcohol dependence, uncomplicated; D69.59 Other secondary thrombocytopenia; K76.89 Other specified diseases of liver; R62.7 Adult failure to thrive; W01.0XXA Fall on same level from slipping, tripping and stumbling without subsequent striking against object, initial encounter; Y92.239 Unspecified place in hospital as the place of occurrence of the external cause; T50.2X5A Adverse effect of carbonic-anhydrase inhibitors, benzothiadiazides and other diuretics, initial encounter; R33.9 Retention of urine, unspecified; B96.20 Unspecified Escherichia coli [E. coli] as the cause of diseases classified elsewhere; E87.6 Hypokalemia; E83.42 Hypomagnesemia; F41.9 Anxiety disorder, unspecified; E86.1 Hypovolemia; Z68.20 Body mass index [BMI] 20.0-20.9, adult; Z71.3 Dietary counseling and surveillance; Z79.899 Other long term (current) drug therapy; Z71.41 Alcohol abuse counseling and surveillance of alcoholic
CPT/HCPCS: 36415; 70450; 71045; 71046; 74183; 76705; 80048; 80053; 80074; 80076; 80306; 80320; 81001; 82140; 82272; 82533; 82977; 83605; 83735; 83880; 83930; 83935; 84100; 84132; 84295; 84300; 84443; 84484; 84550; 85025; 85027; 85610; 85730; 87045; 87046; 87077; 87086; 87186; 87324; 93005; 94640; 94760; 96361; 96374; 99285

== ENCOUNTER 2022-08-09 13:36 | Inpatient (IN) | payer MEDICARE ==
[2022-08-09] MEDS ORDERED: SODIUM CHLORIDE 0.9% 1,000 ML IV STA ×2 (14:15)
[2022-08-09] MEDS ORDERED: PIPERACILLIN-TAZOBACTAM 3.375 GM in SODIUM CHLORIDE 0.9% 100 ML IVPB STA (14:16)
--- NOTE | 2022-08-09 14:38 | ED ---
General Adult HPI - General Chief complaint: Extremity Problem,Nontraumatic Stated complaint: right foot swelling Time Seen by Provider: 08/09/22 13:48 Source: patient, EMS, RN notes reviewed, old records reviewed Mode of arrival: EMS Limitations: altered mental status - History of Present Illness Initial comments: 72-year-old female presenting with right leg and foot swelling failure to thrive. History is quite limited. The patient arrives by EMS with profound follicles stench, a diaper which is multiple days old filled with liquid stool. There is negative, the patient. Patient had apparently been in a custodial but was discharged home. I'm not confident in the history provided from the patient. Currently not complaining of fever, dyspnea or pain complaints. - Related Data Previous Rx's Medication Instructions Recorded Cholestyramine (with Sugar) 4 gm PO BID@1000,1800 packet 07/14/22 [Questran Packet] Heparin Sodium,Porcine [Heparin 5,000 unit SQ Q12HR 30 Days #60 07/14/22 Sodium] each Ipratropium-Albuterol Nebulize 3 ml INHALATION RT-QID each 07/14/22 [Duoneb 0.5 mg-3 mg/3 ml Soln] Ipratropium-Albuterol Nebulize 3 ml INHALATION RT-QID PRN each 07/14/22 [Duoneb 0.5 mg-3 mg/3 ml Soln] Midodrine [ProAmatine] 10 mg PO AC-TID tab 07/14/22 Nicotine 14Mg/24Hr Patch [Habitrol] 1 patch TRANSDERM DAILY patch 07/14/22 Pantoprazole [Protonix] 40 mg PO AC-BRKFST tab 07/14/22 Potassium Chloride ER [K-Dur 20] 20 meq PO DAILY tab 07/14/22 Spironolactone [Aldactone] 25 mg PO BID tab 07/14/22 Tamsulosin [Flomax] 0.4 mg PO PC-BRKFST cap 07/14/22 Thiamine [Vitamin B-1] 100 mg PO BID-W/MEALS tab 07/14/22 Vancomycin 250 mg PO QID 7 Days #28 cap 07/14/22 guaiFENesin [Mucinex] 600 mg PO Q12HR tab 07/14/22 Allergies Allergy/AdvReac Type Severity Reaction Status Date / Time No Known Allergies Allergy Verified 07/02/22 22:45 Review of Systems ROS Statement: Those systems with pertinent positive or pertinent negative responses have been documented in the HPI. ROS Other: All systems not noted in ROS Statement are negative. 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, cirrhosis of the liver History of Any Multi-Drug Resistant Organisms: None Reported Past Surgical History: Section, Joint Replacement Additional Past Surgical History / Comment(s): cataract surgery Past Anesthesia/Blood Transfusion Reactions: No Reported Reaction Past Psychological History: No Psychological Hx Reported Smoking Status: Current every day smoker, Heavy tobacco smoker Past Alcohol Use History: Daily Past Drug Use History: None Reported - Past Family History Son(s) Family Medical History: No Reported History Daughter(s) Family Medical History: No Reported History General Exam Limitations: no limitations General appearance: alert, in no apparent distress Head exam: Present: atraumatic, normocephalic Eye exam: Present: normal appearance, PERRL ENT exam: Present: mucous membranes dry Neck exam: Present: normal inspection. Absent: tenderness Respiratory exam: Present: normal lung sounds bilaterally. Absent: respiratory distress, wheezes Cardiovascular Exam: Present: normal rhythm, bradycardia GI/Abdominal exam: Present: soft. Absent: distended External exam: Present: other (Perineum and groin area is irritated, erythematous likely from persistent contact with stool) Extremities exam: Present: other (3+ pitting edema of the right foot and ankle) Neurological exam: Present: alert. Absent: motor sensory deficit Skin exam: Present: warm, dry, intact Course Vital Signs 08/09/22 13:38 Temperature 97.6 F Pulse Rate 52 L Respiratory 18 Rate Blood Pressure 121/79 O2 Sat by Pulse 97 Oximetry - Reevaluation(s) Reevaluation #1: 08/09/22 15:[address] Mittal awaiting laboratory testing and imaging. Patient will require admission for likely placement and failure to thrive. 08/09/22 15:58 EKG Findings - EKG Comments: EKG Findings:: EKG: Sinus tachycardia, low voltage, rate of 107, DC interval 149, QRS duration 74, QTC [address] segment changes. Medical Decision Making - Medical Decision Making 72-year-old female with presented from home. She had apparently been in a custodial the exact history is not known but the patient is emaciated she is completely covered in feces when she arrives. There is negative throughout the perineum and groin region which appeared only be within the profound amount of stool. Laboratory testing, chest x-ray, ultrasound of the right leg is ordered. She started on IV antibiotics. She'll be admitted for likely placement. Case discussed with Dr. Mittal. - Lab Data Result diagrams: 08/09/22 14:51 Lab Results 08/09/22 Range/Units 14:51 Sodium 129 L (137-145) mmol/L Potassium 4.8 (3.5-5.1) mmol/L Chloride 95 L (98-107) mmol/L Carbon Dioxide 19 L (22-30) mmol/L Anion Gap 15 mmol/L BUN 15 (7-17) mg/dL Creatinine 0.66 (0.52-1.04) mg/dL Est GFR (CKD-EPI)AfAm >90 (>60 ml/min/1.73 sqM) Est GFR (CKD-EPI)NonAf 87 (>60 ml/min/1.73 sqM) Glucose 82 (74-99) mg/dL Calcium 8.4 (8.4-10.2) mg/dL Magnesium 2.0 (1.6-2.3) mg/dL Total Bilirubin 1.7 H (0.2-1.3) mg/dL AST 43 H (14-36) U/L ALT 23 (4-34) U/L Alkaline Phosphatase 134 H (38-126) U/L Total Protein 5.2 L (6.3-8.2) g/dL Albumin 2.6 L (3.5-5.0) g/dL Disposition Clinical Impression: Edema due to hypoalbuminemia, Leg edema, Failure to thrive Disposition: ADMITTED IP TO THIS HOSP Condition: Stable Is patient prescribed a controlled substance at d/c from ED?: No Referrals: Quinn Mancuso MD [Primary Care Provider] - 1-2 days Time of Disposition: 16:00
[2022-08-09 15:47] LABS: ALT 23 U/L (4-34); African American GFR (CKD) >90 (>60 ml/min/1.73 sqM); Albumin 2.6 g/dL (3.5-5.0); Anion Gap 15 mmol/L; Blood Urea Nitrogen 15 mg/dL (7-17); Calcium 8.4 mg/dL (8.4-10.2); Carbon Dioxide 19 mmol/L (22-30); Chloride 95 mmol/L (98-107); Glucose 82 mg/dL (74-99); Non-African American GFR(CKD) 87 (>60 ml/min/1.73 sqM); Sodium 129 mmol/L (137-145); Total Bilirubin 1.7 mg/dL (0.2-1.3); Total Protein 5.2 g/dL (6.3-8.2)
[2022-08-09 15:56] LABS: Potassium 4.8 mmol/L (3.5-5.1)
[2022-08-09 15:57] LABS: AST 43 U/L (14-36); Alkaline Phosphatase 134 U/L (38-126)
[2022-08-09] MEDS ORDERED: NALOXONE 0.4 MG/ML 1 ML VIAL IV PRN (15:57)
--- NOTE | 2022-08-09 15:57 | US ---
EXAMINATION TYPE: US venous doppler duplex LE RT DATE OF EXAM: 08/09/2022 3:45 PM COMPARISON: NONE CLINICAL HISTORY: swelling. Right leg swelling SIDE PERFORMED: Right TECHNIQUE: The lower extremity deep venous system is examined utilizing real time linear array sonog abby with graded compression, doppler sonography and color-flow sonography. VESSELS IMAGED: Common Femoral Vein Deep Femoral Vein Greater Saphenous Vein * Femoral Vein Popliteal Vein Small Saphenous Vein * Proximal Calf Veins (* superficial vessels) Right EIV, CFV, GSV, and Deep FV not visualized due to pain and oozing wound within right groin Right Leg: Visualized portions appear negative for DVT Grayscale, color doppler, spectral doppler imaging performed of the deep veins of the right lower ext remity. There is normal flow, compressibility, vascular waveforms. IMPRESSION: Suboptimal study as detailed above. No acute DVT in visualized portions of the right low er extremity, portions of vein cannot be accurately assessed.
--- NOTE | 2022-08-09 16:11 | XR ---
EXAMINATION TYPE: XR chest 1V portable DATE OF EXAM: 08/09/2022 COMPARISON: Chest x-ray July 10, 2022 HISTORY: Weakness. TECHNIQUE: Single AP portable frontal upright view of the chest is obtained. FINDINGS: Osseous structures are demineralized. Old malunion fracture left proximal humerus redemons trated. Underlying scoliosis again seen. There is moderate-sized right pleural effusion. There are b ibasilar opacities redemonstrated. Cardiac silhouette size stable and within normal limits. IMPRESSION: Stable moderate-sized right pleural effusion. Persistent bibasilar opacities could refle ct acute infiltrate and/or atelectasis. No significant change from most recent x-ray.
[2022-08-09 16:18] LABS: Basophils # (A) 0.1 k/uL (0-0.2); Basophils % (A) 0 %; Eosinophils % (A) 0 %; HGB 16.7 gm/dL (11.4-16.0); Lymphocytes # (A) 1.3 k/uL (1.0-4.8); Lymphocytes % (A) 8 %; MCH 32.2 pg (25.0-35.0); MCHC 32.1 g/dL (31.0-37.0); MCV 100.5 fL (80.0-100.0); Macrocytosis Slight; Mean Platelet Volume 9.8; Monocytes % (A) 6 %; Neutrophils # (A) 13.4 k/uL (1.3-7.7); Neutrophils % (A) 84 %; RBC 5.17 m/uL (3.80-5.40); RDW 13.8 % (11.5-15.5)
[2022-08-09 16:38] LABS: INR 1.3 (<1.2); Partial Thromboplastin Time 24.5 sec (22.0-30.0); Platelet Count 150 k/uL (150-450); Prothrombin Time 13.9 sec (9.0-12.0)
[2022-08-09] MEDS ORDERED: IPRATROPIUM-ALBUTEROL 3 ML NEB INHALATION PRN (16:38)
[2022-08-09] MEDS ORDERED: ACETAMINOPHEN TAB 325 MG TAB PO PRN (16:38)
[2022-08-09] MEDS: SODIUM CHLORIDE 0.9% 1,000 ML IV SCH ×2 (17:42→20:00)
[2022-08-09] MEDS: MIDODRINE 5 MG TAB PO SCH (17:44)
[2022-08-09] MEDS: CHOLESTYRAMINE (WITH SUGAR) 4 GM PACKET PO SCH (17:46)
[2022-08-09] MEDS: THIAMINE 100 MG TAB PO SCH (19:57)
[2022-08-09] MEDS: HEPARIN SODIUM,PORCINE/PF 5,000 UNIT/0.5 ML SYRINGE SQ SCH (19:57)
[2022-08-09] MEDS: IPRATROPIUM-ALBUTEROL 3 ML NEB INHALATION SCH (20:47)
[2022-08-09] MEDS ORDERED: METHYL SALICYLATE/MENTHOL CREAM 5 OZ TOPICAL SCH (21:00)
[2022-08-09] MEDS ORDERED: NON FORMULARY DRUG (Phenylephrine Hcl [Sudafed Pe] 10 MG Tablet) PO SCH (21:00)
[2022-08-09] MEDS: METHYL SALICYLATE-MENTHOL OINT (3 OZ TUBE) TOPICAL SCH (23:10)
[2022-08-09] MEDS: PIPERACILLIN-TAZOBACTAM 3.375 GM in SODIUM CHLORIDE 0.9% 100 ML IVPB SCH (23:12)
[2022-08-10 06:44] LABS: Basophils % (A) 0 %; Eosinophils # (A) 0.1 k/uL (0-0.7); Eosinophils % (A) 1 %; HCT 44.8 % (34.0-46.0); HGB 14.3 gm/dL (11.4-16.0); Hypochromasia Moderate; Lymphocytes # (A) 1.7 k/uL (1.0-4.8); Lymphocytes % (A) 15 %; MCH 32.9 pg (25.0-35.0); MCHC 31.9 g/dL (31.0-37.0); MCV 103.2 fL (80.0-100.0); Macrocytosis Slight; Monocytes # (A) 0.8 k/uL (0-1.0); Monocytes % (A) 7 %; Neutrophils # (A) 8.5 k/uL (1.3-7.7); Neutrophils % (A) 74 %; Platelet Count 107 k/uL (150-450); RBC 4.34 m/uL (3.80-5.40); RDW 14.4 % (11.5-15.5); WBC 11.5 k/uL (3.8-10.6)
[2022-08-10 06:47] LABS: African American GFR (CKD) >90 (>60 ml/min/1.73 sqM); Anion Gap 8 mmol/L; Blood Urea Nitrogen 15 mg/dL (7-17); Calcium 7.4 mg/dL (8.4-10.2); Carbon Dioxide 20 mmol/L (22-30); Chloride 99 mmol/L (98-107); Glucose 73 mg/dL (74-99); Non-African American GFR(CKD) >90 (>60 ml/min/1.73 sqM); Sodium 127 mmol/L (137-145)
[2022-08-10] MEDS: IPRATROPIUM-ALBUTEROL 3 ML NEB INHALATION SCH ×4 (07:11→20:03)
[2022-08-10 07:25] LABS: Potassium 5.6 mmol/L (3.5-5.1)
[2022-08-10 08:09] LABS: Poikilocytosis (M) Present
[2022-08-10] MEDS: PIPERACILLIN-TAZOBACTAM 3.375 GM in SODIUM CHLORIDE 0.9% 100 ML IVPB SCH ×2 (09:16→16:04)
[2022-08-10] MEDS: PANTOPRAZOLE 40 MG TABLET PO SCH (09:17)
[2022-08-10] MEDS: THIAMINE 100 MG TAB PO SCH ×2 (09:17→21:08)
[2022-08-10] MEDS: MIDODRINE 5 MG TAB PO SCH ×3 (09:17→18:10)
[2022-08-10] MEDS: HEPARIN SODIUM,PORCINE/PF 5,000 UNIT/0.5 ML SYRINGE SQ SCH ×2 (09:17→21:08)
[2022-08-10] MEDS: NICOTINE 14MG/24HR PATCH TRANSDERM SCH (09:18)
[2022-08-10] MEDS: TAMSULOSIN 0.4 MG CAP.ER.24H PO SCH (09:18)
[2022-08-10] MEDS: METHYL SALICYLATE-MENTHOL OINT (3 OZ TUBE) TOPICAL SCH (09:19)
[2022-08-10] MEDS ORDERED: SODIUM POLYSTYRENE SULFONATE 15 GM/60 ML BOTTLE PO STA (09:57)
[2022-08-10 10:59] LABS: Appearance,Urine Turbid (Clear); Bacteria,Urine Many /hpf; Bilirubin,Urine Negative (Negative); Blood,Urine Trace (Negative); Calcium Oxalate Crystals,Urine Occasional /hpf; Color,Urine Yellow; Glucose,Urine (UA) Negative (Negative); Ketones,Urine 1+ (Negative); Leukocyte Esterase,Urine Large (Negative); Mucus,Urine Few /hpf; Nitrite,Urine Positive (Negative); Protein,Urine 1+ (Negative); RBC,Urine 7 /hpf (0-5); Specific Gravity,Urine 1.032 (1.001-1.035); Squamous Epithelial Cell,Urine 41 /hpf (0-4); Urobilinogen,Urine <2.0 mg/dL (<2.0); WBC,Urine 33 /hpf (0-5)
[2022-08-10] MEDS: CHOLESTYRAMINE (WITH SUGAR) 4 GM PACKET PO SCH ×2 (11:02→18:10)
--- NOTE | 2022-08-10 13:34 | HP ---
HISTORY AND PHYSICAL CHIEF COMPLAINT: Weakness and bilateral feet swelling. HISTORY OF PRESENT ILLNESS: This 72-year-old woman with a past medical history of multiple medical problems, including COPD, hypertension, hyperlipidemia, recently sent to rehab . The patient apparently , but EMS found the patient in a very unkept situation with layers of feces _ and with maggots causing a rash over the perineal area. The patient also had bilateral leg swelling. The patient is extremely weak and emaciated. The p.o. intake appears to be very poor, and the patient is generally unkempt. The patient was taken to [facility] and was admitted for further evaluation and treatment. There is no history of fever, rigors, or chills. The patient has hyponatremia. Multiple other labs are requested at this time. PAST MEDICAL HISTORY: History of COPD, hypertension, hyperlipidemia. The rest of the history reviewed. HOME MEDICATIONS: Again, reviewed and include vitamin B1, doses and rest of the medications reviewed. ALLERGIES: Narcan. FAMILY HISTORY: No history of heart disease or strokes in the family. SOCIAL HISTORY: History of smoking. REVIEW OF SYSTEMS: A 14-point review of system is negative as mentioned earlier. PHYSICAL EXAMINATION: VITAL SIGNS: Pulse 52, blood pressure 120/70, respirations 18. HEENT: Conjunctivae normal. NECK: No JVD. CARDIOVASCULAR: S1, S2 muffled. RESPIRATION: Breath sounds diminished at the bases. A few scattered rhonchi. ABDOMEN: Soft, nontender. LEGS: Diffusely wasting and weak and emaciated, bilateral leg swelling present. NERVOUS SYSTEM: No focal deficits. Diffusely weak. SKIN: N JOINTS: No active deforming arthropathy. LABORATORY DATA: Reviewed. Sodium 110. ASSESSMENT: 1. Significant bilateral weakness with severe malnutrition and gait dysfunction. 2. Bilateral leg swelling. 3. Possible cellulitis. 4. Hypoalbuminemia. 5. Multiple medical issues. RECOMMENDATIONS: In this 72-year-old woman, who presented with multiple complex medical issues, we will monitor the patient closely. Initiate empiric antibiotics, otherwise resume the home medications. As mentioned earlier, we will obtain PT/OT evaluation. Dietary consultation before ordering nutrition supplements. The prognosis is extremely guarded because of multiple complex medical issues. We will obtain the cultures for sepsis. Otherwise PT/OT evaluation, possible ECF rehab . Social Work and Case Management team will follow the patient regarding even possible APS referral because of the patient's extremely unkempt condition in which the patient is back to the hospital. See orders for further details. Prognosis is guarded. MMGABBIL / IJN: [id number] / MTDD
[2022-08-11] MEDS: SODIUM CHLORIDE 0.9% 1,000 ML IV SCH ×3 (00:26→13:47)
[2022-08-11] MEDS: PIPERACILLIN-TAZOBACTAM 3.375 GM in SODIUM CHLORIDE 0.9% 100 ML IVPB SCH ×3 (00:32→16:03)
[2022-08-11] MEDS: METHYL SALICYLATE-MENTHOL OINT (3 OZ TUBE) TOPICAL SCH ×3 (00:33→21:07)
[2022-08-11] MEDS: IPRATROPIUM-ALBUTEROL 3 ML NEB INHALATION SCH ×4 (07:10→20:00)
[2022-08-11] MEDS: MIDODRINE 5 MG TAB PO SCH ×3 (08:08→17:03)
[2022-08-11] MEDS: THIAMINE 100 MG TAB PO SCH ×2 (08:09→21:07)
[2022-08-11] MEDS: NICOTINE 14MG/24HR PATCH TRANSDERM SCH (08:09)
[2022-08-11] MEDS: PANTOPRAZOLE 40 MG TABLET PO SCH (08:09)
[2022-08-11] MEDS: HEPARIN SODIUM,PORCINE/PF 5,000 UNIT/0.5 ML SYRINGE SQ SCH ×2 (08:09→21:07)
[2022-08-11] MEDS: TAMSULOSIN 0.4 MG CAP.ER.24H PO SCH (08:09)
[2022-08-11 09:48] LABS: African American GFR (CKD) 110.5 (60.0-200.0); Albumin/Globulin Ratio 1.11 (1.60-3.17); Anion Gap 7.5 mmol/L (10.00-18.00); Calcium 7.6 mg/dL (8.7-10.3); Carbon Dioxide 22.5 mmol/L (20.0-27.5); Globulin 1.8 g/dL (1.6-3.3); Non-African American GFR(CKD) 95.3 (60.0-200.0); Potassium 3.1 mmol/L (3.5-5.5); Total Bilirubin 0.6 mg/dL (0.30-1.20); Total Protein 3.8 g/dL (6.2-8.2)
[2022-08-11 10:01] LABS: Basophils # (A) 0.03 X 10*3/uL (0.00-0.10); Basophils % (A) 0.4 %; Eosinophils # (A) 0.12 X 10*3/uL (0.04-0.35); Eosinophils % (A) 1.7 %; HCT 39.5 % (37.2-46.3); HGB 13.1 g/dL (12.0-15.0); Immature Grans, Automated 0.9 %; Lymphocytes # (A) 1.72 X 10*3/uL (0.90-5.00); Lymphocytes % (A) 24.9 %; MCH 32.8 pg (27.0-32.0); MCHC 33.2 g/dL (32.0-37.0); MCV 98.8 fL (80.0-97.0); Mean Platelet Volume 10.1 fL (9.5-12.2); Monocytes # (A) 0.81 X 10*3/uL (0.20-1.00); Monocytes % (A) 11.7 %; NRBC Per 100 WBC 0 /100 WBCS (0.0-0.0); Neutrophils # (A) 4.16 X 10*3/uL (1.80-7.70); Neutrophils % (A) 60.4 %; Platelet Count 112 X 10*3/uL (140-440); RBC Morphology NORMAL; RDW 14.6 % (11.5-14.5)
[2022-08-11] MEDS ORDERED: Potassium Replacement Protocol 1 EACH MISC MISCELLANE PRN (10:06)
[2022-08-11] MEDS: POTASSIUM CHLORIDE ER 20 MEQ TAB.ER PO SCH ×2 (10:28→12:05)
[2022-08-11] MEDS: CHOLESTYRAMINE (WITH SUGAR) 4 GM PACKET PO SCH ×2 (10:28→17:53)
[2022-08-11] MEDS: FLUCONAZOLE 100 MG TAB PO SCH (13:48)
--- NOTE | 2022-08-11 20:32 | PN ---
PROGRESS NOTE SUBJECTIVE: This is a 72-year-old woman, who was admitted with weakness and bilateral leg swelling and is being closely monitored. No chest pain. No palpitation. The patient has a poor social support. Please refer to the previous records for information. OBJECTIVE: VITAL SIGNS: Pulse is 103, blood pressure n, respirations 16. CHEST: Clear to auscultation. CARDIOVASCULAR: S1 and S2. ABDOMEN: Soft and nontender. NERVOUS SYSTEM: Diffusely weak, wasted, and emaciated. LABORATORY DATA: Reviewed. WBC 11.5. COVID-19 is negative. ASSESSMENT: 1. Significant bilateral weakness, severe malnutrition, and gait dysfunction. 2. Acute urinary tract infection, present on admission, with cellulitis possibly. 3. Bilateral leg swelling. 4. Hypoalbuminemia. 5. Multiple medical issues. RECOMMENDATIONS: Recommend to continue current management and symptomatic treatment. Otherwise, at this time, I would recommend to continue the current medications including broad- spectrum IV antibiotics. Repeat labs. PT/OT evaluation. Possible ECF rehab. Further recommendations to follow. MMODL / IJN: [id number] / MTDD
[2022-08-12] MEDS: PIPERACILLIN-TAZOBACTAM 3.375 GM in SODIUM CHLORIDE 0.9% 100 ML IVPB SCH ×4 (00:26→23:16)
--- NOTE | 2022-08-12 06:38 | PN ---
PROGRESS NOTE SUBJECTIVE: This is a 72-year-old woman, who was admitted with gait dysfunction and unkempt, also had bilateral leg swelling also. The patient had possible cellulitis. No chest pain. No palpitation. PHYSICAL EXAMINATION: VITAL SIGNS: Pulse is 88, blood pressure 92/64, respirations 18. CHEST: Clear to auscultation. CARDIOVASCULAR: S1, S2 muffled. ABDOMEN: Soft. BACK: Rash present. LABORATORY DATA: Sodium 131, potassium 3.0. Rest of the labs are noted. ASSESSMENT: 1. Significant bilateral weakness with severe malnutrition and gait dysfunction. 2. Bilateral leg swelling. 3. Possible cellulitis. 4. Hypoalbuminemia. 5. Multiple medical issues. RECOMMENDATIONS AND DISCUSSION: Recommend to continue current management and symptomatic treatment. Continue with empiric antibiotics. Otherwise, PT, OT evaluation, possible ECF rehab. Guarded prognosis. Further recommendations to follow. MMODL / IJN: [id number] /
[2022-08-12] MEDS: IPRATROPIUM-ALBUTEROL 3 ML NEB INHALATION SCH ×4 (07:38→19:52)
[2022-08-12] MEDS: HEPARIN SODIUM,PORCINE/PF 5,000 UNIT/0.5 ML SYRINGE SQ SCH ×2 (08:55→20:39)
[2022-08-12] MEDS: CHOLESTYRAMINE (WITH SUGAR) 4 GM PACKET PO SCH ×2 (08:55→17:20)
[2022-08-12] MEDS: PANTOPRAZOLE 40 MG TABLET PO SCH (08:56)
[2022-08-12] MEDS: TAMSULOSIN 0.4 MG CAP.ER.24H PO SCH (08:56)
[2022-08-12] MEDS: NICOTINE 14MG/24HR PATCH TRANSDERM SCH (08:56)
[2022-08-12] MEDS: FLUCONAZOLE 100 MG TAB PO SCH (08:56)
[2022-08-12] MEDS: THIAMINE 100 MG TAB PO SCH ×2 (08:56→20:39)
[2022-08-12] MEDS: MIDODRINE 5 MG TAB PO SCH ×3 (08:56→18:47)
[2022-08-12] MEDS: METHYL SALICYLATE-MENTHOL OINT (3 OZ TUBE) TOPICAL SCH ×2 (09:04→20:40)
[2022-08-12 11:03] LABS: African American GFR (CKD) >90 (>60 ml/min/1.73 sqM); Anion Gap 5 mmol/L; Blood Urea Nitrogen 6 mg/dL (7-17); Calcium 7.5 mg/dL (8.4-10.2); Carbon Dioxide 22 mmol/L (22-30); Chloride 104 mmol/L (98-107); Glucose 110 mg/dL (74-99); Non-African American GFR(CKD) >90 (>60 ml/min/1.73 sqM); Potassium 3.2 mmol/L (3.5-5.1); Sodium 131 mmol/L (137-145)
[2022-08-12] MEDS: POTASSIUM CHLORIDE ER 20 MEQ TAB.ER PO SCH ×6 (12:43→22:01)
[2022-08-12] MEDS ORDERED: HYDROcodone/APAP 5-325MG 1 EACH TAB PO PRN (13:06)
--- NOTE | 2022-08-12 13:27 | P.PN ---
Subjective Progress Note Date: 08/12/22 This is a 72-year-old female who was recently admitted with significant gait dysfunction uncapped, appears neglected with caked on stool and severe excoriation and discomfort noted to the entire buttock region. Patient also with bilateral leg swelling with questionable cellulitis and is maintained on an tibiotics in the form of Zosyn and have added Diflucan. Patient to be evaluated by physical therapy and also plans for ECF if insurance authorization is obtained. APS was contacted for evaluation of the patient while in hospital along with in the home. Patient does live in the [facility] with her spouse. Social work is following. Patient continues to report pain of her buttock region and will add low-dose pain medication and continue to recommend frequent position changes and offloading to the area. Will also consult psychiatry for medical/mental capacity as patient may require guardianship at some point given her severe lack of social support and negligence. Patient is afebrile and more awake and alert today reports she is eating a little more today and encouraged oral intake. Patient appears emaciated and much older than stated age. She denies chest pain or shortness of breath and denies any nausea or vomiting. Review of systems: Constitutional: No reports of fatigue, fever, or chills Cardiovascular: No reports of chest pain or palpitations Respiratory: No reports of shortness of breath or cough GI: No reports of nausea, no reports of of vomiting, : No reports of dysuria or retention Neurovascular: reports of generalized weakness and continued buttock pain All medications have been reviewed Active Medications Acetaminophen (Acetaminophen Tab 325 Mg Tab) 650 mg PO Q6H PRN PRN Reason: Pain Last Admin: 08/11/22 01:44 Dose: 650 mg Hydrocodone Bitart/Acetaminophen (Hydrocodone/Apap 5-325mg 1 Each Tab) 0.5 each PO Q6HR PRN PRN Reason: Pain Albuterol/Ipratropium (Ipratropium-Albuterol 3 Ml Neb) 3 ml INHALATION RT-QID [facility] Last Admin: 08/12/22 10:37 Dose: 3 ml Albuterol/Ipratropium (Ipratropium-Albuterol 3 Ml Neb) 3 ml INHALATION RT-Q12H PRN PRN Reason: Shortness Of Breath Or Wheezing Cholestyramine Resin (Cholestyramine (With Sugar) 4 Gm Packet) 4 gm PO BID@1000,1800 [facility] Last Admin: 08/12/22 08:55 Dose: 4 gm Fluconazole (Fluconazole 100 Mg Tab) 100 mg PO DAILY [facility]; Protocol Last Admin: 08/12/22 08:56 Dose: 100 mg Heparin Sodium (Porcine) (Heparin Sodium,Porcine/Pf 5,000 Unit/0.5 Ml Syringe) 5,000 unit SQ Q12HR [facility] Last Admin: 08/12/22 08:55 Dose: 5,000 unit Piperacillin Sod/Tazobactam (Sod 3.375 gm/ Sodium Chloride) 100 mls @ 25 mls/hr IVPB Q8HR [facility]; Protocol Last Admin: 08/12/22 08:55 Dose: 25 mls/hr Sodium Chloride (Saline 0.9%) 1,000 mls @ 75 mls/hr IV .[id number] [facility] Last Admin: 08/11/22 13:47 Dose: 75 mls/hr Methyl Salicylate (Methyl Salicylate-Menthol Oint (3 Oz Tube)) 1 applic TOPICAL BID [facility] Last Admin: 08/12/22 09:04 Dose: 1 applic Midodrine (Midodrine 5 Mg Tab) 10 mg PO AC-TID [facility] Last Admin: 08/12/22 12:42 Dose: 10 mg Miscellaneous Information (Potassium Replacement Protocol 1 Each Misc) 1 each MISCELLANE DAILY PRN; Protocol PRN Reason: Per Protocol Naloxone HCl (Naloxone 0.4 Mg/Ml 1 Ml Vial) 0.2 mg IV Q2M PRN PRN Reason: Opioid Reversal Nicotine (Nicotine 14mg/24hr Patch) 1 patch TRANSDERM DAILY [facility] Last Admin: 08/12/22 08:56 Dose: 1 patch Pantoprazole Sodium (Pantoprazole 40 Mg Tablet) 40 mg PO AC-BRKFST [facility] Last Admin: 08/12/22 08:56 Dose: 40 mg Tamsulosin HCl (Tamsulosin 0.4 Mg Cap.Er.24h) 0.4 mg PO DAILY [facility] Last Admin: 08/12/22 08:56 Dose: 0.4 mg Thiamine HCl (Thiamine 100 Mg Tab) 100 mg PO BID [facility] Last Admin: 08/12/22 08:56 Dose: 100 mg PHYSICAL EXAMINATION: GENERAL: The patient is alert and oriented x2, thin built, may seeded, ill- appearing an elderly HEENT: Pupils are round and equally reacting to light. EOMI. no scleral icterus. No conjunctival pallor. Normocephalic, atraumatic. No pharyngeal erythema. No thyromegaly. CARDIOVASCULAR: S1 and S2 muffled PULMONARY: diminished breath sounds bilaterally with some scattered rhonchi and crackles noted. ABDOMEN: soft. Nontender on exam. non-distended, normoactive bowel sounds. No palpable organomegaly. MUSCULOSKELETAL: No joint swelling or deformity. EXTREMITIES: No cyanosis, clubbing, or pedal edema. NEUROLOGICAL: Gross neurological examination did not reveal any focal deficits. Diffuse weakness SKIN: No rashes. Excoriated buttock with antifungal cream noted laterally Assessment: Significant bilateral weakness with severe malnutrition and gait dysfunction Bilateral leg swelling with possible cellulitis Hypoalbuminemia Hypokalemia Severe protein calorie malnutrition with a BMI of 21 History of COPD, not an exacerbation Hyperlipidemia Hypertension Liver cirrhosis Continued ongoing nicotine abuse GI prophylaxis DVT prophylaxis Full code Plan: Recommend to continue with current medications and management with social work following closely. Awaiting accepting ECF and insurance authorization as patient would benefit from rehab to build strength and mobility. Patient continues with significant weakness and gait dysfunction and poor malnutrition with continued poor oral intake although reports is slightly improved and eating more today. Patient continues with bilateral buttock excoriation and pain and will add low-dose pain medication. Continue antibiotics empirically at this time. Patient is hypokalemic at 3.1 and will replace per protocol and recommend repeat labs. Encouraged increased activity as tolerated with PT/OT evaluation. Psychiatry has been consulted for medical/mental capacity as patient may require guardianship. Patient with extremely poor social support and social work following working on safety discharge planning is returning home may not be a safe option at this time. Recommend ECF for continued strength and mobility with aggressive PT/OT therapy. Due to multiple complex medical issues, prognosis is guarded. The impression and plan of care has been dictated by Berta Brown nurse practitioner as directed. Dr. Kyrie MD I have performed a history and examination and MDM of this patient, discussed the same with the dictator, and agree with the dictator's assessment and plan as written ,documented as a scribe. Based on total visit time, I have performed more than 50% of the visit. Any additional findings or plans will be noted. Objective - Vital Signs Vital signs: Vital Signs Temp 97.5 F L 08/12/22 05:00 Pulse 92 08/12/22 10:51 Resp 16 08/12/22 05:00 BP 104/64 08/12/22 05:00 Pulse Ox 92 L 08/12/22 05:00 FiO2 Intake & Output 08/11/22 08/12/22 08/12/22 18:59 06:59 18:59 Intake Total 3050 1190 Balance 3050 1190 Intake: Intake, IV Titration 500 600 Amount Piperacillin-Tazobactam 3 200 100 .375 gm In Sodium Chloride 0.9% 100 ml @ 25 mls/hr IVPB Q8HR [facility] Rx# :[id number] Sodium Chloride 0.9% 1, 300 500 000 ml @ 75 mls/hr IV . [id number] [facility] Rx#:[id number] Oral [id number] 590 Other: Voiding Method Diaper Diaper # Voids 3 1 # Bowel Movements 1 1 - Labs CBC & Chem 7: 08/11/22 05:45 08/12/22 10:17 Labs: Abnormal Lab Results - Last 24 Hours (Table) 08/12/22 Range/Units 10:17 Sodium 131 L (137-145) mmol/L Potassium 3.2 L (3.5-5.1) mmol/L BUN 6 L (7-17) mg/dL Creatinine 0.46 L (0.52-1.04) mg/dL Glucose 110 H (74-99) mg/dL Calcium 7.5 L (8.4-10.2) mg/dL Microbiology - Last 24 Hours (Table) 08/09/22 14:51 Blood Culture - Preliminary Blood No Growth after 48 hours 08/09/22 14:51 Blood Culture - Preliminary Blood No Growth after 48 hours
--- NOTE | 2022-08-12 13:58 | P.CN ---
Psychiatric Consult - . Consult date: 08/12/22 Consult:: 08/12/22 13:50 IDENTIFYING DATA: This patient is a 72-year-old female who currently lives in a house with her , has 4 kids. REASON FOR REFERRAL: Psychiatry was consulted for capacity HISTORY OF PRESENT ILLNESS: The patient presented to the hospital and according to ER note reportedly had feces on her and was in disheveled and unkempt condition. Patient was admitted for failure to thrive. Patient's nurse states that patient was covered in maggots as well and was essentially coming from home and lives with her . She also stated that APS was reported. Sprinkler Driver went to see patient in the room today who is laying in bed. She appeared to be disheveled, long hair, was unkempt. She also appeared to be frail. She had very poor insight as to why she was in the hospital. She initially thought that she was in [facility] care home. She does not know what city she is in or state. She knew her name and her age. She believes that it is "some time in August". She appears to have very poor recollection of why she came to the hospital and is denying any problems at home. She is denying any abuse or neglect. When lead technical writer asked her about her condition including maggots and feces patient appeared to be shocked and states "I didn't know that". She was fairly directable during conversation. She is not endorsing any paranoia or any depression or anxiety at this time. States that she sleeps and eats fairly. She claims that her helps take care of her. At this time patient denies any suicidal or homical ideations, intent or plan. Patient denies any auditory, visual hallucinations and denies any paranoia or delusions. Patients admits to using no recreational drugs except for cigarettes. PAST PSYCHIATRIC HISTORY: Patient reports no psychiatric history. Patient denies being on any psychiatric medications. Patient denies any previous psychiatric hospitalizations. Patient denies any psychiatric outpatient follow-up. Patient denies any history of suicide attempts in the past. PAST MEDICAL HISTORY: As per ER note. ALLERGIES: as per EMR. CHEMICAL DEPENDENCY HISTORY: as per HPI. FAMILY PSYCHIATRIC/SUBSTANCE USE HISTORY: denies SOCIAL HISTORY: Patient was born and raised in [place] and also in [place]. She is denying any legal history. She states that she quit high school. 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 She claims that she lives with her in a house. She has 4 kids. MENTAL STATUS EXAM: General Appearance: Patient appears to be frail, disheveled appearance, stated age is alert, attempts to be cooperative. wearing hospital gown with fair eye contact. Behavior: Patient is calmly lying in bed without any agitated behavior. nonchalant Speech: Patient's speech is fluent and nonpressured. Mood/Affect: Patient reports their mood is "ok", affect is congruent Suicidality/Homicidality: Patient denies having any suicidal or homicidal ideation intent or plan. Perceptions: Patient denies any visual hallucinations and denies any auditory hallucinations Though content/process: There is no evidence of any delusional thought content and thought process is linear and goal-directed. poverty of content. minimizing Memory and concentration: AOX1-2, fair attention span, does not knopw todays date or her situation. does not know her location. Cannot spell "WORLD" backwards Judgment and insight: poor IMPRESSIONS: Likely Dementia PLAN: -At this time patient DOES NOT meet criteria for inpatient psychiatric admission. -Patient DOES NOT have decision making capacity at this time and is unable to reason through and communicate/appreciate the risks, benefits and alternatives to treatment and cannot care for self. -Delirium precautions recommended with patient including - avoiding use of narcotics and EMBOSSING PRESS OPERATOR sedatives, limit anticholinergic medications when possible, frequent re-orientation, minimize use of restraints, open window shades during the day and close them at night -Would recommend the following medication changes/additions: melatonin 3 mg qhs for sleep -primary team and returned case inspector completing APS report for negalect and failure to thrive. -patient will need placement at this time. -Communicated plan to patient's nurse -Psychiatry will sign off at this time -Please contact with any questions.
[2022-08-12] MEDS: SODIUM CHLORIDE 0.9% 1,000 ML IV SCH (17:16)
[2022-08-12] MEDS ORDERED: MELATONIN 3 MG TABLET PO SCH (21:00)
[2022-08-13] MEDS: SODIUM CHLORIDE 0.9% 1,000 ML IV SCH (05:43)
[2022-08-13] MEDS: PIPERACILLIN-TAZOBACTAM 3.375 GM in SODIUM CHLORIDE 0.9% 100 ML IVPB SCH (07:42)
[2022-08-13] MEDS: HEPARIN SODIUM,PORCINE/PF 5,000 UNIT/0.5 ML SYRINGE SQ SCH (07:42)
[2022-08-13] MEDS: THIAMINE 100 MG TAB PO SCH (07:42)
[2022-08-13] MEDS: NICOTINE 14MG/24HR PATCH TRANSDERM SCH (07:42)
[2022-08-13] MEDS: PANTOPRAZOLE 40 MG TABLET PO SCH (07:43)
[2022-08-13] MEDS: FLUCONAZOLE 100 MG TAB PO SCH (07:43)
[2022-08-13] MEDS: METHYL SALICYLATE-MENTHOL OINT (3 OZ TUBE) TOPICAL SCH (07:43)
[2022-08-13] MEDS: TAMSULOSIN 0.4 MG CAP.ER.24H PO SCH (07:43)
[2022-08-13] MEDS: MIDODRINE 5 MG TAB PO SCH ×2 (07:43→11:55)
[2022-08-13 08:42] LABS: African American GFR (CKD) >90 (>60 ml/min/1.73 sqM); Anion Gap 2 mmol/L; Blood Urea Nitrogen 5 mg/dL (7-17); Calcium 7.4 mg/dL (8.4-10.2); Carbon Dioxide 24 mmol/L (22-30); Chloride 106 mmol/L (98-107); Glucose 92 mg/dL (74-99); Non-African American GFR(CKD) >90 (>60 ml/min/1.73 sqM); Sodium 132 mmol/L (137-145)
[2022-08-13 08:51] LABS: Potassium 5.7 mmol/L (3.5-5.1)
[2022-08-13] MEDS ORDERED: POTASSIUM CHLORIDE ER 20 MEQ TAB.ER PO SCH (09:00)
[2022-08-13] MEDS: IPRATROPIUM-ALBUTEROL 3 ML NEB INHALATION SCH ×2 (09:27→12:13)
[2022-08-13] MEDS ORDERED: SODIUM ZIRCONIUM CYCLOSILICATE 10 GM PACKET PO ONE (10:00)
[2022-08-13] MEDS: CHOLESTYRAMINE (WITH SUGAR) 4 GM PACKET PO SCH (10:06)
[2022-08-13 11:49] VITALS: BP 112/76; RESP 18; TEMP 97.7
[2022-08-13 12:23] VITALS: PULSE 100
--- NOTE | 2022-08-13 12:29 | P.DS ---
Providers Date of admission: 08/09/22 16:00 Expected date of discharge: 08/13/22 Attending physician: Lenora Mittal Consults: 08/12/22 11:50 Consult Physician Urgent Consulting Provider: Fernando Berry Consult Reason/Comments: medical capacity Do you want consulting provider notified?: Yes Primary care physician: Quinn Mancuso [facility] Course: Final diagnosis Significant bilateral weakness with severe malnutrition and gait dysfunction Bilateral leg swelling with possible cellulitis Hypoalbuminemia Hypokalemia Severe protein calorie malnutrition with a BMI of 21 History of COPD, not an exacerbation Hyperlipidemia Hypertension Liver cirrhosis Continued ongoing nicotine abuse GI prophylaxis DVT prophylaxis Full code Discharge disposition Patient is being discharged in a stable condition with guarded prognosis to [facility]. Patient will follow-up with Dr. Mancuso in the outpatient setting upon discharge. Patient is to continue with oral Augmentin twice daily for the next 4 days along with Diflucan daily for the next one week to complete the course. Recommend repeat CBC and BMP in the next 2-3 days. Total time taken is greater than 35 minutes. Hospital course This is a 72-year-old female who was recently admitted with weakness stool incontinence that was caked on, and what appeared to be neglect and was being closely monitored. Patient was empirically started on antibiotics along with wound care as her buttock region was caked in stool for days and a brief. Patient with some lower extremity swelling and generalized weakness had been se en and evaluated by physical therapy recommending ECF for continued strength and mobility. APS was also contacted and has a case that will be following in the [facility] area. Patient was evaluated by psychiatry and unable to make medical decisions for herself. Patient's mentation is slightly improved and is agreeable to rehab. Recommend encouraging oral intake and supervision with meals and patient is maintained on regular diet. Patient to have repeat CBC and BMP in the next 2-3 days. Potassium was mildly elevated at 5.7 today and given a dose of low, although has been low most other days and patient was taking supplements in the outpatient setting. Aldactone also on hold. Currently no reports of chest pain, shortness of breath, or palpitations. Patient is afebrile. No reports of nausea or vomiting and patient is tolerating diet. Patient will be going to [facility] today. Physical exam: Gen: This is a 72-year-old female awake, alert and oriented 2, thin built, e maciated, elderly-appearing female HEENT: Head is atraumatic, normocephalic. Pupils equal, round. Sclerae is anicteric. NECK: Supple. No JVD. No lymphadenopathy. No thyromegaly. LUNGS: Diminished breath sounds bilaterally with some scattered rhonchi noted. No intercostal retractions. HEART: S1, S2 are muffled ABDOMEN: Soft. Bowel sounds are present. No masses. No tenderness. EXTREMITIES: No pedal edema. No calf tenderness. NEUROLOGICAL: Patient is awake, alert and oriented x2. Cranial nerves 2 through 12 are grossly intact. Diffusely weak Please refer to medication reconciliation sheet for a list of medications. The impression and plan of care has been dictated by Berta Brown, Nurse Practitioner as directed. Dr. Kyrie MD I have performed a history and examination and MDM of this patient, discussed the same with the dictator, and agree with the dictator's assessment and plan as written ,documented as a scribe. Based on total visit time, I have performed more than 50% of the visit. Patient Condition at Discharge: Fair Plan - Discharge Summary New Discharge Prescriptions: New Amoxic-Pot Clav 875-125Mg [Augmentin 875-125] 1 tab PO Q12HR 4 Days #8 tab Melatonin 3 mg PO HS tab Fluconazole [Diflucan] 100 mg PO DAILY 7 Days #7 tab Folic Acid 1 mg PO DAILY 30 Days #30 tablet Heparin Sodium,Porcine [Heparin Sodium] 5,000 unit SQ Q12HR 30 Days #60 each Multivitamin [Multivitamins Adult Gummies] 1 each PO DAILY #30 tablet Continue Ipratropium-Albuterol Nebulize [Duoneb 0.5 mg-3 mg/3 ml Soln] 3 ml INHALATION RT-QID each Midodrine [ProAmatine] 10 mg PO AC-TID tab Cholestyramine (with Sugar) [Questran Packet] 4 gm PO BID@1000,1800 packet Thiamine [Vitamin B-1] 100 mg PO BID Omeprazole 20 mg PO DAILY Ipratropium-Albuterol Nebulize [Duoneb 0.5 mg-3 mg/3 ml Soln] 3 ml INHALATION RT-Q12H PRN PRN Reason: Shortness Of Breath Or Wheezing Tamsulosin [Flomax] 0.4 mg PO DAILY Nicotine 14Mg/24Hr Patch [Habitrol] 1 patch TRANSDERM DAILY patch Acetaminophen [Tylenol] 650 mg PO Q6H PRN PRN Reason: Pain Menthol [Biofreeze] 1 applic TOPICAL BID Discontinued Potassium Chloride ER [K-Dur 20] 20 meq PO DAILY tab Spironolactone [Aldactone] 25 mg PO BID tab Phenylephrine HCl [Sudafed PE] 10 mg PO BID Discharge Medication List Cholestyramine (with Sugar) [Questran Packet] 4 gm PO BID@1000,1800 packet 07/14/22 [Rx] Ipratropium-Albuterol Nebulize [Duoneb 0.5 mg-3 mg/3 ml Soln] 3 ml INHALATION RT-QID each 07/14/22 [Rx] Midodrine [ProAmatine] 10 mg PO AC-TID tab 07/14/22 [Rx] Nicotine 14Mg/24Hr Patch [Habitrol] 1 patch TRANSDERM DAILY patch 07/14/22 [Rx] Acetaminophen [Tylenol] 650 mg PO Q6H PRN 08/09/22 [History] Ipratropium-Albuterol Nebulize [Duoneb 0.5 mg-3 mg/3 ml Soln] 3 ml INHALATION RT-Q12H PRN 08/09/22 [History] Menthol [Biofreeze] 1 applic TOPICAL BID 08/09/22 [History] Omeprazole 20 mg PO DAILY 08/09/22 [History] Tamsulosin [Flomax] 0.4 mg PO DAILY 08/09/22 [History] Thiamine [Vitamin B-1] 100 mg PO BID 08/09/22 [History] Amoxic-Pot Clav 875-125Mg [Augmentin 875-125] 1 tab PO Q12HR 4 Days #8 tab 08/13/22 [Rx] Fluconazole [Diflucan] 100 mg PO DAILY 7 Days #7 tab 08/13/22 [Rx] Folic Acid 1 mg PO DAILY 30 Days #30 tablet 08/13/22 [Rx] Heparin Sodium,Porcine [Heparin Sodium] 5,000 unit SQ Q12HR 30 Days #60 each 08/13/22 [Rx] Melatonin 3 mg PO HS tab 08/13/22 [Rx] Multivitamin [Multivitamins Adult Gummies] 1 each PO DAILY #30 tablet 08/13/22 [Rx] Follow up Appointment(s)/Referral(s): Quinn Mancuso MD [Primary Care Provider] - 1-2 days Ambulatory/Diagnostic Orders: Complete Blood Count w/diff [LAB.AMB] Time Frame: 2 Days, Location: None Selected Activity/Diet/Wound Care/Special Instructions: Patient is going to [facility] Activity as tolerated Continue taking antibiotics for 4 days to finish the course Continue with Diflucan daily for 1 week Continue local wound care to the buttock area with Mycostatin cream and change a s soiled Recommend frequent position changes and offloading to the buttock area every 2-3 hours Follow-up with primary care provider on discharge Encourage oral intake and continue with regular diet Continue with ensure supplements 3 times a day between meals Recommend repeat labs of CBC and BMP in the next 2-3 days Discharge Disposition: TRANSFER TO SNF/ECF
== END 2022-08-13 15:00 | DRG 602 ==
LOC: EC 13:36 → 4SSUR 16:00 → 5NMEDONC 17:48
PROVIDERS: ADMIT Hospitalist; ATTEND Hospitalist
DX: L03.116 Cellulitis of left lower limb (principal); E43 Unspecified severe protein-calorie malnutrition; R64 Cachexia; E87.1 Hypo-osmolality and hyponatremia; T76.01XA Adult neglect or abandonment, suspected, initial encounter; R62.7 Adult failure to thrive; L03.115 Cellulitis of right lower limb; R26.89 Other abnormalities of gait and mobility; E88.09 Other disorders of plasma-protein metabolism, not elsewhere classified; R53.1 Weakness; Z68.21 Body mass index [BMI] 21.0-21.9, adult; E87.6 Hypokalemia; R15.9 Full incontinence of feces; R60.0 Localized edema; F03.90 Unspecified dementia, unspecified severity, without behavioral disturbance, psychotic disturbance, mood disturbance, and anxiety; S30.810A Abrasion of lower back and pelvis, initial encounter; J44.9 Chronic obstructive pulmonary disease, unspecified; K74.60 Unspecified cirrhosis of liver; I10 Essential (primary) hypertension; F17.210 Nicotine dependence, cigarettes, uncomplicated; E78.5 Hyperlipidemia, unspecified; M50.20 Other cervical disc displacement, unspecified cervical region; Z60.8 Other problems related to social environment; Z20.822 Contact with and (suspected) exposure to COVID-19; Z96.60 Presence of unspecified orthopedic joint implant; Z63.8 Other specified problems related to primary support group; Z88.5 Allergy status to narcotic agent; Z71.3 Dietary counseling and surveillance; Z98.49 Cataract extraction status, unspecified eye
CPT/HCPCS: 36415; 71045; 80048; 80053; 81001; 82533; 83735; 84132; 85025; 85610; 85730; 87040; 87086; 87635; 93005; 94640; 94760; 96361; 96365; 99285

== ENCOUNTER 2022-08-31 12:09 | Inpatient (IN) | payer MEDICARE ==
--- NOTE | 2022-08-31 12:28 | ED ---
General Adult HPI - General Stated complaint: low oxygen saturation Time Seen by Provider: 08/31/22 12:15 Source: patient, RN notes reviewed, old records reviewed Limitations: no limitations - History of Present Illness Initial comments: 72-year-old female presents from home with increased weakness, dyspnea. Patient was found to be saturating in the low 90s by paramedics. She does have history of COPD but does not normally wear home oxygen. Apparently the living situation is questionable and she was recently discharged from [facility] about one week ago. Her symptoms and situation have not improved. No fever. No chest pain. - Related Data Home Medications Medication Instructions Recorded Confirmed Acetaminophen [Tylenol] 650 mg PO Q6H PRN 08/09/22 08/31/22 Ipratropium-Albuterol Nebulize 3 ml INHALATION RT-Q12H PRN 08/09/22 08/31/22 [Duoneb 0.5 mg-3 mg/3 ml Soln] Omeprazole 20 mg PO DAILY 08/09/22 08/31/22 Tamsulosin [Flomax] 0.4 mg PO DAILY 08/09/22 08/31/22 Thiamine [Vitamin B-1] 100 mg PO DAILY 08/09/22 08/31/22 Bismuth Subsalicylate 524 mg PO Q4H PRN 08/31/22 08/31/22 [Pepto-Bismol] Furosemide [Lasix] 40 mg PO BID 08/31/22 08/31/22 Miconazole Nitrate [Lotrimin AF 1 applic TOPICAL BID 08/31/22 08/31/22 Powder] Midodrine HCl [ProAmatine] 10 mg PO TID 08/31/22 08/31/22 Multivitamins, Thera [Multivitamin 1 tab PO DAILY 08/31/22 08/31/22 (formulary)] Potassium Chloride ER [K-Dur 10] 10 meq PO DAILY 08/31/22 08/31/22 Previous Rx's Medication Instructions Recorded Cholestyramine (with Sugar) 4 gm PO BID@1000,1800 packet 07/14/22 [Questran Packet] Ipratropium-Albuterol Nebulize 3 ml INHALATION RT-QID each 07/14/22 [Duoneb 0.5 mg-3 mg/3 ml Soln] Nicotine 14Mg/24Hr Patch [Habitrol] 1 patch TRANSDERM DAILY patch 07/14/22 Folic Acid 1 mg PO DAILY 30 Days #30 tablet 08/13/22 Melatonin 3 mg PO HS tab 08/13/22 Allergies Allergy/AdvReac Type Severity Reaction Status Date / Time No Known Allergies Allergy Verified 08/31/22 12:31 Review of Systems ROS Statement: Those systems with pertinent positive or pertinent negative responses have been documented in the HPI. ROS Other: All systems not noted in ROS Statement are negative. 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, cirrhosis of the liver History of Any Multi-Drug Resistant Organisms: None Reported Past Surgical History: Section, Joint Replacement Additional Past Surgical History / Comment(s): cataract surgery Past Anesthesia/Blood Transfusion Reactions: No Reported Reaction Smoking Status: Current every day smoker - Past Family History Son(s) Family Medical History: No Reported History Daughter(s) Family Medical History: No Reported History General Exam General appearance: alert, cachectic Head exam: Present: atraumatic, normocephalic Eye exam: Present: normal appearance, PERRL ENT exam: Present: mucous membranes dry Neck exam: Present: normal inspection. Absent: tenderness, meningismus Respiratory exam: Present: respiratory distress, wheezes, decreased breath sounds Cardiovascular Exam: Present: regular rate, normal rhythm GI/Abdominal exam: Present: soft. Absent: distended, tenderness, guarding Extremities exam: Present: pedal edema Neurological exam: Present: alert, oriented X3, CN II-XII intact. Absent: motor sensory deficit Skin exam: Present: warm, dry, intact. Absent: cyanosis, diaphoretic Course Vital Signs 08/31/22 12:10 Temperature 96.9 F L Pulse Rate 104 H Respiratory 20 Rate Blood Pressure 140/96 O2 Sat by Pulse 98 Oximetry EKG Findings - EKG Comments: EKG Findings:: EKG narrow complex tachycardia rate of 104, QRS duration 82, QTC 389, no ST segment elevation. Medical Decision Making - Medical Decision Making 72-year-old female failure to thrive, I have concerns about this patient's ability to stay home. She is moderately dyspneic. She's fluid overloaded. She has an effusion on chest x-ray. Peripheral edema. She is hypoalbuminemic with an albumin of 2. This is likely a protein malnutrition, failure to thrive type picture. Other laboratory testing is essentially stable. Patient will be admitted to internal medicine with need for likely placement. - Lab Data Result diagrams: 08/31/22 12:24 08/31/22 12:24 Lab Results 08/31/22 08/31/22 08/31/22 Range/Units 12:24 12:24 12:24 WBC 9.6 (3.8-10.6) k/uL RBC 4.55 (3.80-5.40) m/uL Hgb 14.9 (11.4-16.0) gm/dL Hct 45.7 (34.0-46.0) % MCV 100.3 H (80.0-100.0) fL MCH 32.8 (25.0-35.0) pg MCHC 32.7 (31.0-37.0) g/dL RDW 14.6 (11.5-15.5) % Plt Count 142 L (150-450) k/uL MPV 8.9 Neutrophils % (Manual) 81 % Lymphocytes % (Manual) 11 % Monocytes % (Manual) 8 % Neutrophils # (Manual) 7.78 H (1.3-7.7) k/uL Lymphocytes # (Manual) 1.06 (1.0-4.8) k/uL Monocytes # (Manual) 0.77 (0-1.0) k/uL Nucleated RBCs 0 (0-0) /100 WBC Macrocytosis Slight PT 12.2 H (9.0-12.0) sec INR 1.2 H (<1.2) APTT 26.0 (22.0-30.0) sec Sodium 134 L (137-145) mmol/L Potassium 4.6 (3.5-5.1) mmol/L Chloride 102 (98-107) mmol/L Carbon Dioxide 29 (22-30) mmol/L Anion Gap 3 mmol/L BUN 14 (7-17) mg/dL Creatinine 0.42 L (0.52-1.04) mg/dL Est GFR (CKD-EPI)AfAm >90 (>60 ml/min/1.73 sqM) Est GFR (CKD-EPI)NonAf >90 (>60 ml/min/1.73 sqM) Glucose 98 (74-99) mg/dL Calcium 7.7 L (8.4-10.2) mg/dL Total Bilirubin 0.9 (0.2-1.3) mg/dL AST 38 H (14-36) U/L ALT 23 (4-34) U/L Alkaline Phosphatase 84 (38-126) U/L Troponin I (0.000-0.034) ng/mL NT-Pro-B Natriuret Pep pg/mL Total Protein 5.0 L (6.3-8.2) g/dL Albumin 2.3 L (3.5-5.0) g/dL 08/31/22 08/31/22 Range/Units 12:24 12:24 WBC (3.8-10.6) k/uL RBC (3.80-5.40) m/uL Hgb (11.4-16.0) gm/dL Hct (34.0-46.0) % MCV (80.0-100.0) fL MCH (25.0-35.0) pg MCHC (31.0-37.0) g/dL RDW (11.5-15.5) % Plt Count (150-450) k/uL MPV Neutrophils % (Manual) % Lymphocytes % (Manual) % Monocytes % (Manual) % Neutrophils # (Manual) (1.3-7.7) k/uL Lymphocytes # (Manual) (1.0-4.8) k/uL Monocytes # (Manual) (0-1.0) k/uL Nucleated RBCs (0-0) /100 WBC Macrocytosis PT (9.0-12.0) sec INR (<1.2) APTT (22.0-30.0) sec Sodium (137-145) mmol/L Potassium (3.5-5.1) mmol/L Chloride (98-107) mmol/L Carbon Dioxide (22-30) mmol/L Anion Gap mmol/L BUN (7-17) mg/dL Creatinine (0.52-1.04) mg/dL Est GFR (CKD-EPI)AfAm (>60 ml/min/1.73 sqM) Est GFR (CKD-EPI)NonAf (>60 ml/min/1.73 sqM) Glucose (74-99) mg/dL Calcium (8.4-10.2) mg/dL Total Bilirubin (0.2-1.3) mg/dL AST (14-36) U/L ALT (4-34) U/L Alkaline Phosphatase (38-126) U/L Troponin I 0.015 (0.000-0.034) ng/mL NT-Pro-B Natriuret Pep 605 pg/mL Total Protein (6.3-8.2) g/dL Albumin (3.5-5.0) g/dL Disposition Clinical Impression: Failure to thrive, Generalized weakness, Leg edema, Edema due to hypoalbuminemia Disposition: ADMITTED IP TO THIS HOSP Condition: Stable Is patient prescribed a controlled substance at d/c from ED?: No Time of Disposition: 14:01
--- NOTE | 2022-08-31 12:42 | XR ---
EXAMINATION TYPE: XR chest 2V DATE OF EXAM: 08/31/2022 12:36 PM COMPARISON: Chest radiographs from 08/09/2022 TECHNIQUE: XR chest 2V Frontal and lateral views of the chest. CLINICAL INDICATION:Female, 72 years old with history of difficulty breathing; FINDINGS: Lungs/Pleura: No pneumothorax. Stable moderate size right pleural effusion. Persistent bibasilar opac ities. Pulmonary vascularity: Unremarkable. Heart/mediastinum: Cardiomediastinal silhouette is unremarkable. Atherosclerotic calcifications are seen in the aorta. Musculoskeletal: No acute osseous pathology. Old malunion fracture of the left proximal humerus redem onstrated. Scoliosis redemonstrated. Degenerative changes of visualized spine. IMPRESSION: Stable moderate size right pleural effusion. Persistent bibasilar opacities which could represent acu te infiltrates and/or atelectasis. No significant change from prior examination.
[2022-08-31 13:06] LABS: ALT 23 U/L (4-34); AST 38 U/L (14-36); African American GFR (CKD) >90 (>60 ml/min/1.73 sqM); Albumin 2.3 g/dL (3.5-5.0); Alkaline Phosphatase 84 U/L (38-126); Anion Gap 3 mmol/L; Blood Urea Nitrogen 14 mg/dL (7-17); Calcium 7.7 mg/dL (8.4-10.2); Carbon Dioxide 29 mmol/L (22-30); Chloride 102 mmol/L (98-107); Glucose 98 mg/dL (74-99); HCT 45.7 % (34.0-46.0); HGB 14.9 gm/dL (11.4-16.0); MCH 32.8 pg (25.0-35.0); MCHC 32.7 g/dL (31.0-37.0); MCV 100.3 fL (80.0-100.0); Macrocytosis Slight; Mean Platelet Volume 8.9; Non-African American GFR(CKD) >90 (>60 ml/min/1.73 sqM); Platelet Count 142 k/uL (150-450); RBC 4.55 m/uL (3.80-5.40); RDW 14.6 % (11.5-15.5); Sodium 134 mmol/L (137-145); Total Bilirubin 0.9 mg/dL (0.2-1.3); WBC 9.6 k/uL (3.8-10.6)
[2022-08-31 13:10] LABS: Potassium 4.6 mmol/L (3.5-5.1)
[2022-08-31 13:12] LABS: INR 1.2 (<1.2); Prothrombin Time 12.2 sec (9.0-12.0)
[2022-08-31] MEDS ORDERED: NALOXONE 0.4 MG/ML 1 ML VIAL IV PRN (14:00)
[2022-08-31] MEDS ORDERED: ALBUTEROL NEBULIZED 2.5 MG/3 ML INHALATION STA (14:00)
[2022-08-31] MEDS ORDERED: ACETAMINOPHEN TAB 325 MG TAB PO PRN ×2 (14:00→14:01)
[2022-08-31] MEDS ORDERED: IPRATROPIUM-ALBUTEROL 3 ML NEB INHALATION STA (14:00)
[2022-08-31] MEDS ORDERED: FUROSEMIDE 10 MG/ML 4 ML VIAL IV STA (14:01)
[2022-08-31] MEDS ORDERED: BISMUTH SUBSALICYLATE 4,192 MG/240 ML BOTTLE PO PRN (14:01)
[2022-08-31] MEDS ORDERED: IPRATROPIUM-ALBUTEROL 3 ML NEB INHALATION PRN (14:01)
[2022-08-31] MEDS ORDERED: MELATONIN 3 MG TABLET PO PRN (14:01)
[2022-08-31 14:04] LABS: Lymphocytes # (M) 1.06 k/uL (1.0-4.8); Monocytes # (M) 0.77 k/uL (0-1.0); Neutrophils # (M) 7.78 k/uL (1.3-7.7); Neutrophils % (M) 81 %; Nucleated Red Blood Cells 0 /100 WBC (0-0); Total Cells Counted 100
--- NOTE | 2022-08-31 14:15 | P.HPIM ---
History of Present Illness 72-year-old female came in with compensative denies weakness and increasing bilateral lower extremity edema and low oxygen saturations. Patient does take Lasix at work may have diastolic dysfunction had normal ejection fraction the past patient was recently hospital is presently symptoms. 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 [facility] was [facility] and unable to take care of herself lives with her patient does have urinary incontinence and does smell of urine. Patient has generalized weakness unable to take care of herself. Patient does have nicotine use history she quit smoking patient is on a nicotine patch at this time. REVIEW OF SYSTEMS: CONSTITUTIONAL: No fever. HEENT: No recent visual problems or hearing problems. Denied any sore throat. CARDIOVASCULAR: No chest pain, orthopnea, PND, no palpitations, no syncope. PULMONARY: No shortness of breath, no cough, no hemoptysis. GASTROINTESTINAL: No diarrhea, no nausea, no vomiting, no abdominal pain. NEUROLOGICAL: No headaches, no weakness, no numbness. HEMATOLOGICAL: Denies any bleeding or petechiae. GENITOURINARY: Denies any burning micturition, frequency, or urgency. MUSCULOSKELETAL/RHEUMATOLOGICAL: Denies any joint pain, or any muscle pain. ENDOCRINE: Denies any polyuria or polydipsia. The rest of the 14-point review of systems is negative. PHYSICAL EXAMINATION: GENERAL: The patient is alert and oriented x3, not in any acute distress. Well developed, well nourished. HEENT: Pupils are round and equally reacting to light. EOMI. No scleral icterus. No conjunctival pallor. Normocephalic, atraumatic. No pharyngeal erythema. No thyromegaly. CARDIOVASCULAR: S1 and S2 present. No murmurs, rubs, or gallops. PULMONARY: Chest is clear to auscultation, no wheezing or crackles. ABDOMEN: Soft, nontender, nondistended, normoactive bowel sounds. No palpable organomegaly. MUSCULOSKELETAL: No joint swelling or deformity. EXTREMITIES: No cyanosis, clubbing, bilateral lower extremity edema NEUROLOGICAL: Gross neurological examination did not reveal any focal deficits. Does have generalized weakness and muscle atrophy SKIN: Sacral decub was ulcer, and refer to nursing documentation. Assessment and plan Shortness of Breath Mostly Secondary to COPD Exacerbation Patient Will Be Continued on Inhaled Steroids Inhalational Treatments -Bilateral lower exudate edema can be related to malnutrition, or cirrhosis of liver patient was started on IV Lasix 40 twice a day patient uses 40 oral twice a day of Lasix. -Generalized deconditioning and weakness due to her chronic medical problems including liver disease and possible cirrhosis of the liver. Physical therapy and occupational therapy consultation -History of alcohol use and cirrhosis. -Hypertension -hyperlipidemia -Hypervolemic hyponatremia. 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, cirrhosis of the liver History of Any Multi-Drug Resistant Organisms: None Reported Past Surgical History: Section, Joint Replacement Additional Past Surgical History / Comment(s): cataract surgery Past Anesthesia/Blood Transfusion Reactions: No Reported Reaction Smoking Status: Current every day smoker - Past Family History Son(s) Family Medical History: No Reported History Daughter(s) Family Medical History: No Reported History Medications and Allergies Home Medications Medication Instructions Recorded Confirmed Type Cholestyramine (with Sugar) 4 gm PO BID@1000,1800 packet 07/14/22 08/31/22 Rx [Questran Packet] Ipratropium-Albuterol Nebulize 3 ml INHALATION RT-QID each 07/14/22 08/31/22 Rx [Duoneb 0.5 mg-3 mg/3 ml Soln] Nicotine 14Mg/24Hr Patch [Habitrol] 1 patch TRANSDERM DAILY patch 07/14/22 08/31/22 Rx Acetaminophen [Tylenol] 650 mg PO Q6H PRN 08/09/22 08/31/22 History Ipratropium-Albuterol Nebulize 3 ml INHALATION RT-Q12H PRN 08/09/22 08/31/22 History [Duoneb 0.5 mg-3 mg/3 ml Soln] Omeprazole 20 mg PO DAILY 08/09/22 08/31/22 History Tamsulosin [Flomax] 0.4 mg PO DAILY 08/09/22 08/31/22 History Thiamine [Vitamin B-1] 100 mg PO DAILY 08/09/22 08/31/22 History Folic Acid 1 mg PO DAILY 30 Days #30 tablet 08/13/22 08/31/22 Rx Melatonin 3 mg PO HS tab 08/13/22 08/31/22 Rx Bismuth Subsalicylate 524 mg PO Q4H PRN 08/31/22 08/31/22 History [Pepto-Bismol] Furosemide [Lasix] 40 mg PO BID 08/31/22 08/31/22 History Miconazole Nitrate [Lotrimin AF 1 applic TOPICAL BID 08/31/22 08/31/22 History Powder] Midodrine HCl [ProAmatine] 10 mg PO TID 08/31/22 08/31/22 History Multivitamins, Thera [Multivitamin 1 tab PO DAILY 08/31/22 08/31/22 History (formulary)] Potassium Chloride ER [K-Dur 10] 10 meq PO DAILY 08/31/22 08/31/22 History Allergies Allergy/AdvReac Type Severity Reaction Status Date / Time No Known Allergies Allergy Verified 08/31/22 12:31 Physical Exam Vitals: Vital Signs Temp Pulse Resp BP Pulse Ox 08/31/22 12:10 96.9 F L 104 H 20 140/96 98 Intake and Output 08/30/22 08/31/22 08/31/22 22:59 06:59 14:59 Other: Weight 58.967 kg Results CBC & Chem 7: 08/31/22 12:24 08/31/22 12:24 Labs: Abnormal Lab Results - Last 24 Hours (Table) 08/31/22 08/31/22 08/31/22 Range/Units 12:24 12:24 12:24 MCV 100.3 H (80.0-100.0) fL Plt Count 142 L (150-450) k/uL Neutrophils # (Manual) 7.78 H (1.3-7.7) k/uL PT 12.2 H (9.0-12.0) sec INR 1.2 H (<1.2) Sodium 134 L (137-145) mmol/L Creatinine 0.42 L (0.52-1.04) mg/dL Calcium 7.7 L (8.4-10.2) mg/dL AST 38 H (14-36) U/L Total Protein 5.0 L (6.3-8.2) g/dL Albumin 2.3 L (3.5-5.0) g/dL
[2022-08-31 18:08] LABS: Appearance,Urine Clear (Clear); Bilirubin,Urine Negative (Negative); Blood,Urine Negative (Negative); Budding Yeast,Urine Occasional /hpf; Color,Urine Light Yellow; Glucose,Urine (UA) Negative (Negative); Hyaline Casts,Urine 8 /lpf (0-2); Ketones,Urine Negative (Negative); Leukocyte Esterase,Urine Moderate (Negative); Mucus,Urine Occasional /hpf; Nitrite,Urine Negative (Negative); PH, Urine 5.5 (5.0-8.0); Protein,Urine Negative (Negative); RBC,Urine 4 /hpf (0-5); Specific Gravity,Urine 1.006 (1.001-1.035); Squamous Epithelial Cell,Urine 4 /hpf (0-4); Urobilinogen,Urine <2.0 mg/dL (<2.0); WBC,Urine 5 /hpf (0-5)
[2022-08-31] MEDS: IPRATROPIUM-ALBUTEROL 3 ML NEB INHALATION SCH (19:02)
[2022-08-31] MEDS: FUROSEMIDE 10 MG/ML 4 ML VIAL IV SCH (20:18)
[2022-08-31] MEDS: NYSTATIN 100,000 UNIT/GM POWD 15 GM TOPICAL SCH (23:36)
[2022-09-01] MEDS: IPRATROPIUM-ALBUTEROL 3 ML NEB INHALATION SCH ×4 (07:20→19:21)
[2022-09-01] MEDS: THIAMINE 100 MG TAB PO SCH (08:32)
[2022-09-01] MEDS: PANTOPRAZOLE 40 MG TABLET PO SCH (08:32)
[2022-09-01] MEDS: FOLIC ACID 1 MG TAB PO SCH (08:32)
[2022-09-01] MEDS: MULTIVITAMINS, THERA 1 EACH TAB PO SCH (08:32)
[2022-09-01] MEDS: NICOTINE 14MG/24HR PATCH TRANSDERM SCH (08:32)
[2022-09-01] MEDS: TAMSULOSIN 0.4 MG CAP.ER.24H PO SCH (08:32)
[2022-09-01] MEDS: FUROSEMIDE 10 MG/ML 4 ML VIAL IV SCH ×2 (08:33→21:40)
[2022-09-01 09:14] LABS: African American GFR (CKD) 110.5 (60.0-200.0); Anion Gap 4.9 mmol/L (10.00-18.00); BUN/Creat Ratio 22.8 Ratio (12.00-20.00); Blood Urea Nitrogen 11.4 mg/dL (9.0-27.0); Calcium 7.4 mg/dL (8.7-10.3); Carbon Dioxide 30.1 mmol/L (20.0-27.5); Magnesium 1.8 mg/dL (1.5-2.4); Non-African American GFR(CKD) 95.3 (60.0-200.0); Potassium 3.3 mmol/L (3.5-5.5)
[2022-09-01] MEDS ORDERED: POTASSIUM CHLORIDE ER 20 MEQ TAB.ER PO STA (09:55)
[2022-09-01] MEDS: MAGNESIUM SULFATE-D5W PMX 1 GM in DEXTROSE/WATER 1 100ML.BAG IVPB SCH ×2 (10:38→11:38)
[2022-09-01] MEDS: NYSTATIN 100,000 UNIT/GM POWD 15 GM TOPICAL SCH ×2 (10:39→21:40)
[2022-09-01] MEDS ORDERED: POTASSIUM CHLORIDE ER 20 MEQ TAB.ER PO ONE (12:00)
--- NOTE | 2022-09-01 15:21 | P.PN ---
Subjective Progress Note Date: 09/01/22 72-year-old female came in with compensative denies weakness and increasing bilateral lower extremity edema and low oxygen saturations. Patient does take Lasix at work may have diastolic dysfunction had normal ejection fraction the past patient was recently hospital is presently symptoms. 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 Patient was discharged from jail and unable to take care of herself lives with her patient does have urinary incontinence and does smell of urine. Patient has generalized weakness unable to take care of herself. Patient does have nicotine use history she quit smoking patient is on a nicotine patch at this time. 09/01/2022 Patient is evaluated today sitting up in chair. Continues with lower extremity edema. Continues with IV lasix 40 Q12, patient has diuresed 3.7 Liters since admission. She reports no shortness of breath today and oxygen saturations have improved. Blood pressure 102/66. Sodium has also improved with IV lasix, normal now at 138. Potassium 3.3. which will be replaced. PT evaluation recommending home with homecare. Patient appears to be eating about 75% of her meals. Review of Systems Constitutional: Denied any fatigue denied any fever. Cardio vascular: denied any chest pain, palpitations Gastrointestinal: denied any nausea, vomiting, diarrhea Pulmonary: Denied any shortness of breath cough Neurologic denied any new focal deficits All inpatient medications were reviewed and appropriate changes in these medications as dictated in the interval history and assessment and plan. PHYSICAL EXAMINATION: GENERAL: The patient is alert and oriented x3, not in any acute distress. Well developed, well nourished. HEENT: Pupils are round and equally reacting to light. EOMI. No scleral icterus. No conjunctival pallor. Normocephalic, atraumatic. No pharyngeal erythema. No thyromegaly. CARDIOVASCULAR: S1 and S2 present. No murmurs, rubs, or gallops. PULMONARY: Chest is clear to auscultation, no wheezing or crackles. ABDOMEN: Soft, nontender, nondistended, normoactive bowel sounds. No palpable organomegaly. MUSCULOSKELETAL: No joint swelling or deformity. EXTREMITIES: No cyanosis, clubbing, bilateral lower extremity edema 2+ pitting NEUROLOGICAL: Gross neurological examination did not reveal any focal deficits. Does have generalized weakness and muscle atrophy SKIN: Sacral decub was ulcer, and refer to nursing documentation. Assessment and plan Assessment -Shortness of Breath Mostly Secondary to COPD Exacerbation Patient Will Be Continued on Inhaled Steroids Inhalational Treatments improving -Bilateral lower exudate edema can be related to malnutrition, or cirrhosis of liver patient was started on IV Lasix 40 twice a day patient uses 40 oral twice a day of Lasix. -Generalized deconditioning and weakness due to her chronic medical problems including liver disease and possible cirrhosis of the liver. -History of alcohol use and cirrhosis. -Hypertension -hyperlipidemia -Hypervolemic hyponatremia, improved -Mild elevation of INR secondary to alcoholic cirrhosis GI Prophylaxis DVT Prophylaxis Full Code Plan Continue IV lasix for one more dose Transition to oral lasix in the AM Continue nicotine patch Ensure BID added Plan for possible DC in the next 24 hours Noted that adult protective services case open in [facility] on this patient Discharged home from rehab and return to hospital unable to care for herself at home. This was discussed with case management and follow up tomorrow with APS and discharge planning. The impression and plan of care has been dictated by Betty Sotomayor, Nurse Practitioner as directed. Dr. Carroll MD I have performed a history and physical examination and medical decision making of this patient, discussed the same with the dictator, and agree with the dictators assessment and plan as written, documented as a scribe. Based on total visit time, I have performed more than 50% of this visit. Objective - Vital Signs Vital signs: Vital Signs Temp 97.8 F 09/01/22 13:08 Pulse 111 H 09/01/22 13:08 Resp 17 09/01/22 13:08 BP 102/66 09/01/22 13:08 Pulse Ox 97 09/01/22 13:08 FiO2 Intake & Output 08/31/22 09/01/22 09/01/22 18:59 06:59 18:59 Output Total 2600 1100 Balance -2600 -1100 Weight 58.967 kg 58.967 kg Output: Urine 2600 1100 Uretheral (Bird) 900 Other: Voiding Method Toilet - Labs CBC & Chem 7: 08/31/22 12:24 09/01/22 05:29 Labs: Abnormal Lab Results - Last 24 Hours (Table) 08/31/22 09/01/22 Range/Units 17:25 05:29 Potassium 3.3 L (3.5-5.5) mmol/L Carbon Dioxide 30.1 H (20.0-27.5) mmol/L Anion Gap 4.90 L (10.00-18.00) mmol/L Creatinine 0.5 L (0.6-1.5) mg/dL BUN/Creatinine Ratio 22.80 H (12.00-20.00) Ratio Calcium 7.4 L (8.7-10.3) mg/dL Ur Leukocyte Esterase Moderate H (Negative) Hyaline Casts 8 H (0-2) /lpf Urine Mucus Occasional H (None) /hpf Urine Yeast (Budding) Occasional H (None) /hpf Assessment and Plan Time with Patient: Less than 30
[2022-09-02] MEDS: PANTOPRAZOLE 40 MG TABLET PO SCH (07:56)
[2022-09-02] MEDS: THIAMINE 100 MG TAB PO SCH (07:56)
[2022-09-02] MEDS: FUROSEMIDE 40 MG TAB PO SCH ×2 (07:56→15:39)
[2022-09-02] MEDS: MULTIVITAMINS, THERA 1 EACH TAB PO SCH (07:57)
[2022-09-02] MEDS: TAMSULOSIN 0.4 MG CAP.ER.24H PO SCH (07:57)
[2022-09-02] MEDS: NICOTINE 14MG/24HR PATCH TRANSDERM SCH (07:57)
[2022-09-02] MEDS: IPRATROPIUM-ALBUTEROL 3 ML NEB INHALATION SCH ×4 (07:58→21:54)
[2022-09-02] MEDS: FOLIC ACID 1 MG TAB PO SCH (08:02)
[2022-09-02] MEDS: NYSTATIN 100,000 UNIT/GM POWD 15 GM TOPICAL SCH ×2 (09:04→22:16)
--- NOTE | 2022-09-02 12:32 | CDI ---
Documentation Clarification Form Date: 09/02/2022 12:20:33 PM From: Kandice Acevedo CCS, CCDS Admit Date: 08/31/2022 02:00:00 PM Patient Name: Tessy Clinton Visit Number: [id number] Discharge Date: ATTENTION: The Clinical Documentation Specialists (CDI) and [facility] Coding Staff appreciate your assistance in clarifying documentation. Please respond to the clarification below the line at the bottom and electronically sign. The CDI & [facility] Coding staff will review the response and follow-up if needed. Please note: Queries are made part of the Legal Health Record. If you have any questions, please contact the author of this message via ITS. Dr. Rizwana Hodges: Protein Malnutrition is documented in the 08/31 ED Note and in subsequent documentation in the 08/31 H/P & 09/01 Progress Note without further severity specification. Additional clarification regarding the severity of malnutrition is requested. History/Risk Factors per the 08/31 H/P: COPD, Former smoker on Nicotine Patch, Hyperlipidemia, Hypertension, Alcoholic cirrhosis of the liver, Osteoarthritis and Herniated Discs in the neck. Clinical Indicators: Presented to the ED on 08/31 with increased weakness, dyspnea, pulse in low 90s, does not wear home O2. Recent discharge to a jail with subsequent discharge to home. Admit with Failure to thrive, Generalized weakness, leg edema, Edema due to Hypoalbuminemia. 08/31 VS: T 96.9, P 104, R 20, BP 140/96, PO 98 2Lnc 08/31 LAB: Plt Ct 142, Neutrophils 7.78; PT 12.2, INR 1.2; Na 134, Creatinine 0.42, Calcium 7.7, AST 38, Total Protein 5.0, Albumin 2.3. 08/31 Nursing Assessment: Eating 75-100% meals, Moderate 2+ pitting edema bilateral lower extremities. Has muscle tone atrophy. BMI: 21.0 Treatment 08/31: Bird catheter initiated. Consult to social Work, O2 2Lnc, PT/OT, INH Ventolin x1, INH Duoneb x1, IV Lasix 40 0mg x1, IV Lasix 40 mg BID. 09/01: Oral Nutrition Supplement. Please clarify the type of malnutrition, if known: [ ] Mild Protein-Calorie Malnutrition [ ] Moderate Protein-Calorie Malnutrition [ ] Other condition, please specify [ ] Unable to Determine (Template Last Revised: January 2021) MTDD
[2022-09-02 13:11] LABS: African American GFR (CKD) 118.9 (60.0-200.0); Anion Gap 6.4 mmol/L (10.00-18.00); Blood Urea Nitrogen 9.6 mg/dL (9.0-27.0); Calcium 7.2 mg/dL (8.7-10.3); Carbon Dioxide 29.6 mmol/L (20.0-27.5); Magnesium 1.8 mg/dL (1.5-2.4); Non-African American GFR(CKD) 102.6 (60.0-200.0); Potassium 3.2 mmol/L (3.5-5.5)
--- NOTE | 2022-09-02 22:49 | P.PN ---
Subjective Progress Note Date: 09/02/22 72-year-old female came in with compensative denies weakness and increasing bilateral lower extremity edema and low oxygen saturations. Patient does take Lasix at work may have diastolic dysfunction had normal ejection fraction the past patient was recently hospital is presently symptoms. 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 Patient was [facility] and unable to take care of herself lives with her patient does have urinary incontinence and does smell of urine. Patient has generalized weakness unable to take care of herself. Patient does have nicotine use history she quit smoking patient is on a nicotine patch at this time. 09/01/2022 Patient is evaluated today sitting up in chair. Continues with lower extremity edema. Continues with IV lasix 40 Q12, patient has diuresed 3.7 Liters since admission. She reports no shortness of breath today and oxygen saturations have improved. Blood pressure 102/66. Sodium has also improved with IV lasix, normal now at 138. Potassium 3.3. which will be replaced. PT evaluation recommending home with homecare. Patient appears to be eating about 75% of her meals. Review of Systems Constitutional: Denied any fatigue denied any fever. Cardio vascular: denied any chest pain, palpitations Gastrointestinal: denied any nausea, vomiting, diarrhea Pulmonary: Denied any shortness of breath cough Neurologic denied any new focal deficits All inpatient medications were reviewed and appropriate changes in these medications as dictated in the interval history and assessment and plan. PHYSICAL EXAMINATION: GENERAL: The patient is alert and oriented x3, not in any acute distress. Well developed, well nourished. HEENT: Pupils are round and equally reacting to light. EOMI. No scleral icterus. No conjunctival pallor. Normocephalic, atraumatic. No pharyngeal erythema. No thyromegaly. CARDIOVASCULAR: S1 and S2 present. No murmurs, rubs, or gallops. PULMONARY: Chest is clear to auscultation, no wheezing or crackles. ABDOMEN: Soft, nontender, nondistended, normoactive bowel sounds. No palpable organomegaly. MUSCULOSKELETAL: No joint swelling or deformity. EXTREMITIES: No cyanosis, clubbing, bilateral lower extremity edema 2+ pitting NEUROLOGICAL: Gross neurological examination did not reveal any focal deficits. Does have generalized weakness and muscle atrophy SKIN: Sacral decub was ulcer, and refer to nursing documentation. Assessment and plan Assessment -Shortness of Breath Mostly Secondary to COPD Exacerbation Patient Will Be Continued on Inhaled Steroids Inhalational Treatments improving -Bilateral lower exudate edema can be related to malnutrition, or cirrhosis of liver patient was started on IV Lasix 40 twice a day transitioned to oral lasix -Generalized deconditioning and weakness due to her chronic medical problems including liver disease and possible cirrhosis of the liver. -History of alcohol use and cirrhosis. -Hypertension -hyperlipidemia -Hypervolemic hyponatremia, improved -Mild elevation of INR secondary to alcoholic cirrhosis -Moderate protein calorie malnutrition GI Prophylaxis DVT Prophylaxis Full Code Plan Continue on PO lasix Continue nicotine patch Ensure BID added Replace electrolyes Patient will discharge to [facility] tomorrow The impression and plan of care has been dictated by Betty Sotomayor, Nurse Practitioner as directed. Dr. Carroll MD I have performed a history and physical examination and medical decision making of this patient, discussed the same with the dictator, and agree with the dictators assessment and plan as written, documented as a scribe. Based on total visit time, I have performed more than 50% of this visit. Objective - Vital Signs Vital signs: Vital Signs Temp 98.3 F 09/02/22 20:00 Pulse 104 H 09/02/22 22:06 Resp 17 09/02/22 20:00 BP 103/62 09/02/22 20:00 Pulse Ox 95 09/02/22 20:00 FiO2 Intake & Output 09/02/22 09/02/22 09/03/22 06:59 18:59 06:59 Output Total 1625 800 Balance -1625 -800 Output: Urine 1625 800 Other: Voiding Method Toilet Indwelling Catheter Indwelling Catheter # Bowel Movements 2 - Labs CBC & Chem 7: 08/31/22 12:24 09/02/22 06:04 Labs: Abnormal Lab Results - Last 24 Hours (Table) 09/02/22 Range/Units 06:04 Potassium 3.2 L (3.5-5.5) mmol/L Carbon Dioxide 29.6 H (20.0-27.5) mmol/L Anion Gap 6.40 L (10.00-18.00) mmol/L Creatinine 0.4 L (0.6-1.5) mg/dL BUN/Creatinine Ratio 24.00 H (12.00-20.00) Ratio Calcium 7.2 L (8.7-10.3) mg/dL Assessment and Plan Time with Patient: Less than 30
[2022-09-02] MEDS: POTASSIUM CHLORIDE ER 20 MEQ TAB.ER PO SCH (23:37)
[2022-09-03] MEDS: POTASSIUM CHLORIDE ER 20 MEQ TAB.ER PO SCH ×2 (01:43→07:53)
[2022-09-03] MEDS: MULTIVITAMINS, THERA 1 EACH TAB PO SCH (07:53)
[2022-09-03] MEDS: FOLIC ACID 1 MG TAB PO SCH (07:53)
[2022-09-03] MEDS: PANTOPRAZOLE 40 MG TABLET PO SCH (07:53)
[2022-09-03] MEDS: TAMSULOSIN 0.4 MG CAP.ER.24H PO SCH (07:53)
[2022-09-03] MEDS: MAGNESIUM OXIDE 400 MG TAB PO SCH (07:53)
[2022-09-03] MEDS: FUROSEMIDE 40 MG TAB PO SCH (07:53)
[2022-09-03] MEDS: THIAMINE 100 MG TAB PO SCH (07:53)
[2022-09-03] MEDS: NICOTINE 14MG/24HR PATCH TRANSDERM SCH (07:53)
[2022-09-03] MEDS: NYSTATIN 100,000 UNIT/GM POWD 15 GM TOPICAL SCH ×2 (07:54→21:38)
[2022-09-03] MEDS: IPRATROPIUM-ALBUTEROL 3 ML NEB INHALATION SCH ×4 (08:03→20:38)
--- NOTE | 2022-09-03 09:31 | P.DS ---
Providers Date of admission: 08/31/22 14:00 Attending physician: Luan Petty Primary care physician: Quinn [facility] Hospital Course: Final Diagnosis -Shortness of Breath Mostly Secondary to COPD Exacerbation Patient Will Be Continued on Inhaled Steroids Inhalational Treatments improving -Bilateral lower exudate edema can be related to malnutrition, or cirrhosis of liver patient was started on IV Lasix 40 twice a day transitioned to oral lasix -Generalized deconditioning and weakness due to her chronic medical problems including liver disease and possible cirrhosis of the liver. -History of alcohol use and cirrhosis. -Hypertension -hyperlipidemia -Hypervolemic hyponatremia, improved -Mild elevation of INR secondary to alcoholic cirrhosis -Moderate protein calorie malnutrition Full Code Discharge Disposition Patient stable for discharge to [facility] today. Unable to care for herself at home. Continue all current home medications and repeat BMP and magnesium level in 2 to 3 days. Resumed on midodrine on discharge. Patient continue to follow up with Dr. Lam Meneses as previously scheduled. Local wound care to buttock area with mycostatin cream and change as soiled. Patient needs frequent repositioning and offloading to the buttock every 2 to 3 hours. Encourage oral intake and continue with oral protein drinks recommend ensure three times a day between meals. Hospital Course 72-year-old female came in with compensative generalized weakness and increasing bilateral lower extremity edema and low oxygen saturations. Patient does take Lasix at home may have diastolic dysfunction had normal ejection fraction the past patient will be admitted to the hospital and treated with IV lasix for peripheral edema and also bronchodilators and monitoring for a mild COPD exacerbation. Past medical history significant for hypertension, hyperlipidemi a, history of alcohol use and liver cirrhosis. Patient does follow with Dr. Lam Meneses outpatient. Patient was in the hostpial a couple weeks ago at the time patient was treated for sacral edematous ulcer malnutrition and peripheral edema and was subsequently [facility]. [facility] was [facility] and unable to take care of herself lives with her patient does have urinary incontinence and does smell of urine. Patient has generalized weakness unable to take care of herself. Patient does have nicotine use history she quit smoking patient is on a nicotine patch at this time. Patient was monitored on IV lasix and diuresed well and her symptoms have improved and she is currently maintained oxygen saturations on room air. Potassium was low at 3.3 and 3.2 she came in with potassium of 4.6 and also sodium of 134. Potassium replaced and the hypokalemia was secondary to diruesis. Sodium improved with lasix has normalized to 135. Oral lasix will be continued on discharge. Patient was evaluated by social work and is being followed by adult protective services. She is unable to return home and will be discharge to [facility] today. 09/03/2022 Patient is evaluated today resting in bed. She has been up in the chair for meals and has been eating 75% and will be continued on ensure TID between meals. Patient will continue on electrolyte replacement. Denies shortness of breath, denies chest pain. Current blood pressure 119/72 and 96/65 and will resume midodrine on discharge. Continue with blood pressure monitoring. Patient has remained afebrile and no evidence for acute UTI was previously treated for E. Coli UTI which shows clearing of infection on repeat urine completed this admission. Patient to follow up with her primary care Dr. Yrn Mancuso and also to follow up with Dr. Lam Meneses on discharge. Lungs are clear S1 S2 auscultated abdomen is soft and nontender, patient peripheral edema improved, has some mild pedal edema which is chronic in nature. She is on room air. Discharged to [facility] today. Please see medication reconciliation for a list of current medication. Thank you for allowing us to participate in the care of this patient. The impression and plan of care has been dictated by Betty Sotomayor, Nurse Practitioner as directed. Dr. Carroll MD I have performed a history and physical examination and medical decision making of this patient, discussed the same with the dictator, and agree with the dictators assessment and plan as written, documented as a scribe. Based on total visit time, I have performed more than 50% of this visit. Patient Condition at Discharge: Fair Plan - Discharge Summary New Discharge Prescriptions: New Furosemide [Lasix] 40 mg PO BID@0900,1600 tab Magnesium Oxide [Mag-Ox] 400 mg PO DAILY tab Potassium Chloride ER [K-Dur 20] 20 meq PO DAILY tab Acetaminophen Tab [Tylenol] 650 mg PO Q6HR PRN tab PRN Reason: Mild Pain Or Fever > 100.5 Continue Ipratropium-Albuterol Nebulize [Duoneb 0.5 mg-3 mg/3 ml Soln] 3 ml INHALATION RT-QID each Cholestyramine (with Sugar) [Questran Packet] 4 gm PO BID@1000,1800 packet Thiamine [Vitamin B-1] 100 mg PO DAILY Omeprazole 20 mg PO DAILY Ipratropium-Albuterol Nebulize [Duoneb 0.5 mg-3 mg/3 ml Soln] 3 ml INHALATION RT-Q12H PRN PRN Reason: Shortness Of Breath Or Wheezing Tamsulosin [Flomax] 0.4 mg PO DAILY Melatonin 3 mg PO HS tab Multivitamins, Thera [Multivitamin (formulary)] 1 tab PO DAILY Midodrine HCl [ProAmatine] 10 mg PO TID Miconazole Nitrate [Lotrimin AF Powder] 1 applic TOPICAL BID Bismuth Subsalicylate [Pepto-Bismol] 524 mg PO Q4H PRN PRN Reason: Diarrhea Nicotine 14Mg/24Hr Patch [Habitrol] 1 patch TRANSDERM DAILY patch Acetaminophen [Tylenol] 650 mg PO Q6H PRN PRN Reason: Pain Folic Acid 1 mg PO DAILY 30 Days #30 tablet Discontinued Furosemide [Lasix] 40 mg PO BID Potassium Chloride ER [K-Dur 10] 10 meq PO DAILY Discharge Medication List Cholestyramine (with Sugar) [Questran Packet] 4 gm PO BID@1000,1800 packet 07/14/22 [Rx] Ipratropium-Albuterol Nebulize [Duoneb 0.5 mg-3 mg/3 ml Soln] 3 ml INHALATION RT-QID each 07/14/22 [Rx] Nicotine 14Mg/24Hr Patch [Habitrol] 1 patch TRANSDERM DAILY patch 07/14/22 [Rx] Acetaminophen [Tylenol] 650 mg PO Q6H PRN 08/09/22 [History] Ipratropium-Albuterol Nebulize [Duoneb 0.5 mg-3 mg/3 ml Soln] 3 ml INHALATION RT-Q12H PRN 08/09/22 [History] Omeprazole 20 mg PO DAILY 08/09/22 [History] Tamsulosin [Flomax] 0.4 mg PO DAILY 08/09/22 [History] Thiamine [Vitamin B-1] 100 mg PO DAILY 08/09/22 [History] Folic Acid 1 mg PO DAILY 30 Days #30 tablet 08/13/22 [Rx] Melatonin 3 mg PO HS tab 08/13/22 [Rx] Bismuth Subsalicylate [Pepto-Bismol] 524 mg PO Q4H PRN 08/31/22 [History] Miconazole Nitrate [Lotrimin AF Powder] 1 applic TOPICAL BID 08/31/22 [History] Midodrine HCl [ProAmatine] 10 mg PO TID 08/31/22 [History] Multivitamins, Thera [Multivitamin (formulary)] 1 tab PO DAILY 08/31/22 [History] Acetaminophen Tab [Tylenol] 650 mg PO Q6HR PRN tab 09/03/22 [Rx] Furosemide [Lasix] 40 mg PO BID@0900,1600 tab 09/03/22 [Rx] Magnesium Oxide [Mag-Ox] 400 mg PO DAILY tab 09/03/22 [Rx] Potassium Chloride ER [K-Dur 20] 20 meq PO DAILY tab 09/03/22 [Rx] Follow up Appointment(s)/Referral(s): Nato Sosa MD [STAFF PHYSICIAN] - 1 Week [facility] [place] [NON-STAFF] - 1 Week Quinn Mancuso MD [Primary Care Provider] - 1-2 days Ambulatory/Diagnostic Orders: Basic Metabolic Panel [LAB.AMB] Location: None Selected Magnesium [LAB.AMB] Time Frame: 3 Days, Location: None Selected Activity/Diet/Wound Care/Special Instructions: Continue oral lasix Repeat labs in 2 to 3 days for further monitoring of potassium and magnesium Local wound care to buttock area with mycostatin cream and change as soiled. Patient needs frequent repositioning and offloading to the buttock every 2 to 3 hours. Encourage oral intake and continue with oral protein drinks recommend ensure three times a day between meals.
[2022-09-03] MEDS ORDERED: traMADol 50 MG TAB PO PRN (14:11)
[2022-09-03] MEDS: BENZOCAINE 20% HEMORRHOIDAL OINT 28GM RECTAL SCH (21:38)
[2022-09-03] MEDS: MIDODRINE 5 MG TAB PO SCH (21:38)
[2022-09-04] MEDS: FUROSEMIDE 10 MG/ML 4 ML VIAL IV SCH ×3 (00:28→21:33)
[2022-09-04] MEDS: IPRATROPIUM-ALBUTEROL 3 ML NEB INHALATION SCH ×4 (08:32→21:17)
[2022-09-04] MEDS: NICOTINE 14MG/24HR PATCH TRANSDERM SCH (08:46)
[2022-09-04] MEDS: THIAMINE 100 MG TAB PO SCH (08:48)
[2022-09-04] MEDS: MAGNESIUM OXIDE 400 MG TAB PO SCH (08:48)
[2022-09-04] MEDS: BENZOCAINE 20% HEMORRHOIDAL OINT 28GM RECTAL SCH ×2 (08:48→21:34)
[2022-09-04] MEDS: FOLIC ACID 1 MG TAB PO SCH (08:48)
[2022-09-04] MEDS: TAMSULOSIN 0.4 MG CAP.ER.24H PO SCH (08:48)
[2022-09-04] MEDS: MIDODRINE 5 MG TAB PO SCH ×3 (08:48→17:13)
[2022-09-04] MEDS: POTASSIUM CHLORIDE ER 20 MEQ TAB.ER PO SCH (08:49)
[2022-09-04] MEDS: PANTOPRAZOLE 40 MG TABLET PO SCH (08:49)
[2022-09-04] MEDS: MULTIVITAMINS, THERA 1 EACH TAB PO SCH (08:49)
[2022-09-04] MEDS: NYSTATIN 100,000 UNIT/GM POWD 15 GM TOPICAL SCH ×2 (08:54→21:34)
--- NOTE | 2022-09-04 12:46 | P.PN ---
Subjective Progress Note Date: 09/04/22 72-year-old female came in with compensative denies weakness and increasing bilateral lower extremity edema and low oxygen saturations. Patient does take Lasix at work may have diastolic dysfunction had normal ejection fraction the past patient was recently hospital is presently symptoms. 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 Patient was discharged from skilled nursing and unable to take care of herself lives with her patient does have urinary incontinence and does smell of urine. Patient has generalized weakness unable to take care of herself. Patient does have nicotine use history she quit smoking patient is on a nicotine patch at this time. 09/02/2022 Patient is evaluated today sitting up in chair. Continues with lower extremity edema. Continues with IV lasix 40 Q12, patient has diuresed 3.7 Liters since admission. She reports no shortness of breath today and oxygen saturations have improved. Blood pressure 102/66. Sodium has also improved with IV lasix, normal now at 138. Potassium 3.3. which will be replaced. PT evaluation recommending home with homecare. Patient appears to be eating about 75% of her meals. 09/04/2022 Patient evaluated today resting in bed. No acute events overnight. Continues on IV lasix Q12 with significant pedal edema +2. Patient will continue to be monitored on IV lasix and further recommendations regarding discharge planning will happen on Tuesday. Patient is afebrile, heart rate 112 today, blood pressure 102/57, 98% room air. She has been resumed on home midodrine. No new labs from today, will repeat BMP tomorrow. Review of Systems Constitutional: Denied any fatigue denied any fever. Cardio vascular: denied any chest pain, palpitations Gastrointestinal: denied any nausea, vomiting, diarrhea Pulmonary: Denied any shortness of breath cough Neurologic denied any new focal deficits All inpatient medications were reviewed and appropriate changes in these medications as dictated in the interval history and assessment and plan. PHYSICAL EXAMINATION: GENERAL: The patient is alert and oriented x3, not in any acute distress. Well developed, well nourished. HEENT: Pupils are round and equally reacting to light. EOMI. No scleral icterus. No conjunctival pallor. Normocephalic, atraumatic. No pharyngeal erythema. No thyromegaly. CARDIOVASCULAR: S1 and S2 present. No murmurs, rubs, or gallops. PULMONARY: Coarse lung sounds throughout ABDOMEN: Soft, nontender, nondistended, normoactive bowel sounds. No palpable organomegaly. MUSCULOSKELETAL: No joint swelling or deformity. EXTREMITIES: No cyanosis, clubbing, bilateral lower extremity edema 2+ pitting NEUROLOGICAL: Gross neurological examination did not reveal any focal deficits. Does have generalized weakness and muscle atrophy SKIN: Sacral decub was ulcer, and refer to nursing documentation. Assessment and plan Assessment -Shortness of Breath Mostly Secondary to COPD Exacerbation Patient Will Be Continued on Inhaled Steroids Inhalational Treatments improving -Bilateral lower exudate edema can be related to malnutrition, or cirrhosis of liver patient was started on IV Lasix 40 twice a day transitioned to oral lasix -Generalized deconditioning and weakness due to her chronic medical problems including liver disease and possible cirrhosis of the liver. -History of alcohol use and cirrhosis. -Hypertension -hyperlipidemia -Hypervolemic hyponatremia, improved -Mild elevation of INR secondary to alcoholic cirrhosis -Moderate protein calorie malnutrition GI Prophylaxis DVT Prophylaxis Full Code Plan Patient has been changed to IV lasix secondary to pedal edema Continue with intake and output monitoring Continue nicotine patch Ensure BID added Repeat BMP tomorrow Discharge planning re-evaluation on Tuesday The impression and plan of care has been dictated by Betty Sotomayor Nurse Practitioner as directed. Dr. Carroll MD I have performed a history and physical examination and medical decision making of this patient, discussed the same with the dictator, and agree with the dictators assessment and plan as written, documented as a scribe. Based on total visit time, I have performed more than 50% of this visit. Objective - Vital Signs Vital signs: Vital Signs Temp 97.9 F 09/04/22 08:00 Pulse 112 H 09/04/22 12:06 Resp 20 09/04/22 08:00 BP 102/57 09/04/22 08:00 Pulse Ox 95 09/04/22 08:34 FiO2 Intake & Output 09/03/22 09/04/22 09/04/22 18:59 06:59 18:59 Intake Total 480 Output Total 800 400 Balance -320 -400 Intake: Oral 480 Output: Urine 800 400 Other: Voiding Method Indwelling Catheter Indwelling Catheter Indwelling Catheter # Bowel Movements 3 - Labs CBC & Chem 7: 08/31/22 12:24 09/03/22 07:39 Assessment and Plan Time with Patient: Less than 30
--- NOTE | 2022-09-05 07:18 | XR ---
EXAMINATION TYPE: XR chest 2V DATE OF EXAM: 09/05/2022 COMPARISON: 08/31/2022 INDICATION: Shortness of breath TECHNIQUE: Single frontal view of the chest is obtained. FINDINGS: The heart size is normal. The pulmonary vasculature is normal. A right pleural effusion remains present. Minimal fluid is at the left costophrenic angle. IMPRESSION: 1. Small to moderate right and minimal left pleural effusions
[2022-09-05] MEDS: FOLIC ACID 1 MG TAB PO SCH (08:09)
[2022-09-05] MEDS: PANTOPRAZOLE 40 MG TABLET PO SCH (08:09)
[2022-09-05] MEDS: TAMSULOSIN 0.4 MG CAP.ER.24H PO SCH (08:09)
[2022-09-05] MEDS: THIAMINE 100 MG TAB PO SCH (08:09)
[2022-09-05] MEDS: MAGNESIUM OXIDE 400 MG TAB PO SCH (08:10)
[2022-09-05] MEDS: POTASSIUM CHLORIDE ER 20 MEQ TAB.ER PO SCH (08:10)
[2022-09-05] MEDS: MULTIVITAMINS, THERA 1 EACH TAB PO SCH (08:10)
[2022-09-05] MEDS: NICOTINE 14MG/24HR PATCH TRANSDERM SCH (08:10)
[2022-09-05] MEDS: MIDODRINE 5 MG TAB PO SCH ×3 (08:10→16:13)
[2022-09-05] MEDS: BENZOCAINE 20% HEMORRHOIDAL OINT 28GM RECTAL SCH ×3 (08:14→21:33)
[2022-09-05] MEDS: NYSTATIN 100,000 UNIT/GM POWD 15 GM TOPICAL SCH ×2 (08:14→21:33)
[2022-09-05] MEDS: IPRATROPIUM-ALBUTEROL 3 ML NEB INHALATION SCH ×4 (08:36→20:25)
[2022-09-05] MEDS: FUROSEMIDE 10 MG/ML 4 ML VIAL IV SCH (08:54)
[2022-09-05 11:15] LABS: African American GFR (CKD) 110.5 (60.0-200.0); Anion Gap 5.6 mmol/L (10.00-18.00); BUN/Creat Ratio 21.6 Ratio (12.00-20.00); Blood Urea Nitrogen 10.8 mg/dL (9.0-27.0); Calcium 7.6 mg/dL (8.7-10.3); Carbon Dioxide 32.4 mmol/L (20.0-27.5); Non-African American GFR(CKD) 95.3 (60.0-200.0); Potassium 3.6 mmol/L (3.5-5.5)
--- NOTE | 2022-09-05 13:28 | P.PN ---
Subjective Progress Note Date: 09/05/22 72-year-old female came in with compensative denies weakness and increasing bilateral lower extremity edema and low oxygen saturations. Patient does take Lasix at work may have diastolic dysfunction had normal ejection fraction the past patient was recently hospital is presently symptoms. 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 Patient was discharged from detention and unable to take care of herself lives with her patient does have urinary incontinence and does smell of urine. Patient has generalized weakness unable to take care of herself. Patient does have nicotine use history she quit smoking patient is on a nicotine patch at this time. 09/02/2022 Patient is evaluated today sitting up in chair. Continues with lower extremity edema. Continues with IV lasix 40 Q12, patient has diuresed 3.7 Liters since admission. She reports no shortness of breath today and oxygen saturations have improved. Blood pressure 102/66. Sodium has also improved with IV lasix, normal now at 138. Potassium 3.3. which will be replaced. PT evaluation recommending home with homecare. Patient appears to be eating about 75% of her meals. 09/04/2022 Patient evaluated today resting in bed. No acute events overnight. Continues on IV lasix Q12 with significant pedal edema +2. Patient will continue to be monitored on IV lasix and further recommendations regarding discharge planning will happen on Tuesday. Patient is afebrile, heart rate 112 today, blood pressure 102/57, 98% room air. She has been resumed on home midodrine. No new labs from today, will repeat BMP tomorrow. 09/05/2022 Patient is evaluated today she is resting in bed. No reports of pain, she continues with bilateral lower extremity edema, which pedal edema continues to be 2+. Recommend to JONAS wrap bilateral lower extremities. 1.6 Liters urinary output in the last 24 hours. Reports improvement in discomfort with additional of hemorrhoidal cream. She had chest xray today showing small to moderate right and minimal left pleural effusion. Continues on IV lasix. Continues on broncho dilators. Review of Systems Constitutional: Denied any fatigue denied any fever. Cardio vascular: denied any chest pain, palpitations Gastrointestinal: denied any nausea, vomiting, diarrhea Pulmonary: Denied any shortness of breath cough Neurologic denied any new focal deficits All inpatient medications were reviewed and appropriate changes in these medications as dictated in the interval history and assessment and plan. PHYSICAL EXAMINATION: GENERAL: The patient is alert and oriented x3, not in any acute distress. Well developed, well nourished. HEENT: Pupils are round and equally reacting to light. EOMI. No scleral icterus. No conjunctival pallor. Normocephalic, atraumatic. No pharyngeal erythema. No thyromegaly. CARDIOVASCULAR: S1 and S2 present. No murmurs, rubs, or gallops. PULMONARY: Coarse lung sounds throughout ABDOMEN: Soft, nontender, nondistended, normoactive bowel sounds. No palpable organomegaly. MUSCULOSKELETAL: No joint swelling or deformity. EXTREMITIES: No cyanosis, clubbing, bilateral lower extremity edema 2+ pitting NEUROLOGICAL: Gross neurological examination did not reveal any focal deficits. Does have generalized weakness and muscle atrophy SKIN: Sacral decub was ulcer, and refer to nursing documentation. Assessment and plan Assessment -Shortness of Breath Mostly Secondary to COPD Exacerbation Patient Will Be Continued on Inhaled Steroids Inhalational Treatments improving -Bilateral lower exudate edema can be related to malnutrition, or cirrhosis of liver patient was started on IV Lasix 40 twice a day -Generalized deconditioning and weakness due to her chronic medical problems including liver disease and possible cirrhosis of the liver. -History of alcohol use and cirrhosis. -Hypertension -hyperlipidemia -Hypervolemic hyponatremia, improved -Mild elevation of INR secondary to alcoholic cirrhosis -Moderate protein calorie malnutrition GI Prophylaxis DVT Prophylaxis Full Code Plan Patient has been changed to IV lasix secondary to pedal edema Continue with intake and output monitoring Continue nicotine patch Ensure TID BM added. Monitor sodium level. Discharge planning re-evaluation on Tuesday The impression and plan of care has been dictated by Betty Sotomayor Nurse Practitioner as directed. Dr. Carroll MD I have performed a history and physical examination and medical decision making of this patient, discussed the same with the dictator, and agree with the dictators assessment and plan as written, documented as a scribe. Based on total visit time, I have performed more than 50% of this visit. Objective - Vital Signs Vital signs: Vital Signs Temp 97.5 F L 09/05/22 08:00 Pulse 102 H 09/05/22 12:33 Resp 16 09/05/22 08:00 BP 106/67 10/30/22 08:00 Pulse Ox 92 L 09/05/22 08:00 FiO2 Intake & Output 09/04/22 09/05/22 09/05/22 18:59 06:59 18:59 Intake Total 200 Output Total 1200 400 Balance -1000 -400 Intake: Oral 200 Output: Urine 1200 400 Other: Voiding Method Indwelling Catheter Indwelling Catheter Indwelling Catheter - Labs CBC & Chem 7: 08/31/22 12:24 09/05/22 04:01 Labs: Abnormal Lab Results - Last 24 Hours (Table) 09/05/22 Range/Units 04:01 Sodium 133 L (135-145) mmol/L Chloride 95 L (96-109) mmol/L Carbon Dioxide 32.4 H (20.0-27.5) mmol/L Anion Gap 5.60 L (10.00-18.00) mmol/L Creatinine 0.5 L (0.6-1.5) mg/dL BUN/Creatinine Ratio 21.60 H (12.00-20.00) Ratio Calcium 7.6 L (8.7-10.3) mg/dL Assessment and Plan Time with Patient: Less than 30
[2022-09-05] MEDS: FUROSEMIDE 40 MG TAB PO SCH (16:13)
[2022-09-06] MEDS: FOLIC ACID 1 MG TAB PO SCH (08:36)
[2022-09-06] MEDS: FUROSEMIDE 40 MG TAB PO SCH (08:36)
[2022-09-06] MEDS: TAMSULOSIN 0.4 MG CAP.ER.24H PO SCH (08:36)
[2022-09-06] MEDS: POTASSIUM CHLORIDE ER 20 MEQ TAB.ER PO SCH ×3 (08:36→15:36)
[2022-09-06] MEDS: NICOTINE 14MG/24HR PATCH TRANSDERM SCH (08:36)
[2022-09-06] MEDS: MAGNESIUM OXIDE 400 MG TAB PO SCH (08:36)
[2022-09-06] MEDS: MIDODRINE 5 MG TAB PO SCH ×3 (08:36→17:05)
[2022-09-06] MEDS: MULTIVITAMINS, THERA 1 EACH TAB PO SCH (08:36)
[2022-09-06] MEDS: THIAMINE 100 MG TAB PO SCH (08:36)
[2022-09-06] MEDS: NYSTATIN 100,000 UNIT/GM POWD 15 GM TOPICAL SCH ×2 (08:36→21:33)
[2022-09-06] MEDS: PANTOPRAZOLE 40 MG TABLET PO SCH (08:36)
[2022-09-06] MEDS: BENZOCAINE 20% HEMORRHOIDAL OINT 28GM RECTAL SCH ×3 (08:37→21:33)
[2022-09-06] MEDS: IPRATROPIUM-ALBUTEROL 3 ML NEB INHALATION SCH ×4 (08:44→20:51)
[2022-09-06 09:39] LABS: African American GFR (CKD) >90 (>60 ml/min/1.73 sqM); Anion Gap 5 mmol/L; Blood Urea Nitrogen 12 mg/dL (7-17); Calcium 7.5 mg/dL (8.4-10.2); Carbon Dioxide 33 mmol/L (22-30); Chloride 93 mmol/L (98-107); Glucose 83 mg/dL (74-99); Non-African American GFR(CKD) >90 (>60 ml/min/1.73 sqM); Potassium 3.2 mmol/L (3.5-5.1); Sodium 131 mmol/L (137-145)
--- NOTE | 2022-09-06 16:29 | US ---
EXAMINATION TYPE: US venous doppler duplex LE DATE OF EXAM: 09/06/2022 2:49 PM COMPARISON: NONE CLINICAL HISTORY: 72-year-old female lower extremity swelling. Swelling. SIDE PERFORMED: Bilateral TECHNIQUE: The lower extremity deep venous system is examined utilizing real time linear array sonog abby with graded compression, doppler sonography and color-flow sonography. VESSELS IMAGED: Common Femoral Vein Deep Femoral Vein Greater Saphenous Vein * Femoral Vein Popliteal Vein Small Saphenous Vein * Proximal Calf Veins (* superficial vessels) Right Leg: There is extensive thrombus seen throughout the right lower extremity down into the uppe r calf on the common femoral veins. Severe subcutaneous soft tissue edema. Most of the segments show some internal color flow. Left Leg: Vein quintana appear thick/possible chronic thrombus throughout vessels imaged. Incomplete co mpression of veins imaged. Great amount of edema seen within the left thigh. IMPRESSION: 1. Exam positive for extensive DVT throughout the right lower extremity. While the clot is incomplete ly occlusive, there are irregular and lobulated areas suggesting more acute to subacute clot. All not ed to be new from 08/09/2022. 2. On the left, there is incomplete vein compression and wall thickening suggesting residual chronic DVT without any occlusion. 3. Severe soft tissue edema.
[2022-09-06] MEDS ORDERED: HEPARIN SODIUM 1,000 UN/ML (10ML VL) IV PRN (17:08)
[2022-09-06] MEDS ORDERED: HEPARIN SODIUM 1,000 UN/ML (10ML VL) IV ONE (17:08)
[2022-09-06] MEDS ORDERED: HEPARIN SOD,PORK IN 0.45% NACL 25,000 UNIT in 0.45% NACL 1 250ML.BAG IV SCH (17:15)
[2022-09-06 18:10] LABS: Basophils % (A) 0 %; Eosinophils # (A) 0.1 k/uL (0-0.7); Eosinophils % (A) 1 %; HCT 42.3 % (34.0-46.0); HGB 13.8 gm/dL (11.4-16.0); Lymphocytes # (A) 1.3 k/uL (1.0-4.8); Lymphocytes % (A) 13 %; MCH 33.2 pg (25.0-35.0); MCHC 32.6 g/dL (31.0-37.0); MCV 101.8 fL (80.0-100.0); Macrocytosis Slight; Mean Platelet Volume 9.5; Monocytes # (A) 0.6 k/uL (0-1.0); Monocytes % (A) 6 %; Neutrophils # (A) 8.3 k/uL (1.3-7.7); Neutrophils % (A) 79 %; Platelet Count 178 k/uL (150-450); RBC 4.16 m/uL (3.80-5.40); RDW 14.3 % (11.5-15.5); WBC 10.5 k/uL (3.8-10.6)
[2022-09-06 18:11] LABS: INR 1.1 (<1.2); Partial Thromboplastin Time 25.6 sec (22.0-30.0); Prothrombin Time 11.9 sec (9.0-12.0)
[2022-09-06] MEDS: HEPARIN SODIUM,PORCINE/PF 5,000 UNIT/0.5 ML SYRINGE SQ SCH (21:32)
[2022-09-07 05:54] LABS: Basophils % (A) 1 %; Eosinophils # (A) 0.2 k/uL (0-0.7); Eosinophils % (A) 3 %; Lymphocytes # (A) 1.8 k/uL (1.0-4.8); Lymphocytes % (A) 24 %; MCH 33.4 pg (25.0-35.0); MCHC 33.3 g/dL (31.0-37.0); MCV 100.4 fL (80.0-100.0); Macrocytosis Slight; Mean Platelet Volume 8.7; Monocytes # (A) 0.6 k/uL (0-1.0); Monocytes % (A) 8 %; Neutrophils # (A) 4.6 k/uL (1.3-7.7); Neutrophils % (A) 63 %; Platelet Count 171 k/uL (150-450); RBC 3.58 m/uL (3.80-5.40); RDW 13.9 % (11.5-15.5); WBC 7.4 k/uL (3.8-10.6)
[2022-09-07] MEDS: PANTOPRAZOLE 40 MG TABLET PO SCH (06:53)
[2022-09-07] MEDS: MIDODRINE 5 MG TAB PO SCH ×3 (06:53→17:05)
[2022-09-07] MEDS: IPRATROPIUM-ALBUTEROL 3 ML NEB INHALATION SCH ×4 (07:13→19:20)
[2022-09-07 09:10] LABS: African American GFR (CKD) 119.1 (60.0-200.0); Anion Gap 3.8 mmol/L (10.00-18.00); BUN/Creat Ratio 24.37 Ratio (12.00-20.00); Blood Urea Nitrogen 9.7 mg/dL (9.0-27.0); Calcium 7.7 mg/dL (8.7-10.3); Non-African American GFR(CKD) 102.8 (60.0-200.0); Potassium 3.4 mmol/L (3.5-5.5)
[2022-09-07] MEDS: MULTIVITAMINS, THERA 1 EACH TAB PO SCH (09:33)
[2022-09-07] MEDS: MAGNESIUM OXIDE 400 MG TAB PO SCH (09:33)
[2022-09-07] MEDS: FOLIC ACID 1 MG TAB PO SCH (09:33)
[2022-09-07] MEDS: TAMSULOSIN 0.4 MG CAP.ER.24H PO SCH (09:33)
[2022-09-07] MEDS: NICOTINE 14MG/24HR PATCH TRANSDERM SCH (09:33)
[2022-09-07] MEDS: THIAMINE 100 MG TAB PO SCH (09:33)
[2022-09-07] MEDS: HEPARIN SODIUM,PORCINE/PF 5,000 UNIT/0.5 ML SYRINGE SQ SCH (09:33)
[2022-09-07] MEDS: POTASSIUM CHLORIDE ER 20 MEQ TAB.ER PO SCH (09:33)
[2022-09-07] MEDS ORDERED: POTASSIUM CHLORIDE ER 20 MEQ TAB.ER PO STA (10:03)
--- NOTE | 2022-09-07 13:45 | P.GSCN ---
History of Present Illness Consult date: 09/07/22 Reason for Consult: Extensive DVT Requesting physician: Rizwana Hodges History of present illness: This is a 72-year-old female who presented to the emergency department on 08/31/2022 for dyspnea with exertion, and lower extremity swelling. Patient has multiple comorbidities including COPD, alcoholic liver disease, hyperlipidemia and hypertension. Patient has been increasingly been getting more debilitated, has poor living condition. Yesterday she underwent a venous duplex of the lower extremities that showed a acute possible chronic extensive DVT of the right lower extremity as well as chronic DVT of left lower extremity. Patient denies any previous history of knowledge of DVT in her lower extremities, no history of pulmonary embolism. She does state that she is mostly sedentary in bed and ended chair. She walks with a walker but not frequently. She was started on a heparin drip. Ced wraps to bilateral lower extremities within improved swelling of her lower extremities. She denies any shortness of breath currently, no chest pain states that she does have some back pain and side pain. Denies any pain in her lower extremities just swelling. Review of Systems A 14 point review systems was completed all pertinent positives and negatives as stated in the HPI. 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, cirrhosis of the liver History of Any Multi-Drug Resistant Organisms: None Reported Past Surgical History: Section, Joint Replacement Additional Past Surgical History / Comment(s): cataract surgery Past Anesthesia/Blood Transfusion Reactions: No Reported Reaction Past Psychological History: No Psychological Hx Reported Smoking Status: Current every day smoker, Former smoker Past Alcohol Use History: None Reported Additional Past Alcohol Use History / Comment(s): Quit smoking in February 2022 Past Drug Use History: None Reported - Past Family History Son(s) Family Medical History: No Reported History Daughter(s) Family Medical History: No Reported History Medications and Allergies Home Medications Medication Instructions Recorded Confirmed Type Cholestyramine (with Sugar) 4 gm PO BID@1000,1800 packet 07/14/22 08/31/22 Rx [Questran Packet] Ipratropium-Albuterol Nebulize 3 ml INHALATION RT-QID each 07/14/22 08/31/22 Rx [Duoneb 0.5 mg-3 mg/3 ml Soln] Nicotine 14Mg/24Hr Patch [Habitrol] 1 patch TRANSDERM DAILY patch 07/14/22 08/31/22 Rx Acetaminophen [Tylenol] 650 mg PO Q6H PRN 08/09/22 08/31/22 History Ipratropium-Albuterol Nebulize 3 ml INHALATION RT-Q12H PRN 08/09/22 08/31/22 History [Duoneb 0.5 mg-3 mg/3 ml Soln] Omeprazole 20 mg PO DAILY 08/09/22 08/31/22 History Tamsulosin [Flomax] 0.4 mg PO DAILY 08/09/22 08/31/22 History Thiamine [Vitamin B-1] 100 mg PO DAILY 08/09/22 08/31/22 History Folic Acid 1 mg PO DAILY 30 Days #30 tablet 08/13/22 08/31/22 Rx Melatonin 3 mg PO HS tab 08/13/22 08/31/22 Rx Miconazole Nitrate [Lotrimin AF 1 applic TOPICAL BID 08/31/22 08/31/22 History Powder] Midodrine HCl [ProAmatine] 10 mg PO TID 08/31/22 08/31/22 History Multivitamins, Thera [Multivitamin 1 tab PO DAILY 08/31/22 08/31/22 History (formulary)] Acetaminophen Tab [Tylenol] 650 mg PO Q6HR PRN tab 09/03/22 Rx Furosemide [Lasix] 40 mg PO BID@0900,1600 tab 09/03/22 Rx Magnesium Oxide [Mag-Ox] 400 mg PO DAILY tab 09/03/22 Rx Potassium Chloride ER [K-Dur 20] 20 meq PO DAILY tab 09/03/22 Rx Apixaban [Eliquis Starter Pack 5 - 10 mg PO DIRECTED 30 Days 09/07/22 Rx (for VTE)] #1 each Allergies Allergy/AdvReac Type Severity Reaction Status Date / Time No Known Allergies Allergy Verified 08/31/22 12:31 Surgical - Exam Vital Signs Temp Pulse Resp BP Pulse Ox 96.9 F L 104 H 20 140/96 98 08/31/22 12:10 08/31/22 12:10 08/31/22 12:10 08/31/22 12:10 08/31/22 12:10 General appearance: The patient is alert, oriented, appears in no acute distress. HET: Head is normocephalic and atraumatic. Neck: Supple without lymphadenopathy. Trachea midline. Heart: S1 S2. Regular rate and rhythm. Lungs: Equal breath sounds, diminished. Abdomen: Soft, nontender, nondistended. Extremities: Normal skin color and turgor. Pedal edema bilaterally, left greater than right. Palpable DP and PT pulses. Swelling in the bilateral thighs. Nontender. Neurological: Alert and oriented. Results - Labs 09/07/22 05:24 09/07/22 05:24 Abnormal Lab Results - Last 24 Hours (Table) 09/06/22 09/07/22 09/07/22 Range/Units 17:30 01:01 05:24 RBC (3.80-5.40) m/uL MCV 101.8 H (80.0-100.0) fL Neutrophils # 8.3 H (1.3-7.7) k/uL APTT >200.0 H* (22.0-30.0) sec Potassium 3.4 L (3.5-5.5) mmol/L Carbon Dioxide 32.0 H (20.0-27.5) mmol/L Anion Gap 3.80 L (10.00-18.00) mmol/L Creatinine 0.4 L (0.6-1.5) mg/dL BUN/Creatinine Ratio 24.37 H (12.00-20.00) Ratio Calcium 7.7 L (8.7-10.3) mg/dL 09/07/22 09/07/22 Range/Units 05:24 05:24 RBC 3.58 L (3.80-5.40) m/uL MCV 100.4 H (80.0-100.0) fL Neutrophils # (1.3-7.7) k/uL APTT 46.0 H (22.0-30.0) sec Potassium (3.5-5.5) mmol/L Carbon Dioxide (20.0-27.5) mmol/L Anion Gap (10.00-18.00) mmol/L Creatinine (0.6-1.5) mg/dL BUN/Creatinine Ratio (12.00-20.00) Ratio Calcium (8.7-10.3) mg/dL Diabetes panel 09/07/22 Range/Units 05:24 Sodium 135 (135-145) mmol/L Potassium 3.4 L (3.5-5.5) mmol/L Chloride 99 (96-109) mmol/L Carbon Dioxide 32.0 H (20.0-27.5) mmol/L BUN 9.7 (9.0-27.0) mg/dL Creatinine 0.4 L (0.6-1.5) mg/dL Glucose 91 (70-110) mg/dL Calcium 7.7 L (8.7-10.3) mg/dL Calcium panel 09/07/22 Range/Units 05:24 Calcium 7.7 L (8.7-10.3) mg/dL Pituitary panel 09/07/22 Range/Units 05:24 Sodium 135 (135-145) mmol/L Potassium 3.4 L (3.5-5.5) mmol/L Chloride 99 (96-109) mmol/L Carbon Dioxide 32.0 H (20.0-27.5) mmol/L BUN 9.7 (9.0-27.0) mg/dL Creatinine 0.4 L (0.6-1.5) mg/dL Glucose 91 (70-110) mg/dL Calcium 7.7 L (8.7-10.3) mg/dL Adrenal panel 09/07/22 Range/Units 05:24 Sodium 135 (135-145) mmol/L Potassium 3.4 L (3.5-5.5) mmol/L Chloride 99 (96-109) mmol/L Carbon Dioxide 32.0 H (20.0-27.5) mmol/L BUN 9.7 (9.0-27.0) mg/dL Creatinine 0.4 L (0.6-1.5) mg/dL Glucose 91 (70-110) mg/dL Calcium 7.7 L (8.7-10.3) mg/dL Assessment and Plan Assessment: 1. Right lower extremity DVT acute on chronic 2. Left lower extremity DVT, chronic 3. Bilateral lower extremity edema 4. COPD 5. Underlying alcoholic liver disease 6. Hypertension hyperlipidemia Plan: 1. Agree with heparin, may transition to Eliquis 2. Elevate lower extremities 3. Thigh-high MELISSA hose ordered bilateral lower extremities 4. No indication for any vascular surgical intervention Thank you for this consultation, we will sign off at this time. The impression and plan of care has been dictated as directed. I performed a history and examination of this patient, discussed the same with the dictator. I agree with the dictator's note ,documented as a scribe. Any additional findings or plans will be noted. Reviewed imaging with patient. Agree with anticoagulation. Patient is not having significant pain and no surgery required at this time.
--- NOTE | 2022-09-07 16:00 | P.PN ---
Subjective Progress Note Date: 09/06/22 72-year-old female came in with compensative denies weakness and increasing bilateral lower extremity edema and low oxygen saturations. Patient does take Lasix at work may have diastolic dysfunction had normal ejection fraction the past patient was recently hospital is presently symptoms. 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 Patient was discharged from senior care and unable to take care of herself lives with her patient does have urinary incontinence and does smell of urine. Patient has generalized weakness unable to take care of herself. Patient does have nicotine use history she quit smoking patient is on a nicotine patch at this time. 09/02/2022 Patient is evaluated today sitting up in chair. Continues with lower extremity edema. Continues with IV lasix 40 Q12, patient has diuresed 3.7 Liters since admission. She reports no shortness of breath today and oxygen saturations have improved. Blood pressure 102/66. Sodium has also improved with IV lasix, normal now at 138. Potassium 3.3. which will be replaced. PT evaluation recommending home with homecare. Patient appears to be eating about 75% of her meals. 09/04/2022 Patient evaluated today resting in bed. No acute events overnight. Continues on IV lasix Q12 with significant pedal edema +2. Patient will continue to be monitored on IV lasix and further recommendations regarding discharge planning will happen on Tuesday. Patient is afebrile, heart rate 112 today, blood pressure 102/57, 98% room air. She has been resumed on home midodrine. No new labs from today, will repeat BMP tomorrow. 09/05/2022 Patient is evaluated today she is resting in bed. No reports of pain, she continues with bilateral lower extremity edema, which pedal edema continues to be 2+. Recommend to JONAS wrap bilateral lower extremities. 1.6 Liters urinary output in the last 24 hours. Reports improvement in discomfort with additional of hemorrhoidal cream. She had chest xray today showing small to moderate right and minimal left pleural effusion. Continues on IV lasix. Continues on broncho dilators. 09/06/2022 Patient is monitored today sitting up in chair. Continues with significant lower extremity edema which they have been jonas wrapped without much improvement. left greater than right which will order venous doppler of the left leg. Sodium now 131 and potasium 3.2 will replace potassium. She has been resumed on midodrine. Blood pressures better. Denied for subacute rehab plan for patient to discharge to [facility] once medicaid kaya is pending. 09/07/2022 Patient underwent bilateral lower extremity doppler yesterday which reveals an extensive thrombus in the right lower extremity upper calf to common femoral veins with severe subcutaneous soft tissue edema. Left leg reveals possible chronic thrombus with left thigh edema. Peripheral edema has improved with JONAS wrap and patient was evaluated by vascular surgery today and recommending thigh high compression stockings which have been ordered. Patient was started on high intensity heparin infusion which she has been started on eliquis per protocol at 10 mg PO BID for 7 days and will transition to 5 mg PO BID. Sodium has improved today to 135, lasix has been held. Review of Systems Constitutional: Denied any fatigue denied any fever. Cardio vascular: denied any chest pain, palpitations Gastrointestinal: denied any nausea, vomiting, diarrhea Pulmonary: Denied any shortness of breath cough Neurologic denied any new focal deficits All inpatient medications were reviewed and appropriate changes in these me dications as dictated in the interval history and assessment and plan. PHYSICAL EXAMINATION: GENERAL: The patient is alert and oriented x3, not in any acute distress. Well developed, well nourished. HEENT: Pupils are round and equally reacting to light. EOMI. No scleral icterus. No conjunctival pallor. Normocephalic, atraumatic. No pharyngeal erythema. No thyromegaly. CARDIOVASCULAR: S1 and S2 present. No murmurs, rubs, or gallops. PULMONARY: Coarse lung sounds throughout ABDOMEN: Soft, nontender, nondistended, normoactive bowel sounds. No palpable organomegaly. MUSCULOSKELETAL: No joint swelling or deformity. EXTREMITIES: No cyanosis, clubbing, bilateral lower extremity edema 2+ pitting NEUROLOGICAL: Gross neurological examination did not reveal any focal deficits. Does have generalized weakness and muscle atrophy SKIN: Sacral decub was ulcer, and refer to nursing documentation. Assessment and plan Assessment -Shortness of Breath Mostly Secondary to COPD Exacerbation Patient Will Be Continued on Inhaled Steroids Inhalational Treatments improving -Acute on chronic right lower extremity DVT -Chronic left lower extremity DVT -Bilateral lower exudate edema can be related to malnutrition, or cirrhosis of liver patient was started on IV Lasix 40 twice a day -Generalized deconditioning and weakness due to her chronic medical problems, although patient does well with physical therapy, once she returns home she is mostly sedentary -History of alcohol use and cirrhosis. -Hypertension -hyperlipidemia -Hypervolemic hyponatremia, improved -Mild elevation of INR secondary to alcoholic cirrhosis -Moderate protein calorie malnutrition GI Prophylaxis DVT Prophylaxis Full Code Plan Continue to hold lasix for one more day Resume tomorrow Continue with intake and output monitoring Continue nicotine patch Ensure TID BM added. Patient has been transitioned to oral eliquis Thigh compression stockings recommended Discharge planning pending medicaid application and acceptance at [facility] patient will discharge to [facility] The impression and plan of care has been dictated by Betty Sotomayor, Nurse Practitioner as directed. Dr. Carroll MD I have performed a history and physical examination and medical decision making of this patient, discussed the same with the dictator, and agree with the dictators assessment and plan as written, documented as a scribe. Based on total visit time, I have performed more than 50% of this visit. Objective - Vital Signs Vital signs: Vital Signs Temp 97.8 F 09/06/22 07:50 Pulse 100 09/06/22 12:16 Resp 16 09/06/22 07:50 BP 117/62 09/06/22 07:50 Pulse Ox 93 L 09/06/22 08:46 FiO2 21 09/05/22 20:25 Intake & Output 09/05/22 09/06/22 09/06/22 18:59 06:59 18:59 Intake Total 480 Output Total 200 1000 Balance 280 -1000 Intake: Oral 480 Output: Urine 200 1000 Other: Voiding Method Indwelling Catheter Indwelling Catheter Indwelling Catheter - Labs CBC & Chem 7: 09/07/22 05:24 09/07/22 05:24 Labs: Abnormal Lab Results - Last 24 Hours (Table) 09/05/22 09/06/22 Range/Units 04:01 08:26 Sodium 131 L (137-145) mmol/L Potassium 3.2 L (3.5-5.1) mmol/L Chloride 93 L (98-107) mmol/L Carbon Dioxide 33 H (22-30) mmol/L Creatinine 0.46 L (0.52-1.04) mg/dL Calcium 7.5 L (8.4-10.2) mg/dL Procalcitonin 0.12 H (0.02-0.09) ng/mL
[2022-09-07 16:07] VITALS: BMI 20.9
[2022-09-07] MEDS: NYSTATIN 100,000 UNIT/GM POWD 15 GM TOPICAL SCH ×2 (17:06→20:23)
[2022-09-07] MEDS: BENZOCAINE 20% HEMORRHOIDAL OINT 28GM RECTAL SCH ×3 (17:06→20:23)
[2022-09-07] MEDS: APIXABAN 5 MG TAB PO SCH (20:22)
[2022-09-08] MEDS: PANTOPRAZOLE 40 MG TABLET PO SCH (06:41)
[2022-09-08] MEDS: MIDODRINE 5 MG TAB PO SCH ×3 (06:41→16:13)
[2022-09-08] MEDS: IPRATROPIUM-ALBUTEROL 3 ML NEB INHALATION SCH ×4 (08:35→20:10)
[2022-09-08] MEDS: POTASSIUM CHLORIDE ER 20 MEQ TAB.ER PO SCH (09:41)
[2022-09-08] MEDS: NYSTATIN 100,000 UNIT/GM POWD 15 GM TOPICAL SCH ×2 (09:41→21:15)
[2022-09-08] MEDS: TAMSULOSIN 0.4 MG CAP.ER.24H PO SCH (09:41)
[2022-09-08] MEDS: APIXABAN 5 MG TAB PO SCH ×2 (09:41→21:14)
[2022-09-08] MEDS: BENZOCAINE 20% HEMORRHOIDAL OINT 28GM RECTAL SCH ×3 (09:41→21:15)
[2022-09-08] MEDS: THIAMINE 100 MG TAB PO SCH (09:41)
[2022-09-08] MEDS: FOLIC ACID 1 MG TAB PO SCH (09:41)
[2022-09-08] MEDS: MULTIVITAMINS, THERA 1 EACH TAB PO SCH (09:41)
[2022-09-08] MEDS: MAGNESIUM OXIDE 400 MG TAB PO SCH (09:41)
[2022-09-08] MEDS: NICOTINE 14MG/24HR PATCH TRANSDERM SCH (09:41)
[2022-09-08] MEDS ORDERED: POTASSIUM CHLORIDE ER 20 MEQ TAB.ER PO STA (11:35)
--- NOTE | 2022-09-08 11:38 | P.PN ---
Subjective Progress Note Date: 09/08/22 72-year-old female came in with compensative denies weakness and increasing bilateral lower extremity edema and low oxygen saturations. Patient does take Lasix at work may have diastolic dysfunction had normal ejection fraction the past patient was recently hospital is presently symptoms. 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 Patient was discharged from assisted and unable to take care of herself lives with her patient does have urinary incontinence and does smell of urine. Patient has generalized weakness unable to take care of herself. Patient does have nicotine use history she quit smoking patient is on a nicotine patch at this time. 09/02/2022 Patient is evaluated today sitting up in chair. Continues with lower extremity edema. Continues with IV lasix 40 Q12, patient has diuresed 3.7 Liters since admission. She reports no shortness of breath today and oxygen saturations have improved. Blood pressure 102/66. Sodium has also improved with IV lasix, normal now at 138. Potassium 3.3. which will be replaced. PT evaluation recommending home with homecare. Patient appears to be eating about 75% of her meals. 09/04/2022 Patient evaluated today resting in bed. No acute events overnight. Continues on IV lasix Q12 with significant pedal edema +2. Patient will continue to be monitored on IV lasix and further recommendations regarding discharge planning will happen on Tuesday. Patient is afebrile, heart rate 112 today, blood pressure 102/57, 98% room air. She has been resumed on home midodrine. No new labs from today, will repeat BMP tomorrow. 09/05/2022 Patient is evaluated today she is resting in bed. No reports of pain, she continues with bilateral lower extremity edema, which pedal edema continues to be 2+. Recommend to JONAS wrap bilateral lower extremities. 1.6 Liters urinary output in the last 24 hours. Reports improvement in discomfort with additional of hemorrhoidal cream. She had chest xray today showing small to moderate right and minimal left pleural effusion. Continues on IV lasix. Continues on broncho dilators. 09/06/2022 Patient is monitored today sitting up in chair. Continues with significant lower extremity edema which they have been jonas wrapped without much improvement. left greater than right which will order venous doppler of the left leg. Sodium now 131 and potasium 3.2 will replace potassium. She has been resumed on midodrine. Blood pressures better. Denied for subacute rehab plan for patient to discharge to [facility] once medicaid kaya is pending. 09/07/2022 Patient underwent bilateral lower extremity doppler yesterday which reveals an extensive thrombus in the right lower extremity upper calf to common femoral veins with severe subcutaneous soft tissue edema. Left leg reveals possible chronic thrombus with left thigh edema. Peripheral edema has improved with JONAS wrap and patient was evaluated by vascular surgery today and recommending thigh high compression stockings which have been ordered. Patient was started on high intensity heparin infusion which she has been started on eliquis per protocol at 10 mg PO BID for 7 days and will transition to 5 mg PO BID. Sodium has improved today to 135, lasix has been held. 09/08/2022 Patient monitored today resting in bed on medical floor. Continues on eliquis and thigh high compression stockings. Patient is pending medicaid application for discharge to [facility]. associate brand manager updated they have not received co nfirmation that medicaid kaya is pending. Potassium level 3.4 today will replace and repeat labs tomorrow. No acute events overnight. Bowels are moving. Patient remains off oxygen, 95% on room air. Review of Systems Constitutional: Denied any fatigue denied any fever. Cardio vascular: denied any chest pain, palpitations Gastrointestinal: denied any nausea, vomiting, diarrhea Pulmonary: Denied any shortness of breath cough Neurologic denied any new focal deficits All inpatient medications were reviewed and appropriate changes in these medications as dictated in the interval history and assessment and plan. PHYSICAL EXAMINATION: GENERAL: The patient is alert and oriented x3, not in any acute distress. Well developed, well nourished. HEENT: Pupils are round and equally reacting to light. EOMI. No scleral icterus. No conjunctival pallor. Normocephalic, atraumatic. No pharyngeal erythema. No thyromegaly. CARDIOVASCULAR: S1 and S2 present. No murmurs, rubs, or gallops. PULMONARY: Coarse lung sounds throughout ABDOMEN: Soft, nontender, nondistended, normoactive bowel sounds. No palpable organomegaly. MUSCULOSKELETAL: No joint swelling or deformity. EXTREMITIES: No cyanosis, clubbing, bilateral lower extremity edema 2+ pitting NEUROLOGICAL: Gross neurological examination did not reveal any focal deficits. Does have generalized weakness and muscle atrophy SKIN: Sacral decub was ulcer, and refer to nursing documentation. Assessment and plan Assessment -Shortness of Breath Mostly Secondary to COPD Exacerbation Patient Will Be Continued on Inhaled Steroids Inhalational Treatments, improved -Acute on chronic right lower extremity DVT -Chronic left lower extremity DVT -Bilateral lower exudate edema multifactorial can be related to malnutrition, or cirrhosis of liver, patient does have chronic DVT and also with acute on chronic DVT, improving with compression. -Generalized deconditioning and weakness due to her chronic medical problems, although patient does well with physical therapy, once she returns home she is mostly sedentary -History of alcohol use and cirrhosis. -Hypertension -hyperlipidemia -Hypervolemic hyponatremia, improved -Mild elevation of INR secondary to alcoholic cirrhosis -Moderate protein calorie malnutrition GI Prophylaxis DVT Prophylaxis Eliquis Full Code Plan Hold lasix and repeat BMP tomorrow. Continue with intake and output monitoring Continue nicotine patch Ensure TID BM added. Patient has been transitioned to oral eliquis Thigh compression stockings recommended Discharge planning pending medicaid application and acceptance at [facility] patient will discharge to [facility] The impression and plan of care has been dictated by Betty Sotomayor, Nurse Practitioner as directed. Dr. Carroll MD I have performed a history and physical examination and medical decision making of this patient, discussed the same with the dictator, and agree with the dictators assessment and plan as written, documented as a scribe. Based on total visit time, I have performed more than 50% of this visit. Objective - Vital Signs Vital signs: Vital Signs Temp 98.4 F 09/08/22 08:00 Pulse 95 09/08/22 08:44 Resp 18 09/08/22 08:44 BP 114/73 09/08/22 08:00 Pulse Ox 95 09/08/22 08:35 FiO2 21 09/05/22 20:25 Intake & Output 09/07/22 09/08/22 09/08/22 18:59 06:59 18:59 Output Total 400 500 Balance -400 -500 Weight 58.967 kg Output: Urine 400 500 Other: Voiding Method Indwelling Catheter Indwelling Catheter # Bowel Movements 1 - Labs CBC & Chem 7: 09/07/22 05:24 09/08/22 06:37 Labs: Abnormal Lab Results - Last 24 Hours (Table) 09/08/22 Range/Units 06:37 Potassium 3.4 L (3.5-5.1) mmol/L Assessment and Plan Time with Patient: Less than 30
[2022-09-09] MEDS: MIDODRINE 5 MG TAB PO SCH ×3 (06:54→18:11)
[2022-09-09] MEDS: PANTOPRAZOLE 40 MG TABLET PO SCH (06:54)
[2022-09-09] MEDS: IPRATROPIUM-ALBUTEROL 3 ML NEB INHALATION SCH ×4 (07:33→21:43)
[2022-09-09] MEDS: MAGNESIUM OXIDE 400 MG TAB PO SCH (09:01)
[2022-09-09] MEDS: BENZOCAINE 20% HEMORRHOIDAL OINT 28GM RECTAL SCH ×3 (09:01→21:20)
[2022-09-09] MEDS: TAMSULOSIN 0.4 MG CAP.ER.24H PO SCH (09:01)
[2022-09-09] MEDS: MULTIVITAMINS, THERA 1 EACH TAB PO SCH (09:01)
[2022-09-09] MEDS: FOLIC ACID 1 MG TAB PO SCH (09:01)
[2022-09-09] MEDS: APIXABAN 5 MG TAB PO SCH ×2 (09:01→21:19)
[2022-09-09] MEDS: THIAMINE 100 MG TAB PO SCH (09:01)
[2022-09-09] MEDS: POTASSIUM CHLORIDE ER 20 MEQ TAB.ER PO SCH (09:01)
[2022-09-09] MEDS: NICOTINE 14MG/24HR PATCH TRANSDERM SCH (09:02)
[2022-09-09] MEDS: NYSTATIN 100,000 UNIT/GM POWD 15 GM TOPICAL SCH ×2 (09:02→21:20)
[2022-09-09 10:53] LABS: Anion Gap 4.3 mmol/L (10.00-18.00); Blood Urea Nitrogen 9.5 mg/dL (9.0-27.0); Carbon Dioxide 30.7 mmol/L (20.0-27.5)
[2022-09-09 10:54] LABS: African American GFR (CKD) 110.5 (60.0-200.0); Calcium 7.7 mg/dL (8.7-10.3); Magnesium 1.8 mg/dL (1.5-2.4); Non-African American GFR(CKD) 95.3 (60.0-200.0)
--- NOTE | 2022-09-09 16:57 | P.PN ---
Subjective Progress Note Date: 09/09/22 72-year-old female came in with compensative denies weakness and increasing bilateral lower extremity edema and low oxygen saturations. Patient does take Lasix at work may have diastolic dysfunction had normal ejection fraction the past patient was recently hospital is presently symptoms. 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 Patient was discharged from prison and unable to take care of herself lives with her patient does have urinary incontinence and does smell of urine. Patient has generalized weakness unable to take care of herself. Patient does have nicotine use history she quit smoking patient is on a nicotine patch at this time. 09/02/2022 Patient is evaluated today sitting up in chair. Continues with lower extremity edema. Continues with IV lasix 40 Q12, patient has diuresed 3.7 Liters since admission. She reports no shortness of breath today and oxygen saturations have improved. Blood pressure 102/66. Sodium has also improved with IV lasix, normal now at 138. Potassium 3.3. which will be replaced. PT evaluation recommending home with homecare. Patient appears to be eating about 75% of her meals. 09/04/2022 Patient evaluated today resting in bed. No acute events overnight. Continues on IV lasix Q12 with significant pedal edema +2. Patient will continue to be monitored on IV lasix and further recommendations regarding discharge planning will happen on Tuesday. Patient is afebrile, heart rate 112 today, blood pressure 102/57, 98% room air. She has been resumed on home midodrine. No new labs from today, will repeat BMP tomorrow. 09/05/2022 Patient is evaluated today she is resting in bed. No reports of pain, she continues with bilateral lower extremity edema, which pedal edema continues to be 2+. Recommend to JONAS wrap bilateral lower extremities. 1.6 Liters urinary output in the last 24 hours. Reports improvement in discomfort with additional of hemorrhoidal cream. She had chest xray today showing small to moderate right and minimal left pleural effusion. Continues on IV lasix. Continues on broncho dilators. 09/06/2022 Patient is monitored today sitting up in chair. Continues with significant lower extremity edema which they have been jonas wrapped without much improvement. left greater than right which will order venous doppler of the left leg. Sodium now 131 and potasium 3.2 will replace potassium. She has been resumed on midodrine. Blood pressures better. Denied for subacute rehab plan for patient to discharge to [facility] once medicaid kaya is pending. 09/07/2022 Patient underwent bilateral lower extremity doppler yesterday which reveals an extensive thrombus in the right lower extremity upper calf to common femoral veins with severe subcutaneous soft tissue edema. Left leg reveals possible chronic thrombus with left thigh edema. Peripheral edema has improved with JONAS wrap and patient was evaluated by vascular surgery today and recommending thigh high compression stockings which have been ordered. Patient was started on high intensity heparin infusion which she has been started on eliquis per protocol at 10 mg PO BID for 7 days and will transition to 5 mg PO BID. Sodium has improved today to 135, lasix has been held. 09/08/2022 Patient monitored today resting in bed on medical floor. Continues on eliquis and thigh high compression stockings. Patient is pending medicaid application for discharge to [facility]. case managers updated they have not received co nfirmation that medicaid kaya is pending. Potassium level 3.4 today will replace and repeat labs tomorrow. No acute events overnight. Bowels are moving. Patient remains off oxygen, 95% on room air. 09/09/2022 Patient is being monitored on medical floor. She continues with thigh high stockings in place. Continues on eliquis. No acute events overnight. Sodium 136, potassium 4.0, BUN 9.5, creatinine 0.5. Magnesium today 1.8. Patients temp today is 99, will order an incentive spirometer. Diet has improved she is tolerating about 75% of meals. Has ensure drinks ordered as well three times a day between meals. Plan to be [facility]. Review of Systems Constitutional: Denied any fatigue denied any fever. Cardio vascular: denied any chest pain, palpitations Gastrointestinal: denied any nausea, vomiting, diarrhea Pulmonary: Denied any shortness of breath cough Neurologic denied any new focal deficits All inpatient medications were reviewed and appropriate changes in these medications as dictated in the interval history and assessment and plan. PHYSICAL EXAMINATION: GENERAL: The patient is alert and oriented x3, not in any acute distress. Well developed, well nourished. HEENT: Pupils are round and equally reacting to light. EOMI. No scleral icterus. No conjunctival pallor. Normocephalic, atraumatic. No pharyngeal erythema. No thyromegaly. CARDIOVASCULAR: S1 and S2 present. No murmurs, rubs, or gallops. PULMONARY: Coarse lung sounds throughout ABDOMEN: Soft, nontender, nondistended, normoactive bowel sounds. No palpable organomegaly. MUSCULOSKELETAL: No joint swelling or deformity. EXTREMITIES: No cyanosis, clubbing, bilateral lower extremity edema 2+ pitting NEUROLOGICAL: Gross neurological examination did not reveal any focal deficits. Does have generalized weakness and muscle atrophy SKIN: Sacral decub was ulcer, and refer to nursing documentation. Assessment and plan Assessment -Shortness of Breath Mostly Secondary to COPD Exacerbation Patient Will Be Continued on Inhaled Steroids Inhalational Treatments, improved -Acute on chronic right lower extremity DVT -Chronic left lower extremity DVT -Bilateral lower exudate edema multifactorial can be related to malnutrition, or cirrhosis of liver, patient does have chronic DVT and also with acute on chronic DVT, improving with compression. -Generalized deconditioning and weakness due to her chronic medical problems, although patient does well with physical therapy, once she returns home she is mostly sedentary -History of alcohol use and cirrhosis. -Hypertension -hyperlipidemia -Hypervolemic hyponatremia, improved -Mild elevation of INR secondary to alcoholic cirrhosis -Moderate protein calorie malnutrition GI Prophylaxis DVT Prophylaxis Eliquis Full Code Plan Resume lasix tomorrow Continue with intake and output monitoring Continue nicotine patch Ensure TID BM added. Patient has been transitioned to oral eliquis Thigh compression stockings recommended Patient will discharge to subacute rehab tomorrow. The impression and plan of care has been dictated by Betty Sotomayor, Nurse Practitioner as directed. Dr. Carroll MD I have performed a history and physical examination and medical decision making of this patient, discussed the same with the dictator, and agree with the dictators assessment and plan as written, documented as a scribe. Based on total visit time, I have performed more than 50% of this visit. Objective - Vital Signs Vital signs: Vital Signs Temp 99.0 F 09/09/22 14:00 Pulse 110 H 09/09/22 16:43 Resp 15 09/09/22 14:00 BP 96/62 09/09/22 14:00 Pulse Ox 94 L 09/09/22 16:34 FiO2 21 09/05/22 20:25 Intake & Output 09/08/22 09/09/22 09/09/22 18:59 06:59 18:59 Output Total 950 300 Balance -950 -300 Weight 58.967 kg Output: Urine 950 300 Uretheral (Bird) 150 Other: Voiding Method Indwelling Catheter Indwelling Catheter - Labs CBC & Chem 7: 09/07/22 05:24 09/09/22 05:59 Labs: Abnormal Lab Results - Last 24 Hours (Table) 09/09/22 Range/Units 05:59 Carbon Dioxide 30.7 H (20.0-27.5) mmol/L Anion Gap 4.30 L (10.00-18.00) mmol/L Creatinine 0.5 L (0.6-1.5) mg/dL Calcium 7.7 L (8.7-10.3) mg/dL
[2022-09-09 20:23] VITALS: RESP 16
[2022-09-10] MEDS: IPRATROPIUM-ALBUTEROL 3 ML NEB INHALATION SCH ×2 (07:18→10:45)
[2022-09-10 08:16] VITALS: BP 125/83; TEMP 97.8
--- NOTE | 2022-09-10 08:40 | P.DS ---
Providers Date of admission: 08/31/22 14:00 Attending physician: Luan Petty [facility] Course: Final Diagnosis -Shortness of Breath Mostly Secondary to COPD Exacerbation Patient Will Be Continued on Inhaled Steroids Inhalational Treatments, improved -Acute on chronic right lower extremity DVT -Chronic left lower extremity DVT -Bilateral lower exudate edema multifactorial can be related to malnutrition, or cirrhosis of liver, patient does have chronic DVT and also with acute on chronic DVT, improving with compression. -Generalized deconditioning and weakness due to her chronic medical problems, although patient does well with physical therapy, once she returns home she is mostly sedentary -History of alcohol use and cirrhosis. -Hypertension -hyperlipidemia -Hypervolemic hyponatremia, improved -Mild elevation of INR secondary to alcoholic cirrhosis -Moderate protein calorie malnutrition Full Code Discharge Disposition Patient is in stable condition for discharge to subacute rehab today at [facility] in [place]. Continue with thich high MELISSA compression stockings. Eliquis 10 mg oral twice a day for 4 more days, then switch to eliquis 5 mg po twice a day. Lasix resumed on discharge. Patient has been started on midodrine. Hold dose for blood pressure systolic greater than 120. Lasix resumed on discharge. Local wound care to buttock area with mycostatin cream and change as soiled. Patient needs frequent repositioning and offloading to the buttock every 2 to 3 hours. Continue with hemorrhoidal cream three times a day as needed. Encourage oral intake and continue with oral protein drinks recommend ensure three times a day between meals. Repeat labs in 2 to 3 days. Hospital Course 72-year-old female came in with compensative generalized weakness and increasing bilateral lower extremity edema and low oxygen saturations. Patient does take Lasix at home may have diastolic dysfunction had normal ejection fraction. Patient was admitted to the hospital and treated with IV lasix for peripheral edema and also bronchodilators and monitoring for a mild COPD exacerbation. Past medical history significant for hypertension, hyperlipidemia, history of alcohol use and liver cirrhosis. Patient does follow with Dr. Lam Meneses outpatient. Patient was in the hostpial a couple weeks ago at the time patient was treated for sacral ulcer malnutrition and peripheral edema and was subsequently discharged to jail. Patient was discharged from jail and unable to take care of herself lives with her patient. She returned to the hospital within 24 hours of discharge home from subacute rehab. Patient has generalized weakness unable to take care of herself. Patient does have nicotine use history she quit smoking patient is on a nicotine patch at this time. Patient was monitored on IV lasix and diuresed well and her symptoms have improved and she is currently maintained oxygen saturations on room air. Although despite IV lasix and JONAS wrap to lower extremity peripheral edema continued and patient had venous doppler to lower extremity completed showing an acute on chronic right lower extremity DVT and also left leg positive for chronic DVT. Patient was evaluated by vascular services and discharged on eliquis and also thigh high compression stockigs. Potassium was low at 3.3 and 3.2 she came in with potassium of 4.6 and also sodium of 134. Potassium replaced and the hypokalemia was secondary to diruesis. Sodium improved with lasix has normalized to 135. Oral lasix will be continued on discharge. Blood pressure was also on the lower side and patient was started on oral midodrine with improvement overall of blood pressure. Continue to monitor blood pressure and recommend to hold midodrine for blood pressure elevated in the 120s systolic and monitor blood pressure. Patient was evaluated by social work and is being followed by adult protective services. She will be discharged to subacute rehab today. 09/10/2022 Patient is evaluated today resting in bed on medical floor. She has been working with physical therapy and has been able to get up into the chair for meals and ambulate. Patient reports difficulty with ambulation secondary to peripheral edema. She does have acute right leg DVT and continues on eliquis and also thigh high MELISSA compression stockings have been ordered. Her labs have normalized most recent sodium showing 136, potassium 4.0, BUN 9.5, creatinine 0.5, calcium 7.7, magnesium 1.8. She denies shortness of breath, denies chest pain. She is tolerating diet eating about 50 to 75% of meals and continues with ensure three times a day between meals. Overall she is feeling better. Her blood pressure has improved currently is 125/83, heart rate 102, afebrile, she is 94-96% on room air. She does wear 2L of nasal cannula intermittently for comfort. Lungs are coarse through out, no crackles or wheezing noted. S1 S2 auscultated she is alert x 3. Focal neurological exam is negative she has generalized weakness. She will be discharged to subacute rehab today at [facility]. Continue with above mentioned recommendations on discharge. Please see medication reconciliation for a list of current medication. Thank you for allowing us to participate in the care of this patient. Total time taken in discharge planning greater than 35 minutes. The impression and plan of care has been dictated by Betty Sotomayor, Nurse Practitioner as directed. Dr. Carroll MD I have performed a history and physical examination and medical decision making of this patient, discussed the same with the dictator, and agree with the dictators assessment and plan as written, documented as a scribe. Based on total visit time, I have performed more than 50% of this visit. Patient Condition at Discharge: Stable Plan - Discharge Summary New Discharge Prescriptions: New Furosemide [Lasix] 40 mg PO BID@0900,1600 tab Magnesium Oxide [Mag-Ox] 400 mg PO DAILY tab Apixaban [Eliquis Starter Pack (for VTE)] 5 - 10 mg PO DIRECTED 30 Days #1 each traMADol HCl [Ultram] 25 mg PO QID PRN 2 Days #4 tab PRN Reason: Moderate Pain Potassium Chloride ER [K-Dur 20] 20 meq PO DAILY tab Acetaminophen Tab [Tylenol] 650 mg PO Q6HR PRN tab PRN Reason: Mild Pain Or Fever > 100.5 Continue Ipratropium-Albuterol Nebulize [Duoneb 0.5 mg-3 mg/3 ml Soln] 3 ml INHALATION RT-QID each Cholestyramine (with Sugar) [Questran Packet] 4 gm PO BID@1000,1800 packet Thiamine [Vitamin B-1] 100 mg PO DAILY Omeprazole 20 mg PO DAILY Ipratropium-Albuterol Nebulize [Duoneb 0.5 mg-3 mg/3 ml Soln] 3 ml INHALATION RT-Q12H PRN PRN Reason: Shortness Of Breath Or Wheezing Tamsulosin [Flomax] 0.4 mg PO DAILY Melatonin 3 mg PO HS tab Multivitamins, Thera [Multivitamin (formulary)] 1 tab PO DAILY Midodrine HCl [ProAmatine] 10 mg PO TID Miconazole Nitrate [Lotrimin AF Powder] 1 applic TOPICAL BID Nicotine 14Mg/24Hr Patch [Habitrol] 1 patch TRANSDERM DAILY patch Acetaminophen [Tylenol] 650 mg PO Q6H PRN PRN Reason: Pain Folic Acid 1 mg PO DAILY 30 Days #30 tablet Discontinued Furosemide [Lasix] 40 mg PO BID Bismuth Subsalicylate [Pepto-Bismol] 524 mg PO Q4H PRN PRN Reason: Diarrhea Potassium Chloride ER [K-Dur 10] 10 meq PO DAILY Discharge Medication List Cholestyramine (with Sugar) [Questran Packet] 4 gm PO BID@1000,1800 packet 07/14/22 [Rx] Ipratropium-Albuterol Nebulize [Duoneb 0.5 mg-3 mg/3 ml Soln] 3 ml INHALATION RT-QID each 07/14/22 [Rx] Nicotine 14Mg/24Hr Patch [Habitrol] 1 patch TRANSDERM DAILY patch 07/14/22 [Rx] Acetaminophen [Tylenol] 650 mg PO Q6H PRN 08/09/22 [History] Ipratropium-Albuterol Nebulize [Duoneb 0.5 mg-3 mg/3 ml Soln] 3 ml INHALATION RT-Q12H PRN 08/09/22 [History] Omeprazole 20 mg PO DAILY 08/09/22 [History] Tamsulosin [Flomax] 0.4 mg PO DAILY 08/09/22 [History] Thiamine [Vitamin B-1] 100 mg PO DAILY 08/09/22 [History] Folic Acid 1 mg PO DAILY 30 Days #30 tablet 08/13/22 [Rx] Melatonin 3 mg PO HS tab 08/13/22 [Rx] Miconazole Nitrate [Lotrimin AF Powder] 1 applic TOPICAL BID 08/31/22 [History] Midodrine HCl [ProAmatine] 10 mg PO TID 08/31/22 [History] Multivitamins, Thera [Multivitamin (formulary)] 1 tab PO DAILY 08/31/22 [History] Acetaminophen Tab [Tylenol] 650 mg PO Q6HR PRN tab 09/03/22 [Rx] Furosemide [Lasix] 40 mg PO BID@0900,1600 tab 09/03/22 [Rx] Magnesium Oxide [Mag-Ox] 400 mg PO DAILY tab 09/03/22 [Rx] Potassium Chloride ER [K-Dur 20] 20 meq PO DAILY tab 09/03/22 [Rx] Apixaban [Eliquis Starter Pack (for VTE)] 5 - 10 mg PO DIRECTED 30 Days #1 each 09/07/22 [Rx] traMADol HCl [Ultram] 25 mg PO QID PRN 2 Days #4 tab 09/10/22 [Rx] Follow up Appointment(s)/Referral(s): [facility] [NON-STAFF] - Nato Sosa MD [STAFF PHYSICIAN] - 1 Week Quinn Mancuso MD [Primary Care Provider] - 1-2 days (Office closed please make appointment.) Ambulatory/Diagnostic Orders: Basic Metabolic Panel [LAB.AMB] Location: None Selected Magnesium [LAB.AMB] Time Frame: 3 Days, Location: None Selected Activity/Diet/Wound Care/Special Instructions: Continue oral lasix twice a day Eliquis dosing will be 10 mg PO twice a day for 4 days, then switch to eliquis 5 mg PO twice a day and continue Repeat labs in 2 to 3 days Local wound care to buttock area with mycostatin cream and change as soiled Continue with hemorrhoid cream three times a day as needed Patient needs frequent repositioning and offloading to the buttock every 2 to 3 hours. Encourage oral intake and continue with oral protein drinks recommend ensure three times a day between meals. Continue with thigh high compression stockings Patient will be discharge to [facility] for subacute rehab today Discharge Disposition: TRANSFER TO SNF/ECF
[2022-09-10] MEDS: APIXABAN 5 MG TAB PO SCH (08:41)
[2022-09-10] MEDS: TAMSULOSIN 0.4 MG CAP.ER.24H PO SCH (08:42)
[2022-09-10] MEDS: MULTIVITAMINS, THERA 1 EACH TAB PO SCH (08:43)
[2022-09-10] MEDS: MIDODRINE 5 MG TAB PO SCH (08:43)
[2022-09-10] MEDS: POTASSIUM CHLORIDE ER 20 MEQ TAB.ER PO SCH (08:43)
[2022-09-10] MEDS: FOLIC ACID 1 MG TAB PO SCH (08:43)
[2022-09-10] MEDS: PANTOPRAZOLE 40 MG TABLET PO SCH (08:43)
[2022-09-10] MEDS: THIAMINE 100 MG TAB PO SCH (08:43)
[2022-09-10] MEDS: MAGNESIUM OXIDE 400 MG TAB PO SCH (08:43)
[2022-09-10] MEDS: BENZOCAINE 20% HEMORRHOIDAL OINT 28GM RECTAL SCH (10:30)
[2022-09-10] MEDS: NICOTINE 14MG/24HR PATCH TRANSDERM SCH (10:31)
[2022-09-10] MEDS: NYSTATIN 100,000 UNIT/GM POWD 15 GM TOPICAL SCH (10:31)
[2022-09-10 10:47] VITALS: PULSE 100
--- NOTE | 2022-09-13 13:28 | CDI ---
Documentation Clarification Form Date: 09/13/22 From: Janene Mcpherson Admit Date: 08/31/2022 02:00:00 PM Patient Name: Tessy Clinton Visit Number: [id number] Discharge Date: 09/10/2022 12:48:00 PM ATTENTION: The Clinical Documentation Specialists (CDI) and [facility] Coding Staff appreciate your assistance in clarifying documentation. Please respond to the clarification below the line at the bottom and electronically sign. The CDI & [facility] Coding staff will review the response and follow-up if needed. Please note: Queries are made part of the Legal Health Record. If you have any questions, please contact the author of this message via ITS. Dr. Rizwana Hodges, A sacral pressure ulcer is documented in H&P. Additional clarification regarding the stage of the pressure ulcer is requested. History/Risk Factors: COPD w acute exacerbation, moderate PCM, BMI 21.0, thrombosis right lower into calf on the common femoral veins and chronic thrombosis left lower extremity, alcoholic cirrhosis, hyponatremia, adult failure to thrive, HTN, hyperlidemia, urinary incontinence, hyponatremia Clinical Indicators: Recently treated for sacral edematous ulcer, malnutrition and peripheral edema. Location: No nursing documentation of wound Wound description: No nursing documentation of wound Treatment: Indwelling Bird, Foam sacral (optifoam gentle luquitrap bordered sacraum 9x9) Please clarify the stage of pressure ulcer of sacrum, if known: [ ] Deep tissue injury sacrum [ ] Stage 1 Pressure Ulcer sacrum [ x] Stage 2 Pressure Ulcer sacrum [ ] Stage 3 Pressure Ulcer sacrum [ ] Stage 4 Pressure Ulcer sacrum [ ] Unstageable Pressure ulcer sacrum [ ] Other condition, please specify [ ] Unable to determine Clinical Definitions: Stage 1 Pressure Ulcer: intact skin, non-blanching redness of local area Stage 2 Pressure Ulcer: Partial thickness, loss of dermis, pink wound bed Stage 3 Pressure Ulcer: Full thickness tissue loss Stage 4 Pressure Ulcer: Full thickness tissue loss with exposed bone, tendon, or muscle. Unstageable pressure ulcer: Full thickness tissue loss in which the base of the ulcer is covered by slough (yellow, blank, abdi, green or brown) and/or eschar (blank, brown or black) in the wound bed. MTDD
== END 2022-09-10 12:48 | DRG 191 ==
LOC: EC 12:09 → 4SSUR 14:00
PROVIDERS: ADMIT Internal Medicine; ATTEND Internal Medicine
DX: J44.1 Chronic obstructive pulmonary disease with (acute) exacerbation (principal); E44.0 Moderate protein-calorie malnutrition; I82.411 Acute embolism and thrombosis of right femoral vein; R64 Cachexia; E87.1 Hypo-osmolality and hyponatremia; I82.5Y2 Chronic embolism and thrombosis of unspecified deep veins of left proximal lower extremity; L89.152 Pressure ulcer of sacral region, stage 2; K70.30 Alcoholic cirrhosis of liver without ascites; R62.7 Adult failure to thrive; E88.09 Other disorders of plasma-protein metabolism, not elsewhere classified; I10 Essential (primary) hypertension; E87.70 Fluid overload, unspecified; E87.6 Hypokalemia; E78.5 Hyperlipidemia, unspecified; K76.9 Liver disease, unspecified; M19.90 Unspecified osteoarthritis, unspecified site; R32 Unspecified urinary incontinence; Z79.899 Other long term (current) drug therapy; Z87.891 Personal history of nicotine dependence; Z87.440 Personal history of urinary (tract) infections; Z96.60 Presence of unspecified orthopedic joint implant
CPT/HCPCS: 36415; 71046; 80048; 80053; 81001; 83735; 83880; 84132; 84145; 84484; 85025; 85610; 85730; 93005; 93970; 94640; 94760; 96374; 96375; 99284

== ENCOUNTER 2022-09-15 15:40 | Inpatient (IN) | payer MEDICARE ==
--- NOTE | 2022-09-15 16:19 | ED ---
General Adult HPI - General Chief complaint: Recheck/Abnormal Lab/Rx Stated complaint: ascites Time Seen by Provider: 09/15/22 15:44 Source: patient, EMS, RN notes reviewed, old records reviewed Mode of arrival: EMS Limitations: no limitations - History of Present Illness Initial comments: Patient is a 72-year-old female who sent from a nursing facility over concern for worsening ascites. Patient has a history of liver disease. States she does have a history of ascites. Has required paracenteses in the past. Patient also has bilateral DVTs and is currently taking Eliquis for them. She is also currently C. diff positive and is on Flagyl. She has a history of COPD, acid reflux, alcoholic cirrhosis. She also hit has a history of urinary retention and has a Bird catheter in place. Presents from [facility]. Patient recently was discharged home to a nursing facility for rehab due to increased weakness. She is having increasing debility which seems to be a progressive issue. She is sedentary in bed and in chairs. Occasionally walks with a walker. Patient currently has no acute complaints other than worsening swelling in her abdomen. She states she takes the medications that she is given at her facility. Has no other acute complaints at this time. Presents for admission for paracentesis. Patient denies any chest pain, shortness breath, abdominal pain, nausea, vomiting. Does endorse lower extremity swelling chronic weakness. Denies any other acute complaints at this time. - Related Data Home Medications Medication Instructions Recorded Confirmed Acetaminophen [Tylenol] 650 mg PO Q6H PRN 08/09/22 09/15/22 Ipratropium-Albuterol Nebulize 3 ml INHALATION RT-Q12H PRN 08/09/22 09/15/22 [Duoneb 0.5 mg-3 mg/3 ml Soln] Omeprazole 20 mg PO DAILY 08/09/22 09/15/22 Tamsulosin [Flomax] 0.4 mg PO DAILY 08/09/22 09/15/22 Thiamine [Vitamin B-1] 100 mg PO DAILY 08/09/22 09/15/22 Midodrine HCl [ProAmatine] 10 mg PO TID@0900,1300,2100 08/31/22 09/15/22 Multivitamins, Thera [Multivitamin 1 tab PO DIRECTED 08/31/22 09/15/22 (formulary)] Apixaban [Eliquis] 5 mg PO BID@0900,1700 09/15/22 09/15/22 Cholestyramine (with Sugar) 4 gm PO BID@0900,1700 09/15/22 09/15/22 [Questran Packet] Furosemide [Lasix] 40 mg PO BID@0900,1300 09/15/22 09/15/22 Lactobacillus Acidophilus 1 tab PO DAILY@0900 09/15/22 09/15/22 [Acidophilus] Loperamide HCl [Imodium A-D] 2 mg PO DIRECTED PRN 09/15/22 09/15/22 Magnesium Oxide [Mag-Ox] 400 mg PO DIRECTED 09/15/22 09/15/22 Megestrol Acetate 400 mg PO BID@0900,1700 09/15/22 09/15/22 metroNIDAZOLE [Flagyl] 500 mg PO TID@0900,1300,2100 09/15/22 09/15/22 traMADol HCl [Ultram] 25 mg PO Q6H PRN 09/15/22 09/15/22 Previous Rx's Medication Instructions Recorded Ipratropium-Albuterol Nebulize 3 ml INHALATION RT-QID each 07/14/22 [Duoneb 0.5 mg-3 mg/3 ml Soln] Nicotine 14Mg/24Hr Patch [Habitrol] 1 patch TRANSDERM DAILY patch 07/14/22 Folic Acid 1 mg PO DAILY 30 Days #30 tablet 08/13/22 Melatonin 3 mg PO HS tab 08/13/22 Potassium Chloride ER [K-Dur 20] 20 meq PO DAILY tab 09/03/22 Allergies Allergy/AdvReac Type Severity Reaction Status Date / Time No Known Allergies Allergy Verified 09/15/22 18:17 Review of Systems ROS Statement: Those systems with pertinent positive or pertinent negative responses have been documented in the HPI. Review of Systems: CONST: Denies fever EYES: Denies blurry vision ENT: Denies nasal congestion C/V: Denies Chest pain RESP: Denies shortness of breath GI: Denies abdominal pain : Denies dysuria SKIN: Denies rash. MSK: Denies joint pain. NEURO: Denies headache ROS Other: All systems not noted in ROS Statement are negative. 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, cirrhosis of the liver History of Any Multi-Drug Resistant Organisms: None Reported Past Surgical History: Section, Joint Replacement Additional Past Surgical History / Comment(s): cataract surgery Past Anesthesia/Blood Transfusion Reactions: No Reported Reaction Past Psychological History: No Psychological Hx Reported Smoking Status: Current every day smoker, Former smoker Past Alcohol Use History: None Reported Additional Past Alcohol Use History / Comment(s): Quit smoking in February 2022 Past Drug Use History: None Reported - Past Family History Son(s) Family Medical History: No Reported History Daughter(s) Family Medical History: No Reported History General Exam - General Exam Comments Initial Comments: General: Appears in no acute distress. HEAD: Normal with no signs of head trauma. EYES: PERRLA, EOMI, conjunctiva normal, no discharge. ENT: Hearing grossly intact, normal oropharynx. RESPIRATORY: Clear breath sounds bilaterally. No wheezes, rales, or rhonchi. C/V: Regular rate and rhythm. S1 and S2 auscultated, significant bilateral lower extremity pitting edema., peripheral pulses 2+ and intact throughout ABD: Abdomen is distended. Fluid wave present. Nontender to palpation. Bird catheter in place. EXT: Normal range of motion, no obvious deformity SKIN: No rashes or lesions observed on exposed skin. NEURO: Alert and oriented 4. Limitations: no limitations Course Vital Signs 09/15/22 09/15/22 15:50 18:49 Temperature 97.7 F Pulse Rate 100 87 Respiratory 18 16 Rate Blood Pressure 134/77 108/70 O2 Sat by Pulse 99 98 Oximetry Medical Decision Making - Medical Decision Making Based on the patient's presentation and physical exam, I'm concerned for what appears to be chronic ascites from her chronic liver disease. She does have a history of this. States she has required paracenteses in the past. Was transferred here from her rehab facility for paracentesis. Currently is being treated for DVTs on Eliquis as well as being treated for C. diff on Flagyl. She denies any acute complaints at this time. We will obtain basic laboratory studies and screening EKG. Vital signs within acceptable limits. She'll be admitted. She was in agreement this plan. EKG shows no signs of acute ischemic process.Chest x-ray as interpreted by myself shows a right-sided pleural effusion. Small left-sided pleural effusion as well. Laboratory studies are remarkable for elevated coags the setting of liver disease as well as blood thinning use. Sodium is mildly decreased to 130. Albumin is also decreased at 2.1 the setting of alcoholic cirrhosis. Remainder of the labs are unremarkable. On reevaluation, patient's vital signs are main unchanged. I did update her that she'll be admitted for paracentesis as this is why she was sent here. She was in agreement this plan. Patient's physician who admits to Dr. West who is being covered by [facility]. I spoke with ANGELICA Ivy who accepted the patient. Patient was admitted in stable condition. - Lab Data Result diagrams: 09/15/22 16:17 09/15/22 16:17 Lab Results 09/15/22 09/15/22 09/15/22 Range/Units 16:17 16:17 16:17 WBC 5.8 (3.8-10.6) k/uL RBC 3.51 L (3.80-5.40) m/uL Hgb 11.8 (11.4-16.0) gm/dL Hct 35.4 (34.0-46.0) % MCV 100.8 H (80.0-100.0) fL MCH 33.7 (25.0-35.0) pg MCHC 33.4 (31.0-37.0) g/dL RDW 14.2 (11.5-15.5) % Plt Count 232 (150-450) k/uL MPV 9.3 Neutrophils % 72 % Lymphocytes % 18 % Monocytes % 7 % Eosinophils % 2 % Basophils % 0 % Neutrophils # 4.2 (1.3-7.7) k/uL Lymphocytes # 1.0 (1.0-4.8) k/uL Monocytes # 0.4 (0-1.0) k/uL Eosinophils # 0.1 (0-0.7) k/uL Basophils # 0.0 (0-0.2) k/uL Hypochromasia Slight Macrocytosis Slight PT 21.3 H (9.0-12.0) sec INR 2.1 H (<1.2) APTT 36.8 H (22.0-30.0) sec Sodium 130 L (137-145) mmol/L Potassium 4.5 (3.5-5.1) mmol/L Chloride 105 (98-107) mmol/L Carbon Dioxide 28 (22-30) mmol/L Anion Gap -3 mmol/L BUN 12 (7-17) mg/dL Creatinine 0.44 L (0.52-1.04) mg/dL Est GFR (CKD-EPI)AfAm >90 (>60 ml/min/1.73 sqM) Est GFR (CKD-EPI)NonAf >90 (>60 ml/min/1.73 sqM) Glucose 114 H (74-99) mg/dL Calcium 7.5 L (8.4-10.2) mg/dL Total Bilirubin 0.6 (0.2-1.3) mg/dL AST 36 (14-36) U/L ALT 18 (4-34) U/L Alkaline Phosphatase 62 (38-126) U/L Total Protein 4.7 L (6.3-8.2) g/dL Albumin 2.1 L (3.5-5.0) g/dL Amylase 48 (30-110) U/L Lipase 95 (23-300) U/L - EKG Data -: EKG Interpreted by Me EKG Comments: 12-lead Electrocardiogram Interpretation Note EKG was reviewed and interpreted by myself. 12-lead ECG performed at 1557 is interpreted by me as revealing normal sinus rhythm at a rate of 95 beats per minute. [place] is normal. RI interval is 153 ms, QRS duration is 77 ms, QTc is 382 ms.. There were no ST or T wave abnormalities to suggest myocardial ischemia or injury. R wave progression across the precordium was satisfactory. By my interpretation this EKG is non-diagnostic for acute ischemia. Disposition Clinical Impression: Ascites, Clostridium difficile infection, DVT, bilateral lower limbs, Weakness, Pleural effusion Disposition: ADMITTED IP TO THIS HOSP Condition: Stable Time of Disposition: 17:30
--- NOTE | 2022-09-15 16:47 | XR ---
EXAMINATION TYPE: XR chest 2V DATE OF EXAM: 09/15/2022 COMPARISON: 09/05/2022 HISTORY: Short of breath TECHNIQUE: FINDINGS: There is blunting right costophrenic angle. There is slight blunting left costophrenic angl e. Heart size is normal. There is thoracic dextroscoliosis. No heart failure seen. There are no hilar masses. IMPRESSION: There is moderate-sized right pleural effusion. There is small left pleural effusion. No significant change compared to old exam.
[2022-09-15 17:01] LABS: INR 2.1 (<1.2); Partial Thromboplastin Time 36.8 sec (22.0-30.0); Prothrombin Time 21.3 sec (9.0-12.0)
[2022-09-15 17:13] LABS: ALT 18 U/L (4-34); African American GFR (CKD) >90 (>60 ml/min/1.73 sqM); Albumin 2.1 g/dL (3.5-5.0); Amylase 48 U/L (30-110); Anion Gap -3 mmol/L; Blood Urea Nitrogen 12 mg/dL (7-17); Calcium 7.5 mg/dL (8.4-10.2); Carbon Dioxide 28 mmol/L (22-30); Chloride 105 mmol/L (98-107); Glucose 114 mg/dL (74-99); Lipase 95 U/L (23-300); Non-African American GFR(CKD) >90 (>60 ml/min/1.73 sqM); Sodium 130 mmol/L (137-145); Total Bilirubin 0.6 mg/dL (0.2-1.3); Total Protein 4.7 g/dL (6.3-8.2)
[2022-09-15 17:16] LABS: AST 36 U/L (14-36); Alkaline Phosphatase 62 U/L (38-126); Potassium 4.5 mmol/L (3.5-5.1)
[2022-09-15 17:17] LABS: Basophils % (A) 0 %; Eosinophils # (A) 0.1 k/uL (0-0.7); Eosinophils % (A) 2 %; HCT 35.4 % (34.0-46.0); HGB 11.8 gm/dL (11.4-16.0); Hypochromasia Slight; Lymphocytes % (A) 18 %; MCH 33.7 pg (25.0-35.0); MCHC 33.4 g/dL (31.0-37.0); MCV 100.8 fL (80.0-100.0); Macrocytosis Slight; Mean Platelet Volume 9.3; Monocytes # (A) 0.4 k/uL (0-1.0); Monocytes % (A) 7 %; Neutrophils # (A) 4.2 k/uL (1.3-7.7); Neutrophils % (A) 72 %; Platelet Count 232 k/uL (150-450); RBC 3.51 m/uL (3.80-5.40); RDW 14.2 % (11.5-15.5); WBC 5.8 k/uL (3.8-10.6)
[2022-09-15] MEDS ORDERED: NALOXONE 0.4 MG/ML 1 ML VIAL IV PRN (18:02)
[2022-09-15] MEDS ORDERED: IPRATROPIUM-ALBUTEROL 3 ML NEB INHALATION PRN (18:37)
[2022-09-15 19:06] LABS: Appearance,Urine Cloudy (Clear); Bacteria,Urine Many /hpf; Bilirubin,Urine Negative (Negative); Blood,Urine Large (Negative); Color,Urine Light Red; Glucose,Urine (UA) Negative (Negative); Ketones,Urine Negative (Negative); Leukocyte Esterase,Urine Large (Negative); Mucus,Urine Many /hpf; Nitrite,Urine Positive (Negative); Protein,Urine 1+ (Negative); RBC,Urine >182 /hpf (0-5); Specific Gravity,Urine 1.018 (1.001-1.035); Urobilinogen,Urine <2.0 mg/dL (<2.0); WBC,Urine 86 /hpf (0-5)
[2022-09-15] MEDS: MIDODRINE 5 MG TAB PO SCH (20:05)
[2022-09-15] MEDS: MELATONIN 3 MG TABLET PO SCH (20:08)
[2022-09-15] MEDS: metroNIDAZOLE 500 MG TAB PO SCH (20:08)
[2022-09-15] MEDS: IPRATROPIUM-ALBUTEROL 3 ML NEB INHALATION SCH (20:36)
[2022-09-16] MEDS: PANTOPRAZOLE 40 MG TABLET PO SCH (06:12)
[2022-09-16 07:45] LABS: Basophils % (A) 1 %; Eosinophils # (A) 0.2 k/uL (0-0.7); Eosinophils % (A) 4 %; HCT 36.4 % (34.0-46.0); HGB 11.7 gm/dL (11.4-16.0); Hypochromasia Marked; Lymphocytes # (A) 1.1 k/uL (1.0-4.8); Lymphocytes % (A) 24 %; MCH 33.8 pg (25.0-35.0); MCHC 32.1 g/dL (31.0-37.0); MCV 105.4 fL (80.0-100.0); Macrocytosis Moderate; Mean Platelet Volume 8.5; Monocytes # (A) 0.4 k/uL (0-1.0); Monocytes % (A) 8 %; Neutrophils # (A) 2.8 k/uL (1.3-7.7); Neutrophils % (A) 60 %; Platelet Count 164 k/uL (150-450); RBC 3.45 m/uL (3.80-5.40); RDW 14.5 % (11.5-15.5); WBC 4.8 k/uL (3.8-10.6)
[2022-09-16] MEDS: IPRATROPIUM-ALBUTEROL 3 ML NEB INHALATION SCH ×4 (08:01→19:43)
[2022-09-16 08:16] LABS: African American GFR (CKD) >90 (>60 ml/min/1.73 sqM); Anion Gap 0 mmol/L; Blood Urea Nitrogen 11 mg/dL (7-17); Calcium 7.6 mg/dL (8.4-10.2); Carbon Dioxide 25 mmol/L (22-30); Chloride 107 mmol/L (98-107); Glucose 82 mg/dL (74-99); Non-African American GFR(CKD) >90 (>60 ml/min/1.73 sqM); Potassium 3.9 mmol/L (3.5-5.1); Sodium 132 mmol/L (137-145)
[2022-09-16] MEDS: THIAMINE 100 MG TAB PO SCH (09:40)
[2022-09-16] MEDS: TAMSULOSIN 0.4 MG CAP.ER.24H PO SCH (09:40)
[2022-09-16] MEDS: FOLIC ACID 1 MG TAB PO SCH (09:40)
[2022-09-16] MEDS: metroNIDAZOLE 500 MG TAB PO SCH ×3 (09:41→20:56)
[2022-09-16] MEDS: MIDODRINE 5 MG TAB PO SCH ×3 (09:41→20:56)
[2022-09-16] MEDS: POTASSIUM CHLORIDE ER 20 MEQ TAB.ER PO SCH (09:41)
[2022-09-16] MEDS: FUROSEMIDE 40 MG TAB PO SCH ×2 (09:41→14:21)
[2022-09-16] MEDS: APIXABAN 5 MG TAB PO SCH ×2 (09:42→17:47)
--- NOTE | 2022-09-16 11:14 | US ---
EXAMINATION TYPE: US abdomen limited DATE OF EXAM: 09/16/2022 COMPARISON: NONE CLINICAL HISTORY: ASCITES. Free fluid visualized in all four quadrants. IMPRESSION: 1. Moderate ascites
[2022-09-16] MEDS ORDERED: ACETAMINOPHEN TAB 325 MG TAB PO PRN (13:21)
[2022-09-16] MEDS ORDERED: MULTIVITAMINS, THERA 1 EACH TAB PO SCH (13:30)
[2022-09-16] MEDS ORDERED: MAGNESIUM OXIDE 400 MG TAB PO SCH (13:30)
[2022-09-16] MEDS ORDERED: CHOLESTYRAMINE (WITH SUGAR) 4 GM PACKET PO SCH (17:00)
[2022-09-16] MEDS: MEGESTROL 400 MG/10 ML CUP PO SCH (17:47)
--- NOTE | 2022-09-16 20:14 | HP ---
HISTORY AND PHYSICAL CHIEF COMPLAINT: Abdominal distention and discomfort. HISTORY OF PRESENT ILLNESS: This 72-year-old woman with a past medical history of multiple medical problems was recently admitted to [facility] and the patient was sent to rehab. The patient has a history of chronic liver disease, COPD. The patient is complaining of some abdominal distention, ascites, suspected patient also had bilateral pleural effusion. The patient was admitted for evaluation and treatment. There is no history of any fever, rigors, or chills at this time. PAST MEDICAL HISTORY: Reviewed, include COPD, hypertension, hyperlipidemia, rest of the history and chart is also reviewed. HOME MEDICATIONS: Reviewed include Tylenol and Ultram. Doses and rest of medications reviewed. ALLERGIES: None. FAMILY HISTORY: No history of heart disease or strokes in the family. SOCIAL HISTORY: Previous history of smoking. REVIEW OF SYSTEMS: A 14-point review of systems is negative except as mentioned earlier. PHYSICAL EXAMINATION: VITAL SIGNS: Pulse 80, blood pressure 120/70, respirations 16. CHEST: A few scattered rhonchi and crackles. CARDIOVASCULAR: S1, S2. ABDOMEN: Soft, obese, distended. Ascites present. HEENT: Normal. LEGS: No edema. No swelling. NERVOUS SYSTEM: Diffusely weak and emaciated. SKIN: No ulcer, rash, bleeding. JOINTS: No active deforming arthropathy. LABS: Reviewed. Sodium is 132. Rest of the labs are reviewed, possible UTI. ASSESSMENT: 1. Ascites secondary to chronic liver disease. 2. Abdominal discomfort. 3. Urinary tract infection. 4. Hypertension. 5. Chronic obstructive pulmonary disease. 6. Multiple medical issues. RECOMMENDATIONS: Recommend to continue current medical management and symptomatic treatment. Intervention Radiology consultation and possible ascitic aspiration. Otherwise, prognosis guarded because of multiple complex medical conditions. Further recommendations to follow. See orders for further details. MMODL / IJN: [id number] /
[2022-09-16] MEDS: MELATONIN 3 MG TABLET PO SCH (20:56)
[2022-09-17] MEDS: IPRATROPIUM-ALBUTEROL 3 ML NEB INHALATION SCH ×4 (07:09→19:20)
--- NOTE | 2022-09-17 08:06 | US ---
Ultrasound-guided paracentesis. DATE OF EXAM: 09/16/2022 CLINICAL HISTORY: Ascites The procedure was discussed with the patient. The risks, complications, benefits, and alternatives we re discussed and any questions were answered. Informed consent was obtained. The patient was placed s upine on the ultrasound table and prepped and draped in the usual sterile fashion. All elements of maximal barrier technique were utilized. Under ultrasound guidance, access into the right lower quadrant was obtained, via the paracentesis catheter system and direct ultrasound guidanc e. Approximately 6 liters of straw-colored fluid was removed. The patient was stable throughout the proc edure and remained stable upon discharge from Department of Radiology. IMPRESSION: Successful paracentesis under ultrasound guidance.
--- NOTE | 2022-09-17 09:23 | P.CONS ---
History of Present Illness - Reason for Consult Consult date: 09/16/22 - History of Present Illness Patient is a 72-year-old female with a past medical history significant for liver cirrhosis and ascites did require paracentesis in the past patient also history of C. difficile colitis COPD esophageal reflux disease presenting to the ER last evening for evaluation of worsening swelling to the abdominal area and this patient symptom has been getting worse for the last few days and need for paracentesis patient did have some dull aching pain 2-3 out of 10 had radiation patient has some nausea but no vomiting and denies having any diarrhea patient on presentation to the hospital was afebrile and no fever has been recorded subsequently patient did have normal white count kidney function has been normal patient did have a cloudy urine with a large leukocyte esterase more than 182 WBC, patient was started on Rocephin concerning for catheter associated UTI however keeping in mind her recent history of C. difficile colitis infectious disease was consulted for further management of antibiotic therapy 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, cirrhosis of the liver History of Any Multi-Drug Resistant Organisms: None Reported Year Discovered:: 08/31/22 MDRO Source:: Stool Past Surgical History: Section, Joint Replacement Additional Past Surgical History / Comment(s): cataract surgery Past Anesthesia/Blood Transfusion Reactions: No Reported Reaction Past Psychological History: No Psychological Hx Reported Smoking Status: Current every day smoker, Former smoker Past Alcohol Use History: None Reported Additional Past Alcohol Use History / Comment(s): Quit smoking in February 2022 Past Drug Use History: None Reported - Past Family History Son(s) Family Medical History: No Reported History Daughter(s) Family Medical History: No Reported History Medications and Allergies Home Medications Medication Instructions Recorded Confirmed Type Ipratropium-Albuterol Nebulize 3 ml INHALATION RT-QID each 07/14/22 09/15/22 Rx [Duoneb 0.5 mg-3 mg/3 ml Soln] Nicotine 14Mg/24Hr Patch [Habitrol] 1 patch TRANSDERM DAILY patch 07/14/22 09/15/22 Rx Acetaminophen [Tylenol] 650 mg PO Q6H PRN 08/09/22 09/15/22 History Ipratropium-Albuterol Nebulize 3 ml INHALATION RT-Q12H PRN 08/09/22 09/15/22 History [Duoneb 0.5 mg-3 mg/3 ml Soln] Omeprazole 20 mg PO DAILY 08/09/22 09/15/22 History Tamsulosin [Flomax] 0.4 mg PO DAILY 08/09/22 09/15/22 History Thiamine [Vitamin B-1] 100 mg PO DAILY 08/09/22 09/15/22 History Folic Acid 1 mg PO DAILY 30 Days #30 tablet 08/13/22 09/15/22 Rx Melatonin 3 mg PO HS tab 08/13/22 09/15/22 Rx Midodrine HCl [ProAmatine] 10 mg PO TID@0900,1300,2100 08/31/22 09/15/22 History Multivitamins, Thera [Multivitamin 1 tab PO DIRECTED 08/31/22 09/15/22 History (formulary)] Potassium Chloride ER [K-Dur 20] 20 meq PO DAILY tab 09/03/22 09/15/22 Rx Apixaban [Eliquis] 5 mg PO BID@0900,1700 09/15/22 09/15/22 History Cholestyramine (with Sugar) 4 gm PO BID@0900,1700 09/15/22 09/15/22 History [Questran Packet] Furosemide [Lasix] 40 mg PO BID@0900,1300 09/15/22 09/15/22 History Lactobacillus Acidophilus 1 tab PO DAILY@0900 09/15/22 09/15/22 History [Acidophilus] Loperamide HCl [Imodium A-D] 2 mg PO DIRECTED PRN 09/15/22 09/15/22 History Magnesium Oxide [Mag-Ox] 400 mg PO DIRECTED 09/15/22 09/15/22 History Megestrol Acetate 400 mg PO BID@0900,1700 09/15/22 09/15/22 History metroNIDAZOLE [Flagyl] 500 mg PO TID@0900,1300,2100 09/15/22 09/15/22 History traMADol HCl [Ultram] 25 mg PO Q6H PRN 09/15/22 09/15/22 History Allergies Allergy/AdvReac Type Severity Reaction Status Date / Time No Known Allergies Allergy Verified 09/15/22 18:17 Physical Exam Vitals: Vital Signs Temp Pulse Pulse Resp BP BP Pulse Ox 09/16/22 09:09 97.5 F L 62 17 93/63 94 L 09/16/22 08:10 80 09/16/22 08:01 80 09/16/22 05:00 97.3 F L 87 16 101/66 96 09/15/22 20:00 97.4 F L 91 16 127/78 97 09/15/22 18:49 87 16 108/70 98 09/15/22 15:50 97.7 F 100 18 134/77 99 Intake and Output 09/15/22 09/16/22 09/16/22 22:59 06:59 14:59 Intake Total 590 Output Total 125 Balance 465 Intake: Oral 590 Output: Urine 125 Other: Voiding Method Indwelling Catheter Weight 61.235 kg Results CBC & Chem 7: 09/16/22 07:18 09/16/22 07:18 Labs: Abnormal Lab Results - Last 24 Hours (Table) 09/15/22 09/15/22 09/15/22 Range/Units 16:17 16:17 16:17 RBC 3.51 L (3.80-5.40) m/uL MCV 100.8 H (80.0-100.0) fL PT 21.3 H (9.0-12.0) sec INR 2.1 H (<1.2) APTT 36.8 H (22.0-30.0) sec Sodium 130 L (137-145) mmol/L Creatinine 0.44 L (0.52-1.04) mg/dL Glucose 114 H (74-99) mg/dL Calcium 7.5 L (8.4-10.2) mg/dL Total Protein 4.7 L (6.3-8.2) g/dL Albumin 2.1 L (3.5-5.0) g/dL Urine Appearance (Clear) Urine Protein (Negative) Urine Blood (Negative) Urine Nitrite (Negative) Ur Leukocyte Esterase (Negative) Urine RBC (0-5) /hpf Urine WBC (0-5) /hpf Urine WBC Clumps (None) /hpf Urine Bacteria (None) /hpf Urine Mucus (None) /hpf 09/15/22 09/16/22 09/16/22 Range/Units 18:30 07:18 07:18 RBC 3.45 L (3.80-5.40) m/uL MCV 105.4 H (80.0-100.0) fL PT (9.0-12.0) sec INR (<1.2) APTT (22.0-30.0) sec Sodium 132 L (137-145) mmol/L Creatinine 0.47 L (0.52-1.04) mg/dL Glucose (74-99) mg/dL Calcium 7.6 L (8.4-10.2) mg/dL Total Protein (6.3-8.2) g/dL Albumin (3.5-5.0) g/dL Urine Appearance Cloudy H (Clear) Urine Protein 1+ H (Negative) Urine Blood Large H (Negative) Urine Nitrite Positive H (Negative) Ur Leukocyte Esterase Large H (Negative) Urine RBC >182 H (0-5) /hpf Urine WBC 86 H (0-5) /hpf Urine WBC Clumps Few H (None) /hpf Urine Bacteria Many H (None) /hpf Urine Mucus Many H (None) /hpf Microbiology - Last 24 Hours (Table) 09/15/22 18:30 Urine Culture - Preliminary Urine,Voided Assessment and Plan Plan: 1patient with positive UA in this patient presented to hospital for abdominal distention do have a history of cirrhosis and concerning for ascites for possible paracentesis patient did have a indwelling Bird catheter and a positive UA concern for possible Bird colonization versus UTI. 2continue Bird catheter and obtain urine culture from the new Bird. 3May continue Rocephin while waiting for the culture to finalize. We will follow on clinical condition and cultures to further adjust medication if needed Thank you for this consultation will follow this patient along with you Time with Patient: Greater than 30
[2022-09-17] MEDS: NICOTINE 14MG/24HR PATCH TRANSDERM SCH (09:45)
[2022-09-17] MEDS: MEGESTROL 400 MG/10 ML CUP PO SCH ×2 (09:45→17:24)
[2022-09-17] MEDS: LACTOBACILLUS ACIDOPH & BULGAR 1 EACH PACKET PO SCH (09:45)
[2022-09-17] MEDS: metroNIDAZOLE 500 MG TAB PO SCH ×3 (09:46→21:53)
[2022-09-17] MEDS: POTASSIUM CHLORIDE ER 20 MEQ TAB.ER PO SCH (09:46)
[2022-09-17] MEDS: APIXABAN 5 MG TAB PO SCH ×2 (09:46→17:23)
[2022-09-17] MEDS: FOLIC ACID 1 MG TAB PO SCH (09:46)
[2022-09-17] MEDS: MIDODRINE 5 MG TAB PO SCH ×3 (09:46→21:53)
[2022-09-17] MEDS: THIAMINE 100 MG TAB PO SCH (09:46)
[2022-09-17] MEDS: TAMSULOSIN 0.4 MG CAP.ER.24H PO SCH (09:47)
[2022-09-17] MEDS: FUROSEMIDE 40 MG TAB PO SCH ×2 (09:47→14:22)
[2022-09-17] MEDS: PANTOPRAZOLE 40 MG TABLET PO SCH (09:56)
[2022-09-17 10:44] LABS: Basophils # (A) 0.04 X 10*3/uL (0.00-0.10); Basophils % (A) 0.7 %; Eosinophils # (A) 0.12 X 10*3/uL (0.04-0.35); HCT 34.3 % (37.2-46.3); HGB 11.1 g/dL (12.0-15.0); Immature Grans, Automated 0.2 %; Lymphocytes # (A) 1.72 X 10*3/uL (0.90-5.00); MCH 32.6 pg (27.0-32.0); MCHC 32.4 g/dL (32.0-37.0); MCV 100.6 fL (80.0-97.0); Mean Platelet Volume 10.5 fL (9.5-12.2); Monocytes # (A) 0.67 X 10*3/uL (0.20-1.00); Monocytes % (A) 10.9 %; NRBC Per 100 WBC 0 /100 WBCS (0.0-0.0); Neutrophils # (A) 3.59 X 10*3/uL (1.80-7.70); Neutrophils % (A) 58.2 %; Platelet Count 225 X 10*3/uL (140-440); RBC 3.41 X 10*6/uL (4.10-5.20); WBC 6.15 X 10*3/uL (4.50-10.00)
[2022-09-17 11:03] LABS: African American GFR (CKD) 110.5 (60.0-200.0); Albumin/Globulin Ratio 1.11 (1.60-3.17); Anion Gap 7.2 mmol/L (10.00-18.00); BUN/Creat Ratio 21.8 Ratio (12.00-20.00); Blood Urea Nitrogen 10.9 mg/dL (9.0-27.0); Calcium 7.6 mg/dL (8.7-10.3); Carbon Dioxide 25.8 mmol/L (20.0-27.5); Globulin 1.8 g/dL (1.6-3.3); Non-African American GFR(CKD) 95.3 (60.0-200.0); Potassium 3.8 mmol/L (3.5-5.5); Total Bilirubin 0.3 mg/dL (0.30-1.20); Total Protein 3.8 g/dL (6.2-8.2)
--- NOTE | 2022-09-17 12:15 | P.PN ---
Subjective Progress Note Date: 09/17/22 72-year-old female with a past medical history significant for liver cirrhosis and ascites did require paracentesis in the past patient also history of C. difficile colitis COPD esophageal reflux disease presenting to the ER last evening for evaluation of worsening swelling to the abdominal area and this patient symptom has been getting worse for the last few days and need for paracentesis patient did have some dull aching pain 2-3 out of 10 had radiation patient has some nausea but no vomiting and denies having any diarrhea patient on presentation to the hospital was afebrile and no fever has been recorded subsequently patient did have normal white count kidney function has been normal patient did have a cloudy urine with a large leukocyte esterase more than 182 WBC, patient was started on Rocephin concerning for catheter associated UTI Objective - Vital Signs Vital signs: Vital Signs Temp 97.6 F 09/17/22 09:00 Pulse 92 09/17/22 10:51 Resp 15 09/17/22 09:00 BP 118/64 09/17/22 09:34 Pulse Ox 90 L 09/17/22 09:00 FiO2 Intake & Output 09/16/22 09/17/22 09/17/22 18:59 06:59 18:59 Intake Total 50 Output Total 6600 300 Balance -6550 -300 Intake: Intake, IV Titration 50 Amount cefTRIAXone 2 gm In 50 Sodium Chloride 0.9% 50 ml @ 100 mls/hr IVPB Q24HR [facility] Rx#:[id number] Output: Urine 600 300 Other 6000 Other: Voiding Method Indwelling Catheter Indwelling Catheter Indwelling Catheter - Exam - Constitutional General appearance: Present: average body habitus, cooperative, no acute distress - EENT Eyes: Present: anicteric sclerae, EOMI, PERRLA, normal appearance ENT: Present: hearing grossly normal, normal oropharynx Ears: bilateral: normal - Neck Neck: Present: normal ROM. Absent: lymphadenopathy, rigidity, thyromegaly Carotids: negative: bruit present Thyroid: bilateral: normal size, negative: enlarged, nodule - Respiratory Respiratory: bilateral: CTA, negative: rales, rhonchi, wheezing - Cardiovascular Rhythm: regular Heart sounds: normal: S1, S2 Abnormal Heart Sounds: Absent: systolic murmur, diastolic murmur - Gastrointestinal General gastrointestinal: Present: normal bowel sounds, soft. Absent: distended, organomegaly, tenderness - Genitourinary Genitourinary Comment(s): deferred - Integumentary Integumentary: Present: normal turgor. Absent: jaundiced, rash, ulcer - Neurologic Neurologic: Present: CNII-XII intact. Absent: focal deficits - Musculoskeletal Musculoskeletal: Present: gait normal, strength equal bilaterally - Psychiatric Psychiatric: Present: A&O x's 3, appropriate affect, intact judgment & insight - Labs CBC & Chem 7: 09/17/22 06:47 09/17/22 06:47 Labs: Abnormal Lab Results - Last 24 Hours (Table) 09/17/22 09/17/22 Range/Units 06:47 06:47 RBC 3.41 L (4.10-5.20) X 10*6/uL Hgb 11.1 L (12.0-15.0) g/dL Hct 34.3 L (37.2-46.3) % MCV 100.6 H (80.0-97.0) fL MCH 32.6 H (27.0-32.0) pg RDW 15.0 H (11.5-14.5) % Anion Gap 7.20 L (10.00-18.00) mmol/L Creatinine 0.5 L (0.6-1.5) mg/dL BUN/Creatinine Ratio 21.80 H (12.00-20.00) Ratio Calcium 7.6 L (8.7-10.3) mg/dL Total Protein 3.8 L (6.2-8.2) g/dL Albumin 2.0 L (3.8-4.9) g/dL Albumin/Globulin Ratio 1.11 L (1.60-3.17) g/dL Assessment and Plan Assessment: 1. Ascites related to chronic liver disease - Patient is status post thoracentesis; we will continue to monitor for any further needs 2. UTI patient with positive UA in this patient presented to hospital for abdominal distention do have a history of cirrhosis and concerning for ascites for possible paracentesis patient did have a indwelling Bird catheter and a positive UA concern for possible Bird colonization versus UTI. continue Bird catheter and obtain urine culture from the new Bird. May continue Rocephin while waiting for the culture to finalize. 3. Hypertension; currently not on any antihypertensive therapy 4. COPD; not in exacerbation; we will continue with home inhaler therapy 5. Abdominal pain; likely related to ascites; patient remains on SBP prophylaxis with Flagyl and ceftriaxone 6. Protein calorie malnutrition/anorexia; patient has been placed on Megace 400 mg by mouth twice a day
[2022-09-17 15:47] LABS: Amorphous Sediment,Urine Rare /hpf; Appearance,Urine Cloudy (Clear); Bacteria,Urine Occasional /hpf; Bilirubin,Urine Negative (Negative); Blood,Urine Large (Negative); Color,Urine Light Red; Glucose,Urine (UA) Negative (Negative); Ketones,Urine Negative (Negative); Leukocyte Esterase,Urine Large (Negative); Mucus,Urine Moderate /hpf; Nitrite,Urine Positive (Negative); PH, Urine 5.5 (5.0-8.0); Protein,Urine 1+ (Negative); RBC,Urine 152 /hpf (0-5); Specific Gravity,Urine 1.022 (1.001-1.035); Squamous Epithelial Cell,Urine 7 /hpf (0-4); Urobilinogen,Urine <2.0 mg/dL (<2.0); WBC,Urine >182 /hpf (0-5)
[2022-09-17] MEDS: MELATONIN 3 MG TABLET PO SCH (21:53)
[2022-09-18] MEDS: IPRATROPIUM-ALBUTEROL 3 ML NEB INHALATION SCH ×4 (07:47→19:10)
[2022-09-18] MEDS: THIAMINE 100 MG TAB PO SCH (09:13)
[2022-09-18] MEDS: MEGESTROL 400 MG/10 ML CUP PO SCH ×2 (09:13→17:40)
[2022-09-18] MEDS: FUROSEMIDE 40 MG TAB PO SCH ×2 (09:13→13:30)
[2022-09-18] MEDS: PANTOPRAZOLE 40 MG TABLET PO SCH (09:13)
[2022-09-18] MEDS: FOLIC ACID 1 MG TAB PO SCH (09:13)
[2022-09-18] MEDS: APIXABAN 5 MG TAB PO SCH ×2 (09:13→17:40)
[2022-09-18] MEDS: POTASSIUM CHLORIDE ER 20 MEQ TAB.ER PO SCH (09:13)
[2022-09-18] MEDS: TAMSULOSIN 0.4 MG CAP.ER.24H PO SCH (09:13)
[2022-09-18] MEDS: metroNIDAZOLE 500 MG TAB PO SCH ×2 (09:13→13:30)
[2022-09-18] MEDS: MIDODRINE 5 MG TAB PO SCH ×3 (09:14→21:34)
[2022-09-18] MEDS: NICOTINE 14MG/24HR PATCH TRANSDERM SCH (09:14)
[2022-09-18] MEDS: LACTOBACILLUS ACIDOPH & BULGAR 1 EACH PACKET PO SCH (09:14)
[2022-09-18] MEDS: traMADol 50 MG TAB PO PRN (13:34)
[2022-09-18] MEDS: VANCOMYCIN 125 MG CAPSULE PO SCH ×2 (17:40→21:35)
[2022-09-18] MEDS: MELATONIN 3 MG TABLET PO SCH (21:34)
[2022-09-18] MEDS: CHOLESTYRAMINE (WITH SUGAR) 4 GM PACKET PO SCH (21:34)
[2022-09-19] MEDS: NICOTINE 14MG/24HR PATCH TRANSDERM SCH ×2 (08:54→08:56)
[2022-09-19] MEDS: CHOLESTYRAMINE (WITH SUGAR) 4 GM PACKET PO SCH ×2 (08:54→21:39)
[2022-09-19] MEDS: PANTOPRAZOLE 40 MG TABLET PO SCH ×2 (08:54→08:55)
[2022-09-19] MEDS: VANCOMYCIN 125 MG CAPSULE PO SCH ×4 (08:55→21:39)
[2022-09-19] MEDS: POTASSIUM CHLORIDE ER 20 MEQ TAB.ER PO SCH (08:55)
[2022-09-19] MEDS: MIDODRINE 5 MG TAB PO SCH ×3 (08:55→21:39)
[2022-09-19] MEDS: FUROSEMIDE 40 MG TAB PO SCH ×2 (08:55→13:28)
[2022-09-19] MEDS: TAMSULOSIN 0.4 MG CAP.ER.24H PO SCH (08:55)
[2022-09-19] MEDS: THIAMINE 100 MG TAB PO SCH (08:55)
[2022-09-19] MEDS: APIXABAN 5 MG TAB PO SCH ×2 (08:56→18:00)
[2022-09-19] MEDS: FOLIC ACID 1 MG TAB PO SCH (09:00)
[2022-09-19] MEDS: MEGESTROL 400 MG/10 ML CUP PO SCH ×2 (09:00→18:00)
[2022-09-19] MEDS: LACTOBACILLUS ACIDOPH & BULGAR 1 EACH PACKET PO SCH (09:00)
[2022-09-19] MEDS: IPRATROPIUM-ALBUTEROL 3 ML NEB INHALATION SCH ×4 (09:04→20:23)
--- NOTE | 2022-09-19 18:25 | P.PN ---
Subjective Progress Note Date: 09/18/22 Principal diagnosis: Chronic liver disease with ascites UTI Abdominal pain related to ascites 72-year-old female with a past medical history significant for liver cirrhosis and ascites did require paracentesis in the past patient also history of C. difficile colitis COPD esophageal reflux disease presenting to the ER last evening for evaluation of worsening swelling to the abdominal area and this patient symptom has been getting worse for the last few days and need for paracentesis patient did have some dull aching pain 2-3 out of 10 had radiation patient has some nausea but no vomiting and denies having any diarrhea patient on presentation to the hospital was afebrile and no fever has been recorded subsequently patient did have normal white count kidney function has been normal patient did have a cloudy urine with a large leukocyte esterase more than 182 WBC, patient was started on Rocephin concerning for catheter associated UTI 09/18/2022 Patient is seen and evaluated in room at bedside; does report some abdominal discomfort Vital signs are reviewed and are stable Repeat Urine culture reveals group D enterococcus; initial culture growing Klebsiella oxytoca and Proteus sensitive to Rocephin Objective - Vital Signs Vital signs: Vital Signs Temp 97.3 F L 09/18/22 11:06 Pulse 92 09/18/22 11:50 Resp 18 09/18/22 11:06 BP 116/68 09/18/22 11:06 Pulse Ox 98 09/18/22 11:06 FiO2 Intake & Output 09/17/22 09/18/22 09/18/22 18:59 06:59 18:59 Intake Total 50 Output Total 100 350 3 Balance -50 -350 -3 Intake: Intake, IV Titration 50 Amount cefTRIAXone 2 gm In 50 Sodium Chloride 0.9% 50 ml @ 100 mls/hr IVPB Q24HR [facility] Rx#:[id number] Output: Urine 100 350 Uretheral (Bird) 100 Stool 3 Other: Voiding Method Indwelling Catheter Indwelling Catheter Indwelling Catheter # Bowel Movements 3 - Exam - Constitutional General appearance: Present: average body habitus, cooperative, no acute distress - EENT Eyes: Present: anicteric sclerae, EOMI, PERRLA, normal appearance ENT: Present: hearing grossly normal, normal oropharynx Ears: bilateral: normal - Neck Neck: Present: normal ROM. Absent: lymphadenopathy, rigidity, thyromegaly Carotids: negative: bruit present Thyroid: bilateral: normal size, negative: enlarged, nodule - Respiratory Respiratory: bilateral: CTA, negative: rales, rhonchi, wheezing - Cardiovascular Rhythm: regular Heart sounds: normal: S1, S2 Abnormal Heart Sounds: Absent: systolic murmur, diastolic murmur - Gastrointestinal General gastrointestinal: Present: normal bowel sounds, soft. Absent: distended, organomegaly, tenderness - Genitourinary Genitourinary Comment(s): deferred - Integumentary Integumentary: Present: normal turgor. Absent: jaundiced, rash, ulcer - Neurologic Neurologic: Present: CNII-XII intact. Absent: focal deficits - Musculoskeletal Musculoskeletal: Present: gait normal, strength equal bilaterally - Psychiatric Psychiatric: Present: A&O x's 3, appropriate affect, intact judgment & insight - Labs CBC & Chem 7: 09/17/22 06:47 09/17/22 06:47 Labs: Abnormal Lab Results - Last 24 Hours (Table) 09/17/22 Range/Units 15:21 Urine Appearance Cloudy H (Clear) Urine Protein 1+ H (Negative) Urine Blood Large H (Negative) Urine Nitrite Positive H (Negative) Ur Leukocyte Esterase Large H (Negative) Urine RBC 152 H (0-5) /hpf Urine WBC >182 H (0-5) /hpf Ur Squamous Epith Cells 7 H (0-4) /hpf Amorphous Sediment Rare H (None) /hpf Urine Bacteria Occasional H (None) /hpf Urine Mucus Moderate H (None) /hpf Microbiology - Last 24 Hours (Table) 09/17/22 15:21 Urine Culture - Preliminary Urine,Catheterized 09/15/22 18:30 Urine Culture - Preliminary Urine,Voided Gram Neg Bacilli Assessment and Plan Assessment: 1. Ascites related to chronic liver disease - Patient is status post thoracentesis; we will continue to monitor for any further needs 2. UTI patient with positive UA in this patient presented to hospital for abdominal distention do have a history of cirrhosis and concerning for ascites for possible paracentesis patient did have a indwelling Bird catheter and a positive UA concern for possible Bird colonization versus UTI. continue Bird catheter and obtain urine culture from the new Bird. May continue Rocephin while waiting for the culture to finalize. 3. Hypertension; currently not on any antihypertensive therapy 4. COPD; not in exacerbation; we will continue with home inhaler therapy 5. Abdominal pain; likely related to ascites; patient remains on SBP prophyla xis with Flagyl and ceftriaxone 6. Protein calorie malnutrition/anorexia; patient has been placed on Megace 400 mg by mouth twice a day
--- NOTE | 2022-09-19 18:26 | P.PN ---
Subjective Progress Note Date: 09/19/22 Principal diagnosis: Chronic liver disease with ascites UTI Abdominal pain related to ascites 72-year-old female with a past medical history significant for liver cirrhosis and ascites did require paracentesis in the past patient also history of C. difficile colitis COPD esophageal reflux disease presenting to the ER last evening for evaluation of worsening swelling to the abdominal area and this patient symptom has been getting worse for the last few days and need for paracentesis patient did have some dull aching pain 2-3 out of 10 had radiation patient has some nausea but no vomiting and denies having any diarrhea patient on presentation to the hospital was afebrile and no fever has been recorded subsequently patient did have normal white count kidney function has been normal patient did have a cloudy urine with a large leukocyte esterase more than 182 WBC, patient was started on Rocephin concerning for catheter associated UTI 09/18/2022 Patient is seen and evaluated in room at bedside; does report some abdominal discomfort Vital signs are reviewed and are stable Repeat Urine culture reveals group D enterococcus; initial culture growing Klebsiella oxytoca and Proteus sensitive to Rocephin 09/19/2022 Patient is seen and evaluated sitting in bed; no specific complaints Repeat urine culture is growing group D enterococcus; final culture and sensitivities pending Objective - Vital Signs Vital signs: Vital Signs Temp 96.7 F L 09/19/22 11:05 Pulse 100 09/19/22 16:04 Resp 17 09/19/22 11:05 BP 113/64 09/19/22 11:05 Pulse Ox 93 L 09/19/22 11:05 FiO2 Intake & Output 09/18/22 09/19/22 09/19/22 18:59 06:59 18:59 Output Total 503 300 2 Balance -503 -300 -2 Output: Urine 500 300 Stool 3 2 Other: Voiding Method Indwelling Catheter Indwelling Catheter Indwelling Catheter # Bowel Movements 1 - Exam - Constitutional General appearance: Present: average body habitus, cooperative, no acute distress - EENT Eyes: Present: anicteric sclerae, EOMI, PERRLA, normal appearance ENT: Present: hearing grossly normal, normal oropharynx Ears: bilateral: normal - Neck Neck: Present: normal ROM. Absent: lymphadenopathy, rigidity, thyromegaly Carotids: negative: bruit present Thyroid: bilateral: normal size, negative: enlarged, nodule - Respiratory Respiratory: bilateral: CTA, negative: rales, rhonchi, wheezing - Cardiovascular Rhythm: regular Heart sounds: normal: S1, S2 Abnormal Heart Sounds: Absent: systolic murmur, diastolic murmur - Gastrointestinal General gastrointestinal: Present: normal bowel sounds, soft. Absent: distended, organomegaly, tenderness - Genitourinary Genitourinary Comment(s): deferred - Integumentary Integumentary: Present: normal turgor. Absent: jaundiced, rash, ulcer - Neurologic Neurologic: Present: CNII-XII intact. Absent: focal deficits - Musculoskeletal Musculoskeletal: Present: gait normal, strength equal bilaterally - Psychiatric Psychiatric: Present: A&O x's 3, appropriate affect, intact judgment & insight - Labs CBC & Chem 7: 09/17/22 06:47 09/17/22 06:47 Labs: Microbiology - Last 24 Hours (Table) 09/17/22 15:21 Urine Culture - Preliminary Urine,Catheterized Group D Enterococcus 09/15/22 18:30 Urine Culture - Final Urine,Voided Klebsiella oxytoca Proteus mirabilis Assessment and Plan Assessment: 1. Ascites related to chronic liver disease - Patient is status post thoracentesis; we will continue to monitor for any further needs 2. UTI patient with positive UA in this patient presented to hospital for abdominal distention do have a history of cirrhosis and concerning for ascites for possible paracentesis patient did have a indwelling Bird catheter and a positive UA concern for possible Bird colonization versus UTI. continue Bird catheter and obtain urine culture from the new Bird. May continue Rocephin while waiting for the culture to finalize. 3. Hypertension; currently not on any antihypertensive therapy 4. COPD; not in exacerbation; we will continue with home inhaler therapy 5. Abdominal pain; likely related to ascites; patient remains on SBP prophylaxis with Flagyl and ceftriaxone 6. Protein calorie malnutrition/anorexia; patient has been placed on Megace 400 mg by mouth twice a day
[2022-09-19] MEDS: MELATONIN 3 MG TABLET PO SCH (21:39)
[2022-09-20] MEDS: IPRATROPIUM-ALBUTEROL 3 ML NEB INHALATION SCH ×4 (07:50→20:19)
--- NOTE | 2022-09-20 09:18 | P.PN ---
Subjective Progress Note Date: 09/17/22 Principal diagnosis: Urinary tract infection and C. diff Patient is a 72-year-old female with a past medical history significant for liver cirrhosis and ascites did require paracentesis in the past patient also history of C. difficile colitis COPD esophageal reflux disease presenting to the ER for evaluation of worsening swelling to the abdominal area, patient did have a positive UA concerning for UTI. Patient is status post paracentesis completed on 09/17/2022 with removal of 6 L of fluid On today's evaluation that is 09/17/2022, the patient is afebrile, the patient is breathing comfortably on room air. Denies having any chest pain or cough abdominal distention has decreased no nausea no vomiting and no diarrhea Objective - Vital Signs Vital signs: Vital Signs Temp 98.5 F 09/17/22 12:06 Pulse 103 H 09/17/22 12:06 Resp 16 09/17/22 12:06 BP 115/65 09/17/22 12:06 Pulse Ox 97 09/17/22 12:06 FiO2 Intake & Output 09/16/22 09/17/22 09/17/22 18:59 06:59 18:59 Intake Total 50 Output Total 6600 300 Balance -6550 -300 Intake: Intake, IV Titration 50 Amount cefTRIAXone 2 gm In 50 Sodium Chloride 0.9% 50 ml @ 100 mls/hr IVPB Q24HR [facility] Rx#:[id number] Output: Urine 600 300 Other 6000 Other: Voiding Method Indwelling Catheter Indwelling Catheter Indwelling Catheter - Exam GENERAL DESCRIPTION: An elderly female lying in bed in no distress RESPIRATORY SYSTEM: Unlabored breathing , decreased breath sounds at bases HEART: S1 S2 regular rate and rhythm , ABDOMEN: Soft , no tenderness EXTREMITIES: No edema feet - Labs CBC & Chem 7: 09/17/22 06:47 09/17/22 06:47 Labs: Abnormal Lab Results - Last 24 Hours (Table) 09/17/22 09/17/22 Range/Units 06:47 06:47 RBC 3.41 L (4.10-5.20) X 10*6/uL Hgb 11.1 L (12.0-15.0) g/dL Hct 34.3 L (37.2-46.3) % MCV 100.6 H (80.0-97.0) fL MCH 32.6 H (27.0-32.0) pg RDW 15.0 H (11.5-14.5) % Anion Gap 7.20 L (10.00-18.00) mmol/L Creatinine 0.5 L (0.6-1.5) mg/dL BUN/Creatinine Ratio 21.80 H (12.00-20.00) Ratio Calcium 7.6 L (8.7-10.3) mg/dL Total Protein 3.8 L (6.2-8.2) g/dL Albumin 2.0 L (3.8-4.9) g/dL Albumin/Globulin Ratio 1.11 L (1.60-3.17) g/dL Assessment and Plan (1) UTI (urinary tract infection) Current Visit: Yes Status: Acute Code(s): N39.0 - URINARY TRACT INFECTION, SITE NOT SPECIFIED SNOMED Code(s): 67536532 Plan: 1patient with positive UA in this patient presented to hospital for abdominal distention do have a history of cirrhosis and concerning for ascites for possible paracentesis patient did have a indwelling Bird catheter and a positive UA concern for possible Bird colonization versus UTI. 2RN has been advised to continue Bird catheter and obtain urine culture from the new Bird. 3patient to continue Rocephin while waiting for the culture to finalize. Time with Patient: Less than 30
[2022-09-20] MEDS: CHOLESTYRAMINE (WITH SUGAR) 4 GM PACKET PO SCH ×2 (09:19→20:46)
[2022-09-20] MEDS: LACTOBACILLUS ACIDOPH & BULGAR 1 EACH PACKET PO SCH (09:19)
[2022-09-20] MEDS: NICOTINE 14MG/24HR PATCH TRANSDERM SCH (09:20)
[2022-09-20] MEDS: TAMSULOSIN 0.4 MG CAP.ER.24H PO SCH (09:20)
[2022-09-20] MEDS: THIAMINE 100 MG TAB PO SCH (09:20)
--- NOTE | 2022-09-20 09:20 | P.PN ---
Subjective Progress Note Date: 09/18/22 Principal diagnosis: Urinary tract infection and C. diff Patient is a 72-year-old female with a past medical history significant for liver cirrhosis and ascites did require paracentesis in the past patient also history of C. difficile colitis COPD esophageal reflux disease presenting to the ER for evaluation of worsening swelling to the abdominal area, patient did have a positive UA concerning for UTI. Patient is status post paracentesis completed on 09/17/2022 with removal of 6 L of fluid On today's evaluation that is 09/18/2022, the patient remains to be afebrile, the patient is breathing comfortably on room air, the patient denies having any chest pain or cough abdominal distention has decreased no nausea no vomiting however the patient did have significant diarrhea per the nursing staff Objective - Vital Signs Vital signs: Vital Signs Temp 97.3 F L 09/18/22 11:06 Pulse 92 09/18/22 11:50 Resp 18 09/18/22 11:06 BP 116/68 09/18/22 11:06 Pulse Ox 98 09/18/22 11:06 FiO2 Intake & Output 09/17/22 09/18/22 09/18/22 18:59 06:59 18:59 Intake Total 50 Output Total 100 350 3 Balance -50 -350 -3 Intake: Intake, IV Titration 50 Amount cefTRIAXone 2 gm In 50 Sodium Chloride 0.9% 50 ml @ 100 mls/hr IVPB Q24HR [facility] Rx#:[id number] Output: Urine 100 350 Uretheral (Bird) 100 Stool 3 Other: Voiding Method Indwelling Catheter Indwelling Catheter Indwelling Catheter # Bowel Movements 1 - Exam GENERAL DESCRIPTION: An elderly female lying in bed in no distress RESPIRATORY SYSTEM: Unlabored breathing , decreased breath sounds at bases HEART: S1 S2 regular rate and rhythm , ABDOMEN: Soft , no tenderness EXTREMITIES: No edema feet - Labs CBC & Chem 7: 09/17/22 06:47 09/17/22 06:47 Labs: Abnormal Lab Results - Last 24 Hours (Table) 09/17/22 Range/Units 15:21 Urine Appearance Cloudy H (Clear) Urine Protein 1+ H (Negative) Urine Blood Large H (Negative) Urine Nitrite Positive H (Negative) Ur Leukocyte Esterase Large H (Negative) Urine RBC 152 H (0-5) /hpf Urine WBC >182 H (0-5) /hpf Ur Squamous Epith Cells 7 H (0-4) /hpf Amorphous Sediment Rare H (None) /hpf Urine Bacteria Occasional H (None) /hpf Urine Mucus Moderate H (None) /hpf Microbiology - Last 24 Hours (Table) 09/15/22 18:30 Urine Culture - Final Urine,Voided Klebsiella oxytoca Proteus mirabilis 09/17/22 15:21 Urine Culture - Preliminary Urine,Catheterized Assessment and Plan (1) Clostridium difficile infection Current Visit: Yes Status: Acute Code(s): A49.8 - OTHER BACTERIAL INFECTIONS OF UNSPECIFIED SITE SNOMED Code(s): 062835491 (2) UTI (urinary tract infection) Current Visit: Yes Status: Acute Code(s): N39.0 - URINARY TRACT INFECTION, SITE NOT SPECIFIED SNOMED Code(s): 03962649 Plan: 1patient with positive UA in this patient presented to hospital for abdominal distention do have a history of cirrhosis and concerning for ascites for possible paracentesis patient did have a indwelling Bird catheter and a positive UA concern for possible Bird colonization versus UTI. 2the patient Bird catheter has been changed repeat urine is positive. Initial urine with E. coli which is sensitive to Rocephin 3in view of significant diarrhea and history of C. difficile, we will start patient empirically on oral vancomycin Time with Patient: Less than 30
[2022-09-20] MEDS: PANTOPRAZOLE 40 MG TABLET PO SCH (09:21)
[2022-09-20] MEDS: APIXABAN 5 MG TAB PO SCH ×2 (09:21→17:30)
[2022-09-20] MEDS: POTASSIUM CHLORIDE ER 20 MEQ TAB.ER PO SCH (09:21)
[2022-09-20] MEDS: FOLIC ACID 1 MG TAB PO SCH (09:21)
[2022-09-20] MEDS: FUROSEMIDE 40 MG TAB PO SCH ×2 (09:21→13:25)
[2022-09-20] MEDS: VANCOMYCIN 125 MG CAPSULE PO SCH ×4 (09:22→20:47)
[2022-09-20] MEDS: MEGESTROL 400 MG/10 ML CUP PO SCH ×2 (09:22→17:30)
--- NOTE | 2022-09-20 09:22 | P.PN ---
Subjective Progress Note Date: 09/19/22 Principal diagnosis: Urinary tract infection and C. diff Patient is a 72-year-old female with a past medical history significant for liver cirrhosis and ascites did require paracentesis in the past patient also history of C. difficile colitis COPD esophageal reflux disease presenting to the ER for evaluation of worsening swelling to the abdominal area, patient did have a positive UA concerning for UTI. Patient is status post paracentesis completed on 09/17/2022 with removal of 6 L of fluid On today's evaluation that is 09/19/2022, the patient continues to be afebrile, the patient is breathing comfortably on room air, the patient denies having any chest pain or cough abdominal distention has decreased no nausea no vomiting, patient did have improvement in her diarrhea with no bowel movement per nurseaide today Objective - Vital Signs Vital signs: Vital Signs Temp 97.1 F L 09/20/22 05:17 Pulse 88 09/20/22 07:58 Resp 16 09/20/22 05:17 BP 136/60 09/20/22 05:17 Pulse Ox 95 09/20/22 05:17 FiO2 Intake & Output 09/19/22 09/20/22 09/20/22 18:59 06:59 18:59 Output Total 252 300 Balance -252 -300 Output: Urine 250 300 Stool 2 Other: Voiding Method Indwelling Catheter Indwelling Catheter - Exam GENERAL DESCRIPTION: An elderly female lying in bed in no distress RESPIRATORY SYSTEM: Unlabored breathing , decreased breath sounds at bases HEART: S1 S2 regular rate and rhythm , ABDOMEN: Soft , no tenderness EXTREMITIES: No edema feet - Labs CBC & Chem 7: 09/17/22 06:47 09/17/22 06:47 Labs: Microbiology - Last 24 Hours (Table) 09/17/22 15:21 Urine Culture - Final Urine,Catheterized Enterococcus faecium Assessment and Plan (1) Clostridium difficile infection Current Visit: Yes Status: Acute Code(s): A49.8 - OTHER BACTERIAL INFECTIONS OF UNSPECIFIED SITE SNOMED Code(s): 374125864 (2) UTI (urinary tract infection) Current Visit: Yes Status: Acute Code(s): N39.0 - URINARY TRACT INFECTION, SITE NOT SPECIFIED SNOMED Code(s): 05695579 Plan: 1patient with positive UA in this patient presented to hospital for abdominal distention do have a history of cirrhosis and concerning for ascites for possible paracentesis patient did have a indwelling Bird catheter and a positive UA concern for possible Bird colonization versus UTI. 2the patient Bird catheter has been changed repeat urine is positive. Initial urine with E. coli which is sensitive to Rocephin, repeat urine with enterococcus [phone] colonies possible Bird colonization 3we will continue the patient on oral vancomycin however discontinue Rocephin and monitor clinical course closely Time with Patient: Less than 30
[2022-09-20] MEDS: MIDODRINE 5 MG TAB PO SCH ×4 (09:23→20:47)
[2022-09-20 10:18] LABS: Basophils # (A) 0.03 X 10*3/uL (0.00-0.10); Basophils % (A) 0.4 %; Eosinophils # (A) 0.07 X 10*3/uL (0.04-0.35); HCT 31.7 % (37.2-46.3); HGB 10.1 g/dL (12.0-15.0); Immature Grans, Automated 0.4 %; Lymphocytes # (A) 1.36 X 10*3/uL (0.90-5.00); Lymphocytes % (A) 19.5 %; MCH 32.2 pg (27.0-32.0); MCHC 31.9 g/dL (32.0-37.0); Mean Platelet Volume 10.4 fL (9.5-12.2); Monocytes # (A) 0.77 X 10*3/uL (0.20-1.00); NRBC Per 100 WBC 0 /100 WBCS (0.0-0.0); Neutrophils # (A) 4.72 X 10*3/uL (1.80-7.70); Neutrophils % (A) 67.7 %; Platelet Count 214 X 10*3/uL (140-440); RBC 3.14 X 10*6/uL (4.10-5.20); RDW 14.8 % (11.5-14.5); WBC 6.98 X 10*3/uL (4.50-10.00)
[2022-09-20 10:54] LABS: African American GFR (CKD) 110.5 (60.0-200.0); Anion Gap 6.2 mmol/L (10.00-18.00); BUN/Creat Ratio 17.2 Ratio (12.00-20.00); Blood Urea Nitrogen 8.6 mg/dL (9.0-27.0); Calcium 7.7 mg/dL (8.7-10.3); Carbon Dioxide 23.8 mmol/L (20.0-27.5); Magnesium 1.7 mg/dL (1.5-2.4); Non-African American GFR(CKD) 95.3 (60.0-200.0); Potassium 3.6 mmol/L (3.5-5.5)
--- NOTE | 2022-09-20 19:27 | P.PN ---
Subjective 72-year-old female with a past medical history significant for liver cirrhosis and ascites did require paracentesis in the past patient also history of C. difficile colitis COPD esophageal reflux disease presenting to the ER last evening for evaluation of worsening swelling to the abdominal area and this patient symptom has been getting worse for the last few days and need for paracentesis patient did have some dull aching pain 2-3 out of 10 had radiation patient has some nausea but no vomiting and denies having any diarrhea patient on presentation to the hospital was afebrile and no fever has been recorded subsequently patient did have normal white count kidney function has been normal patient did have a cloudy urine with a large leukocyte esterase more than 182 WBC, patient was started on Rocephin concerning for catheter associated UTI 09/18/2022 Patient is seen and evaluated in room at bedside; does report some abdominal discomfort Vital signs are reviewed and are stable Repeat Urine culture reveals group D enterococcus; initial culture growing Klebsiella oxytoca and Proteus sensitive to Rocephin 09/19/2022 Patient is seen and evaluated sitting in bed; no specific complaints Repeat urine culture is growing group D enterococcus; final culture and sensitivities pending 09/20/2022 Patient lying in bed, with limited movement. She looks a pleasant not in distress. Denies chest pain. No dyspnea were dressed. No abdominal pain. She tolerates diet well She has positive urine culture for enterococcus fecal, looks colonization. Ceftriaxone discontinued. ID team on the case. Continue with oral Vanco for her history of C. diff, patient on cholestyramine. No diarrhea. We'll check ultrasound to rule out ascites Consults GI Objective - Vital Signs Vital signs: Vital Signs Temp 97.8 F 09/20/22 11:39 Pulse 88 09/20/22 11:39 Resp 18 09/20/22 11:39 BP 110/68 09/20/22 11:39 Pulse Ox 95 09/20/22 11:39 FiO2 Intake & Output 09/19/22 09/20/22 09/20/22 18:59 06:59 18:59 Output Total 252 300 Balance -252 -300 Output: Urine 250 300 Stool 2 Other: Voiding Method Indwelling Catheter Indwelling Catheter Indwelling Catheter # Bowel Movements 1 - Exam GENERAL: The patient is alert and oriented x3, not in any acute distress. Well developed, well nourished. HEENT: Pupils are round and equally reacting to light. EOMI. No scleral icterus. No conjunctival pallor. Normocephalic, atraumatic. No pharyngeal erythema. No thyromegaly. CARDIOVASCULAR: S1 and S2 present. No murmurs, rubs, or gallops. PULMONARY: Chest is clear to auscultation, no wheezing or crackles. -ABDOMEN: Soft, nontender, distended, normoactive bowel sounds. No palpable organomegaly. MUSCULOSKELETAL: No joint swelling or deformity. EXTREMITIES: No cyanosis, clubbing, or pedal edema. NEUROLOGICAL: Gross neurological examination did not reveal any focal deficits. SKIN: No rashes. no petechiae. - Labs CBC & Chem 7: 09/20/22 06:56 09/20/22 06:56 Labs: Abnormal Lab Results - Last 24 Hours (Table) 09/20/22 09/20/22 Range/Units 06:56 06:56 RBC 3.14 L (4.10-5.20) X 10*6/uL Hgb 10.1 L (12.0-15.0) g/dL Hct 31.7 L (37.2-46.3) % MCV 101.0 H (80.0-97.0) fL MCH 32.2 H (27.0-32.0) pg MCHC 31.9 L (32.0-37.0) g/dL RDW 14.8 H (11.5-14.5) % Sodium 134 L (135-145) mmol/L Anion Gap 6.20 L (10.00-18.00) mmol/L BUN 8.6 L (9.0-27.0) mg/dL Creatinine 0.5 L (0.6-1.5) mg/dL Calcium 7.7 L (8.7-10.3) mg/dL Microbiology - Last 24 Hours (Table) 09/17/22 15:21 Urine Culture - Final Urine,Catheterized Enterococcus faecium Assessment and Plan Assessment: Assessment: 1. Ascites related to chronic liver disease, HISTORY of alcoholic cirrhosis - Patient is status post aspiration; we repeat tonsil sound, consult GI 2. UTI ID team on the case Hold antibiotic per ID 3. Hypertension; currently not on any antihypertensive therapy 4. COPD; not in exacerbation; we will continue with home inhaler therapy 5. Abdominal pain; resolved 6. Protein calorie malnutrition/anorexia; patient has been placed on Megace 400 mg by mouth twice a day 7. Chronic C. diff, no diarrhea. On oral Vanco DVT prophylaxis Eliquis GI prophylaxis Protonix
[2022-09-20] MEDS: MELATONIN 3 MG TABLET PO SCH (20:46)
[2022-09-21] MEDS: IPRATROPIUM-ALBUTEROL 3 ML NEB INHALATION SCH ×4 (08:30→19:38)
[2022-09-21 09:23] LABS: Basophils # (A) 0.02 X 10*3/uL (0.00-0.10); Basophils % (A) 0.3 %; Eosinophils # (A) 0.03 X 10*3/uL (0.04-0.35); Eosinophils % (A) 0.5 %; HCT 31.9 % (37.2-46.3); HGB 9.8 g/dL (12.0-15.0); Immature Grans, Automated 0.3 %; Lymphocytes # (A) 1.16 X 10*3/uL (0.90-5.00); Lymphocytes % (A) 19.1 %; MCH 30.7 pg (27.0-32.0); MCHC 30.7 g/dL (32.0-37.0); Mean Platelet Volume 10.3 fL (9.5-12.2); Monocytes # (A) 0.77 X 10*3/uL (0.20-1.00); Monocytes % (A) 12.7 %; NRBC Per 100 WBC 0 /100 WBCS (0.0-0.0); Neutrophils # (A) 4.08 X 10*3/uL (1.80-7.70); Neutrophils % (A) 67.1 %; Platelet Count 214 X 10*3/uL (140-440); RBC 3.19 X 10*6/uL (4.10-5.20); RDW 14.8 % (11.5-14.5); WBC 6.08 X 10*3/uL (4.50-10.00)
--- NOTE | 2022-09-21 09:24 | US ---
EXAMINATION TYPE: US abdomen limited DATE OF EXAM: 09/21/2022 COMPARISON: Renal ultrasound 09/16/2022. CLINICAL HISTORY: abd distention. Ascites TECHNIQUE: Multiple grayscale ultrasound images of the 4 quadrants of the abdomen were obtained for e valuation for ascites. FINDINGS: Moderate abdominal ascites noted . Largest pocket is in the right lower quadrant. IMPRESSION: Moderate volume ascites.
[2022-09-21 09:50] LABS: ALT 12 U/L (8-44); AST 20 U/L (13-35); African American GFR (CKD) 116.8 (60.0-200.0); Albumin 2.1 g/dL (3.8-4.9); Albumin/Globulin Ratio 1.08 (1.60-3.17); Alkaline Phosphatase 49 U/L (41-126); BUN/Creat Ratio 17.39 Ratio (12.00-20.00); Bilirubin, Conjugated <0.20 mg/dL (0.20-0.40); Blood Urea Nitrogen 7.3 mg/dL (9.0-27.0); Carbon Dioxide 25.2 mmol/L (20.0-27.5); Chloride 104 mmol/L (96-109); Globulin 1.9 g/dL (1.6-3.3); Glucose 108 mg/dL (70-110); Non-African American GFR(CKD) 100.8 (60.0-200.0); Potassium 3.9 mmol/L (3.5-5.5); Sodium 134 mmol/L (135-145); Total Protein 3.9 g/dL (6.2-8.2)
[2022-09-21] MEDS: POTASSIUM CHLORIDE ER 20 MEQ TAB.ER PO SCH (10:07)
[2022-09-21] MEDS: PANTOPRAZOLE 40 MG TABLET PO SCH (10:07)
[2022-09-21] MEDS: CHOLESTYRAMINE (WITH SUGAR) 4 GM PACKET PO SCH ×2 (10:07→22:22)
[2022-09-21] MEDS: LACTOBACILLUS ACIDOPH & BULGAR 1 EACH PACKET PO SCH (10:07)
[2022-09-21] MEDS: FOLIC ACID 1 MG TAB PO SCH (10:07)
[2022-09-21] MEDS: FUROSEMIDE 40 MG TAB PO SCH ×2 (10:07→13:59)
[2022-09-21] MEDS: THIAMINE 100 MG TAB PO SCH (10:07)
[2022-09-21] MEDS: APIXABAN 5 MG TAB PO SCH ×2 (10:07→14:22)
[2022-09-21] MEDS: NICOTINE 14MG/24HR PATCH TRANSDERM SCH (10:07)
[2022-09-21] MEDS: TAMSULOSIN 0.4 MG CAP.ER.24H PO SCH (10:07)
[2022-09-21] MEDS: MEGESTROL 400 MG/10 ML CUP PO SCH ×2 (10:08→17:29)
[2022-09-21] MEDS: VANCOMYCIN 125 MG CAPSULE PO SCH ×4 (10:08→22:21)
[2022-09-21] MEDS: MIDODRINE 5 MG TAB PO SCH ×3 (10:08→22:21)
[2022-09-21] MEDS: SPIRONOLACTONE 25 MG TAB PO SCH (10:11)
--- NOTE | 2022-09-21 10:19 | CDI ---
Documentation Clarification Form Date: 09/21/2022 10:03:08 AM From: Kandice Acevedo CCS, CCDS Admit Date: 09/15/2022 06:02:00 PM Patient Name: Tessy Clinton Visit Number: [id number] Discharge Date: ATTENTION: The Clinical Documentation Specialists (CDI) and [facility] Coding Staff appreciate your assistance in clarifying documentation. Please respond to the clarification below the line at the bottom and electronically sign. The CDI & [facility] Coding staff will review the response and follow-up if needed. Please note: Queries are made part of the Legal Health Record. If you have any questions, please contact the author of this message via ITS. Dr. Rohit Spicer. Sheet: Per the 09/16 Infectious Disease Consult: The patient has a positive UA and did have a indwelling Anthony Catheter with concern for possible Anthony colonization vs UTI. Anthony catheter was continued and started on Rocephin pending final cultures. Per the Attending Physician Progress Notes 09/17 - 09/20: UTI: patient with positive UA, did have a indwelling Anthony catheter and positive UA concern for possible Anthony colonization vs UTI. Per the 09/18 Attending Physician Progress Note: Obtain urine culture from the new Anthony, continue Rocephin pending cultures. Additional clarification regarding the etiology of the UTI is requested. History/Risk Factors per the 09/16 H/P: Chronic Liver Disease, COPD, Hypertension, Hyperlipidemia, Former smoker. Clinical Indicators: Presented to the ED on 09/15 via EMS from a nursing facility with Ascites with history of liver disease. C Diff Positive on Flagyl. History of urinary retention and has a Anthony catheter in place. Admit with Ascites, C Diff infection, DVT bilateral lower limbs, Weakness and Pleural Effusion. 09/15 UA: Light red, Cloudy, 1+ Protein, Large Blood, Positive Nitrite, Large Esterase, RBC >182, WBC 86. 09/15: Urine Culture: (Final): Klebsiella oxytoca, Proteus mirabilis. 09/17 UA: Light Red, Cloudy, 1+ Protein, Large Blood, Positive Nitrite, Large Esterase, RBC 152, WBC >182. 09/17 Urine Culture: (Final): Enterococcus faecium. Treatment 09/15: po Flagyl 500 mg TID. 09/16: IV Rocephin 50 mls @ 100 mls/hr q24H. 09/17: Anthony catheter changed, culture done. 09/18: po Vancomycin 125 mg QID. po Questran 4 gm BID. Please clarify the etiology of the UTI, if known: [ ] UTI is due to the Anthony catheter [ ] UTI not related to the anthony catheter [ ] Other condition, please specify: [ ] Unable to determine (Template Last Revised: January 2021) UTI is due to the Anthony catheter MTDD
--- NOTE | 2022-09-21 10:33 | CDI ---
Documentation Clarification Form Date: 09/21/2022 10:19:52 AM From: Kandice Acevedo CCS, CCDS Admit Date: 09/15/2022 06:02:00 PM Patient Name: Tessy Clinton Visit Number: [id number] Discharge Date: ATTENTION: The Clinical Documentation Specialists (CDI) and [facility] Coding Staff appreciate your assistance in clarifying documentation. Please respond to the clarification below the line at the bottom and electronically sign. The CDI & [facility] Coding staff will review the response and follow-up if needed. Please note: Queries are made part of the Legal Health Record. If you have any questions, please contact the author of this message via ITS. Dr. Rohit Spicer. Sheet: Protein Calorie Malnutrition is documented in the 09/17 through 09/20 Attending Physician Progress Notes without further specification of the severity. Additional clarification regarding the severity of malnutrition is requested. History/Risk Factors per the 09/16 H/P: Chronic Liver Disease, COPD, Hypertension, Hyperlipidemia, Former smoker. Clinical Indicators: Presented to the ED on 09/15 via EMS from a nursing facility with Ascites with history of liver disease. C Diff Positive on Flagyl. History of urinary retention and has a Bird catheter in place. Admit with Ascites, C Diff infection, DVT bilateral lower limbs, Weakness and Pleural Effusion. Nutrition Assessment per the Nursing Assessment (Dietitian has not been consulted) BMI 21.8 Consuming 75-100% of meals. Has mild motor strength weakness, Moderate 1+ bilateral lower extremity edema. Has chronic retention with indwelling catheter. Treatment 09/15: Regular diet (patient has no teeth, Dysphagia level 2: ground, low Na 2000 mg. INH Duoneb 3ml q12H/prn then QID, po Ultram 25 mg q6H/prn, po Melatonin 3 mg, po Flagyl 500 mg TID, po ProAmatine 10 mg TID. 09/16: po Protonix 40 mg. po Eliquis 5 mg BID, po Folic Acid 1 mg Daily, po Lasix 40 mg BID, po D Dur 20 meq Daily, po Flomax 0.4 Daily, po vit B1 100 mg Daily, IV Rocephin 50 mls @ 100 mls/hr q24H, po Mag-Ox 400 mg, po Questran 4 gm BID, po Megace 400 mg BID. Please clarify the Severity of Protein Calorie Malnutrition if known: [ ] Mild Protein-Calorie Malnutrition [ ] Moderate Protein-Calorie Malnutrition [ ] Other condition, please specify: [ ] Unable to Determine (Template Last Revised: January 2021) no malnutrition MTDD
--- NOTE | 2022-09-21 12:43 | P.PN ---
Subjective 72-year-old female with a past medical history significant for liver cirrhosis and ascites did require paracentesis in the past patient also history of C. difficile colitis COPD esophageal reflux disease presenting to the ER last evening for evaluation of worsening swelling to the abdominal area and this patient symptom has been getting worse for the last few days and need for paracentesis patient did have some dull aching pain 2-3 out of 10 had radiation patient has some nausea but no vomiting and denies having any diarrhea patient on presentation to the hospital was afebrile and no fever has been recorded subsequently patient did have normal white count kidney function has been normal patient did have a cloudy urine with a large leukocyte esterase more than 182 WBC, patient was started on Rocephin concerning for catheter associated UTI 09/18/2022 Patient is seen and evaluated in room at bedside; does report some abdominal discomfort Vital signs are reviewed and are stable Repeat Urine culture reveals group D enterococcus; initial culture growing Klebsiella oxytoca and Proteus sensitive to Rocephin 09/19/2022 Patient is seen and evaluated sitting in bed; no specific complaints Repeat urine culture is growing group D enterococcus; final culture and sensitivities pending 09/20/2022 Patient lying in bed, with limited movement. She looks a pleasant not in distress. Denies chest pain. No dyspnea were dressed. No abdominal pain. She tolerates diet well She has positive urine culture for enterococcus fecal, looks colonization. Ceftriaxone discontinued. ID team on the case. Continue with oral Vanco for her history of C. diff, patient on cholestyramine. No diarrhea. We'll check ultrasound to rule out ascites Consults GI 09/21/2012 Patient denies any other new symptoms. She tolerates diet. She has abdominal distention. Ultrasound showing moderate ascites, IR team consulted for 1 more paracentesis GI team consulted as well. No need for antibiotics per ID team, patient is an oral Vanco for possible C. diff colitis per ID team. I did a prior authorization for placement of ECF Discussed with staff Objective - Vital Signs Vital signs: Vital Signs Temp 98 F 09/21/22 12:36 Pulse 95 09/21/22 12:36 Resp 16 09/21/22 12:36 BP 118/68 09/21/22 12:36 Pulse Ox 96 09/21/22 12:36 FiO2 Intake & Output 09/20/22 09/21/22 09/21/22 18:59 06:59 18:59 Output Total 900 Balance -900 Output: Urine 900 Other: Voiding Method Indwelling Catheter Indwelling Catheter # Bowel Movements 2 0 - Exam GENERAL: The patient is alert and oriented x3, not in any acute distress. Well developed, well nourished. HEENT: Pupils are round and equally reacting to light. EOMI. No scleral icterus. No conjunctival pallor. Normocephalic, atraumatic. No pharyngeal erythema. No thyromegaly. CARDIOVASCULAR: S1 and S2 present. No murmurs, rubs, or gallops. PULMONARY: Chest is clear to auscultation, no wheezing or crackles. -ABDOMEN: Soft, nontender, distended, normoactive bowel sounds. No palpable organomegaly. MUSCULOSKELETAL: No joint swelling or deformity. EXTREMITIES: No cyanosis, clubbing, or pedal edema. NEUROLOGICAL: Gross neurological examination did not reveal any focal deficits. SKIN: No rashes. no petechiae. - Labs CBC & Chem 7: 09/21/22 03:42 09/21/22 03:42 Labs: Abnormal Lab Results - Last 24 Hours (Table) 09/21/22 09/21/22 Range/Units 03:42 03:42 RBC 3.19 L (4.10-5.20) X 10*6/uL Hgb 9.8 L (12.0-15.0) g/dL Hct 31.9 L (37.2-46.3) % MCV 100.0 H (80.0-97.0) fL MCHC 30.7 L (32.0-37.0) g/dL RDW 14.8 H (11.5-14.5) % Eosinophils # 0.03 L (0.04-0.35) X 10*3/uL Sodium 134 L (135-145) mmol/L Anion Gap 4.90 L (10.00-18.00) mmol/L BUN 7.3 L (9.0-27.0) mg/dL Creatinine 0.4 L (0.6-1.5) mg/dL Calcium 8.0 L (8.7-10.3) mg/dL Conjugated Bilirubin <0.20 L (0.20-0.40) mg/dL Total Protein 3.9 L (6.2-8.2) g/dL Albumin 2.1 L (3.8-4.9) g/dL Albumin/Globulin Ratio 1.08 L (1.60-3.17) g/dL Assessment and Plan Assessment: Assessment: 1. Ascites related to chronic liver disease, HISTORY of alcoholic cirrhosis - Patient is status post aspiration; we repeat tonsil sound, consult GI 2. UTI ID team on the case Hold antibiotic per ID 3. Hypertension; currently not on any antihypertensive therapy 4. COPD; not in exacerbation; we will continue with home inhaler therapy 5. Abdominal pain; resolved 6. Protein calorie malnutrition/anorexia; patient has been placed on Megace 400 mg by mouth twice a day 7. Chronic C. diff, no diarrhea. On oral Vanco DVT prophylaxis Eliquis GI prophylaxis Protonix
--- NOTE | 2022-09-21 14:30 | P.CONS ---
History of Present Illness - Reason for Consult Consult date: 09/21/22 Ascites, chronic liver disease Requesting physician: Rohit E Sheet - Chief Complaint Ascites, abdominal distention - History of Present Illness This a pleasant 72-year-old female with a past medical history including DVT on Eliquis, colic cirrhosis of the liver, COPD, and acid reflux who presented to the emergency department with abdominal distention on 09/15/2022. Patient was diagnosed with alcoholic cirrhosis of the liver with ascites back in 2016 according to records in the chart. 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 She states that Dr. Mancuso is her primary care physician and has been managing her care. She states the last time she had any alcohol consumption was in November of this past year. She states she has not needed a paracentesis in several years. On admission she had an abdominal ultrasound that showed moderate amount of ascites, she had a paracentesis on 09/17/2022 with 6 L of fluid removed. She underwent another abdominal ultrasound today with again moderate amount of ascites. Gastroenterology has been consulted for chronic cirrhosis of the liver with ascites. Patient has been taking Lasix 40 mg twice a day at home. She continues to complain about abdominal distention, some abdominal tightness. No severe pain, no nausea vomiting, shortness of breath or chest pain. No evidence of leukocytosis, LFTs have been within normal limits. Patient is admitted with urinary tract infection with positive urine culture for enterococcus faecium, Klebsiella, Proteus Maribelis Labs WBC Abdominal ultrasound: Moderate volume ascites Review of Systems REVIEW OF SYSTEMS: CARDIOPULMONARY: No chest pain, patient with shortness of breath. Bilateral lower extremity edema. Gastrointestinal: Abdominal distention, ascites, tightness. No nausea or vomiting. No hematemesis, coffee-ground emesis. No rectal bleeding, or melena. GENITOURINARY: No dysuria or hematuria. MUSCULOSKELETAL: Reports normal range of motion. SKIN: No rashes. No jaundice. ENDOCRINE: No chills, fevers. No excessive weight gain or loss. No polydipsia or polyuria. PSYCHIATRIC: Unremarkable. NEUROLOGY: No change in mental status. Denies dizziness, headache. ENT: Vision unremarkable. CONSTITUTIONAL: No recent weight loss. No fever, chills, night sweats. 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, cirrhosis of the liver History of Any Multi-Drug Resistant Organisms: None Reported Year Discovered:: 08/31/22 MDRO Source:: Stool Past Surgical History: Section, Joint Replacement Additional Past Surgical History / Comment(s): cataract surgery Past Anesthesia/Blood Transfusion Reactions: No Reported Reaction Past Psychological History: No Psychological Hx Reported Smoking Status: Current every day smoker, Former smoker Past Alcohol Use History: None Reported Additional Past Alcohol Use History / Comment(s): Quit smoking in February 2022 Past Drug Use History: None Reported - Past Family History Son(s) Family Medical History: No Reported History Daughter(s) Family Medical History: No Reported History Medications and Allergies Home Medications Medication Instructions Recorded Confirmed Type Ipratropium-Albuterol Nebulize 3 ml INHALATION RT-QID each 07/14/22 09/15/22 Rx [Duoneb 0.5 mg-3 mg/3 ml Soln] Nicotine 14Mg/24Hr Patch [Habitrol] 1 patch TRANSDERM DAILY patch 07/14/22 09/15/22 Rx Acetaminophen [Tylenol] 650 mg PO Q6H PRN 08/09/22 09/15/22 History Ipratropium-Albuterol Nebulize 3 ml INHALATION RT-Q12H PRN 08/09/22 09/15/22 History [Duoneb 0.5 mg-3 mg/3 ml Soln] Omeprazole 20 mg PO DAILY 08/09/22 09/15/22 History Tamsulosin [Flomax] 0.4 mg PO DAILY 08/09/22 09/15/22 History Thiamine [Vitamin B-1] 100 mg PO DAILY 08/09/22 09/15/22 History Folic Acid 1 mg PO DAILY 30 Days #30 tablet 08/13/22 09/15/22 Rx Melatonin 3 mg PO HS tab 08/13/22 09/15/22 Rx Midodrine HCl [ProAmatine] 10 mg PO TID@0900,1300,2100 08/31/22 09/15/22 History Multivitamins, Thera [Multivitamin 1 tab PO DIRECTED 08/31/22 09/15/22 History (formulary)] Potassium Chloride ER [K-Dur 20] 20 meq PO DAILY tab 09/03/22 09/15/22 Rx Apixaban [Eliquis] 5 mg PO BID@0900,1700 09/15/22 09/15/22 History Cholestyramine (with Sugar) 4 gm PO BID@0900,1700 09/15/22 09/15/22 History [Questran Packet] Furosemide [Lasix] 40 mg PO BID@0900,1300 09/15/22 09/15/22 History Lactobacillus Acidophilus 1 tab PO DAILY@0900 09/15/22 09/15/22 History [Acidophilus] Loperamide HCl [Imodium A-D] 2 mg PO DIRECTED PRN 09/15/22 09/15/22 History Magnesium Oxide [Mag-Ox] 400 mg PO DIRECTED 09/15/22 09/15/22 History Megestrol Acetate 400 mg PO BID@0900,1700 09/15/22 09/15/22 History metroNIDAZOLE [Flagyl] 500 mg PO TID@0900,1300,2100 09/15/22 09/15/22 History traMADol HCl [Ultram] 25 mg PO Q6H PRN 09/15/22 09/15/22 History Allergies Allergy/AdvReac Type Severity Reaction Status Date / Time No Known Allergies Allergy Verified 09/15/22 18:17 Physical Exam Vitals: Vital Signs Temp Pulse Pulse Resp BP Pulse Ox 09/21/22 08:40 98 09/21/22 08:30 100 09/21/22 05:00 96.5 F L 91 16 127/57 96 09/20/22 20:32 120 H 09/20/22 20:21 118 H 09/20/22 20:09 96.6 F L 119 H 16 128/75 92 L 09/20/22 16:11 82 09/20/22 16:05 80 09/20/22 11:39 97.8 F 88 18 110/68 95 09/20/22 11:30 90 09/20/22 11:19 90 Intake and Output 09/20/22 09/21/22 09/21/22 22:59 06:59 14:59 Output Total 900 Balance -900 Output: Urine 900 Other: Voiding Method Indwelling Catheter # Bowel Movements 2 0 General appearance: The patient is alert, oriented, appears in no acute distress. HET: Head is normocephalic and atraumatic. Conjunctiva pink. Sclera anicteric. Neck: Supple without lymphadenopathy. Trachea midline. Heart: S1 S2. Regular rate and rhythm. Lungs: Diminished. Equal expansion. Abdomen: Soft, mild tenderness to palpation, distention/ascites. No guarding or rigidity. Skin: No rashes. No jaundice. Extremities: Normal skin color and turgor. Bilateral +2 lower extremity pitting edema. Neurological: No focal deficits. Alert and oriented x3. Results CBC & Chem 7: 09/21/22 03:42 09/21/22 03:42 Labs: Abnormal Lab Results - Last 24 Hours (Table) 09/20/22 09/20/22 09/21/22 Range/Units 06:56 06:56 03:42 RBC 3.14 L 3.19 L (4.10-5.20) X 10*6/uL Hgb 10.1 L 9.8 L (12.0-15.0) g/dL Hct 31.7 L 31.9 L (37.2-46.3) % MCV 101.0 H 100.0 H (80.0-97.0) fL MCH 32.2 H (27.0-32.0) pg MCHC 31.9 L 30.7 L (32.0-37.0) g/dL RDW 14.8 H 14.8 H (11.5-14.5) % Eosinophils # 0.03 L (0.04-0.35) X 10*3/uL Sodium 134 L (135-145) mmol/L Anion Gap 6.20 L (10.00-18.00) mmol/L BUN 8.6 L (9.0-27.0) mg/dL Creatinine 0.5 L (0.6-1.5) mg/dL Calcium 7.7 L (8.7-10.3) mg/dL Assessment and Plan (1) Alcoholic cirrhosis of liver with ascites Narrative/Plan: 72-year-old female with a history of alcohol abuse who states she has quit almost a year ago in November. Diagnosed with alcoholic cirrhosis of the liver in 2015. According to records at that time she had ascites and had undergone paracentesis. Patient has not followed up with gastroenterology, she follows with Dr. Mancuso her PCP who she states has been managing her care. Patient to does not believe she's needed any paracentesis since 2016. She is on Lasix at home. Patient likely has decompensated cirrhosis of the liver related to history of alcohol abuse and underlying cirrhosis of the liver. Will add Aldactone 100 mg daily, agree with therapeutic paracentesis. Continue with alcohol abstinence. Current Visit: Yes Status: Acute Code(s): K70.31 - ALCOHOLIC CIRRHOSIS OF LIVER WITH ASCITES SNOMED Code(s): 083403139 (2) UTI (urinary tract infection) Current Visit: Yes Status: Acute Code(s): N39.0 - URINARY TRACT INFECTION, SITE NOT SPECIFIED SNOMED Code(s): 80367418 Plan: 1. Continue symptomatic and supportive care 2. Low-sodium diet 3. Agree with paracentesis 4. Aldactone 100 mg daily added 5. Continue with Lasix as ordered 6. Discussed with patient importance of follow-up with gastroenterology o utpatient Thank you for this consultation, we will continue to follow. Dr. Lam Meneses I agree with the dictator's note, documented as a scribe by Kaylen Olson.
[2022-09-21 15:26] LABS: INR 1.1 (<1.2); Prothrombin Time 11.9 sec (9.0-12.0)
[2022-09-21] MEDS: MELATONIN 3 MG TABLET PO SCH (22:21)
[2022-09-22] MEDS: traMADol 50 MG TAB PO PRN (05:46)
[2022-09-22] MEDS: IPRATROPIUM-ALBUTEROL 3 ML NEB INHALATION SCH ×4 (07:12→19:42)
[2022-09-22] MEDS: NICOTINE 14MG/24HR PATCH TRANSDERM SCH (08:32)
[2022-09-22] MEDS: PANTOPRAZOLE 40 MG TABLET PO SCH (08:32)
[2022-09-22] MEDS: CHOLESTYRAMINE (WITH SUGAR) 4 GM PACKET PO SCH ×2 (08:33→21:12)
[2022-09-22] MEDS: SPIRONOLACTONE 25 MG TAB PO SCH (08:34)
[2022-09-22] MEDS: THIAMINE 100 MG TAB PO SCH (08:34)
[2022-09-22] MEDS: LACTOBACILLUS ACIDOPH & BULGAR 1 EACH PACKET PO SCH (08:34)
[2022-09-22] MEDS: FUROSEMIDE 40 MG TAB PO SCH ×2 (08:34→13:05)
[2022-09-22] MEDS: TAMSULOSIN 0.4 MG CAP.ER.24H PO SCH (08:35)
[2022-09-22] MEDS: POTASSIUM CHLORIDE ER 20 MEQ TAB.ER PO SCH (08:35)
[2022-09-22] MEDS: FOLIC ACID 1 MG TAB PO SCH (08:36)
[2022-09-22] MEDS: VANCOMYCIN 125 MG CAPSULE PO SCH ×4 (08:54→21:10)
[2022-09-22] MEDS: MEGESTROL 400 MG/10 ML CUP PO SCH ×2 (08:54→17:30)
[2022-09-22] MEDS: MIDODRINE 5 MG TAB PO SCH ×3 (08:54→21:11)
--- NOTE | 2022-09-22 10:07 | P.PN ---
Subjective Progress Note Date: 09/22/22 Principal diagnosis: Ascites, liver cirrhosis This a pleasant 72-year-old female with a past medical history including DVT on Eliquis, colic cirrhosis of the liver, COPD, and acid reflux who presented to the emergency department with abdominal distention on 09/15/2022. Patient was diagnosed with alcoholic cirrhosis of the liver with ascites back in 2016 according to records in the chart. 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 She states that Dr. Mancuso is her primary care physician and has been managing her care. She states the last time she had any alcohol consumption was in November of this past year. She states she has not needed a paracentesis in several years. On admission she had an abdominal ultrasound that showed moderate amount of ascites, she had a paracentesis on 09/17/2022 with 6 L of fluid removed. She underwent another abdominal ultrasound today with again moderate amount of ascites. Gastroenterology has been consulted for chronic cirrhosis of the liver with ascites. Patient has been taking Lasix 40 mg twice a day at home. She continues to complain about abdominal distention, some abdominal tightness. No severe pain, no nausea vomiting, shortness of breath or chest pain. No evidence of leukocytosis, LFTs have been within normal limits. Patient is admitted with urinary tract infection with positive urine culture for enterococcus faecium, Klebsiella, Proteus Maribelis 09/22/2022. Patient seen and examined today as a follow-up. Patient scheduled to undergo a paracentesis however she received her Eliquis Elle day morning. Patient has no complaints today other than some neck pain. She denies any shortness of breath or chest pain. She was started on spironolactone 100 mg daily yesterday. Labs pending currently. Objective - Vital Signs Vital signs: Vital Signs Temp 98.3 F 09/22/22 05:00 Pulse 105 H 09/22/22 07:22 Resp 16 09/22/22 05:00 BP 121/63 09/22/22 05:00 Pulse Ox 94 L 09/22/22 05:00 FiO2 Intake & Output 09/21/22 09/22/22 09/22/22 18:59 06:59 18:59 Output Total 1 826 Balance -1 -826 Output: Urine 825 Stool 1 1 Other: Voiding Method Indwelling Catheter Indwelling Catheter # Bowel Movements 1 1 - Exam General appearance: The patient is alert, oriented, appears in no acute distress. HET: Head is normocephalic and atraumatic. Conjunctiva pink. Sclera anicteric. Neck: Supple without lymphadenopathy. Abdomen: Soft, nontender, abdominal distention/ascites. No guarding or rigidity. Extremities: Normal skin color and turgor. Bilateral lower extremity +2 pitting edema. Skin: No rashes, no jaundice Neurological: No focal deficits. Alert and oriented. - Labs CBC & Chem 7: 09/21/22 03:42 09/21/22 03:42 Labs: Abnormal Lab Results - Last 24 Hours (Table) 09/21/22 09/21/22 Range/Units 03:42 03:42 RBC 3.19 L (4.10-5.20) X 10*6/uL Hgb 9.8 L (12.0-15.0) g/dL Hct 31.9 L (37.2-46.3) % MCV 100.0 H (80.0-97.0) fL MCHC 30.7 L (32.0-37.0) g/dL RDW 14.8 H (11.5-14.5) % Eosinophils # 0.03 L (0.04-0.35) X 10*3/uL Sodium 134 L (135-145) mmol/L Anion Gap 4.90 L (10.00-18.00) mmol/L BUN 7.3 L (9.0-27.0) mg/dL Creatinine 0.4 L (0.6-1.5) mg/dL Calcium 8.0 L (8.7-10.3) mg/dL Conjugated Bilirubin <0.20 L (0.20-0.40) mg/dL Total Protein 3.9 L (6.2-8.2) g/dL Albumin 2.1 L (3.8-4.9) g/dL Albumin/Globulin Ratio 1.08 L (1.60-3.17) g/dL Assessment and Plan (1) Alcoholic cirrhosis of liver with ascites Narrative/Plan: 72-year-old female with a history of alcohol abuse who states she has quit almost a year ago in November. Diagnosed with alcoholic cirrhosis of the liver in 2016. According to records at that time she had ascites and had undergone paracentesis. Patient has not followed up with gastroenterology, she follows with Dr. Mancuso her PCP who she states has been managing her care. Patient to does not believe she's needed any paracentesis since 2016. She is on Lasix at home. Patient likely has decompensated cirrhosis of the liver related to history of alcohol abuse and underlying cirrhosis of the liver. Will add Aldactone 100 mg daily, agree with therapeutic paracentesis. Continue with alcohol abstinence. Current Visit: Yes Status: Acute Code(s): K70.31 - ALCOHOLIC CIRRHOSIS OF LIVER WITH ASCITES SNOMED Code(s): 260566677 (2) UTI (urinary tract infection) Current Visit: Yes Status: Acute Code(s): N39.0 - URINARY TRACT INFECTION, SITE NOT SPECIFIED SNOMED Code(s): 16685149 Plan: 1. Continue symptomatic and supportive care 2. Low-sodium diet 3. Agree with paracentesis when approved by interventional radiology 4. Aldactone 100 mg daily added 5. Continue with Lasix as ordered 6. Discussed with patient importance of follow-up with gastroenterology outpatient. Patient is cleared from gastroenterology for discharge after paracentesis completed. Thank you for this consultation, we will continue to follow. Dr. Lam Meneses I agree with the dictator's note, documented as a scribe by Kaylen Olson.
[2022-09-22] MEDS: LIDOCAINE 5% PATCH TOPICAL SCH (10:46)
[2022-09-22 11:05] LABS: HCT 33.7 % (34.0-46.0); HGB 10.5 gm/dL (11.4-16.0); Hypochromasia Moderate; MCHC 31.3 g/dL (31.0-37.0); MCV 102.4 fL (80.0-100.0); Macrocytosis Slight; Mean Platelet Volume 8.1; Platelet Count 210 k/uL (150-450); RBC 3.29 m/uL (3.80-5.40); RDW 14.2 % (11.5-15.5); WBC 5.1 k/uL (3.8-10.6)
[2022-09-22 11:16] LABS: African American GFR (CKD) >90 (>60 ml/min/1.73 sqM); Anion Gap -1 mmol/L; Blood Urea Nitrogen 9 mg/dL (7-17); Calcium 7.8 mg/dL (8.4-10.2); Carbon Dioxide 26 mmol/L (22-30); Chloride 106 mmol/L (98-107); Glucose 99 mg/dL (74-99); Non-African American GFR(CKD) >90 (>60 ml/min/1.73 sqM); Potassium 4.2 mmol/L (3.5-5.1); Sodium 131 mmol/L (137-145)
[2022-09-22 16:26] VITALS: BMI 21.7
[2022-09-22] MEDS: ALBUMIN HUMAN 25% 50 ML in EMPTY BAG 1 BAG IVPB SCH ×4 (18:53→21:48)
--- NOTE | 2022-09-22 20:27 | P.PN ---
Subjective 72-year-old female with a past medical history significant for liver cirrhosis and ascites did require paracentesis in the past patient also history of C. difficile colitis COPD esophageal reflux disease presenting to the ER last evening for evaluation of worsening swelling to the abdominal area and this patient symptom has been getting worse for the last few days and need for paracentesis patient did have some dull aching pain 2-3 out of 10 had radiation patient has some nausea but no vomiting and denies having any diarrhea patient on presentation to the hospital was afebrile and no fever has been recorded subsequently patient did have normal white count kidney function has been normal patient did have a cloudy urine with a large leukocyte esterase more than 182 WBC, patient was started on Rocephin concerning for catheter associated UTI 09/18/2022 Patient is seen and evaluated in room at bedside; does report some abdominal discomfort Vital signs are reviewed and are stable Repeat Urine culture reveals group D enterococcus; initial culture growing Klebsiella oxytoca and Proteus sensitive to Rocephin 09/19/2022 Patient is seen and evaluated sitting in bed; no specific complaints Repeat urine culture is growing group D enterococcus; final culture and sensitivities pending 09/20/2022 Patient lying in bed, with limited movement. She looks a pleasant not in distress. Denies chest pain. No dyspnea were dressed. No abdominal pain. She tolerates diet well She has positive urine culture for enterococcus fecal, looks colonization. Ceftriaxone discontinued. ID team on the case. Continue with oral Vanco for her history of C. diff, patient on cholestyramine. No diarrhea. We'll check ultrasound to rule out ascites Consults GI 09/21/2012 Patient denies any other new symptoms. She tolerates diet. She has abdominal distention. Ultrasound showing moderate ascites, IR team consulted for 1 more paracentesis GI team consulted as well. No need for antibiotics per ID team, patient is an oral Vanco for possible C. diff colitis per ID team. I did a prior authorization for placement of ECF Discussed with staff 09/22/2022 Patient still complaining of from abdominal distention and discomfort with little pain, she is planned for paracentesis by IR team today. Eliquis tomorrow after the paracentesis Discussed with GI team and they cleared her for discharge after the paracentesis Patient was instructed to follow up with Dr. Meneses as an outpatient in 7-10 days and she agrees. Possible discharge tomorrow after paracentesis done tonight Objective - Vital Signs Vital signs: Vital Signs Temp 97.5 F L 09/22/22 11:18 Pulse 100 09/22/22 15:40 Resp 18 09/22/22 11:18 BP 103/57 09/22/22 11:18 Pulse Ox 97 09/22/22 11:18 FiO2 Intake & Output 09/21/22 09/22/22 09/22/22 18:59 06:59 18:59 Output Total 1 826 Balance -1 -826 Output: Urine 825 Stool 1 1 Other: Voiding Method Indwelling Catheter Indwelling Catheter Indwelling Catheter # Bowel Movements 1 1 - Exam GENERAL: The patient is alert and oriented x3, not in any acute distress. Well developed, well nourished. HEENT: Pupils are round and equally reacting to light. EOMI. No scleral icterus. No conjunctival pallor. Normocephalic, atraumatic. No pharyngeal erythema. No thyromegaly. CARDIOVASCULAR: S1 and S2 present. No murmurs, rubs, or gallops. PULMONARY: Chest is clear to auscultation, no wheezing or crackles. -ABDOMEN: Soft, nontender, distended, normoactive bowel sounds. No palpable organomegaly. MUSCULOSKELETAL: No joint swelling or deformity. EXTREMITIES: No cyanosis, clubbing, or pedal edema. NEUROLOGICAL: Gross neurological examination did not reveal any focal deficits. SKIN: No rashes. no petechiae. - Labs CBC & Chem 7: 09/22/22 10:29 09/22/22 10:29 Labs: Abnormal Lab Results - Last 24 Hours (Table) 09/22/22 09/22/22 Range/Units 10:29 10:29 RBC 3.29 L (3.80-5.40) m/uL Hgb 10.5 L (11.4-16.0) gm/dL Hct 33.7 L (34.0-46.0) % MCV 102.4 H (80.0-100.0) fL Sodium 131 L (137-145) mmol/L Creatinine 0.47 L (0.52-1.04) mg/dL Calcium 7.8 L (8.4-10.2) mg/dL Assessment and Plan Assessment: Assessment: 1. Ascites related to chronic liver disease, HISTORY of alcoholic cirrhosis - Patient is status post aspiration; we repeat tonsil sound, consult GI 2. UTI ID team on the case Hold antibiotic per ID 3. Hypertension; currently not on any antihypertensive therapy 4. COPD; not in exacerbation; we will continue with home inhaler therapy 5. Abdominal pain; resolved 6. Protein calorie malnutrition/anorexia; patient has been placed on Megace 400 mg by mouth twice a day 7. Chronic C. diff, no diarrhea. On oral Vanco DVT prophylaxis Eliquis GI prophylaxis Protonix
[2022-09-22] MEDS: MELATONIN 3 MG TABLET PO SCH (21:10)
--- NOTE | 2022-09-23 07:52 | US ---
Ultrasound-guided paracentesis. DATE OF EXAM: 09/23/2022 CLINICAL HISTORY: Ascites The procedure was discussed with the patient. The risks, complications, benefits, and alternatives we re discussed and any questions were answered. Informed consent was obtained. The patient was placed s upine on the ultrasound table and prepped and draped in the usual sterile fashion. All elements of maximal barrier technique were utilized. Under ultrasound guidance, access into the right lower quadrant was obtained, via the paracentesis catheter system and direct ultrasound guidanc e. Approximately 7.2 liters of straw-colored fluid was removed. The patient was stable throughout the pr ocedure and remained stable upon discharge from Department of Radiology. IMPRESSION: Successful paracentesis under ultrasound guidance.
[2022-09-23] MEDS ORDERED: LOPERAMIDE 2 MG CAP PO PRN (09:00)
[2022-09-23] MEDS: IPRATROPIUM-ALBUTEROL 3 ML NEB INHALATION SCH ×4 (09:03→20:26)
[2022-09-23] MEDS: THIAMINE 100 MG TAB PO SCH (09:48)
[2022-09-23] MEDS: PANTOPRAZOLE 40 MG TABLET PO SCH (09:48)
[2022-09-23] MEDS: TAMSULOSIN 0.4 MG CAP.ER.24H PO SCH (09:48)
[2022-09-23] MEDS: LACTOBACILLUS ACIDOPH & BULGAR 1 EACH PACKET PO SCH (09:48)
[2022-09-23] MEDS: FOLIC ACID 1 MG TAB PO SCH (09:48)
[2022-09-23] MEDS: SPIRONOLACTONE 25 MG TAB PO SCH ×2 (09:48→21:53)
[2022-09-23] MEDS: NICOTINE 14MG/24HR PATCH TRANSDERM SCH (09:49)
[2022-09-23] MEDS: FUROSEMIDE 40 MG TAB PO SCH ×2 (09:49→12:11)
[2022-09-23] MEDS: APIXABAN 5 MG TAB PO SCH ×2 (09:49→21:52)
[2022-09-23] MEDS: POTASSIUM CHLORIDE ER 20 MEQ TAB.ER PO SCH (09:49)
[2022-09-23] MEDS: MEGESTROL 400 MG/10 ML CUP PO SCH ×2 (09:50→18:27)
[2022-09-23] MEDS: MIDODRINE 5 MG TAB PO SCH ×2 (09:50→21:53)
[2022-09-23] MEDS: VANCOMYCIN 125 MG CAPSULE PO SCH ×4 (09:52→21:52)
--- NOTE | 2022-09-23 10:01 | P.DS ---
Providers Date of admission: 09/15/22 18:02 Attending physician: Lenora Mittal Consults: 09/16/22 09:53 Consult Physician Urgent Consulting Provider: Amaya Sims Consult Reason/Comments: UTI, ascites, cdiff Do you want consulting provider notified?: Yes 09/20/22 19:21 Consult Physician Routine Consulting Provider: Isa Meneses Consult Reason/Comments: chronic liver disease with ascitis Do you want consulting provider notified?: Yes, Notify in am Primary care physician: [facility] Course: Diagnoses: 1. Ascites related to chronic liver disease, and decompensated alcoholic cirrho sis 2. UTI 3. Hypertension; currently not on any antihypertensive therapy 4. COPD; not in exacerbation; we will continue with home inhaler therapy 5. Abdominal pain; resolved 6. Protein calorie malnutrition/anorexia; patient has been placed on Megace 400 mg by mouth twice a day 7. Chronic C. diff, no diarrhea. On oral [facility] course: 72-year-old female with a past medical history significant for liver cirrhosis and ascites did require paracentesis in the past patient also history of C. difficile colitis COPD esophageal reflux disease presenting to the ER for evaluation of worsening swelling to the abdominal area . Patient was found to have ascites and she underwent paracentesis. Also patient has indwelling Bird catheter and she received short course of ant ibiotics ceftriaxone which was stopped now. Patient is status post paracentesis 2, yesterday 7.2 L of fluid removed aspiration; consult GI patient evaluated the patient and recommended throughout Aldactone to Lasix with fluid restriction. Patient is highly encouraged to follow-up with GI team as an outpatient finished treatment for UTI, infectious disease was on the case and recommended to continue with oral vancomycin only for now for her chronic C. diff. However patient has formed bowel movement therefore cholestyramine is on hold. She was on oral vancomycin for discharge and follow-up with PCP for the duration of treatment or infectious disease team Dr. Sims as an outpatient. Today she feels fully awake and oriented, she is pleasant and comfortable, no abdominal distention and abdominal pain. No chest pain or dyspnea. She has mild leg swelling but she was counseled about fluid restriction and salt restriction. Also she is currently on Aldactone and Lasix per GI team. Other than that patient is medically stable and she is agreeable to go back to her ECF. Her midodrine was lowered 10 mg 3 times a day down to twice a day, her tachycardia is better now Patient was cleared for discharge by ID team and GI teams Problems and management plan were discussed with the patient and he verbalized understanding and acceptance Patient was found stable and can be discharged to ECF in guarded prognosis however he needs follow-up as an outpatient. Patient was instructed to follow up with PCP Dr. Mancuso within one week and patient agrees Patient was instructed to follow up with GI Dr. Meneses in one week and she agrees. And to follow up with ID team in 2 weeks and she agrees Physical exam Gen: patient is a AAOx3, no distress CVS: S1-S2, RRR, no murmur Lungs: B/L CTA, no wheezing Abdomen: soft, no distention, no tenderness, positive bowel sounds Extremity: no leg edema or induration Time spent more than 35 minutes Patient Condition at Discharge: Stable Plan - Discharge Summary Discharge Rx Participant: No New Discharge Prescriptions: New Spironolactone [Aldactone] 100 mg PO DAILY tab Vancomycin 125 mg PO QID cap Potassium Chloride ER [K-Dur 20] 10 meq PO DAILY tab Midodrine [ProAmatine] 10 mg PO BID tab Continue Ipratropium-Albuterol Nebulize [Duoneb 0.5 mg-3 mg/3 ml Soln] 3 ml INHALATION RT-QID each Thiamine [Vitamin B-1] 100 mg PO DAILY Omeprazole 20 mg PO DAILY Ipratropium-Albuterol Nebulize [Duoneb 0.5 mg-3 mg/3 ml Soln] 3 ml INHALATION RT-Q12H PRN PRN Reason: Shortness Of Breath Or Wheezing Tamsulosin [Flomax] 0.4 mg PO DAILY Multivitamins, Thera [Multivitamin (formulary)] 1 tab PO DIRECTED Loperamide HCl [Imodium A-D] 2 mg PO DIRECTED PRN PRN Reason: Loose Stool Furosemide [Lasix] 40 mg PO BID@0900,1300 Apixaban [Eliquis] 5 mg PO BID@0900,1700 Magnesium Oxide [Mag-Ox] 400 mg PO DIRECTED Lactobacillus Acidophilus [Acidophilus] 1 tab PO DAILY@0900 Nicotine 14Mg/24Hr Patch [Habitrol] 1 patch TRANSDERM DAILY patch Acetaminophen [Tylenol] 650 mg PO Q6H PRN PRN Reason: Fever And/ Or Pain Folic Acid 1 mg PO DAILY 30 Days #30 tablet Potassium Chloride ER [K-Dur 20] 20 meq PO DAILY tab Megestrol Acetate 400 mg PO BID@0900,1700 Changed Melatonin 3 mg PO HS PRN #0 tab PRN Reason: Insomnia Discontinued Midodrine HCl [ProAmatine] 10 mg PO TID@0900,1300,2100 Cholestyramine (with Sugar) [Questran Packet] 4 gm PO BID@0900,1700 traMADol HCl [Ultram] 25 mg PO Q6H PRN PRN Reason: Moderate To Severe Pain metroNIDAZOLE [Flagyl] 500 mg PO TID@0900,1300,2100 Discharge Medication List Ipratropium-Albuterol Nebulize [Duoneb 0.5 mg-3 mg/3 ml Soln] 3 ml INHALATION RT-QID each 07/14/22 [Rx] Nicotine 14Mg/24Hr Patch [Habitrol] 1 patch TRANSDERM DAILY patch 07/14/22 [Rx] Acetaminophen [Tylenol] 650 mg PO Q6H PRN 08/09/22 [History] Ipratropium-Albuterol Nebulize [Duoneb 0.5 mg-3 mg/3 ml Soln] 3 ml INHALATION RT-Q12H PRN 08/09/22 [History] Omeprazole 20 mg PO DAILY 08/09/22 [History] Tamsulosin [Flomax] 0.4 mg PO DAILY 08/09/22 [History] Thiamine [Vitamin B-1] 100 mg PO DAILY 08/09/22 [History] Folic Acid 1 mg PO DAILY 30 Days #30 tablet 08/13/22 [Rx] Multivitamins, Thera [Multivitamin (formulary)] 1 tab PO DIRECTED 08/31/22 [History] Potassium Chloride ER [K-Dur 20] 20 meq PO DAILY tab 09/03/22 [Rx] Apixaban [Eliquis] 5 mg PO BID@0900,1700 09/15/22 [History] Furosemide [Lasix] 40 mg PO BID@0900,1300 09/15/22 [History] Lactobacillus Acidophilus [Acidophilus] 1 tab PO DAILY@0900 09/15/22 [History] Loperamide HCl [Imodium A-D] 2 mg PO DIRECTED PRN 09/15/22 [History] Magnesium Oxide [Mag-Ox] 400 mg PO DIRECTED 09/15/22 [History] Megestrol Acetate 400 mg PO BID@0900,1700 09/15/22 [History] Melatonin 3 mg PO HS PRN #0 tab 09/23/22 [Rx] Midodrine [ProAmatine] 10 mg PO BID tab 09/23/22 [Rx] Potassium Chloride ER [K-Dur 20] 10 meq PO DAILY tab 09/23/22 [Rx] Spironolactone [Aldactone] 100 mg PO DAILY tab 09/23/22 [Rx] Vancomycin 125 mg PO QID cap 09/23/22 [Rx] Follow up Appointment(s)/Referral(s): Isa Meneses MD [STAFF PHYSICIAN] - 1 Week Amaya Sims MD [STAFF PHYSICIAN] - 2 Weeks (infectious doctor) Quinn Mancuso MD [Primary Care Provider] - 1-2 days Activity/Diet/Wound Care/Special Instructions: previous diet activity as tolerated we recommend to monitor potassium level as he is on potassium supplementation and lasix and aldactone, please check BMP in 2-3 days
[2022-09-23] MEDS: LIDOCAINE 5% PATCH TOPICAL SCH (10:34)
[2022-09-23] MEDS: CHOLESTYRAMINE (WITH SUGAR) 4 GM PACKET PO SCH ×2 (12:07→21:52)
--- NOTE | 2022-09-23 16:10 | P.PN ---
Subjective Progress Note Date: 09/23/22 Principal diagnosis: Ascites, liver cirrhosis This a pleasant 72-year-old female with a past medical history including DVT on Eliquis, colic cirrhosis of the liver, COPD, and acid reflux who presented to the emergency department with abdominal distention on 09/15/2022. Patient was diagnosed with alcoholic cirrhosis of the liver with ascites back in 2016 according to records in the chart. 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 She states that Dr. Mancuso is her primary care physician and has been managing her care. She states the last time she had any alcohol consumption was in November of this past year. She states she has not needed a paracentesis in several years. On admission she had an abdominal ultrasound that showed moderate amount of ascites, she had a paracentesis on 09/17/2022 with 6 L of fluid removed. She underwent another abdominal ultrasound today with again moderate amount of ascites. Gastroenterology has been consulted for chronic cirrhosis of the liver with ascites. Patient has been taking Lasix 40 mg twice a day at home. She continues to complain about abdominal distention, some abdominal tightness. No severe pain, no nausea vomiting, shortness of breath or chest pain. No evidence of leukocytosis, LFTs have been within normal limits. Patient is admitted with urinary tract infection with positive urine culture for enterococcus faecium, Klebsiella, Proteus Maribelis 09/22/2022. Patient seen and examined today as a follow-up. Patient scheduled to undergo a paracentesis however she received her Eliquis Elle day morning. Patient has no complaints today other than some neck pain. She denies any shortness of breath or chest pain. She was started on spironolactone 100 mg daily yesterday. Labs pending currently. 11/23/2021. Patient seen and examined today as a follow-up. She underwent her paracentesis yesterday for 7.2 L of fluid removal. She was given albumin. Patient states that she is feeling better today. No abdominal pain, nausea or vomiting. She's been afebrile. Objective - Vital Signs Vital signs: Vital Signs Temp 98.3 F 09/23/22 04:35 Pulse 100 09/23/22 09:03 Resp 14 09/23/22 04:35 BP 107/55 09/23/22 04:35 Pulse Ox 92 L 09/23/22 04:35 FiO2 Intake & Output 09/22/22 09/23/22 09/23/22 18:59 06:59 18:59 Intake Total 600 Output Total 350 525 Balance -350 75 Weight 61.235 kg Intake: Intake, IV Titration 200 Amount Albumin Human 25% 50 ml 200 In Empty Bag 1 bag @ 200 mls/hr IVPB Q15M [facility] Rx#: [id number] Oral 400 Output: Urine 350 525 Other: Voiding Method Indwelling Catheter Indwelling Catheter # Bowel Movements 1 - Exam General appearance: The patient is alert, oriented, appears in no acute distress. HET: Head is normocephalic and atraumatic. Conjunctiva pink. Sclera anicteric. Neck: Supple without lymphadenopathy. Abdomen: Soft, nontender. No guarding or rigidity. Extremities: Normal skin color and turgor. Bilateral lower extremity +2 pitting edema. Skin: No rashes, no jaundice Neurological: No focal deficits. Alert and oriented. - Labs CBC & Chem 7: 09/22/22 10:29 09/22/22 10:29 Labs: Abnormal Lab Results - Last 24 Hours (Table) 09/22/22 09/22/22 Range/Units 10:29 10:29 RBC 3.29 L (3.80-5.40) m/uL Hgb 10.5 L (11.4-16.0) gm/dL Hct 33.7 L (34.0-46.0) % MCV 102.4 H (80.0-100.0) fL Sodium 131 L (137-145) mmol/L Creatinine 0.47 L (0.52-1.04) mg/dL Calcium 7.8 L (8.4-10.2) mg/dL Assessment and Plan (1) Alcoholic cirrhosis of liver with ascites Narrative/Plan: 72-year-old female with a history of alcohol abuse who states she has quit almost a year ago in November. Diagnosed with alcoholic cirrhosis of the liver in 2015. According to records at that time she had ascites and had undergone paracentesis. Patient has not followed up with gastroenterology, she follows with Dr. Mancuso her PCP who she states has been managing her care. Patient to does not believe she's needed any paracentesis since 2015. She is on Lasix at home. Patient likely has decompensated cirrhosis of the liver related to history of alcohol abuse and underlying cirrhosis of the liver. Will add Aldactone 100 mg daily, agree with therapeutic paracentesis. Continue with alcohol abstinence. Patient is status post paracentesis done on 09/22/2022 was 7.2 L removed. Patient was given albumin. Plan is for discharge home. Follow-up with gastroenterology. Current Visit: Yes Status: Acute Code(s): K70.31 - ALCOHOLIC CIRRHOSIS OF LIVER WITH ASCITES SNOMED Code(s): 764271987 (2) UTI (urinary tract infection) Current Visit: Yes Status: Acute Code(s): N39.0 - URINARY TRACT INFECTION, SITE NOT SPECIFIED SNOMED Code(s): 70795142 Plan: 1. Continue symptomatic and supportive care 2. Low-sodium diet 3. Patient underwent paracentesis 4. Aldacton increased to e 100 mg twice a day 5. Continue with Lasix as ordered 6. Discussed with patient importance of follow-up with gastroenterology outpatient. Patient is cleared from gastroenterology for discharge. Thank you for this consultation. Dr. Lam Meneses I agree with the dictator's note, documented as a scribe by Kaylen Olson.
[2022-09-23] MEDS: MELATONIN 3 MG TABLET PO SCH (21:52)
--- NOTE | 2022-09-23 23:55 | P.PN ---
Subjective Progress Note Date: 09/20/22 Principal diagnosis: Urinary tract infection and C. diff Patient is a 72-year-old female with a past medical history significant for liver cirrhosis and ascites did require paracentesis in the past patient also history of C. difficile colitis COPD esophageal reflux disease presenting to the ER for evaluation of worsening swelling to the abdominal area, patient did have a positive UA concerning for UTI. Patient is status post paracentesis completed on 09/17/2022 with removal of 6 L of fluid On today's evaluation that is patient remains to be afebrile, the patient is breathing comfortably on room air denies any chest pain or shortness of breath or cough no nausea vomiting no abdominal pain and diarrhea has slowed down Objective - Vital Signs Vital signs: Vital Signs Temp 97.1 F L 09/20/22 05:17 Pulse 88 09/20/22 07:58 Resp 16 09/20/22 05:17 BP 136/60 09/20/22 05:17 Pulse Ox 95 09/20/22 05:17 FiO2 Intake & Output 09/19/22 09/20/22 09/20/22 18:59 06:59 18:59 Output Total 252 300 Balance -252 -300 Output: Urine 250 300 Stool 2 Other: Voiding Method Indwelling Catheter Indwelling Catheter - Exam GENERAL DESCRIPTION: An elderly female lying in bed in no distress RESPIRATORY SYSTEM: Unlabored breathing , decreased breath sounds at bases HEART: S1 S2 regular rate and rhythm , ABDOMEN: Soft , no tenderness EXTREMITIES: No edema feet - Labs CBC & Chem 7: 09/22/22 10:29 09/22/22 10:29 Labs: Abnormal Lab Results - Last 24 Hours (Table) 09/20/22 09/20/22 Range/Units 06:56 06:56 RBC 3.14 L (4.10-5.20) X 10*6/uL Hgb 10.1 L (12.0-15.0) g/dL Hct 31.7 L (37.2-46.3) % MCV 101.0 H (80.0-97.0) fL MCH 32.2 H (27.0-32.0) pg MCHC 31.9 L (32.0-37.0) g/dL RDW 14.8 H (11.5-14.5) % Sodium 134 L (135-145) mmol/L Anion Gap 6.20 L (10.00-18.00) mmol/L BUN 8.6 L (9.0-27.0) mg/dL Creatinine 0.5 L (0.6-1.5) mg/dL Calcium 7.7 L (8.7-10.3) mg/dL Microbiology - Last 24 Hours (Table) 09/17/22 15:21 Urine Culture - Final Urine,Catheterized Enterococcus faecium Assessment and Plan (1) Clostridium difficile infection Current Visit: Yes Status: Acute Code(s): A49.8 - OTHER BACTERIAL INFECTIONS OF UNSPECIFIED SITE SNOMED Code(s): 863088386 (2) UTI (urinary tract infection) Current Visit: Yes Status: Acute Code(s): N39.0 - URINARY TRACT INFECTION, SITE NOT SPECIFIED SNOMED Code(s): 66911640 Plan: 1patient with positive UA in this patient presented to hospital for abdominal distention do have a history of cirrhosis and concerning for ascites for possible paracentesis patient did have a indwelling Bird catheter and a positive UA concern for possible Bird colonization versus UTI. 2the patient Bird catheter has been changed repeat urine is positive. Initial urine with E. coli which is sensitive to Rocephin, repeat urine with enterococcus [phone] colonies possible Bird colonization 3Patient seem to have shown improvement with addition of vancomycin which will be continued and monitor clinical course closely Time with Patient: Less than 30
--- NOTE | 2022-09-24 | P.PN ---
Subjective Progress Note Date: 09/23/22 Principal diagnosis: Urinary tract infection and C. diff Patient is a 72-year-old female with a past medical history significant for liver cirrhosis and ascites did require paracentesis in the past patient also history of C. difficile colitis COPD esophageal reflux disease presenting to the ER for evaluation of worsening swelling to the abdominal area, patient did have a positive UA concerning for UTI. Patient is status post paracentesis completed on 09/17/2022 with removal of 6 L of fluid On today's evaluation that is 09/23/2022 patient remains to be afebrile the patient is breathing comfortably on room air patient denies having any chest pain or shortness of breath or cough no nausea vomiting no abdominal pain the patient diarrhea has slowed down no blood or mucus in the stool Objective - Vital Signs Vital signs: Vital Signs Temp 98.3 F 09/23/22 04:35 Pulse 100 09/23/22 09:14 Resp 14 09/23/22 04:35 BP 107/55 09/23/22 04:35 Pulse Ox 92 L 09/23/22 04:35 FiO2 Intake & Output 09/22/22 09/23/22 09/23/22 18:59 06:59 18:59 Intake Total 600 Output Total 350 525 Balance -350 75 Weight 61.235 kg Intake: Intake, IV Titration 200 Amount Albumin Human 25% 50 ml 200 In Empty Bag 1 bag @ 200 mls/hr IVPB Q15M [facility] Rx#: [id number] Oral 400 Output: Urine 350 525 Other: Voiding Method Indwelling Catheter Indwelling Catheter # Bowel Movements 1 - Exam GENERAL DESCRIPTION: An elderly female lying in bed in no distress RESPIRATORY SYSTEM: Unlabored breathing , decreased breath sounds at bases HEART: S1 S2 regular rate and rhythm , ABDOMEN: Soft , no tenderness EXTREMITIES: No edema feet - Labs CBC & Chem 7: 09/22/22 10:29 09/22/22 10:29 Labs: Abnormal Lab Results - Last 24 Hours (Table) 09/22/22 09/22/22 Range/Units 10:29 10:29 RBC 3.29 L (3.80-5.40) m/uL Hgb 10.5 L (11.4-16.0) gm/dL Hct 33.7 L (34.0-46.0) % MCV 102.4 H (80.0-100.0) fL Sodium 131 L (137-145) mmol/L Creatinine 0.47 L (0.52-1.04) mg/dL Calcium 7.8 L (8.4-10.2) mg/dL Assessment and Plan (1) Clostridium difficile infection Current Visit: Yes Status: Acute Code(s): A49.8 - OTHER BACTERIAL INFECTIONS OF UNSPECIFIED SITE SNOMED Code(s): 405224245 (2) UTI (urinary tract infection) Current Visit: Yes Status: Acute Code(s): N39.0 - URINARY TRACT INFECTION, SITE NOT SPECIFIED SNOMED Code(s): 88371292 Plan: 1patient with positive UA in this patient presented to hospital for abdominal distention do have a history of cirrhosis and concerning for ascites for possible paracentesis patient did have a indwelling Bird catheter and a positive UA concern for possible Bird colonization versus UTI. 2the patient Bird catheter has been changed repeat urine is positive. Initial urine with E. coli which is sensitive to Rocephin, repeat urine with enterococcus [phone] colonies possible Bird colonization and hence there is no need for further antibiotic therapy for the positive urine culture. 3patient with diarrhea and recent diagnosis of C. difficile colitis clinically responded to vancomycin to continue to finish 10 days to finish course of therapy and a close outpatient follow-up
[2022-09-24] MEDS: IPRATROPIUM-ALBUTEROL 3 ML NEB INHALATION SCH ×4 (07:25→20:00)
[2022-09-24] MEDS: LIDOCAINE 5% PATCH TOPICAL SCH (10:05)
[2022-09-24] MEDS: PANTOPRAZOLE 40 MG TABLET PO SCH (10:06)
[2022-09-24] MEDS: NICOTINE 14MG/24HR PATCH TRANSDERM SCH (10:06)
[2022-09-24] MEDS: CHOLESTYRAMINE (WITH SUGAR) 4 GM PACKET PO SCH ×2 (10:06→20:41)
[2022-09-24] MEDS: THIAMINE 100 MG TAB PO SCH (10:06)
[2022-09-24] MEDS: FOLIC ACID 1 MG TAB PO SCH (10:07)
[2022-09-24] MEDS: VANCOMYCIN 125 MG CAPSULE PO SCH ×4 (10:07→20:43)
[2022-09-24] MEDS: SPIRONOLACTONE 25 MG TAB PO SCH ×2 (10:07→20:43)
[2022-09-24] MEDS: LACTOBACILLUS ACIDOPH & BULGAR 1 EACH PACKET PO SCH (10:07)
[2022-09-24] MEDS: TAMSULOSIN 0.4 MG CAP.ER.24H PO SCH (10:08)
[2022-09-24] MEDS: FUROSEMIDE 40 MG TAB PO SCH ×2 (10:08→13:52)
[2022-09-24] MEDS: APIXABAN 5 MG TAB PO SCH ×2 (10:08→20:41)
[2022-09-24] MEDS: MIDODRINE 5 MG TAB PO SCH ×2 (10:08→20:43)
[2022-09-24] MEDS: POTASSIUM CHLORIDE ER 20 MEQ TAB.ER PO SCH (10:08)
[2022-09-24] MEDS: MEGESTROL 400 MG/10 ML CUP PO SCH ×2 (10:09→17:53)
--- NOTE | 2022-09-24 14:44 | CDI ---
Documentation Clarification Form Date: 09/24/2022 02:35:00 PM From: Kandice Acevedo CCS, CCDS Admit Date: 09/15/2022 06:02:00 PM Patient Name: Tessy Clinton Visit Number: [id number] Discharge Date: ATTENTION: The Clinical Documentation Specialists (CDI) and [facility] Coding Staff appreciate your assistance in clarifying documentation. Please respond to the clarification below the line at the bottom and electronically sign. The CDI & [facility] Coding staff will review the response and follow-up if needed. Please note: Queries are made part of the Legal Health Record. If you have any questions, please contact the author of this message via ITS. Dr. Bee Sheet: Per the previous Clinical Documentation Query responses on 09/21, please continue to document per the response: 09/21 Clinical Documentation Query: UTI due to Bird Catheter? Response documented on the query form: UTI due to Bird catheter. Per the 09/23 Discharge Summary: UTI without further specificity is documented. 09/21 Clinical Documentation Query: Mild or Moderate Protein Calorie Malnutrition or Other: Response documented on the query form: No Malnutrition. Per the 09/23 Discharge Summary: Protein Calorie Malnutrition is documented. Clarification of the above diagnoses is requested. History/Risk Factors per the 09/16 H/P: Chronic Liver Disease, COPD, Hypertension, Hyperlipidemia, Former smoker. Clinical Indicators: Presented to the ED on 09/15 via EMS from a nursing facility with Ascites with history of liver disease. C Diff Positive on Flagyl. History of urinary retention and has a Bird catheter in place. Admit with Ascites, C Diff infection, DVT bilateral lower limbs, Weakness and Pleural Effusion. 09/15 UA: Light red, Cloudy, 1+ Protein, Large Blood, Positive Nitrite, Large Esterase, RBC >182, WBC 86. 09/15: Urine Culture: (Final): Klebsiella oxytoca, Proteus mirabilis. 09/17 UA: Light Red, Cloudy, 1+ Protein, Large Blood, Positive Nitrite, Large Esterase, RBC 152, WBC >182. 09/17 Urine Culture: (Final): Enterococcus faecium. Nutrition Assessment per the Nursing Assessment (Dietitian has not been consulted) BMI 21.8 Consuming 75-100% of meals. Has mild motor strength weakness, Moderate 1+ bilateral lower extremity edema. Has chronic retention with indwelling catheter. Treatment 09/15: po Flagyl 500 mg TID. 09/16: IV Rocephin 50 mls @ 100 mls/hr q24H. 09/17: Bird catheter changed; culture done. 09/18: po Vancomycin 125 mg QID. po Questran 4 gm BID. Please clarify the following diagnoses: [ ] UTI is due to the Bird Catheter, remains under treatment or resolved. [ ] Protein Calorie Malnutrition is ruled out [ ] Other condition, please specify: [ ] Unable to determine (Template Last Revised: January 2021) UTI is due to the Bird Catheter, resolved. MTDD
[2022-09-24] MEDS: MELATONIN 3 MG TABLET PO SCH (20:41)
--- NOTE | 2022-09-24 22:53 | P.PN ---
Subjective Progress Note Date: 09/24/22 Principal diagnosis: Urinary tract infection and C. diff Patient is a 72-year-old female with a past medical history significant for liver cirrhosis and ascites did require paracentesis in the past patient also history of C. difficile colitis COPD esophageal reflux disease presenting to the ER for evaluation of worsening swelling to the abdominal area, patient did have a positive UA concerning for UTI. Patient is status post paracentesis completed on 09/17/2022 with removal of 6 L of fluid On today's evaluation that is 09/24/2022 patient continues to be afebrile the patient is breathing comfortably on room air patient denies having any chest pain or shortness of breath or cough , the patient denies having any nausea no vomiting no abdominal pain and diarrhea has resolved Objective - Vital Signs Vital signs: Vital Signs Temp 98.1 F 09/24/22 05:00 Pulse 107 H 09/24/22 11:15 Resp 16 09/24/22 05:00 BP 108/60 09/24/22 05:00 Pulse Ox 95 09/24/22 05:00 FiO2 Intake & Output 09/23/22 09/24/22 09/24/22 18:59 06:59 18:59 Intake Total 500 Output Total 1400 750 Balance -1400 -250 Intake: Oral 500 Output: Urine 1400 750 Other: Voiding Method Indwelling Catheter Indwelling Catheter # Bowel Movements 1 - Exam GENERAL DESCRIPTION: An elderly female lying in bed in no distress RESPIRATORY SYSTEM: Unlabored breathing , decreased breath sounds at bases HEART: S1 S2 regular rate and rhythm , ABDOMEN: Soft , no tenderness EXTREMITIES: No edema feet - Labs CBC & Chem 7: 09/22/22 10:29 09/22/22 10:29 Assessment and Plan (1) Clostridium difficile infection Current Visit: Yes Status: Acute Code(s): A49.8 - OTHER BACTERIAL INFECTIONS OF UNSPECIFIED SITE SNOMED Code(s): 074804378 (2) UTI (urinary tract infection) Current Visit: Yes Status: Acute Code(s): N39.0 - URINARY TRACT INFECTION, SITE NOT SPECIFIED SNOMED Code(s): 11139017 Plan: 1patient with positive UA in this patient presented to hospital for abdominal distention do have a history of cirrhosis and concerning for ascites for possible paracentesis patient did have a indwelling Bird catheter and a positive UA concern for possible Bird colonization versus UTI. 2the patient Bird catheter has been changed repeat urine is positive. Initial urine with E. coli which is sensitive to Rocephin, repeat urine with enterococcus [phone] colonies possible Bird colonization and hence there is no need for further antibiotic therapy for the positive urine culture. 3patient with diarrhea and recent diagnosis of C. difficile colitis , patient diarrhea has improved with addition of vancomycin which will be continued for 7 days of discharge and close outpatient follow-up
[2022-09-25] MEDS: LIDOCAINE 5% PATCH TOPICAL SCH (07:40)
[2022-09-25] MEDS: THIAMINE 100 MG TAB PO SCH (07:41)
[2022-09-25] MEDS: TAMSULOSIN 0.4 MG CAP.ER.24H PO SCH (07:41)
[2022-09-25] MEDS: APIXABAN 5 MG TAB PO SCH ×2 (07:41→21:34)
[2022-09-25] MEDS: POTASSIUM CHLORIDE ER 20 MEQ TAB.ER PO SCH (07:41)
[2022-09-25] MEDS: MEGESTROL 400 MG/10 ML CUP PO SCH ×2 (07:42→17:38)
[2022-09-25] MEDS: FOLIC ACID 1 MG TAB PO SCH (07:42)
[2022-09-25] MEDS: SPIRONOLACTONE 25 MG TAB PO SCH ×2 (07:42→21:34)
[2022-09-25] MEDS: LACTOBACILLUS ACIDOPH & BULGAR 1 EACH PACKET PO SCH (07:42)
[2022-09-25] MEDS: NICOTINE 14MG/24HR PATCH TRANSDERM SCH (07:42)
[2022-09-25] MEDS: FUROSEMIDE 40 MG TAB PO SCH ×2 (07:43→12:56)
[2022-09-25] MEDS: PANTOPRAZOLE 40 MG TABLET PO SCH (07:43)
[2022-09-25] MEDS: VANCOMYCIN 125 MG CAPSULE PO SCH ×4 (07:43→21:35)
[2022-09-25] MEDS: MIDODRINE 5 MG TAB PO SCH ×2 (07:43→21:34)
[2022-09-25] MEDS: IPRATROPIUM-ALBUTEROL 3 ML NEB INHALATION SCH ×4 (07:44→20:06)
--- NOTE | 2022-09-25 10:00 | P.PN ---
Subjective Please note that date of service for this note is 09/24/2022 72-year-old female with a past medical history significant for liver cirrhosis and ascites did require paracentesis in the past patient also history of C. difficile colitis COPD esophageal reflux disease presenting to the ER last evening for evaluation of worsening swelling to the abdominal area and this patient symptom has been getting worse for the last few days and need for paracentesis patient did have some dull aching pain 2-3 out of 10 had radiation patient has some nausea but no vomiting and denies having any diarrhea patient on presentation to the hospital was afebrile and no fever has been recorded subsequently patient did have normal white count kidney function has been normal patient did have a cloudy urine with a large leukocyte esterase more than 182 WBC, patient was started on Rocephin concerning for catheter associated UTI 09/18/2022 Patient is seen and evaluated in room at bedside; does report some abdominal discomfort Vital signs are reviewed and are stable Repeat Urine culture reveals group D enterococcus; initial culture growing Klebsiella oxytoca and Proteus sensitive to Rocephin 09/19/2022 Patient is seen and evaluated sitting in bed; no specific complaints Repeat urine culture is growing group D enterococcus; final culture and sensi tivities pending 09/20/2022 Patient lying in bed, with limited movement. She looks a pleasant not in distress. Denies chest pain. No dyspnea were dressed. No abdominal pain. She tolerates diet well She has positive urine culture for enterococcus fecal, looks colonization. Ceftriaxone discontinued. ID team on the case. Continue with oral Vanco for her history of C. diff, patient on cholestyramine. No diarrhea. We'll check ultrasound to rule out ascites Consults GI 09/21/2012 Patient denies any other new symptoms. She tolerates diet. She has abdominal distention. Ultrasound showing moderate ascites, IR team consulted for 1 more paracentesis GI team consulted as well. No need for antibiotics per ID team, patient is an oral Vanco for possible C. diff colitis per ID team. I did a prior authorization for placement of ECF Discussed with staff 09/22/2022 Patient still complaining of from abdominal distention and discomfort with little pain, she is planned for paracentesis by IR team today. [place] tomorrow after the paracentesis Discussed with GI team and they cleared her for discharge after the paracentesis Patient was instructed to follow up with Dr. Meneses as an outpatient in 7-10 days and she agrees. Possible discharge tomorrow after paracentesis done tonight 09/24/2022 Patient initially admitted with UTI associated with her indwelling Bird catheter has been adequately treated. Also patient has chronic C. diff colitis, currently she does not have diarrhea and she supposed to continue with oral vancomycin for 7-10 more days. Patient also with no abdominal pain and tolerates diet. Also patient is on home dose of Eliquis. For her recent history of right leg D VT, patient informed about her rationale for Eliquis and she agrees Patient has history of alcoholic liver disease and she had decompensated liver cirrhosis she underwent paracentesis twice, the last one was 2 days ago when 7.2 L were aspirated. Her abdominal distention and pain resolved since then. Patient is medically cleared for discharge. Yesterday I did pear to [place] Review with Dr. Jenkins from her medical insurance provider, and after discussing the case with her she declined approval, case work aide/social problems specialist on the case was updated. Abdomen that she is medically stable for discharge however patient will need placement as she was unable to take care of herself, as per staff on admission patient was found sitting in her feces therefore she will need help to take care of herself upon discharge. Objective - Vital Signs Vital signs: Vital Signs Temp 97.6 F 09/25/22 04:34 Pulse 100 09/25/22 07:53 Resp 16 09/25/22 04:34 BP 117/61 09/25/22 04:34 Pulse Ox 95 09/25/22 04:34 FiO2 Intake & Output 09/24/22 09/25/22 09/25/22 18:59 06:59 18:59 Intake Total 600 Output Total 990 2100 Balance -990 -1500 Intake: Oral 600 Output: Urine 990 2100 Other: Voiding Method Indwelling Catheter Indwelling Catheter # Bowel Movements 2 - Exam GENERAL: The patient is alert and oriented x3, not in any acute distress. Well developed, well nourished. HEENT: Pupils are round and equally reacting to light. EOMI. No scleral icterus. No conjunctival pallor. Normocephalic, atraumatic. No pharyngeal erythema. No thyromegaly. CARDIOVASCULAR: S1 and S2 present. No murmurs, rubs, or gallops. PULMONARY: Chest is clear to auscultation, no wheezing or crackles. -ABDOMEN: Soft, nontender, distended, normoactive bowel sounds. No palpable organomegaly. MUSCULOSKELETAL: No joint swelling or deformity. EXTREMITIES: No cyanosis, clubbing, or pedal edema. NEUROLOGICAL: Gross neurological examination did not reveal any focal deficits. SKIN: No rashes. no petechiae. - Labs CBC & Chem 7: 09/22/22 10:29 09/22/22 10:29 Assessment and Plan Assessment: Assessment: 1. Ascites related to chronic liver disease, HISTORY of alcoholic cirrhosis - Patient is status post aspiration; consult GI has cleared the patient for discharge 2. UTI, related to indwelling Bird catheter ID team on the case Finished antibiotic course 3. Hypertension; currently not on any antihypertensive therapy 4. COPD; not in exacerbation; we will continue with home inhaler therapy 5. Abdominal pain; resolved 6. Protein calorie malnutrition/anorexia; patient has been placed on Megace 400 mg by mouth twice a day 7. Chronic C. diff, no diarrhea. On oral Vanco for 7-10 days more per ID team 8. History of right leg DVT on a liquid DVT prophylaxis Eliquis GI prophylaxis Protonix Disposition: Patient is medically stable for discharge once placement is been decided and arrange for case work aide/social problems specialist
[2022-09-25] MEDS: CHOLESTYRAMINE (WITH SUGAR) 4 GM PACKET PO SCH ×2 (11:38→21:35)
--- NOTE | 2022-09-25 13:40 | P.PN ---
Subjective Progress Note Date: 09/22/22 Principal diagnosis: Urinary tract infection and C. diff Patient is a 72-year-old female with a past medical history significant for liver cirrhosis and ascites did require paracentesis in the past patient also history of C. difficile colitis COPD esophageal reflux disease presenting to the ER for evaluation of worsening swelling to the abdominal area, patient did have a positive UA concerning for UTI. Patient is status post paracentesis completed on 09/17/2022 with removal of 6 L of fluid On today's evaluation that is 09/22/2022 patient denies having any fever or any chills patient is breathing comfortably on room air the patient denies having any chest pain or shortness of the abdominal pain has improved no nausea vomiting and diarrhea has slowed down Objective - Vital Signs Vital signs: Vital Signs Temp 97.5 F L 09/22/22 11:18 Pulse 97 09/22/22 11:18 Resp 18 09/22/22 11:18 BP 103/57 09/22/22 11:18 Pulse Ox 97 09/22/22 11:18 FiO2 Intake & Output 09/21/22 09/22/22 09/22/22 18:59 06:59 18:59 Output Total 1 826 Balance -1 -826 Output: Urine 825 Stool 1 1 Other: Voiding Method Indwelling Catheter Indwelling Catheter Indwelling Catheter # Bowel Movements 1 1 - Exam GENERAL DESCRIPTION: An elderly female lying in bed in no distress RESPIRATORY SYSTEM: Unlabored breathing , decreased breath sounds at bases HEART: S1 S2 regular rate and rhythm , ABDOMEN: Soft , no tenderness EXTREMITIES: No edema feet - Labs CBC & Chem 7: 09/22/22 10:29 09/22/22 10:29 Labs: Abnormal Lab Results - Last 24 Hours (Table) 09/22/22 09/22/22 Range/Units 10:29 10:29 RBC 3.29 L (3.80-5.40) m/uL Hgb 10.5 L (11.4-16.0) gm/dL Hct 33.7 L (34.0-46.0) % MCV 102.4 H (80.0-100.0) fL Sodium 131 L (137-145) mmol/L Creatinine 0.47 L (0.52-1.04) mg/dL Calcium 7.8 L (8.4-10.2) mg/dL Assessment and Plan (1) Clostridium difficile infection Current Visit: Yes Status: Acute Code(s): A49.8 - OTHER BACTERIAL INFECTIONS OF UNSPECIFIED SITE SNOMED Code(s): 779512398 (2) UTI (urinary tract infection) Current Visit: Yes Status: Acute Code(s): N39.0 - URINARY TRACT INFECTION, SITE NOT SPECIFIED SNOMED Code(s): 32122419 Plan: 1patient with positive UA in this patient presented to hospital for abdominal distention do have a history of cirrhosis and concerning for ascites for possible paracentesis patient did have a indwelling Bird catheter and a positive UA concern for possible Bird colonization versus UTI. 2the patient Bird catheter has been changed repeat urine is positive. Initial urine with E. coli which is sensitive to Rocephin, repeat urine with enterococcus [phone] colonies possible Bird colonization 3Patient with diarrhea and a recent diagnosis of C. difficile colitis in this patient did have improvement in the diarrhea with addition of vancomycin which will be continued and monitor clinical course closely Time with Patient: Less than 30
--- NOTE | 2022-09-25 13:40 | P.PN ---
Subjective Progress Note Date: 09/21/22 Principal diagnosis: Urinary tract infection and C. diff Patient is a 72-year-old female with a past medical history significant for liver cirrhosis and ascites did require paracentesis in the past patient also history of C. difficile colitis COPD esophageal reflux disease presenting to the ER for evaluation of worsening swelling to the abdominal area, patient did have a positive UA concerning for UTI. Patient is status post paracentesis completed on 09/17/2022 with removal of 6 L of fluid On today's evaluation that is 09/21/2022 patient continues to be afebrile, the patient is breathing comfortably on room air denies any chest pain shortness of breath or cough no nausea vomiting no abdominal pain and diarrhea has slowed down per the nursing staff Objective - Vital Signs Vital signs: Vital Signs Temp 99.2 F 09/21/22 20:36 Pulse 110 H 09/21/22 20:36 Resp 16 09/21/22 20:36 BP 118/60 09/21/22 20:36 Pulse Ox 95 09/21/22 20:36 FiO2 Intake & Output 09/21/22 09/21/22 09/22/22 06:59 18:59 06:59 Output Total 900 1 Balance -900 -1 Output: Urine 900 Stool 1 Other: Voiding Method Indwelling Catheter Indwelling Catheter # Bowel Movements 0 1 - Exam GENERAL DESCRIPTION: An elderly female lying in bed in no distress RESPIRATORY SYSTEM: Unlabored breathing , decreased breath sounds at bases HEART: S1 S2 regular rate and rhythm , ABDOMEN: Soft , no tenderness EXTREMITIES: No edema feet - Labs CBC & Chem 7: 09/22/22 10:29 09/22/22 10:29 Labs: Abnormal Lab Results - Last 24 Hours (Table) 09/21/22 09/21/22 Range/Units 03:42 03:42 RBC 3.19 L (4.10-5.20) X 10*6/uL Hgb 9.8 L (12.0-15.0) g/dL Hct 31.9 L (37.2-46.3) % MCV 100.0 H (80.0-97.0) fL MCHC 30.7 L (32.0-37.0) g/dL RDW 14.8 H (11.5-14.5) % Eosinophils # 0.03 L (0.04-0.35) X 10*3/uL Sodium 134 L (135-145) mmol/L Anion Gap 4.90 L (10.00-18.00) mmol/L BUN 7.3 L (9.0-27.0) mg/dL Creatinine 0.4 L (0.6-1.5) mg/dL Calcium 8.0 L (8.7-10.3) mg/dL Conjugated Bilirubin <0.20 L (0.20-0.40) mg/dL Total Protein 3.9 L (6.2-8.2) g/dL Albumin 2.1 L (3.8-4.9) g/dL Albumin/Globulin Ratio 1.08 L (1.60-3.17) g/dL Assessment and Plan (1) Clostridium difficile infection Current Visit: Yes Status: Acute Code(s): A49.8 - OTHER BACTERIAL INFECTIONS OF UNSPECIFIED SITE SNOMED Code(s): 995211061 (2) UTI (urinary tract infection) Current Visit: Yes Status: Acute Code(s): N39.0 - URINARY TRACT INFECTION, SITE NOT SPECIFIED SNOMED Code(s): 84194861 Plan: 1patient with positive UA in this patient presented to hospital for abdominal distention do have a history of cirrhosis and concerning for ascites for possible paracentesis patient did have a indwelling Bird catheter and a positive UA concern for possible Bird colonization versus UTI. 2the patient Bird catheter has been changed repeat urine is positive. Initial urine with E. coli which is sensitive to Rocephin, repeat urine with enterococcus [phone] colonies possible Bird colonization 3Patient with recent diagnosis of C. difficile and did have extensive diarrhea as well as antibiotic exposure patient has shown clinical improvement however the vancomycin will be continued to finish her 10-day course of therapy Time with Patient: Less than 30
[2022-09-25] MEDS: MELATONIN 3 MG TABLET PO SCH (21:34)
--- NOTE | 2022-09-26 04:16 | PN ---
PROGRESS NOTE DATE OF SERVICE: 09/25/2022 SUBJECTIVE: This 72-year-old woman was admitted with multiple medical issues as ascites related to chronic liver disease and UTI. The patient is an ECF resident. No chest pain. No palpitations. No fever. Patient's appetite is improving. OBJECTIVE: VITAL SIGNS: Pulse 104, blood pressure 119/63, respirations 16. CHEST: Clear to auscultation. CARDIOVASCULAR: S1, S2. ABDOMEN: Soft, minimal ascites present. LABORATORY DATA: Reviewed. ASSESSMENT: 1. Ascites secondary to chronic liver disease. 2. Urinary tract infection. 3. Hypertension. 4. Multiple medical issues. 5. Gait dysfunction. PLAN: She was recommended to continue current medications, continue symptomatic treatment. Otherwise PT/OT evaluation. Increase ambulation. Possible ECF rehab on Tuesday. Further recommendations to follow. MMGABBIL / KENDRICKN: [id number] /
[2022-09-26] MEDS: MIDODRINE 5 MG TAB PO SCH ×2 (07:38→21:30)
[2022-09-26] MEDS: NICOTINE 14MG/24HR PATCH TRANSDERM SCH (07:38)
[2022-09-26] MEDS: MEGESTROL 400 MG/10 ML CUP PO SCH ×2 (07:38→17:56)
[2022-09-26] MEDS: LIDOCAINE 5% PATCH TOPICAL SCH (07:38)
[2022-09-26] MEDS: THIAMINE 100 MG TAB PO SCH (07:38)
[2022-09-26] MEDS: POTASSIUM CHLORIDE ER 20 MEQ TAB.ER PO SCH (07:39)
[2022-09-26] MEDS: VANCOMYCIN 125 MG CAPSULE PO SCH ×4 (07:39→21:30)
[2022-09-26] MEDS: FOLIC ACID 1 MG TAB PO SCH (07:39)
[2022-09-26] MEDS: PANTOPRAZOLE 40 MG TABLET PO SCH (07:39)
[2022-09-26] MEDS: LACTOBACILLUS ACIDOPH & BULGAR 1 EACH PACKET PO SCH (07:39)
[2022-09-26] MEDS: SPIRONOLACTONE 25 MG TAB PO SCH ×2 (07:39→21:30)
[2022-09-26] MEDS: TAMSULOSIN 0.4 MG CAP.ER.24H PO SCH (07:40)
[2022-09-26] MEDS: APIXABAN 5 MG TAB PO SCH ×2 (07:40→21:29)
[2022-09-26] MEDS: FUROSEMIDE 40 MG TAB PO SCH ×2 (07:40→12:17)
[2022-09-26] MEDS: IPRATROPIUM-ALBUTEROL 3 ML NEB INHALATION SCH ×4 (09:05→21:46)
[2022-09-26] MEDS: CHOLESTYRAMINE (WITH SUGAR) 4 GM PACKET PO SCH ×2 (12:17→21:29)
--- NOTE | 2022-09-26 15:59 | P.PN ---
Subjective Progress Note Date: 09/25/22 Principal diagnosis: Urinary tract infection and C. diff Patient is a 72-year-old female with a past medical history significant for liver cirrhosis and ascites did require paracentesis in the past patient also history of C. difficile colitis COPD esophageal reflux disease presenting to the ER for evaluation of worsening swelling to the abdominal area, patient did have a positive UA concerning for UTI. Patient is status post paracentesis completed on 09/17/2022 with removal of 6 L of fluid On today's evaluation that is 09/25/2022 patient remains to be afebrile, patient is breathing comfortably on room air the patient denies having any chest pain or shortness of breath, no nausea no vomiting no abdominal pain and diarrhea has decreased Objective - Vital Signs Vital signs: Vital Signs Temp 98.1 F 09/25/22 11:56 Pulse 104 H 09/25/22 11:56 Resp 16 09/25/22 11:56 BP 119/53 09/25/22 11:56 Pulse Ox 96 09/25/22 11:56 FiO2 Intake & Output 09/24/22 09/25/22 09/25/22 18:59 06:59 18:59 Intake Total 600 Output Total 990 2100 Balance -990 -1500 Intake: Oral 600 Output: Urine 990 2100 Other: Voiding Method Indwelling Catheter Indwelling Catheter Indwelling Catheter # Bowel Movements 2 - Exam GENERAL DESCRIPTION: An elderly female lying in bed in no distress RESPIRATORY SYSTEM: Unlabored breathing , decreased breath sounds at bases HEART: S1 S2 regular rate and rhythm , ABDOMEN: Soft , no tenderness EXTREMITIES: No edema feet - Labs CBC & Chem 7: 09/22/22 10:29 09/22/22 10:29 Assessment and Plan (1) Clostridium difficile infection Current Visit: Yes Status: Acute Code(s): A49.8 - OTHER BACTERIAL INFECTIONS OF UNSPECIFIED SITE SNOMED Code(s): 959601480 (2) UTI (urinary tract infection) Current Visit: Yes Status: Acute Code(s): N39.0 - URINARY TRACT INFECTION, SITE NOT SPECIFIED SNOMED Code(s): 40078519 Plan: 1patient with positive UA in this patient presented to hospital for abdominal distention do have a history of cirrhosis and concerning for ascites for possible paracentesis patient did have a indwelling Bird catheter and a positive UA concern for possible Bird colonization versus UTI. 2the patient Bird catheter has been changed repeat urine is positive. Initial urine with E. coli which is sensitive to Rocephin, repeat urine with enterococcus [phone] colonies possible Bird colonization 3Patient with diarrhea and a recent diagnosis of C. difficile colitis, patient had shown clinical response to vancomycin will be continued to finish her course of therapy Time with Patient: Less than 30
--- NOTE | 2022-09-26 16:00 | P.PN ---
Subjective Progress Note Date: 09/26/22 Principal diagnosis: Urinary tract infection and C. diff Patient is a 72-year-old female with a past medical history significant for liver cirrhosis and ascites did require paracentesis in the past patient also history of C. difficile colitis COPD esophageal reflux disease presenting to the ER for evaluation of worsening swelling to the abdominal area, patient did have a positive UA concerning for UTI. Patient is status post paracentesis completed on 09/17/2022 with removal of 6 L of fluid On today's evaluation that is 09/26/2022 patient continues to be afebrile, patient is breathing comfortably on room air the patient denies chest pain or shortness of breath, the patient denies nausea no vomiting no abdominal pain and diarrhea has resolved Objective - Vital Signs Vital signs: Vital Signs Temp 98.1 F 09/26/22 12:33 Pulse 103 H 09/26/22 13:03 Resp 18 09/26/22 12:33 BP 110/67 09/26/22 12:33 Pulse Ox 96 09/26/22 12:33 FiO2 Intake & Output 09/25/22 09/26/22 09/26/22 18:59 06:59 18:59 Output Total 2049 1899 Balance -2049 -1899 Output: Urine 2049 1899 Other: Voiding Method Indwelling Catheter Indwelling Catheter Indwelling Catheter # Bowel Movements 1 - Exam GENERAL DESCRIPTION: An elderly female lying in bed in no distress RESPIRATORY SYSTEM: Unlabored breathing , decreased breath sounds at bases HEART: S1 S2 regular rate and rhythm , ABDOMEN: Soft , no tenderness EXTREMITIES: No edema feet - Labs CBC & Chem 7: 09/22/22 10:29 09/22/22 10:29 Assessment and Plan (1) Clostridium difficile infection Current Visit: Yes Status: Acute Code(s): A49.8 - OTHER BACTERIAL INFECTIONS OF UNSPECIFIED SITE SNOMED Code(s): 480060283 (2) UTI (urinary tract infection) Current Visit: Yes Status: Acute Code(s): N39.0 - URINARY TRACT INFECTION, SITE NOT SPECIFIED SNOMED Code(s): 72876576 Plan: 1patient with positive UA in this patient presented to hospital for abdominal distention do have a history of cirrhosis and concerning for ascites for possible paracentesis patient did have a indwelling Bird catheter and a positive UA concern for possible Bird colonization versus UTI. 2the patient Bird catheter has been changed repeat urine is positive. Initial urine with E. coli which is sensitive to Rocephin, repeat urine with enterococcus [phone] colonies possible Bird colonization 3Patient with diarrhea and a recent diagnosis of C. difficile colitis, patient had shown clinical response to vancomycin will be continued to finish a 10 day course of therapy, Questran to be use as needed and hold if no bowel movement for 24 hour Time with Patient: Less than 30
[2022-09-26 19:38] VITALS: RESP 16
[2022-09-26] MEDS: MELATONIN 3 MG TABLET PO SCH (21:30)
--- NOTE | 2022-09-27 05:29 | PN ---
PROGRESS NOTE DATE OF SERVICE: 09/16/2022 SUBJECTIVE: This 72-year-old woman who was admitted with significant ascites and also pleural effusion. The patient also is extremely weak. ECF rehab is being planned. No chest pain. No palpitation. PHYSICAL EXAMINATION: VITAL SIGNS: Pulse is 93, blood pressure 110/69, respirations 18. CHEST: Clear to auscultation. Cardiovascular: S1, S2. ABDOMEN: Soft, ascites present much less compared to admission. LABORATORY DATA: Hemoglobin 10.5. Rest of the labs are noted. ASSESSMENT: 1. Ascites secondary to chronic liver disease. 2. Acute urinary tract infection. 3. Hypertension. 4. History of multiple medications. 5. Gait dysfunction. RECOMMENDATIONS: Recommend to continue current medical management and symptomatic treatment. Otherwise closely follow. PT/OT evaluation and possible ECF rehab within the next 24 hours. LAUREN / KIMMY: [id number] /
[2022-09-27] MEDS: FOLIC ACID 1 MG TAB PO SCH (08:53)
[2022-09-27] MEDS: APIXABAN 5 MG TAB PO SCH (08:53)
[2022-09-27] MEDS: NICOTINE 14MG/24HR PATCH TRANSDERM SCH (08:54)
[2022-09-27] MEDS: LIDOCAINE 5% PATCH TOPICAL SCH (08:54)
[2022-09-27] MEDS: FUROSEMIDE 40 MG TAB PO SCH ×2 (08:54→13:08)
[2022-09-27] MEDS: POTASSIUM CHLORIDE ER 20 MEQ TAB.ER PO SCH (08:54)
[2022-09-27] MEDS: THIAMINE 100 MG TAB PO SCH (08:54)
[2022-09-27] MEDS: CHOLESTYRAMINE (WITH SUGAR) 4 GM PACKET PO SCH (08:54)
[2022-09-27] MEDS: PANTOPRAZOLE 40 MG TABLET PO SCH (08:54)
[2022-09-27] MEDS: TAMSULOSIN 0.4 MG CAP.ER.24H PO SCH (08:54)
[2022-09-27] MEDS: LACTOBACILLUS ACIDOPH & BULGAR 1 EACH PACKET PO SCH (08:54)
[2022-09-27] MEDS: SPIRONOLACTONE 25 MG TAB PO SCH (08:54)
[2022-09-27] MEDS: VANCOMYCIN 125 MG CAPSULE PO SCH ×2 (08:55→13:08)
[2022-09-27] MEDS: MIDODRINE 5 MG TAB PO SCH (08:55)
[2022-09-27] MEDS: MEGESTROL 400 MG/10 ML CUP PO SCH (08:55)
[2022-09-27] MEDS: IPRATROPIUM-ALBUTEROL 3 ML NEB INHALATION SCH ×2 (09:50→12:37)
[2022-09-27 12:13] VITALS: BP 132/76; TEMP 98.1
[2022-09-27 12:40] VITALS: PULSE 96
--- NOTE | 2022-09-27 13:01 | P.DS ---
Providers Date of admission: 09/15/22 18:02 Expected date of discharge: 09/27/22 Attending physician: Lenora Mittal Consults: 09/16/22 09:53 Consult Physician Urgent Consulting Provider: Amaya Sims Consult Reason/Comments: UTI, ascites, cdiff Do you want consulting provider notified?: Yes Primary care physician: [facility] Course: Final diagnosis UTI, present on admission due to indwelling Bird catheter. Resolved Ascites, secondary to chronic liver disease Hypertension Gait dysfunction History of alcoholic cirrhosis History of COPD, not in exacerbation Mild protein calorie malnutrition with anorexia Clostridium difficile colitis History of right leg DVT, on eliquis GI prophylaxis Full code Discharge disposition Patient is being discharged in a stable condition with guarded prognosis to [facility]. Patient will follow-up with in the outpatient setting upon discharge. Patient is to continue with hemodialysis as scheduled. Total time taken is greater than 35 minutes. Hospital course This is a 61-year-old male who was recently admitted with significant ascites and also pleural effusions with continued weakness. Patient had been at [facility] and has been in and out of the hospital multiple times over the last few months. Patient is significantly weak and will be going to [facility] for continued PT/OT therapy. Patient did have paracentesis on admission with approximately 4 L removed. Patient will need close outpatient follow-up with pulmonary along with GI and primary care provider follow-up. Also with C. diff colitis and has been evaluated by infectious disease recommending continuing Vanco oral 4 times daily for the next 10 days to complete the course. Patient to continue on Aldactone and Lasix and close monitoring of electrolytes and kidney functions. Recommend repeat labs in 2-3 days of CBC, BMP. She has been cleared by consultations and will be going to [facility] today. Currently no reports of chest pain, shortness of breath, or palpitations. Patient is afebrile. No reports of nausea or vomiting and patient is tolerating diet. Patient will be discharged today. Guarded prognosis. Physical exam: Gen: This is a 72-year-old female awake, alert and oriented 2-3, thin built, elderly appearing female HEENT: Head is atraumatic, normocephalic. Pupils equal, round. Sclerae is anicteric. NECK: Supple. No JVD. No lymphadenopathy. No thyromegaly. LUNGS: Diminished breath sounds bilaterally with some scattered rhonchi and crackles noted at the bases. No intercostal retractions. HEART: S1, S2 are muffled. No murmur. ABDOMEN: Soft. Bowel sounds are present. No masses. No tenderness. Mildly distended EXTREMITIES: No pedal edema. No calf tenderness. NEUROLOGICAL: Patient is awake, alert and oriented x3. Cranial nerves 2 through 12 are grossly intact. Diffusely weak Please refer to medication reconciliation sheet for a list of medications. The impression and plan of care has been dictated by Berta Brown, Nurse Practitioner as directed. Dr. Kyrie MD I have performed a history and examination and MDM of this patient, discussed the same with the dictator, and agree with the dictator's assessment and plan as written ,documented as a scribe. Based on total visit time, I have performed more than 50% of the visit. Patient Condition at Discharge: Stable Plan - Discharge Summary Discharge Rx Participant: Yes New Discharge Prescriptions: New Spironolactone [Aldactone] 100 mg PO BID #60 tab Lidocaine 5% Patch [Lidoderm 5% Patch] 1 patch TOPICAL DAILY patch Potassium Chloride ER [K-Dur 20] 10 meq PO DAILY tab Midodrine [ProAmatine] 10 mg PO BID tab Vancomycin 125 mg PO QID 10 Days #40 cap Continue Ipratropium-Albuterol Nebulize [Duoneb 0.5 mg-3 mg/3 ml Soln] 3 ml INHALATION RT-QID each Thiamine [Vitamin B-1] 100 mg PO DAILY Omeprazole 20 mg PO DAILY Ipratropium-Albuterol Nebulize [Duoneb 0.5 mg-3 mg/3 ml Soln] 3 ml INHALATION RT-Q12H PRN PRN Reason: Shortness Of Breath Or Wheezing Tamsulosin [Flomax] 0.4 mg PO DAILY Multivitamins, Thera [Multivitamin (formulary)] 1 tab PO DIRECTED Loperamide HCl [Imodium A-D] 2 mg PO DIRECTED PRN PRN Reason: Loose Stool Furosemide [Lasix] 40 mg PO BID@0900,1300 Apixaban [Eliquis] 5 mg PO BID@0900,1700 Magnesium Oxide [Mag-Ox] 400 mg PO DIRECTED Lactobacillus Acidophilus [Acidophilus] 1 tab PO DAILY@0900 Nicotine 14Mg/24Hr Patch [Habitrol] 1 patch TRANSDERM DAILY patch Acetaminophen [Tylenol] 650 mg PO Q6H PRN PRN Reason: Fever And/ Or Pain Folic Acid 1 mg PO DAILY 30 Days #30 tablet Potassium Chloride ER [K-Dur 20] 20 meq PO DAILY tab Megestrol Acetate 400 mg PO BID@0900,1700 Changed Melatonin 3 mg PO HS PRN #0 tab PRN Reason: Insomnia Discontinued Midodrine HCl [ProAmatine] 10 mg PO TID@0900,1300,2100 Cholestyramine (with Sugar) [Questran Packet] 4 gm PO BID@0900,1700 traMADol HCl [Ultram] 25 mg PO Q6H PRN PRN Reason: Moderate To Severe Pain metroNIDAZOLE [Flagyl] 500 mg PO TID@0900,1300,2100 Discharge Medication List Ipratropium-Albuterol Nebulize [Duoneb 0.5 mg-3 mg/3 ml Soln] 3 ml INHALATION RT-QID each 07/14/22 [Rx] Nicotine 14Mg/24Hr Patch [Habitrol] 1 patch TRANSDERM DAILY patch 07/14/22 [Rx] Acetaminophen [Tylenol] 650 mg PO Q6H PRN 08/09/22 [History] Ipratropium-Albuterol Nebulize [Duoneb 0.5 mg-3 mg/3 ml Soln] 3 ml INHALATION RT-Q12H PRN 08/09/22 [History] Omeprazole 20 mg PO DAILY 08/09/22 [History] Tamsulosin [Flomax] 0.4 mg PO DAILY 08/09/22 [History] Thiamine [Vitamin B-1] 100 mg PO DAILY 08/09/22 [History] Folic Acid 1 mg PO DAILY 30 Days #30 tablet 08/13/22 [Rx] Multivitamins, Thera [Multivitamin (formulary)] 1 tab PO DIRECTED 08/31/22 [History] Potassium Chloride ER [K-Dur 20] 20 meq PO DAILY tab 09/03/22 [Rx] Apixaban [Eliquis] 5 mg PO BID@0900,1700 09/15/22 [History] Furosemide [Lasix] 40 mg PO BID@0900,1300 09/15/22 [History] Lactobacillus Acidophilus [Acidophilus] 1 tab PO DAILY@0900 09/15/22 [History] Loperamide HCl [Imodium A-D] 2 mg PO DIRECTED PRN 09/15/22 [History] Magnesium Oxide [Mag-Ox] 400 mg PO DIRECTED 09/15/22 [History] Megestrol Acetate 400 mg PO BID@0900,1700 09/15/22 [History] Melatonin 3 mg PO HS PRN #0 tab 09/23/22 [Rx] Midodrine [ProAmatine] 10 mg PO BID tab 09/23/22 [Rx] Potassium Chloride ER [K-Dur 20] 10 meq PO DAILY tab 09/23/22 [Rx] Spironolactone [Aldactone] 100 mg PO BID #60 tab 09/24/22 [Rx] Vancomycin 125 mg PO QID 10 Days #40 cap 09/24/22 [Rx] Lidocaine 5% Patch [Lidoderm 5% Patch] 1 patch TOPICAL DAILY patch 09/27/22 [Rx] Follow up Appointment(s)/Referral(s): Isa Meneses MD [STAFF PHYSICIAN] - 11/02/22 3:45 pm Amaya Sims MD [STAFF PHYSICIAN] - 10/11/22 2:15 pm () Quinn Mancuso MD [Primary Care Provider] - 1-2 days Activity/Diet/Wound Care/Special Instructions: Patient is going to [facility] Recommend continue with dysphagia 2 ground diet with low-sodium and continue fluid restriction 1.5 L per day activity as tolerated we recommend to monitor potassium level as she is on potassium supplementation and lasix and aldactone, please check BMP in 2-3 days Recommend continue with oral vancomycin to complete a ten-day course per ID recommendations Discharge Disposition: TRANSFER TO SNF/ECF
== END 2022-09-27 15:40 | DRG 699 ==
LOC: EC 15:40 → 4SSUR 18:02 → 5NMEDONC 18:30
PROVIDERS: ADMIT Hospitalist; ATTEND Hospitalist
PROC: 0W9G3ZZ Drainage of Peritoneal Cavity, Percutaneous Approach (ICD-10-PCS; principal; 2022-09-17)
PROC: 0W9G3ZZ Drainage of Peritoneal Cavity, Percutaneous Approach (ICD-10-PCS; 2022-09-23)
DX: T83.511A Infection and inflammatory reaction due to indwelling urethral catheter, initial encounter (principal); A04.71 Enterocolitis due to Clostridium difficile, recurrent; J90 Pleural effusion, not elsewhere classified; E44.1 Mild protein-calorie malnutrition; K70.31 Alcoholic cirrhosis of liver with ascites; J44.9 Chronic obstructive pulmonary disease, unspecified; N39.0 Urinary tract infection, site not specified; M50.20 Other cervical disc displacement, unspecified cervical region; B96.1 Klebsiella pneumoniae [K. pneumoniae] as the cause of diseases classified elsewhere; B96.4 Proteus (mirabilis) (morganii) as the cause of diseases classified elsewhere; B95.2 Enterococcus as the cause of diseases classified elsewhere; K21.9 Gastro-esophageal reflux disease without esophagitis; E78.5 Hyperlipidemia, unspecified; I10 Essential (primary) hypertension; R26.9 Unspecified abnormalities of gait and mobility; R33.9 Retention of urine, unspecified; M19.90 Unspecified osteoarthritis, unspecified site; Z79.01 Long term (current) use of anticoagulants; Z79.899 Other long term (current) drug therapy; Z87.891 Personal history of nicotine dependence; Z96.60 Presence of unspecified orthopedic joint implant; Z86.718 Personal history of other venous thrombosis and embolism; Z71.3 Dietary counseling and surveillance; Y84.6 Urinary catheterization as the cause of abnormal reaction of the patient, or of later complication, without mention of misadventure at the time of the procedure
CPT/HCPCS: 36415; 49083; 71046; 76705; 80048; 80053; 80076; 81001; 82150; 83690; 83735; 85025; 85027; 85610; 85730; 86850; 86900; 86901; 87077; 87086; 87186; 93005; 94640; 99285